=== PATIENT | female | born 1935 | race Caucasian/White ===

== ENCOUNTER 2018-08-07 16:29 | Emergency (ER) | payer MEDICARE, BC ==
--- NOTE | 2018-08-07 17:53 | EDM.PDOC ---
ED HPI GENERAL MEDICAL PROBLEM - General Chief Complaint: Lower Extremity Injury/Pain Stated Complaint: SENT FROM CLINIC [facility] Time Seen by Provider: 08/07/18 16:58 Source of Information: Reports: Patient, Old Records (previous ER records) History Limitations: Reports: No Limitations - History of Present Illness INITIAL COMMENTS - FREE TEXT/NARRATIVE: 83-year-old female sent from the clinic for evaluation and treatment of swelling to the bilateral lower legs. Feels that the left is worse than the right and she is now experiencing weeping from the left leg. She denies any pain to her legs. No chest pain or shortness of breath. Reports that she has gained approximately 20 pounds over the last 2 months. Her primary care providers Dr. Croft. She is currently on Lasix 20 mg twice a day and states she has not had this increasing quite some time. Review the patient's records show she was seen in May 2015 leg edema. Had an ultrasound done which was negative. The swelling to the legs has been going on at least since then. - Related Data Allergies Allergy/AdvReac Type Severity Reaction Status Date / Time Sulfa (Sulfonamide Allergy Hives Verified 08/07/18 16:39 Antibiotics) verapamil HCl [From [facility]] Allergy Cannot Verified 08/07/18 16:39 Remember Home Meds: Home Meds Calcium Carbonate/Vitamin D3 [Calcium 600 + Vit D 200] 200 - 600 mg PO DAILY [History] Cranberry Fruit Extract [Cranberry] 500 mg PO DAILY 06/09/15 [History] Enalapril [Vasotec] 40 mg PO DAILY 06/09/15 [History] Lysine [L-Lysine] 500 mg PO DAILY 06/09/15 [History] Pramipexole Di-HCl [Mirapex] 0.25 mg PO BID 06/09/15 [History] Atenolol 25 mg PO DAILY 08/07/18 [History] Furosemide [Lasix] 20 mg PO BID 08/07/18 [History] Potassium Chloride 20 meq PO DAILY #14 tablet.er 08/07/18 [Rx] Past Medical History Other HEENT History: has bilateral hearing aides, wears eyeglasses. Cardiovascular History: Reports: High Cholesterol, Hypertension Other Cardiovascular History: borderline cholesterol. Respiratory History: Reports: Pneumonia, Recurrent Genitourinary History: Reports: Urinary Incontinence, UTI, Recurrent Other Genitourinary History: stress incontinence. [employer] HYDRAULIC History: Reports: Other Neuro History: arterial venuous fistula--repair, cobalt Tx's. - Infectious Disease History Infectious Disease History: Reports: Chicken Pox, Measles, Mumps, Pertussis ( Whooping Cough) - Past Surgical History Other HEENT Surgeries/Procedures: adenoid surgery. GI Surgical History: Reports: Colonoscopy Female Surgical History: Reports: Hysterectomy Musculoskeletal Surgical History: Reports: Knee Replacement Social & Family History - Tobacco Use Smoking Status *Q: Never Smoker Second Hand Smoke Exposure: No - Caffeine Use Caffeine Use: Reports: Coffee - Recreational Drug Use Recreational Drug Use: No Review of Systems - Review of Systems Review Of Systems: See Below Constitutional: Reports: Other (reports recent weight gain) Respiratory: Denies: Shortness of Breath Cardiovascular: Reports: Edema (bilateral lower legs). Denies: Chest Pain Musculoskeletal: Denies: Leg Pain ED EXAM, GENERAL - Physical Exam Exam: See Below Exam Limited By: No Limitations General Appearance: Alert, WD/WN, No Apparent Distress Respiratory/Chest: No Respiratory Distress, Lungs Clear, Normal Breath Sounds Cardiovascular: Normal Peripheral Pulses, Regular Rate, Rhythm, No Murmur Extremities: Normal Inspection, Other (3+ bilteral pitting edema) Neurological: Alert, Oriented, Normal Cognition Psychiatric: Normal Affect, Normal Mood Skin Exam: Warm, Dry, Normal Color, Other (venous stasis dermatitis to the left medial lower leg) Course - Vital Signs Last Recorded V/S: Last Vital Signs Temp 97.2 F 08/07/18 19:05 Pulse 92 08/07/18 19:05 Resp 18 08/07/18 19:05 BP 196/76 H 08/07/18 19:05 Pulse Ox 99 08/07/18 19:05 - Orders/Labs/Meds Labs: Laboratory Tests 08/07/18 08/07/18 08/07/18 Range/Units 17:15 17:30 17:30 WBC 5.57 (3.98-10.04) K/mm3 RBC 4.48 (3.98-5.22) M/mm3 Hgb 13.8 (11.2-15.7) gm/L Hct 42.2 (34.1-44.9) % MCV 94.2 (79.4-94.8) fl MCH 30.8 (25.6-32.2) pg MCHC 32.7 (32.2-35.5) g/dl RDW Std Deviation 44.4 (36.4-46.3) fL Plt Count 247 (182-369) K/mm3 MPV 11.1 (9.4-12.3) fl Neut % (Auto) 67.9 (34.0-71.1) % Lymph % (Auto) 18.5 L (19.3-51.7) % [place] % (Auto) 11.7 (4.7-12.5) % Eos % (Auto) 1.3 (0.7-5.8) Baso % (Auto) 0.4 (0.1-1.2) % Neut # (Auto) 3.79 (1.56-6.13) K/mm3 Lymph # (Auto) 1.03 L (1.18-3.74) K/mm3 [place] # (Auto) 0.65 H (0.24-0.36) K/mm3 Eos # (Auto) 0.07 (0.04-0.36) K/mm3 Baso # (Auto) 0.02 (0.01-0.08) K/mm3 Sodium 144 (136-145) mEq/L Potassium 3.5 (3.5-5.1) mEq/L Chloride 105 (98-107) mEq/L Carbon Dioxide 29 (21-32) mEq/L Anion Gap 13.5 (5-15) BUN 37 H (7-18) mg/dL Creatinine 1.4 H (0.55-1.02) mg/dL Est Cr Clr Drug Dosing 26.75 mL/min Estimated GFR (MDRD) 36 (>60) mL/min BUN/Creatinine Ratio 26.4 H (14-18) Glucose 116 H (83-115) mg/dL Calcium 9.8 (8.5-10.1) mg/dL Total Bilirubin 0.7 (0.2-1.0) mg/dL AST 20 (15-37) U/L ALT 26 (14-59) U/L Alkaline Phosphatase 76 (46-116) U/L NT-Pro-B Natriuret Pep (0-450) pg/mL Total Protein 8.0 (6.4-8.2) g/dl Albumin 4.0 (3.4-5.0) g/dl Globulin 4.0 gm/dL Albumin/Globulin Ratio 1.0 (1-2) Urine Color Light yellow (Yellow) Urine Appearance Clear (Clear) Urine pH 7.0 (5.0-8.0) Ur Specific [place] 1.015 (1.005-1.030) Urine Protein Negative (Negative) Urine Glucose (UA) Negative (Negative) Urine Ketones Negative (Negative) Urine Occult Blood Negative (Negative) Urine Nitrite Negative (Negative) Urine Bilirubin Negative (Negative) Urine Urobilinogen 0.2 (0.2-1.0) Ur Leukocyte Esterase 1+ H (Negative) Urine RBC 0-5 (0-5) /hpf Urine WBC 5-10 H (0-5) /hpf Ur Epithelial Cells 0-5 (0-5) /hpf Urine Bacteria Few (FEW) /hpf Urine Mucus Not seen (FEW) /hpf 08/07/18 Range/Units 17:30 WBC (3.98-10.04) K/mm3 RBC (3.98-5.22) M/mm3 Hgb (11.2-15.7) gm/L Hct (34.1-44.9) % MCV (79.4-94.8) fl MCH (25.6-32.2) pg MCHC (32.2-35.5) g/dl RDW Std Deviation (36.4-46.3) fL Plt Count (182-369) K/mm3 MPV (9.4-12.3) fl Neut % (Auto) (34.0-71.1) % Lymph % (Auto) (19.3-51.7) % [place] % (Auto) (4.7-12.5) % Eos % (Auto) (0.7-5.8) Baso % (Auto) (0.1-1.2) % Neut # (Auto) (1.56-6.13) K/mm3 Lymph # (Auto) (1.18-3.74) K/mm3 [place] # (Auto) (0.24-0.36) K/mm3 Eos # (Auto) (0.04-0.36) K/mm3 Baso # (Auto) (0.01-0.08) K/mm3 Sodium (136-145) mEq/L Potassium (3.5-5.1) mEq/L Chloride (98-107) mEq/L Carbon Dioxide (21-32) mEq/L Anion Gap (5-15) BUN (7-18) mg/dL Creatinine (0.55-1.02) mg/dL Est Cr Clr Drug Dosing mL/min Estimated GFR (MDRD) (>60) mL/min BUN/Creatinine Ratio (14-18) Glucose (83-115) mg/dL Calcium (8.5-10.1) mg/dL Total Bilirubin (0.2-1.0) mg/dL AST (15-37) U/L ALT (14-59) U/L Alkaline Phosphatase (46-116) U/L NT-Pro-B Natriuret Pep 559 H (0-450) pg/mL Total Protein (6.4-8.2) g/dl Albumin (3.4-5.0) g/dl Globulin gm/dL Albumin/Globulin Ratio (1-2) Urine Color (Yellow) Urine Appearance (Clear) Urine pH (5.0-8.0) Ur Specific [place] (1.005-1.030) Urine Protein (Negative) Urine Glucose (UA) (Negative) Urine Ketones (Negative) Urine Occult Blood (Negative) Urine Nitrite (Negative) Urine Bilirubin (Negative) Urine Urobilinogen (0.2-1.0) Ur Leukocyte Esterase (Negative) Urine RBC (0-5) /hpf Urine WBC (0-5) /hpf Ur Epithelial Cells (0-5) /hpf Urine Bacteria (FEW) /hpf Urine Mucus (FEW) /hpf - Radiology Interpretation Free Text/Narrative:: chest xray shows no congestion, mild cardiomegaly. No acute intrathoracic process. - Re-Assessments/Exams Free Text/Narrative Re-Assessment/Exam: 08/07/18 18:43 I have reviewed the labs and xray with the patient. Will increase lasix and start on potassium. She is hesitant on doubling the lasix but will increase to 40mg am and 20mg PM. Close follow-up with PCP. Discharge instructions as documented. Departure - Departure Time of Disposition: 18:47 Disposition: Home, Self-Care 01 Condition: Good Clinical Impression: Edema - Discharge Information *PRESCRIPTION DRUG MONITORING PROGRAM REVIEWED*: No *COPY OF PRESCRIPTION DRUG MONITORING REPORT IN PATIENT SHAUN: No Prescriptions: Potassium Chloride 20 meq PO DAILY #14 tablet.er Instructions: Edema Referrals: Eliezer Stanley MD [Primary Care Provider] - Forms: ED Department Discharge Additional Instructions: Follow-up with your primary care provider within 2 weeks for recheck of your symptoms. Increase your Lasix to 40 mg in the morning and 20 mg in the afternoon. Low sodium diet. Continue to use your compression stockings. Elevate your legs is much as you are able to tolerate. Please return the ER if your symptoms change or worsen.
[2018-08-07 19:18] VITALS: BP 196/76
--- NOTE | 2018-08-08 06:57 | CR ---
Chest: Two views of the chest were obtained. Comparison: No prior chest x-ray is available. Heart is mildly enlarged with left ventricular configuration. Lungs are clear with no acute parenchymal change. Mild diffuse degenerative change is noted within the spine with kyphosis. Impression: 1. Findings as noted above. Nothing acute is appreciated. Diagnostic code #2
== END 2018-08-07 19:15 | disposition home or self-care (01) ==
LOC: JD.ED 16:29
DX: R22.9 Localized swelling, mass and lump, unspecified (principal); I10 Essential (primary) hypertension; E78.00 Pure hypercholesterolemia, unspecified; Z79.899 Other long term (current) drug therapy; Z87.440 Personal history of urinary (tract) infections; Z90.710 Acquired absence of both cervix and uterus; Z98.890 Other specified postprocedural states; Z88.1 Allergy status to other antibiotic agents; Z88.2 Allergy status to sulfonamides; Z88.8 Allergy status to other drugs, medicaments and biological substances
CPT/HCPCS: 36415; 71046; 71046-26; 80053; 81001; 83880; 85025; 99284

== ENCOUNTER 2020-02-18 18:50 | Emergency (ER) | payer MEDICARE, BC, OTHER ==
--- NOTE | 2020-02-18 19:12 | EDM.PDOC ---
ED HPI GENERAL MEDICAL PROBLEM - General Chief Complaint: General Stated Complaint: [facility] Time Seen by Provider: 02/18/20 18:56 Source of Information: Reports: Patient, EMS History Limitations: Reports: No Limitations - History of Present Illness INITIAL COMMENTS - FREE TEXT/NARRATIVE: 84-year-old female presents to the ED per [facility]. History suggest that she fell in her garage and was lying on the floor when her daughter found her. Patient reports that she was in the garage about 1700 hrs. and her daughter came over shortly after 1730 hrs. She is unsure why she collapsed. She indicates that her legs simply gave out and she fell to the floor. She indicates she fell forward onto her knees and hands and did not hit her head. She denies losing any consciousness. She feels dizzy and lightheaded however. She is off balance even standing at the bedside. On examination she has abrasions to her left upper back that are new as well as some ecchymoses to her elbows and lower right knee. The ecchymosis in the right upper shoulder is at least 2 or 3 days old . She denies any nausea or vomiting. She states she has eaten twice a day. She went for her 6-week post op bladder repair surgery yesterday and all was well. Apparently this was Dr. Lane at [facility] in [place]. She did have a Tong catheter in for a period of time. She reports she believes her urinalysis was checked yesterday. Told that all was well. By the sounds of things she had a rectocele cystocele repair. Onset: Today, Sudden Onset Date: 02/18/20 Onset Time: 17:00 Duration: Hour(s):, Intermittent Location: Reports: Back, Generalized (Generalized weakness) Quality: Reports: Other Severity: Moderate (Neurolysed weakness) Improves with: Reports: None Worsens with: Reports: Other Context: Reports: Trauma (All in the garage at home due to leg weakness and gave out on her.). Denies: Activity, Exercise (Thing in standing as she is off balance and weak in the legs.), Lifting, Sick Contact Associated Symptoms: Reports: Loss of Appetite, Malaise, Weakness (Normalized.). 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.) - Related Data Allergies Allergy/AdvReac Type Severity Reaction Status Date / Time Sulfa (Sulfonamide Allergy Hives Verified 02/18/20 18:55 Antibiotics) verapamil HCl [From [facility]] Allergy Cannot Verified 02/18/20 18:55 Remember Home Meds: Home Meds Enalapril [Vasotec] 40 mg PO DAILY 06/09/15 [History] Lysine [L-Lysine] 500 mg PO DAILY 06/09/15 [History] Pramipexole Di-HCl [Mirapex] 1 mg PO BID 06/09/15 [History] Furosemide [Lasix] 40 mg PO BID 08/07/18 [History] Labetalol [Normodyne] 100 mg PO TID 02/18/20 [History] Loratadine [Allergy] 10 mg PO DAILY 02/18/20 [History] traZODone HCl [Trazodone HCl] 100 mg PO BEDTIME 02/18/20 [History] Past Medical History Other HEENT History: has bilateral hearing aides, wears eyeglasses. Cardiovascular History: Reports: High Cholesterol, Hypertension Other Cardiovascular History: borderline cholesterol. Respiratory History: Reports: Pneumonia, Recurrent Genitourinary History: Reports: Urinary Incontinence, UTI, Recurrent Other Genitourinary History: stress incontinence. 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 Gamma knife treatment at the [facility] about 3 years ago. - Infectious Disease History Infectious Disease History: Reports: Chicken Pox, Measles, Mumps, Pertussis (Whooping Cough) - Past Surgical History Other HEENT Surgeries/Procedures: adenoid surgery. GI Surgical History: Reports: Colonoscopy Female Surgical History: Reports: Hysterectomy Musculoskeletal Surgical History: Reports: Knee Replacement Social & Family History - Caffeine Use Caffeine Use: Reports: Coffee - Living Situation & Occupation Living situation: Reports: Occupation: Retired ED ROS GENERAL - Review of Systems Review Of Systems: See Below Constitutional: Reports: Malaise, Weakness, Fatigue, Decreased Appetite. Denies: Fever, Chills, Weight Loss HEENT: Reports: Hearing Loss (Bilateral hearing aids.) Respiratory: Reports: No Symptoms. Denies: Cough, Sputum, Hemoptysis Cardiovascular: Reports: Dyspnea on Exertion, Edema (Running in both lower extremities. Wears bilateral JORDAN stockings above-knee), Lightheadedness. Denies: Chest Pain, Blood Pressure Problem, Claudication, Orthopnea, Palpit ations Endocrine: Reports: Fatigue GI/Abdominal: Reports: Decreased Appetite. Denies: Diarrhea, Flatus, Hematemesis, Hematochezia, Melena, Nausea, Vomiting, Other : Reports: Frequency, Incontinence (She is better since she had bladder surgery. Better since having bladder repair surgery 6 weeks ago), Other. Denies: Dysuria Musculoskeletal: Reports: Neck Pain (Times.), Shoulder Pain, Back Pain, Joint Pain (Specially left hip due to degenerative degenerative arthritis. She has had previous right total knee replacement. Arthritis both hips both knees.) Skin: Reports: Bruising (Is. Posterior shoulder over the shoulder blade.) Neurological: Reports: Dizziness (He does appear to be off kilter with her balance.), Difficulty Walking, Weakness, Gait Disturbance (Backseat gait.). Denies: Confusion, Headache, Numbness, Syncope, Tingling, Tremors, Trouble Speaking (Due to weakness and being off balance.), Change in Speech Psychiatric: Reports: No Symptoms Hematologic/Lymphatic: Reports: No Symptoms Immunologic: Reports: No Symptoms ED EXAM, GENERAL - Physical Exam Exam: See Below Exam Limited By: No Limitations General Appearance: Alert, WD/WN, Mild Distress, Other (Temperature is 36.8. Heart rate 107 and sinus. Respiratory 16 BP 107/65) Eye Exam: Bilateral Eye: Normal Inspection (Referral pallor or scleral icterus.), PERRL Ears: Hearing Loss (Is hearing aids in both ears.) Throat/Mouth: Normal Lips, Normal Oropharynx, Normal Voice, Other (Tongue is mildly dry and coated.) Head: Atraumatic, Normocephalic, Other (No signs of head or facial trauma.). No: Facial Swelling, Facial Tenderness Neck: Limited Range of Motion (We did), Tender Lateral (Only tender bilateral aspect of the neck. Essentially near full range of motion without pain.). No: Carotid Bruit, Lymphadenopathy (L), Lymphadenopathy (R), Thyromegaly Respiratory/Chest: No Respiratory Distress, Lungs Clear, Normal Breath Sounds, No Accessory Muscle Use, Chest Non-Tender, Other Cardiovascular: Regular Rate, Rhythm, No Gallop, No Murmur, No Rub. No: Normal Peripheral Pulses, No Edema Peripheral Pulses: 1+: Posterior Tibial (L), Posterior Tibial (R), Dorsalis Pedis (L), Dorsalis Pedis (R), 2+: Carotid (L), Carotid (R) GI/Abdominal: Normal Bowel Sounds, Soft, Non-Tender, No Organomegaly, No Abnormal Bruit, No Mass, Pelvis Stable Back Exam: Other (And has ecchymoses almost the size of her right scapula overlying the right scapula nontender. These bruises appear to be 3 or 4 days old. She cannot member how she got them. She has a linear abrasion over the left scapula starting superiorly and traveling vertically down her back again seems to be nontender without hematoma. She has had previous surgery over her lumbar spine she states in July scar is healing well. She is tender in this area but more less around the scar. No tenderness elicited on palpation of her rib cage chest wall or sternum. Pain elicited on compression of the thoracic and lumbar spinous processes.) Extremities: Pedal Edema (Was pitting edema both lower extremities wearing JORDAN stockings up above the knees bilaterally.), Other (Minimal abrasions over the right patella. New bruise probably over the medial right elbow.). No: Joint Swelling Neurological: Alert, Oriented, CN II-XII Intact, Normal Cognition, Abnormal Gait, Other (Patient has an ataxic gait.). No: Normal Gait Psychiatric: Normal Affect, Normal Mood Skin Exam: Warm, Dry, Intact, Pallor (Mildly pallid.) EKG INTERPRETATION EKG Date: 02/18/20 Time: 19:19 Rhythm: Other Rate (Beats/Min): 104 Mcgill: LAD-Left Mcgill Deviation (-56 degrees.) P-Wave: Enlarged (Left atrial hypertrophy) QRS: Other (Left anterior fascicular block.) ST-T: Depressed (T-segment depression appreciated V3 to V6 is also as well as leads II and III cannot rule out anterior inferior ischemia.) QT: Prolonged (Moderately prolonged) EKG Interpretation Comments: Abnormal ECG Course - Vital Signs Last Recorded V/S: Last Vital Signs Temp 36.2 C 02/18/20 21:36 Pulse 92 02/18/20 21:36 Resp 16 02/18/20 21:36 BP 117/66 02/18/20 21:36 Pulse Ox 99 02/18/20 21:36 Orthostatic Blood Pressure [ 100/58 Standing] Orthostatic Blood Pressure [ 101/46 Supine] - Orders/Labs/Meds Orders: Active Orders 24 hr Category Date Time Status EKG Documentation Completion [RC] STAT Care 02/18/20 19:07 Active Orthostatic Vital Signs [RC] ASDIRECTED Care 02/18/20 19:14 Active Oxygen Therapy [RC] ASDIRECTED Care 02/18/20 20:10 Active Chest 1V Frontal [CR] Stat Exams 02/18/20 19:07 Taken CULTURE BLOOD [BC] Stat Lab 02/18/20 19:32 Received CULTURE BLOOD [BC] Stat Lab 02/18/20 19:44 Received CULTURE URINE [RM] Stat Lab 02/18/20 19:05 Received Dextrose 5%-Lactated Ringers 1,000 ml Med 02/18/20 19:15 Active IV ASDIRECTED Blood Culture x2 Reflex Set [OM.PC] Stat Oth 02/18/20 19:08 Ordered Medication Orders Dextrose/Lactated Ringer's (Dextrose 5%-Lactated Ringers) 1,000 mls @ 150 mls/hr IV ASDIRECTED ASA Last Admin: 02/18/20 19:27 Dose: 150 mls/hr Documented by: HETAL Labs: Laboratory Tests 02/18/20 02/18/20 02/18/20 Range/Units 19:05 19:32 19:32 WBC 14.96 H (3.98-10.04) K/mm3 RBC 3.98 (3.98-5.22) M/mm3 Hgb 12.2 D (11.2-15.7) gm/dl Hct 38.2 (34.1-44.9) % MCV 96.0 H (79.4-94.8) fl MCH 30.7 (25.6-32.2) pg MCHC 31.9 L (32.2-35.5) g/dl RDW Std Deviation 46.7 H (36.4-46.3) fL Plt Count 245 (182-369) K/mm3 MPV 11.3 (9.4-12.3) fl Neut % (Auto) 88.5 H (34.0-71.1) % Lymph % (Auto) 3.0 L (19.3-51.7) % [place] % (Auto) 7.9 (4.7-12.5) % Eos % (Auto) 0.3 L (0.7-5.8) Baso % (Auto) 0.1 (0.1-1.2) % Neut # (Auto) 13.23 H (1.56-6.13) K/mm3 Lymph # (Auto) 0.45 L (1.18-3.74) K/mm3 [place] # (Auto) 1.18 H (0.24-0.36) K/mm3 Eos # (Auto) 0.05 (0.04-0.36) K/mm3 Baso # (Auto) 0.02 (0.01-0.08) K/mm3 Manual Slide Review Abnormal smear ESR (0-20) mm/hr PT 10.5 (9.7-12.0) SECONDS INR 0.96 APTT 27 (22-31) SECONDS D-Dimer, Quantitative (0.19-0.50) mg/L Sodium (136-145) mEq/L Potassium (3.5-5.1) mEq/L Chloride (98-107) mEq/L Carbon Dioxide (21-32) mEq/L Anion Gap (5-15) BUN (7-18) mg/dL Creatinine (0.55-1.02) mg/dL Est Cr Clr Drug Dosing mL/min Estimated GFR (MDRD) (>60) mL/min BUN/Creatinine Ratio (14-18) Glucose (83-115) mg/dL Serum Osmolality (280-300) mosm/kg Calcium (8.5-10.1) mg/dL Magnesium (1.8-2.4) mg/dl Total Bilirubin (0.2-1.0) mg/dL AST (15-37) U/L ALT (14-59) U/L Alkaline Phosphatase (46-116) U/L Creatine Kinase (26-192) U/L CK-MB (CK-2) (0-3.6) ng/ml Troponin I (0.00-0.056) ng/mL C-Reactive Protein (<1.0) mg/dL NT-Pro-B Natriuret Pep (0-450) pg/mL Total Protein (6.4-8.2) g/dl Albumin (3.4-5.0) g/dl Globulin gm/dL Albumin/Globulin Ratio (1-2) Urine Color Yellow (Yellow) Urine Appearance Clear (Clear) Urine pH 7.5 (5.0-8.0) Ur Specific [place] 1.020 (1.005-1.030) Urine Protein 1+ H (Negative) Urine Glucose (UA) Negative (Negative) Urine Ketones Negative (Negative) Urine Occult Blood 1+ H (Negative) Urine Nitrite Negative (Negative) Urine Bilirubin Negative (Negative) Urine Urobilinogen 0.2 (0.2-1.0) Ur Leukocyte Esterase 1+ H (Negative) Urine RBC 10-20 H (0-5) /hpf Urine WBC 10-20 H (0-5) /hpf Ur Squamous Epith Cells 0-5 (0-5) /hpf Urine Bacteria Few (FEW) /hpf Urine Mucus Few (FEW) /hpf COVID-19 (SERGEI) (NEGATIVE) 02/18/20 02/18/20 02/18/20 Range/Units 19:32 19:32 19:32 WBC (3.98-10.04) K/mm3 RBC (3.98-5.22) M/mm3 Hgb (11.2-15.7) gm/dl Hct (34.1-44.9) % MCV (79.4-94.8) fl MCH (25.6-32.2) pg MCHC (32.2-35.5) g/dl RDW Std Deviation (36.4-46.3) fL Plt Count (182-369) K/mm3 MPV (9.4-12.3) fl Neut % (Auto) (34.0-71.1) % Lymph % (Auto) (19.3-51.7) % [place] % (Auto) (4.7-12.5) % Eos % (Auto) (0.7-5.8) Baso % (Auto) (0.1-1.2) % Neut # (Auto) (1.56-6.13) K/mm3 Lymph # (Auto) (1.18-3.74) K/mm3 [place] # (Auto) (0.24-0.36) K/mm3 Eos # (Auto) (0.04-0.36) K/mm3 Baso # (Auto) (0.01-0.08) K/mm3 Manual Slide Review ESR 39 H (0-20) mm/hr PT (9.7-12.0) SECONDS INR APTT (22-31) SECONDS D-Dimer, Quantitative (0.19-0.50) mg/L Sodium 137 (136-145) mEq/L Potassium 3.8 (3.5-5.1) mEq/L Chloride 98 (98-107) mEq/L Carbon Dioxide 30 (21-32) mEq/L Anion Gap 12.8 (5-15) BUN 36 H (7-18) mg/dL Creatinine 1.7 H (0.55-1.02) mg/dL Est Cr Clr Drug Dosing 0.94 mL/min Estimated GFR (MDRD) 29 (>60) mL/min BUN/Creatinine Ratio 21.2 H (14-18) Glucose 169 H (83-115) mg/dL Serum Osmolality (280-300) mosm/kg Calcium 9.2 (8.5-10.1) mg/dL Magnesium 2.2 (1.8-2.4) mg/dl Total Bilirubin 0.9 (0.2-1.0) mg/dL AST 26 (15-37) U/L ALT 21 (14-59) U/L Alkaline Phosphatase 80 (46-116) U/L Creatine Kinase (26-192) U/L CK-MB (CK-2) 5.0 H (0-3.6) ng/ml Troponin I 1.579 H* (0.00-0.056) ng/mL C-Reactive Protein 2.8 H* (<1.0) mg/dL NT-Pro-B Natriuret Pep 479 H (0-450) pg/mL Total Protein 7.4 (6.4-8.2) g/dl Albumin 3.5 (3.4-5.0) g/dl Globulin 3.9 gm/dL Albumin/Globulin Ratio 0.9 L (1-2) Urine Color (Yellow) Urine Appearance (Clear) Urine pH (5.0-8.0) Ur Specific [place] (1.005-1.030) Urine Protein (Negative) Urine Glucose (UA) (Negative) Urine Ketones (Negative) Urine Occult Blood (Negative) Urine Nitrite (Negative) Urine Bilirubin (Negative) Urine Urobilinogen (0.2-1.0) Ur Leukocyte Esterase (Negative) Urine RBC (0-5) /hpf Urine WBC (0-5) /hpf Ur Squamous Epith Cells (0-5) /hpf Urine Bacteria (FEW) /hpf Urine Mucus (FEW) /hpf COVID-19 (SERGEI) (NEGATIVE) 02/18/20 02/18/20 02/18/20 Range/Units 19:32 19:32 19:32 WBC (3.98-10.04) K/mm3 RBC (3.98-5.22) M/mm3 Hgb (11.2-15.7) gm/dl Hct (34.1-44.9) % MCV (79.4-94.8) fl MCH (25.6-32.2) pg MCHC (32.2-35.5) g/dl RDW Std Deviation (36.4-46.3) fL Plt Count (182-369) K/mm3 MPV (9.4-12.3) fl Neut % (Auto) (34.0-71.1) % Lymph % (Auto) (19.3-51.7) % [place] % (Auto) (4.7-12.5) % Eos % (Auto) (0.7-5.8) Baso % (Auto) (0.1-1.2) % Neut # (Auto) (1.56-6.13) K/mm3 Lymph # (Auto) (1.18-3.74) K/mm3 [place] # (Auto) (0.24-0.36) K/mm3 Eos # (Auto) (0.04-0.36) K/mm3 Baso # (Auto) (0.01-0.08) K/mm3 Manual Slide Review ESR (0-20) mm/hr PT (9.7-12.0) SECONDS INR APTT (22-31) SECONDS D-Dimer, Quantitative 2.08 H (0.19-0.50) mg/L Sodium (136-145) mEq/L Potassium (3.5-5.1) mEq/L Chloride (98-107) mEq/L Carbon Dioxide (21-32) mEq/L Anion Gap (5-15) BUN (7-18) mg/dL Creatinine (0.55-1.02) mg/dL Est Cr Clr Drug Dosing mL/min Estimated GFR (MDRD) (>60) mL/min BUN/Creatinine Ratio (14-18) Glucose (83-115) mg/dL Serum Osmolality 304 H (280-300) mosm/kg Calcium (8.5-10.1) mg/dL Magnesium (1.8-2.4) mg/dl Total Bilirubin (0.2-1.0) mg/dL AST (15-37) U/L ALT (14-59) U/L Alkaline Phosphatase (46-116) U/L Creatine Kinase 468 H (26-192) U/L CK-MB (CK-2) (0-3.6) ng/ml Troponin I (0.00-0.056) ng/mL C-Reactive Protein (<1.0) mg/dL NT-Pro-B Natriuret Pep (0-450) pg/mL Total Protein (6.4-8.2) g/dl Albumin (3.4-5.0) g/dl Globulin gm/dL Albumin/Globulin Ratio (1-2) Urine Color (Yellow) Urine Appearance (Clear) Urine pH (5.0-8.0) Ur Specific [place] (1.005-1.030) Urine Protein (Negative) Urine Glucose (UA) (Negative) Urine Ketones (Negative) Urine Occult Blood (Negative) Urine Nitrite (Negative) Urine Bilirubin (Negative) Urine Urobilinogen (0.2-1.0) Ur Leukocyte Esterase (Negative) Urine RBC (0-5) /hpf Urine WBC (0-5) /hpf Ur Squamous Epith Cells (0-5) /hpf Urine Bacteria (FEW) /hpf Urine Mucus (FEW) /hpf COVID-19 (SERGEI) (NEGATIVE) 02/18/20 Range/Units 22:10 WBC (3.98-10.04) K/mm3 RBC (3.98-5.22) M/mm3 Hgb (11.2-15.7) gm/dl Hct (34.1-44.9) % MCV (79.4-94.8) fl MCH (25.6-32.2) pg MCHC (32.2-35.5) g/dl RDW Std Deviation (36.4-46.3) fL Plt Count (182-369) K/mm3 MPV (9.4-12.3) fl Neut % (Auto) (34.0-71.1) % Lymph % (Auto) (19.3-51.7) % [place] % (Auto) (4.7-12.5) % Eos % (Auto) (0.7-5.8) Baso % (Auto) (0.1-1.2) % Neut # (Auto) (1.56-6.13) K/mm3 Lymph # (Auto) (1.18-3.74) K/mm3 [place] # (Auto) (0.24-0.36) K/mm3 Eos # (Auto) (0.04-0.36) K/mm3 Baso # (Auto) (0.01-0.08) K/mm3 Manual Slide Review ESR (0-20) mm/hr PT (9.7-12.0) SECONDS INR APTT (22-31) SECONDS D-Dimer, Quantitative (0.19-0.50) mg/L Sodium (136-145) mEq/L Potassium (3.5-5.1) mEq/L Chloride (98-107) mEq/L Carbon Dioxide (21-32) mEq/L Anion Gap (5-15) BUN (7-18) mg/dL Creatinine (0.55-1.02) mg/dL Est Cr Clr Drug Dosing mL/min Estimated GFR (MDRD) (>60) mL/min BUN/Creatinine Ratio (14-18) Glucose (83-115) mg/dL Serum Osmolality (280-300) mosm/kg Calcium (8.5-10.1) mg/dL Magnesium (1.8-2.4) mg/dl Total Bilirubin (0.2-1.0) mg/dL AST (15-37) U/L ALT (14-59) U/L Alkaline Phosphatase (46-116) U/L Creatine Kinase (26-192) U/L CK-MB (CK-2) (0-3.6) ng/ml Troponin I (0.00-0.056) ng/mL C-Reactive Protein (<1.0) mg/dL NT-Pro-B Natriuret Pep (0-450) pg/mL Total Protein (6.4-8.2) g/dl Albumin (3.4-5.0) g/dl Globulin gm/dL Albumin/Globulin Ratio (1-2) Urine Color (Yellow) Urine Appearance (Clear) Urine pH (5.0-8.0) Ur Specific [place] (1.005-1.030) Urine Protein (Negative) Urine Glucose (UA) (Negative) Urine Ketones (Negative) Urine Occult Blood (Negative) Urine Nitrite (Negative) Urine Bilirubin (Negative) Urine Urobilinogen (0.2-1.0) Ur Leukocyte Esterase (Negative) Urine RBC (0-5) /hpf Urine WBC (0-5) /hpf Ur Squamous Epith Cells (0-5) /hpf Urine Bacteria (FEW) /hpf Urine Mucus (FEW) /hpf COVID-19 (SERGEI) Negative (NEGATIVE) Meds: Medications Generic Name Dose Route Start Last Admin Trade Name Freq PRN Reason Stop Dose Admin Dextrose/Lactated Ringer's 1,000 mls @ 150 mls/hr 02/18/20 19:15 02/18/20 19:27 Dextrose 5%-Lactated Ringers IV 150 mls/hr ASDIRECTED ASA Administration Discontinued Medications Generic Name Dose Route Start Last Admin Trade Name Freq PRN Reason Stop Dose Admin Ceftriaxone Sodium 1 gm/ 100 mls @ 200 mls/hr 02/18/20 21:15 02/18/20 21:36 Sodium Chloride IV 02/18/20 21:44 200 mls/hr ONETIME ONE Administration - Radiology Interpretation Free Text/Narrative:: 84-year-old female presents to the ED after a fall in her garage at home presumably around 1700 hrs. is what the patient indicates. She was found by her daughter at 1730 hrs. on the garage floor too weak to get up. The ambulance was therefore summoned. Likely that it was around 1830 when her daughter found her as she presented to the ED shortly before 7 PM tonight. She indicates she had surgery on her bladder about 6 weeks ago lumbar spine surgery in July of this year. Her legs have been weak the last few days and she states they simply gave out on her causing her to fall to her knees in the garage today. She denies hitting her head or losing consciousness. She denies a headache nausea or vomiting. Janata bowel movement shortly after getting to the ED. Noted to be ataxic when we stand her up and lightheaded and grasping for something to hang onto. Examination does not reveal any signs of trauma to the head or neck. Bruising on the right scapula which is 3 to 4 days old. Abrasion linearly on the left upper back over the scapula without signs of fracture. She has a new bruise appearing on her right posterior elbow with olecranon process. Minimal contusion to the right patella. Has terrible arthritis in both hips previous right total knee replacement and left knee arthritis on exam. Chronic dependent edema both lower extremities. Plan : CT head. Chest x-ray 1 view. Routine labs to be performed. IV will be D5 LR at 150 mils per hour. He will be placed on oxygen 2 L/min as initial O2 sats suggest she is only 90% on room air. - Re-Assessments/Exams Free Text/Narrative Re-Assessment/Exam: 02/18/20 20:54 chest x-ray done portably is slightly rotated to the right. She has mildly hyperinflated lungs bilaterally. Mild prominence of the right pulmonary artery. Otherwise the lungs are clear. Mild cardiomegaly appreciated. Unchanged from comparison to previous chest x-ray. The of the brain has been completed. With no contrast. Ventricles along with both basal cisterns and sulci over the convexities are mildly prominent consistent with the patient's age. Diminished density is noted within portions of the periventricular white matter which is most likely due to small vessel ischemic demyelination change. Similar findings appear to be present within the javad. No other abnormal parenchymal densities are seen. Small area of increased density is noted within the left basal ganglia. This finding is suspicious for a small basal ganglia bleed measuring about 7.5 mm. No midline shift or mass- effect is seen. Bone window settings were reviewed. Mild soft tissue density seen within the inferior left mastoid sinus. Right mastoid sinuses are clear. Visualized paranasal sinuses are clear no discrete calvarial abnormality appreciated. 02/18/20 20:58 Hematology is back revealing an elevated white count at 14.96. There is a left shift with 88.5% neutrophils reported on the auto differential. Hemoglobin is 12.2 with hematocrit of 38.2. MCV is slightly elevated 96.0. Platelet count normal at 245,000. The slide reveals normal adequate platelets. Normal RBC morphology morphology. White blood cell count review reveals neutrophilia lymphopenia and no bands cells reported. PT is 10.5 with an INR of 0.96. PTT is 27. D-dimer is elevated at 2.08. Sodium is 137 with a potassium of 3.8. Chloride is 98 with a bicarb of 30. Anion gap is 12.8. BUN is 36 with a creatinine of 1.7 GFR is very low at 29 i.e. stage IV chronic kidney disease. BUN/creatinine ratio mildly elevated 21.2 suggesting mild volume depletion. Glucose elevated 169. Patient is diabetic. Calcium is 9.2 with a magnesium of 2.2. Total bilirubin 0.9. AST is 26 with an ALT of 21. Alk phosphatase is 80. CK-MB fraction is elevated at 5.0 with a troponin I elevated at 1.579 suggesting recent myocardial infarction. C-reactive protein is 2.8 with a BNP of 479. Total protein 7.4 with an albumin fraction of 3.5. Urinalysis shows 1+ proteinuria 1+ occult blood 1+ leukocyte esterase with 10-20 RBCs per per field and 10-20 white blood cells per high-power field. Note elevated troponin correlates with ECG changes which suggest non-STEMI involving the anterior septal and inferior cardona. With questionable hemorrhage into the left basal ganglia anticoagulation with heparin is contraindicated at this time. Therefore the patient will have to sent to [place] for cardiology consultation and treatment and MRI of her brain to rule out hemorrhage in the left basal ganglia before placing on any anticoagulation. 02/18/20 21:14 patient and daughter in the room and I discussed the findings today. Possible low-grade urinary tract infection we will give Rocephin 1 g IV. Elevated cardiac markers and ECG changes compatible with a non-STEMI. Questionable bleed within the left basal ganglia reported by radiology. 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 She has lost her balance since that time she believes that slowly getting worse. She wishes to be transferred to [facility] in [place] for cardiology management and rule out a brain bleed. On permanent questioning she did have some bad heartburn night before last which likely represented acute myocardial infarction. She has no history of HI. These changes seen in the left basal ganglia may well be due to calcification from previous gamma knife treatment of an AV malformation. An MRI of her brain will need to be done to rule out a bleed before she is placed on any anticoagulant. 02/18/20 22:05: Discussed the patient with the on-call nurse at [facility] approximately 2145 hrs. tonight but hospitalist was unavailable to accept my call in the call back around 2205 hrs. Care has been accepted after discussion with Dr. [employer] community relations coordinator and Dr. Dumont hospitalist. Plan will be to admit her to a telemetry bed and monitor her without heparin or anticoagulation. MRI of the brain in the morning to confirm whether or not there is any bleed within the left basal ganglia. 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 Clinically however she has suffered a non- STEMI with elevated cardiac markers and abnormal ECG. Urine has been sent for culture for possible urinary tract infection. Departure - Departure Time of Disposition: 22:50 Disposition: DC/Tfer to Acute Hospital 02 Condition: Fair Clinical Impression: Non-STEMI (non-ST elevated myocardial infarction), Abnormal electrocardiogram [ECG] [EKG], Elevated troponin I measurement, Urinary tract infection, Abnormal brain CT, Chronic renal insufficiency, stage IV (severe), Volume depletion, unspecified - Discharge Information *PRESCRIPTION DRUG MONITORING PROGRAM REVIEWED*: Not Applicable *COPY OF PRESCRIPTION DRUG MONITORING REPORT IN PATIENT SHAUN: Not Applicable Referrals: PCP,Unknown [Ordering Only Provider] - Forms: ED Department Discharge Additional Instructions: Patient will be transferred to [facility] in [place] for cardiology assessment and treatment. She has an abnormal ECG and elevated cardiac markers suggestive of a non-STEMI. She had quite bad heartburn night before last but no pain at present. Fall at home in her garage today with minimal injuries to right knee right elbow and left upper back. 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 Patient has an ataxic gait which she comments is always present worse getting worse however. Patient has a positive urinalysis after cystocele and rectocele repair [address] Balbuena [facility]. Patient has received Rocephin 1 g IV. Urine culture has been ordered. Blood cultures were done as the patient was hypoxic upon arrival. Chest x-ray negative for pneumonia. Covid screen done and was reported as negative. Sepsis Event Note (ED) - Evaluation Sepsis Screening Result: No Definite Risk - Focused Exam Vital Signs: Vital Signs Temp Pulse Resp BP Pulse Ox 02/18/20 21:36 36.2 C 92 16 117/66 99 02/18/20 18:55 36.8 C 107 H 16 107/65 90 L - My Orders Last 24 Hours: My Active Orders 02/18/20 19:05 CULTURE URINE [RM] Stat 02/18/20 19:07 EKG Documentation Completion [RC] STAT Chest 1V Frontal [CR] Stat 02/18/20 19:08 Blood Culture x2 Reflex Set [OM.PC] Stat 02/18/20 19:14 Orthostatic Vital Signs [RC] ASDIRECTED 02/18/20 19:15 Dextrose 5%-Lactated Ringers 1,000 ml IV ASDIRECTED 02/18/20 19:32 CULTURE BLOOD [BC] Stat 02/18/20 19:44 CULTURE BLOOD [BC] Stat 02/18/20 20:10 Oxygen Therapy [RC] ASDIRECTED - Assessment/Plan Last 24 Hours: My Active Orders 02/18/20 19:05 CULTURE URINE [RM] Stat 02/18/20 19:07 EKG Documentation Completion [RC] STAT Chest 1V Frontal [CR] Stat 02/18/20 19:08 Blood Culture x2 Reflex Set [OM.PC] Stat 02/18/20 19:14 Orthostatic Vital Signs [RC] ASDIRECTED 02/18/20 19:15 Dextrose 5%-Lactated Ringers 1,000 ml IV ASDIRECTED 02/18/20 19:32 CULTURE BLOOD [BC] Stat 02/18/20 19:44 CULTURE BLOOD [BC] Stat 02/18/20 20:10 Oxygen Therapy [RC] ASDIRECTED
[2020-02-18] MEDS ORDERED: Dextrose 5%-Lactated Ringers 1,000 ML IV SCH (19:15)
--- NOTE | 2020-02-18 20:25 | CT ---
Head CT Technique: Multiple axial sections through the brain were obtained. Intravenous contrast was not utilized. Comparison: No previous intracranial imaging is available. Findings: Ventricles along with basal cisterns and sulci over the convexities are within normal limits for the patient's age. Diminished density is noted within portions of the periventricular white matter which is most likely due to small vessel ischemic demyelination change. Similar findings appear to be present within the javad. No other abnormal parenchymal densities are seen. Small area of increased density is noted within the left basal ganglia. This finding is suspicious for a small basal ganglia bleed measuring about 7.5 mm. No midline shift or mass-effect is seen. Bone window settings were reviewed. Mild soft tissue density seen within the inferior left mastoid sinus. Right mastoid sinus is clear. Visualized paranasal sinuses are clear. No discrete calvarial abnormality is seen. Impression: 1. Mild senescent change as noted above. 2. Small basal ganglia hemorrhage believed to be present on the left side measuring 7.5 mm. Recommend follow-up study in the a.m to confirm that this remains stable. 3. Slight soft tissue density within the inferior left mastoid sinus which I believe is most likely chronic. Diagnostic code #3 This report was dictated in MDT
[2020-02-18] MEDS ORDERED: cefTRIAXone 1 GM in Sodium Chloride 0.9% 100 ML IV ONE (21:15)
[2020-02-18 21:37] VITALS: BP 117/66; PULSE 92
--- NOTE | 2020-02-19 11:29 | CR ---
Chest: Portable view of the chest was obtained. Comparison: Prior chest x-ray of 08/07/18. Heart size is within normal limits for portable technique. Tortuous thoracic aorta is seen. Lungs are clear with no acute parenchymal change. Bony structures are grossly intact. Impression: 1. Nothing acute is seen on portable chest x-ray. Diagnostic code #1 This report was dictated in MDT
== END 2020-02-18 23:10 ==
LOC: JD.ED 18:50
DX: I21.4 Non-ST elevation (NSTEMI) myocardial infarction (principal); R94.31 Abnormal electrocardiogram [ECG] [EKG]; R79.89 Other specified abnormal findings of blood chemistry; N39.0 Urinary tract infection, site not specified; R93.0 Abnormal findings on diagnostic imaging of skull and head, not elsewhere classified; I12.9 Hypertensive chronic kidney disease with stage 1 through stage 4 chronic kidney disease, or unspecified chronic kidney disease; N18.4 Chronic kidney disease, stage 4 (severe); E86.9 Volume depletion, unspecified; Z88.2 Allergy status to sulfonamides; Z88.8 Allergy status to other drugs, medicaments and biological substances; Z79.899 Other long term (current) drug therapy; Z20.828 Contact with and (suspected) exposure to other viral communicable diseases
CPT/HCPCS: 36415; 70450; 71045; 80053; 81001; 82550; 82553; 83735; 83880; 83930; 84484; 85025; 85379; 85610; 85652; 85730; 86140; 87040; 87086; 87088; 87186; 93005; 96361; 96365; 99285; J0696; J7050; J7121; U0002; 93010

== ENCOUNTER 2020-04-01 06:49 | Emergency (ER) | payer MEDICARE, BC ==
[2020-04-01 07:18] VITALS: BP 151/69; PULSE 77
== END 2020-04-01 07:30 | disposition home or self-care (01) ==
LOC: JD.ED 06:49
DX: Z48.00 Encounter for change or removal of nonsurgical wound dressing (principal)
CPT/HCPCS: 99281

== ENCOUNTER 2020-06-10 13:12 | Emergency (ER) | payer MEDICARE, BC ==
[2020-06-10 13:20] VITALS: BP 131/57; PULSE 81
[2020-06-10] MEDS ORDERED: Sodium Chloride 0.9% 10 ML Syringe FLUSH PRN (13:24)
[2020-06-10] MEDS ORDERED: Sodium Chloride 0.9% 1,000 ML IV SCH (13:30)
--- NOTE | 2020-06-10 14:37 | CT ---
PROCEDURE INFORMATION: Exam: CT Head Without Contrast Exam date and time: 06/10/2020 1:32 PM Age: 85 years old Clinical indication: Other: Fell on blood thinners; Patient HX: Patient fell on Sunday she states TECHNIQUE: Imaging protocol: Computed tomography of the head without contrast. Other technique: COMPARISON: CT Head wo Cont 02/18/2020 7:33 PM FINDINGS: Brain: Moderate global atrophy. No hemorrhage. Confluent white matter hypointensity likely due to chronic microvascular ischemia. No mass effect. Cerebral ventricles: No ventriculomegaly. Bones/joints: Unremarkable. No acute fracture. Paranasal sinuses: Visualized sinuses are unremarkable. No fluid levels. Mastoid air cells: Visualized mastoid air cells are well aerated. Soft tissues: Unremarkable. IMPRESSION: No acute intracranial abnormality. Thank you for allowing us to participate in the care of your patient. Dictated and Authenticated by: Roberto Hilario MD 06/10/2020 3:35 PM Central Time ([place] & [place]) [facility]
--- NOTE | 2020-06-10 14:39 | EDM.PDOC ---
ED HPI GENERAL MEDICAL PROBLEM - General Chief Complaint: General Stated Complaint: [facility] Time Seen by Provider: 06/10/20 13:19 Source of Information: Reports: Patient, EMS, Prison Records History Limitations: Reports: No Limitations - History of Present Illness INITIAL COMMENTS - FREE TEXT/NARRATIVE: The patient presents by [facility] for an unresponsive episode and hypotension. The patient is a resident of [facility]. She took a nap today and staff tried to wake her up but she would not wake up and they had to do a sternal rub to wake her up. Her BP was 60/30. When EMS arrived her BP was in the 110s. When she arrived here her BP was in the 130s. She fell a couple days ago. She has a contusion to her left forehead. She is on both plavix and eliquis. She feels good now. She has no headache or neck pain. She has no fever, chills, cough, congestion, runny nose, chest pain, shortness of breath, abdominal pain, nausea, vomiting or diarrhea. The patient says lately her legs have been weak and she was seeing someone today for that. Her doctor is Dr Croft but she did not think it was him. Onset: Sudden Duration: Minutes: Severity: Mild Improves with: Reports: None Worsens with: Reports: None Associated Symptoms: Reports: No Other Symptoms - Related Data Allergies Allergy/AdvReac Type Severity Reaction Status Date / Time amlodipine Allergy Severe Cannot Verified 06/10/20 13:27 Remember pneumococcal vaccine Allergy Severe Cannot Verified 06/10/20 13:27 Remember Sulfa (Sulfonamide Allergy Severe Hives Verified 06/10/20 13:27 Antibiotics) verapamil HCl [From [place]] Allergy Severe Cannot Verified 06/10/20 13:27 Remember Home Meds: Home Meds Enalapril [Vasotec] 20 mg PO DAILY 06/09/15 [History] Lysine [L-Lysine] 1 tab PO DAILY 06/09/15 [History] Pramipexole Di-HCl [Mirapex] 1 mg PO DAILY 06/09/15 [History] Furosemide [Lasix] 20 mg PO DAILY 08/07/18 [History] Labetalol [Normodyne] 200 mg PO TID 02/18/20 [History] Loratadine [Allergy] 10 mg PO DAILY 02/18/20 [History] traZODone HCl [Trazodone HCl] 100 mg PO BEDTIME PRN 02/18/20 [History] Calcium Carb/Vitamin D3/Vit K1 [Calcium + D Soft Chewable Tab] 1 each PO DAILY 04/01/20 [History] Clopidogrel Bisulfate [Plavix] 75 mg PO DAILY 04/01/20 [History] Cranberry 1,500 mg PO DAILY 04/01/20 [History] L.acidoph,Paracasei, B.lactis [Probiotic] 1 each PO DAILY 04/01/20 [History] Magnesium Oxide [Magnesium] 400 mg PO DAILY 04/01/20 [History] Nitroglycerin 0.4 mg SL ASDIRECTED PRN 04/01/20 [History] Spironolactone [Aldactone] 25 mg PO DAILY 04/01/20 [History] atorvaSTATin [Lipitor] 40 mg PO DAILY 04/01/20 [History] Apixaban [Eliquis] 5 mg PO BID 06/10/20 [History] Folic Acid 1 mg PO DAILY 06/10/20 [History] Gabapentin [Neurontin] 100 mg PO BEDTIME 06/10/20 [History] Triamcinolone Acetonide [Triamcinolone Acetonide 0.1% Crm] 1 applic TOP BID 06/10/20 [History] cephALEXin [Keflex] 500 mg PO BID #10 capsule 06/10/20 [Rx] Past Medical History Other HEENT History: has bilateral hearing aides, wears eyeglasses. Cardiovascular History: Reports: High Cholesterol, Hypertension Other Cardiovascular History: borderline cholesterol. Respiratory History: Reports: Pneumonia, Recurrent Genitourinary History: Reports: Urinary Incontinence, UTI, Recurrent Other Genitourinary History: stress incontinence. [employer] History: Reports: Other Neuro History: arterial venuous fistula--repair, cobalt Tx's. Gamma knife treatment at the [facility] about 3 years ago. Psychiatric History: Reports: None Endocrine/Metabolic History: Reports: Obesity/BMI 30+ Hematologic History: Reports: Anticoagulation Therapy Immunologic History: Reports: None Oncologic (Cancer) History: Reports: None Dermatologic History: Reports: None - Infectious Disease History Infectious Disease History: Reports: None - Past Surgical History Other HEENT Surgeries/Procedures: adenoid surgery. GI Surgical History: Reports: Colonoscopy Female Surgical History: Reports: Hysterectomy, Other (See Below) Other Female Surgeries/Procedures: Bladder Surgery Neurological Surgical History: Reports: Laminectomy Musculoskeletal Surgical History: Reports: Knee Replacement Social & Family History - Tobacco Use Tobacco Use Status *Q: Never Tobacco User - Caffeine Use Caffeine Use: Reports: Coffee - Recreational Drug Use Recreational Drug Use: No - Living Situation & Occupation Living situation: Reports: Occupation: Retired ED ROS GENERAL - Review of Systems Review Of Systems: See Below Constitutional: Reports: No Symptoms HEENT: Reports: No Symptoms Respiratory: Reports: No Symptoms Cardiovascular: Reports: No Symptoms Endocrine: Reports: No Symptoms GI/Abdominal: Reports: No Symptoms : Reports: No Symptoms Musculoskeletal: Reports: No Symptoms Skin: Reports: No Symptoms ED EXAM, GENERAL - Physical Exam Exam: See Below Exam Limited By: No Limitations General Appearance: Alert, No Apparent Distress Ears: Normal External Exam Nose: Normal Inspection Head: Other (Contusion left forehead) Neck: Normal Inspection, Supple, Non-Tender Respiratory/Chest: No Respiratory Distress, Lungs Clear, Normal Breath Sounds Cardiovascular: Regular Rate, Rhythm, No Edema, No Murmur GI/Abdominal: Soft, Non-Tender, No Organomegaly, No Mass Back Exam: Normal Inspection Extremities: Normal Inspection Neurological: Alert, Oriented, No Motor/Sensory Deficits #1 Interpretation EKG Date: 06/10/20 Time: 13:36 Rhythm: NSR Rate (Beats/Min): 75 [place]: Normal P-Wave: Present QRS: Normal ST-T: Normal QT: Prolonged Course - Vital Signs Last Recorded V/S: Last Vital Signs Temp 96.7 F L 06/10/20 13:17 Pulse 81 06/10/20 13:17 Resp 18 06/10/20 13:17 BP 131/57 L 06/10/20 13:17 Pulse Ox 96 06/10/20 13:17 - Orders/Labs/Meds Orders: Active Orders 24 hr Category Date Time Status Cardiac Monitoring [RC] . DIRECTED Care 06/10/20 13:24 Active EKG Documentation Completion [RC] STAT Care 06/10/20 13:25 Active Oxygen Therapy [RC] PRN Care 06/10/20 13:24 Active Peripheral IV Care [RC] . DIRECTED Care 06/10/20 13:25 Active CULTURE URINE [RM] Stat Lab 06/10/20 15:17 Ordered Sodium Chloride 0.9% [Normal Saline] 1,000 ml Med 06/10/20 13:30 Active IV ASDIRECTED Sodium Chloride 0.9% [Saline Flush] Med 06/10/20 13:24 Active 10 ml FLUSH ASDIRECTED PRN Peripheral IV Insertion Adult [OM.PC] Stat Oth 06/10/20 13:24 Ordered Medication Orders Sodium Chloride (Normal Saline) 1,000 mls @ 125 mls/hr IV ASDIRECTED ASA Last Admin: 06/10/20 13:46 Dose: 125 mls/hr Documented by: SHEFALI Sodium Chloride (Saline Flush) 10 ml FLUSH ASDIRECTED PRN PRN Reason: Keep Vein Open Last Admin: 06/10/20 13:46 Dose: 10 ml Documented by: SHEFALI Labs: Laboratory Tests 06/10/20 06/10/20 06/10/20 Range/Units 13:45 13:45 13:45 WBC 5.32 (3.98-10.04) K/mm3 RBC 3.85 L (3.98-5.22) M/mm3 Hgb 11.6 (11.2-15.7) gm/dl Hct 37.2 (34.1-44.9) % MCV 96.6 H (79.4-94.8) fl MCH 30.1 (25.6-32.2) pg MCHC 31.2 L (32.2-35.5) g/dl RDW Std Deviation 49.2 H (36.4-46.3) fL Plt Count 223 (182-369) K/mm3 MPV 10.3 (9.4-12.3) fl Neut % (Auto) 64.5 (34.0-71.1) % Lymph % (Auto) 18.2 L (19.3-51.7) % [place] % (Auto) 15.0 H (4.7-12.5) % Eos % (Auto) 1.9 (0.7-5.8) Baso % (Auto) 0.4 (0.1-1.2) % Neut # (Auto) 3.43 (1.56-6.13) K/mm3 Lymph # (Auto) 0.97 L (1.18-3.74) K/mm3 [place] # (Auto) 0.80 H (0.24-0.36) K/mm3 Eos # (Auto) 0.10 (0.04-0.36) K/mm3 Baso # (Auto) 0.02 (0.01-0.08) K/mm3 PT 11.8 (9.7-12.0) SECONDS INR 1.10 APTT 28.8 (21.7-31.4) SECONDS D-Dimer, Quantitative 0.44 (0.19-0.50) mg/L Sodium 139 (136-145) mEq/L Potassium 4.0 (3.5-5.1) mEq/L Chloride 103 (98-107) mEq/L Carbon Dioxide 29 (21-32) mEq/L Anion Gap 11.0 (5-15) BUN 35 H (7-18) mg/dL Creatinine 2.0 H (0.55-1.02) mg/dL Est Cr Clr Drug Dosing 18.08 mL/min Estimated GFR (MDRD) 24 (>60) mL/min BUN/Creatinine Ratio 17.5 (14-18) Glucose 119 H (83-115) mg/dL Lactic Acid (0.4-2.0) mmol/L Calcium 9.2 (8.5-10.1) mg/dL Magnesium 2.2 (1.8-2.4) mg/dl Total Bilirubin 1.2 H (0.2-1.0) mg/dL AST 26 (15-37) U/L ALT 28 (14-59) U/L Alkaline Phosphatase 67 (46-116) U/L Troponin I < 0.017 (0.00-0.056) ng/mL C-Reactive Protein <0.2 (<1.0) mg/dL Total Protein 6.7 (6.4-8.2) g/dl Albumin 3.6 (3.4-5.0) g/dl Globulin 3.1 gm/dL Albumin/Globulin Ratio 1.2 (1-2) Urine Color (Yellow) Urine Appearance (Clear) Urine pH (5.0-8.0) Ur Specific [place] (1.005-1.030) Urine Protein (Negative) Urine Glucose (UA) (Negative) Urine Ketones (Negative) Urine Occult Blood (Negative) Urine Nitrite (Negative) Urine Bilirubin (Negative) Urine Urobilinogen (0.2-1.0) Ur Leukocyte Esterase (Negative) U Hyaline Cast (Auto) (0-5) /lpf Urine RBC (0-5) /hpf Urine WBC (0-5) /hpf Ur Squamous Epith Cells (0-5) /hpf Urine Bacteria (FEW) /hpf Urine Mucus (FEW) /hpf 06/10/20 06/10/20 Range/Units 13:45 14:35 WBC (3.98-10.04) K/mm3 RBC (3.98-5.22) M/mm3 Hgb (11.2-15.7) gm/dl Hct (34.1-44.9) % MCV (79.4-94.8) fl MCH (25.6-32.2) pg MCHC (32.2-35.5) g/dl RDW Std Deviation (36.4-46.3) fL Plt Count (182-369) K/mm3 MPV (9.4-12.3) fl Neut % (Auto) (34.0-71.1) % Lymph % (Auto) (19.3-51.7) % [place] % (Auto) (4.7-12.5) % Eos % (Auto) (0.7-5.8) Baso % (Auto) (0.1-1.2) % Neut # (Auto) (1.56-6.13) K/mm3 Lymph # (Auto) (1.18-3.74) K/mm3 [place] # (Auto) (0.24-0.36) K/mm3 Eos # (Auto) (0.04-0.36) K/mm3 Baso # (Auto) (0.01-0.08) K/mm3 PT (9.7-12.0) SECONDS INR APTT (21.7-31.4) SECONDS D-Dimer, Quantitative (0.19-0.50) mg/L Sodium (136-145) mEq/L Potassium (3.5-5.1) mEq/L Chloride (98-107) mEq/L Carbon Dioxide (21-32) mEq/L Anion Gap (5-15) BUN (7-18) mg/dL Creatinine (0.55-1.02) mg/dL Est Cr Clr Drug Dosing mL/min Estimated GFR (MDRD) (>60) mL/min BUN/Creatinine Ratio (14-18) Glucose (83-115) mg/dL Lactic Acid 1.4 (0.4-2.0) mmol/L Calcium (8.5-10.1) mg/dL Magnesium (1.8-2.4) mg/dl Total Bilirubin (0.2-1.0) mg/dL AST (15-37) U/L ALT (14-59) U/L Alkaline Phosphatase (46-116) U/L Troponin I (0.00-0.056) ng/mL C-Reactive Protein (<1.0) mg/dL Total Protein (6.4-8.2) g/dl Albumin (3.4-5.0) g/dl Globulin gm/dL Albumin/Globulin Ratio (1-2) Urine Color Light yellow (Yellow) Urine Appearance Clear (Clear) Urine pH 7.0 (5.0-8.0) Ur Specific [place] 1.020 (1.005-1.030) Urine Protein Negative (Negative) Urine Glucose (UA) Negative (Negative) Urine Ketones Negative (Negative) Urine Occult Blood Trace-intact H (Negative) Urine Nitrite Negative (Negative) Urine Bilirubin Negative (Negative) Urine Urobilinogen 0.2 (0.2-1.0) Ur Leukocyte Esterase 1+ H (Negative) U Hyaline Cast (Auto) 0-5 (0-5) /lpf Urine RBC 0-5 (0-5) /hpf Urine WBC 5-10 H (0-5) /hpf Ur Squamous Epith Cells 0-5 (0-5) /hpf Urine Bacteria Rare (FEW) /hpf Urine Mucus Not seen (FEW) /hpf Meds: Medications Generic Name Dose Route Start Last Admin Trade Name Freq PRN Reason Stop Dose Admin Sodium Chloride 1,000 mls @ 125 mls/hr 06/10/20 13:30 06/10/20 13:46 Normal Saline IV 125 mls/hr ASDIRECTED ASA Administration Sodium Chloride 10 ml 06/10/20 13:24 06/10/20 13:46 Saline Flush FLUSH 10 ml ASDIRECTED PRN Administration Keep Vein Open - Re-Assessments/Exams Free Text/Narrative Re-Assessment/Exam: 06/10/20 14:42 I ordered an IV NS at 125mL/hr, labs, CT of her head, EKG and UA. 06/10/20 15:24 Her EKG shows a NSR at a rate of 75 with no acute changes. Her CBC looks good. Her D-dimer is negative. Her creatinine is elevated at 2. Her lactic acid is negative along with her troponin. Her UA shows she has a UTI. I will get her on some keflex. Departure - Departure Time of Disposition: 15:30 Disposition: Home, Self-Care 01 Condition: Good Clinical Impression: Unresponsive episode, Renal insufficiency UTI (urinary tract infection) Qualifiers: Urinary tract infection type: site unspecified Hematuria presence: without hematuria Qualified Code(s): N39.0 - Urinary tract infection, site not specified - Discharge Information *PRESCRIPTION DRUG MONITORING PROGRAM REVIEWED*: Not Applicable *COPY OF PRESCRIPTION DRUG MONITORING REPORT IN PATIENT SHAUN: Not Applicable Prescriptions: cephALEXin [Keflex] 500 mg PO BID #10 capsule Referrals: PCP,None [Ordering Only Provider] - Eliezer Stanley MD [Primary Care Provider] - 1 Week Forms: ED Department Discharge Additional Instructions: Drink more water. Take the keflex 2 times per day for 5 days. Follow up with your doctor within a week. Sepsis Event Note (ED) - Evaluation Sepsis Screening Result: No Definite Risk - Focused Exam Vital Signs: Vital Signs Temp Pulse Resp BP Pulse Ox 06/10/20 13:17 96.7 F L 81 18 131/57 L 96 - My Orders Last 24 Hours: My Active Orders 06/10/20 13:24 Cardiac Monitoring [RC] . DIRECTED Oxygen Therapy [RC] PRN Sodium Chloride 0.9% [Saline Flush] 10 ml FLUSH ASDIRECTED PRN Peripheral IV Insertion Adult [OM.PC] Stat 06/10/20 13:25 EKG Documentation Completion [RC] STAT Peripheral IV Care [RC] . DIRECTED 06/10/20 13:30 Sodium Chloride 0.9% [Normal Saline] 1,000 ml IV ASDIRECTED 06/10/20 15:17 CULTURE URINE [RM] Stat - Assessment/Plan Last 24 Hours: My Active Orders 06/10/20 13:24 Cardiac Monitoring [RC] . DIRECTED Oxygen Therapy [RC] PRN Sodium Chloride 0.9% [Saline Flush] 10 ml FLUSH ASDIRECTED PRN Peripheral IV Insertion Adult [OM.PC] Stat 06/10/20 13:25 EKG Documentation Completion [RC] STAT Peripheral IV Care [RC] . DIRECTED 06/10/20 13:30 Sodium Chloride 0.9% [Normal Saline] 1,000 ml IV ASDIRECTED 06/10/20 15:17 CULTURE URINE [RM] Stat
== END 2020-06-10 16:12 | disposition home or self-care (01) ==
LOC: JD.ED 13:12
DX: R40.1 Stupor (principal); N28.9 Disorder of kidney and ureter, unspecified; N39.0 Urinary tract infection, site not specified; E78.00 Pure hypercholesterolemia, unspecified; I10 Essential (primary) hypertension; E66.9 Obesity, unspecified; Z68.30 Body mass index [BMI] 30.0-30.9, adult; Z88.7 Allergy status to serum and vaccine; Z88.2 Allergy status to sulfonamides; Z88.8 Allergy status to other drugs, medicaments and biological substances; Z79.899 Other long term (current) drug therapy; Z79.02 Long term (current) use of antithrombotics/antiplatelets; Z79.01 Long term (current) use of anticoagulants
CPT/HCPCS: 36415; 70450; 80053; 81001; 83605; 83735; 84484; 85025; 85379; 85610; 85730; 86140; 87086; 93005; 99285; J7030; 93010; 99284

== ENCOUNTER 2020-06-20 13:57 | Emergency (ER) | payer MEDICARE, BC ==
[2020-06-20 14:05] VITALS: PULSE 76
[2020-06-20] MEDS ORDERED: Lidocaine 1% with EPINEPHrine 1:100,000 10 ML MDV INJECT ONE (14:13)
--- NOTE | 2020-06-20 14:57 | EDM.PDOC ---
ED HPI GENERAL MEDICAL PROBLEM - General Chief Complaint: Trauma Stated Complaint: [facility] Time Seen by Provider: 06/20/20 14:03 Source of Information: Reports: Patient, EMS History Limitations: Reports: No Limitations - History of Present Illness INITIAL COMMENTS - FREE TEXT/NARRATIVE: The patient presents by [facility] for a head injury. 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 She had no LOC. She has a cut to her posterior scalp and there is moderate amount of bleeding. She is on eliquis, plavix and aspirin. She has some neck pain. She has no chest pain, shortness of breath, abdominal pain, arm or hip pain. She was here about 10 days ago for an unresponsive episode and she was found to have a UTI and she was treated. Onset: Sudden Duration: Minutes: Location: Reports: Head Quality: Reports: Sharp Severity: Moderate Improves with: Reports: None Worsens with: Reports: None Associated Symptoms: Reports: Headaches. Denies: Chest Pain, Cough, Fever/Chills, Nausea/Vomiting, Shortness of Breath - Related Data Allergies Allergy/AdvReac Type Severity Reaction Status Date / Time amlodipine Allergy Severe Cannot Verified 06/20/20 14:05 Remember pneumococcal vaccine Allergy Severe Cannot Verified 06/20/20 14:05 Remember Sulfa (Sulfonamide Allergy Severe Hives Verified 06/20/20 14:05 Antibiotics) verapamil HCl [From Calan] Allergy Severe Cannot Verified 06/20/20 14:05 Remember Home Meds: Home Meds Labetalol [Normodyne] 200 mg PO TID 02/18/20 [History] Loratadine [Allergy] 10 mg PO DAILY 02/18/20 [History] traZODone HCl [Trazodone HCl] 100 mg PO BEDTIME PRN 02/18/20 [History] Clopidogrel Bisulfate [Plavix] 75 mg PO DAILY 04/01/20 [History] L.acidoph,Paracasei, B.lactis [Probiotic] 1 each PO DAILY 04/01/20 [History] Magnesium Oxide [Magnesium] 400 mg PO DAILY 04/01/20 [History] Nitroglycerin 0.4 mg SL ASDIRECTED PRN 04/01/20 [History] atorvaSTATin [Lipitor] 40 mg PO DAILY 04/01/20 [History] Apixaban [Eliquis] 5 mg PO DAILY 06/10/20 [History] Aspirin 81 mg PO DAILY 06/20/20 [History] Past Medical History Other HEENT History: has bilateral hearing aides, wears eyeglasses. 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 Gamma knife treatment at the [facility] about 3 years ago. Psychiatric History: Reports: None Endocrine/Metabolic History: Reports: Hypothyroidism, Obesity/BMI 30+, Other (See Below) Hematologic History: Reports: Anticoagulation Therapy Immunologic History: Reports: None Oncologic (Cancer) History: Reports: None Dermatologic History: Reports: Other (See Below) Other Dermatologic History: lymphedema - Infectious Disease History Infectious Disease History: Reports: None - Past Surgical History Other HEENT Surgeries/Procedures: adenoid surgery. GI Surgical History: Reports: Colonoscopy Female Surgical History: Reports: Hysterectomy, Other (See Below) Other Female Surgeries/Procedures: Bladder Surgery Neurological Surgical History: Reports: Laminectomy Musculoskeletal Surgical History: Reports: Knee Replacement Social & Family History - Family History Family Medical History: No Pertinent Family History - Tobacco Use Tobacco Use Status *Q: Never Tobacco User Second Hand Smoke Exposure: No - Caffeine Use Caffeine Use: Reports: Coffee - Recreational Drug Use Recreational Drug Use: No - Living Situation & Occupation Living situation: Reports: Occupation: Retired Review of Systems - Review of Systems Review Of Systems: See Below Constitutional: Reports: No Symptoms Eyes: Reports: No Symptoms Ears: Reports: No Symptoms Nose: Reports: No Symptoms Mouth/Throat: Reports: No Symptoms Respiratory: Reports: No Symptoms Cardiovascular: Reports: No Symptoms GI/Abdominal: Reports: No Symptoms Genitourinary: Reports: No Symptoms Neurological: Reports: Headache ED EXAM, GENERAL - Physical Exam Exam: See Below Exam Limited By: No Limitations General Appearance: Alert, No Apparent Distress Ears: Normal External Exam Nose: Normal Inspection Head: Other (2cm laceration to the occipital region with active moderate bleeding) Neck: Normal Inspection, Supple, Non-Tender Respiratory/Chest: No Respiratory Distress, Lungs Clear, Normal Breath Sounds Cardiovascular: Regular Rate, Rhythm, No Edema, No Murmur GI/Abdominal: Soft, Non-Tender, No Organomegaly, No Mass Back Exam: Normal Inspection Extremities: Normal Inspection ED TRAUMA PROCEDURES - Laceration/Wound Repair Head Lac/Wound Length In cm: 2 Appearance: Subcutaneous, Linear Anesthetic Type: Local Local Anesthesia - Lidocaine (Xylocaine): 1% with EPI Skin Prep: Saline Exploration/Debridement/Repair: Wound Explored, In a Bloodless Field, Explored to Base Closed With: [place] # of Sutures: 6 Tetanus Status Addressed: Yes Complications: No Course - Vital Signs Last Recorded V/S: Last Vital Signs Temp 97.1 F 06/20/20 14:02 Pulse 76 06/20/20 14:02 Resp 18 06/20/20 14:02 BP 147/68 H 06/20/20 14:02 Pulse Ox 99 06/20/20 14:02 - Orders/Labs/Meds Orders: Active Orders 24 hr Category Date Time Status Cervical Spine wo Cont [CT] Stat Exams 06/20/20 14:12 Taken Head wo Cont [CT] Stat Exams 06/20/20 14:12 Taken Meds: Medications Discontinued Medications Generic Name Dose Route Start Last Admin Trade Name Rosy PRN Reason Stop Dose Admin Lidocaine/Epinephrine 10 ml 06/20/20 14:13 06/20/20 15:05 Xylocaine 1% With Epinephrine 1:100,000 INJECT 06/20/20 14:14 10 ml ONETIME ONE Administration - Re-Assessments/Exams Free Text/Narrative Re-Assessment/Exam: 06/20/20 14:[address] of her head and cervical spine. The CT of her head shows left posterior parietal soft tissue hematoma. No hemorrhage, mass effect or midline shift. Age-related atrophy and chronic white matter ischemic changes, with no evidence of an acute intracranial abnormality. The CT of her cervical spine shows the cervical spine demonstrates mild degenerative changes at multiple levels. No evidence of acute fracture. 06/20/20 16:04 I was able to find the laceration and I stapled the laceration and bleeding was controlled. Departure - Departure Time of Disposition: 16:10 Disposition: Home, Self-Care 01 Condition: Good Clinical Impression: Fall Qualifiers: Encounter type: initial encounter Qualified Code(s): W19.XXXA - Unspecified fall, initial encounter Scalp laceration Qualifiers: Encounter type: initial encounter Qualified Code(s): S01.01XA - Laceration without foreign body of scalp, initial encounter - Discharge Information *PRESCRIPTION DRUG MONITORING PROGRAM REVIEWED*: Not Applicable *COPY OF PRESCRIPTION DRUG MONITORING REPORT IN PATIENT SHAUN: Not Applicable Referrals: Eliezer Stanley MD [Primary Care Provider] - 1 Week Forms: ED Department Discharge Additional Instructions: Clean the wound with warm soapy water 2 times per day and apply antibiotic ointment after. Have the michael removed within a week. Look for any signs of infection such as redness, swelling, pain or discharge. If you see any of these signs please return or see your doctor. You may need oral antibiotics. Please return if you are worse. Sepsis Event Note (ED) - Evaluation Sepsis Screening Result: No Definite Risk - Focused Exam Vital Signs: Vital Signs Temp Pulse Resp BP Pulse Ox 06/20/20 14:02 97.1 F 76 18 147/68 H 99 - My Orders Last 24 Hours: My Active Orders 06/20/20 14:12 Cervical Spine wo Cont [CT] Stat Head wo Cont [CT] Stat - Assessment/Plan Last 24 Hours: My Active Orders 06/20/20 14:12 Cervical Spine wo Cont [CT] Stat Head wo Cont [CT] Stat
[2020-06-20 16:52] VITALS: BP 136/65
--- NOTE | 2020-06-21 13:17 | CT ---
PROCEDURE INFORMATION: Exam: CT Cervical Spine Without Contrast Exam date and time: 06/20/2020 2:13 PM Age: 85 years old Clinical indication: Injury or trauma; Fall; Blunt trauma TECHNIQUE: Imaging protocol: Computed tomography images of the cervical spine without contrast. Radiation optimization: All CT scans at this facility use at least one of these dose optimization techniques: automated exposure control; mA and/or kV adjustment per patient size (includes targeted exams where dose is matched to clinical indication); or iterative reconstruction. COMPARISON: No relevant prior studies available. FINDINGS: Bones/joints: The facet joints demonstrate mild degenerative hypertrophy and sclerosis. There is no evidence of acute fracture. 3 mm anterolisthesis of C5 on C6. Discs/Spinal canal/Neural foramina: The cervical spine demonstrates mild degenerative changes at multiple levels. Soft tissues: There are no soft tissue masses or fluid collections. Lungs: Lung apices are normal. IMPRESSION: 1. The cervical spine demonstrates mild degenerative changes at multiple levels. 2. No evidence of acute fracture. Thank you for allowing us to participate in the care of your patient. Dictated and Authenticated by: Arturo Garcia DO 06/20/2020 3:43 PM Central Time ([place] & [place]) GISELLE
--- NOTE | 2020-06-21 13:18 | CT ---
PROCEDURE INFORMATION: Exam: CT Head Without Contrast Exam date and time: 06/20/2020 2:13 PM Age: 85 years old Clinical indication: Injury or trauma; Blunt trauma (contusions or hematomas); Patient HX: Fall, hit head, on blood thinners TECHNIQUE: Imaging protocol: Computed tomography of the head without contrast. Radiation optimization: All CT scans at this facility use at least one of these dose optimization techniques: automated exposure control; mA and/or kV adjustment per patient size (includes targeted exams where dose is matched to clinical indication); or iterative reconstruction. COMPARISON: CT Head wo Cont 06/10/2020 1:32 PM FINDINGS: Brain: No hemorrhage, mass effect or midline shift. Age-related atrophy and chronic white matter ischemic changes, with no evidence of an acute intracranial abnormality. Cerebral ventricles: No ventriculomegaly. Bones/joints: No acute fracture. Paranasal sinuses: Visualized sinuses are unremarkable. No fluid levels. Mastoid air cells: Visualized mastoid air cells are well aerated. Soft tissues: Left posterior parietal soft tissue hematoma. IMPRESSION: 1. Left posterior parietal soft tissue hematoma. 2. No hemorrhage, mass effect or midline shift. 3. Age-related atrophy and chronic white matter ischemic changes, with no evidence of an acute intracranial abnormality. Thank you for allowing us to participate in the care of your patient. Dictated and Authenticated by: Arturo Garcia DO 06/20/2020 3:45 PM Central Time ([place] & [place]) [facility]OSPITALJaime
== END 2020-06-20 16:50 | disposition home or self-care (01) ==
LOC: JD.ED 13:57
DX: S01.01XA Laceration without foreign body of scalp, initial encounter (principal); I10 Essential (primary) hypertension; I25.2 Old myocardial infarction; E78.00 Pure hypercholesterolemia, unspecified; E03.9 Hypothyroidism, unspecified; E66.9 Obesity, unspecified; Z88.8 Allergy status to other drugs, medicaments and biological substances; Z88.2 Allergy status to sulfonamides; Z88.7 Allergy status to serum and vaccine; Z79.02 Long term (current) use of antithrombotics/antiplatelets; Z79.82 Long term (current) use of aspirin; Z79.899 Other long term (current) drug therapy; Z68.29 Body mass index [BMI] 29.0-29.9, adult; Z90.710 Acquired absence of both cervix and uterus; W01.10XA Fall on same level from slipping, tripping and stumbling with subsequent striking against unspecified object, initial encounter
CPT/HCPCS: 12001; 70450; 70450-26; 72125; 72125-26; 99283; 99284-25

== ENCOUNTER 2020-09-09 02:12 | Inpatient (IN) | payer MEDICARE, BC ==
[2020-09-09] MEDS ORDERED: Sodium Chloride 0.9% 10 ML Syringe FLUSH PRN (02:21)
[2020-09-09] MEDS ORDERED: HYDROmorphone 0.5 MG/0.5 ML Syringe IVPUSH ONE ×2 (02:22→03:27)
--- NOTE | 2020-09-09 03:29 | EDM.PDOC ---
ED HPI GENERAL MEDICAL PROBLEM - General Chief Complaint: Lower Extremity Injury/Pain Stated Complaint: [facility] Time Seen by Provider: 09/09/20 02:15 Source of Information: Reports: Patient, EMS History Limitations: Reports: No Limitations - History of Present Illness INITIAL COMMENTS - FREE TEXT/NARRATIVE: The patient presents by [facility] for a fall and left hip and groin pain. The patient lives at [employer] and she was moving to a chair and she slipped and landed on her left hip. She was able to get up and walk but she had pain. This happened at 8pm and now she has worse pain. She did not hit her head. She has no neck pain, chest pain, shortness of breath, or abdominal pain. Onset: Sudden Duration: Hour(s): Location: Reports: Lower Extremity, Left (hip and groin) Quality: Reports: Sharp Severity: Severe Improves with: Reports: Immobilization Worsens with: Reports: Movement Context: Reports: Trauma (fell) Associated Symptoms: Reports: No Other Symptoms Left Hip Pain Score (Numeric/FACES): 10 - Related Data Allergies Allergy/AdvReac Type Severity Reaction Status Date / Time amlodipine Allergy Severe Cannot Verified 06/20/20 14:05 Remember pneumococcal vaccine Allergy Severe Cannot Verified 06/20/20 14:05 Remember Sulfa (Sulfonamide Allergy Severe Hives Verified 06/20/20 14:05 Antibiotics) verapamil HCl [From Calan] Allergy Severe Cannot Verified 06/20/20 14:05 Remember Home Meds: Home Meds Labetalol [Normodyne] 200 mg PO TID 02/18/20 [History] Loratadine [Allergy] 10 mg PO DAILY 02/18/20 [History] traZODone HCl [Trazodone HCl] 100 mg PO BEDTIME PRN 02/18/20 [History] Clopidogrel Bisulfate [Plavix] 75 mg PO DAILY 04/01/20 [History] Magnesium Oxide [Magnesium] 400 mg PO DAILY 04/01/20 [History] Nitroglycerin 0.4 mg SL ASDIRECTED PRN 04/01/20 [History] atorvaSTATin [Lipitor] 40 mg PO DAILY 04/01/20 [History] Folic Acid 1 mg PO DAILY 09/09/20 [History] Gabapentin [Neurontin] 100 mg PO BEDTIME 09/09/20 [History] Spironolactone [Aldactone] 25 mg PO DAILY 09/09/20 [History] Past Medical History Other HEENT History: has bilateral hearing aides, wears eyeglasses. 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 Gamma knife treatment at the [facility] about 3 years ago. Psychiatric History: Reports: None Endocrine/Metabolic History: Reports: Hypothyroidism, Obesity/BMI 30+, Other (See Below) Hematologic History: Reports: Anticoagulation Therapy Immunologic History: Reports: None Oncologic (Cancer) History: Reports: None Dermatologic History: Reports: Other (See Below) Other Dermatologic History: lymphedema - Infectious Disease History Infectious Disease History: Reports: None - Past Surgical History Other HEENT Surgeries/Procedures: adenoid surgery. GI Surgical History: Reports: Colonoscopy Female Surgical History: Reports: Hysterectomy, Other (See Below) Other Female Surgeries/Procedures: Bladder Surgery Neurological Surgical History: Reports: Laminectomy Musculoskeletal Surgical History: Reports: Knee Replacement Social & Family History - Family History Family Medical History: No Pertinent Family History - Tobacco Use Tobacco Use Status *Q: Never Tobacco User - Caffeine Use Caffeine Use: Reports: Coffee - Recreational Drug Use Recreational Drug Use: No - Living Situation & Occupation Living situation: Reports: Occupation: Retired Review of Systems - Review of Systems Review Of Systems: See Below Constitutional: Reports: No Symptoms Eyes: Reports: No Symptoms Ears: Reports: No Symptoms Nose: Reports: No Symptoms Mouth/Throat: Reports: No Symptoms Respiratory: Reports: No Symptoms Cardiovascular: Reports: No Symptoms GI/Abdominal: Reports: No Symptoms Genitourinary: Reports: No Symptoms Musculoskeletal: Reports: Other (Left hip and groin pain) ED EXAM, GENERAL - Physical Exam Exam: See Below Exam Limited By: No Limitations General Appearance: Alert, No Apparent Distress Ears: Normal External Exam Nose: Normal Inspection Head: Atraumatic, Normocephalic Neck: Normal Inspection, Supple, Non-Tender Respiratory/Chest: No Respiratory Distress, Lungs Clear, Normal Breath Sounds Cardiovascular: Regular Rate, Rhythm, No Edema, No Murmur GI/Abdominal: Soft, Non-Tender, No Organomegaly, No Mass Back Exam: Normal Inspection Extremities: Other (Pain upon palpation to the left hip. Good sensation and pulses distally.) Neurological: Alert, Oriented, No Motor/Sensory Deficits Course - Vital Signs Last Recorded V/S: Last Vital Signs Temp 97.7 F 09/09/20 02:13 Pulse 89 09/09/20 02:13 Resp 20 09/09/20 02:13 BP 189/113 H 09/09/20 02:13 Pulse Ox 100 09/09/20 02:13 - Orders/Labs/Meds Orders: Active Orders 24 hr Category Date Time Status Cardiac Monitoring [RC] . DIRECTED Care 09/09/20 02:21 Active EKG Documentation Completion [RC] ASDIRECTED Care 09/09/20 03:40 Active Peripheral IV Care [RC] . DIRECTED Care 09/09/20 02:21 Active RT Aerosol Therapy [RC] ASDIRECTED Care 09/09/20 03:41 Active Hip Min 2V or 3V w Pelvis Lt [CR] Stat Exams 09/09/20 02:22 Taken Hip wo Cont Lt [CT] Stat Exams 09/09/20 02:56 Taken Pelvis wo Cont [CT] Stat Exams 09/09/20 02:58 Taken Sodium Chloride 0.9% [Saline Flush] Med 09/09/20 02:21 Active 10 ml FLUSH ASDIRECTED PRN Peripheral IV Insertion Adult [OM.PC] Stat Oth 09/09/20 02:21 Ordered EKG 12 Lead [EK] Stat Ther 09/09/20 03:40 Ordered Medication Orders Sodium Chloride (Saline Flush) 10 ml FLUSH ASDIRECTED PRN PRN Reason: Keep Vein Open Last Admin: 09/09/20 02:42 Dose: 10 ml Documented by: MARK Labs: Laboratory Tests 09/09/20 09/09/20 09/09/20 Range/Units 03:02 03:02 03:47 WBC 10.06 H (3.98-10.04) K/mm3 RBC 3.64 L (3.98-5.22) M/mm3 Hgb 11.3 (11.2-15.7) gm/dl Hct 35.8 (34.1-44.9) % MCV 98.4 H (79.4-94.8) fl MCH 31.0 (25.6-32.2) pg MCHC 31.6 L (32.2-35.5) g/dl RDW Std Deviation 47.2 H (36.4-46.3) fL Plt Count 245 (182-369) K/mm3 MPV 10.6 (9.4-12.3) fl Neut % (Auto) 82.9 H (34.0-71.1) % Lymph % (Auto) 9.2 L (19.3-51.7) % Erie % (Auto) 6.3 (4.7-12.5) % Eos % (Auto) 1.3 (0.7-5.8) Baso % (Auto) 0.2 (0.1-1.2) % Neut # (Auto) 8.34 H (1.56-6.13) K/mm3 Lymph # (Auto) 0.93 L (1.18-3.74) K/mm3 Erie # (Auto) 0.63 H (0.24-0.36) K/mm3 Eos # (Auto) 0.13 (0.04-0.36) K/mm3 Baso # (Auto) 0.02 (0.01-0.08) K/mm3 Manual Slide Review Abnormal smear Sodium 139 (136-145) mEq/L Potassium 6.2 H* D (3.5-5.1) mEq/L Chloride 107 (98-107) mEq/L Carbon Dioxide 24 (21-32) mEq/L Anion Gap 14.2 (5-15) BUN 65 H D (7-18) mg/dL Creatinine 2.1 H (0.55-1.02) mg/dL Est Cr Clr Drug Dosing 18.67 mL/min Estimated GFR (MDRD) 22 (>60) mL/min BUN/Creatinine Ratio 31.0 H (14-18) Glucose 127 H (83-115) mg/dL Calcium 9.4 (8.5-10.1) mg/dL Total Bilirubin 0.7 (0.2-1.0) mg/dL AST 27 (15-37) U/L ALT 42 (14-59) U/L Alkaline Phosphatase 74 (46-116) U/L Total Protein 7.2 (6.4-8.2) g/dl Albumin 3.7 (3.4-5.0) g/dl Globulin 3.5 gm/dL Albumin/Globulin Ratio 1.1 (1-2) SARS-CoV-2 RNA (SERGEI) Negative (NEGATIVE) 09/09/20 Range/Units 05:52 WBC (3.98-10.04) K/mm3 RBC (3.98-5.22) M/mm3 Hgb (11.2-15.7) gm/dl Hct (34.1-44.9) % MCV (79.4-94.8) fl MCH (25.6-32.2) pg MCHC (32.2-35.5) g/dl RDW Std Deviation (36.4-46.3) fL Plt Count (182-369) K/mm3 MPV (9.4-12.3) fl Neut % (Auto) (34.0-71.1) % Lymph % (Auto) (19.3-51.7) % Erie % (Auto) (4.7-12.5) % Eos % (Auto) (0.7-5.8) Baso % (Auto) (0.1-1.2) % Neut # (Auto) (1.56-6.13) K/mm3 Lymph # (Auto) (1.18-3.74) K/mm3 Erie # (Auto) (0.24-0.36) K/mm3 Eos # (Auto) (0.04-0.36) K/mm3 Baso # (Auto) (0.01-0.08) K/mm3 Manual Slide Review Sodium (136-145) mEq/L Potassium 5.8 H (3.5-5.1) mEq/L Chloride (98-107) mEq/L Carbon Dioxide (21-32) mEq/L Anion Gap (5-15) BUN (7-18) mg/dL Creatinine (0.55-1.02) mg/dL Est Cr Clr Drug Dosing mL/min Estimated GFR (MDRD) (>60) mL/min BUN/Creatinine Ratio (14-18) Glucose (83-115) mg/dL Calcium (8.5-10.1) mg/dL Total Bilirubin (0.2-1.0) mg/dL AST (15-37) U/L ALT (14-59) U/L Alkaline Phosphatase (46-116) U/L Total Protein (6.4-8.2) g/dl Albumin (3.4-5.0) g/dl Globulin gm/dL Albumin/Globulin Ratio (1-2) SARS-CoV-2 RNA (SERGEI) (NEGATIVE) Meds: Medications Generic Name Dose Route Start Last Admin Trade Name Freq PRN Reason Stop Dose Admin Sodium Chloride 10 ml 09/09/20 02:21 09/09/20 02:42 Saline Flush FLUSH 10 ml ASDIRECTED PRN Administration Keep Vein Open Discontinued Medications Generic Name Dose Route Start Last Admin Trade Name Freq PRN Reason Stop Dose Admin Albuterol 2.5 mg 09/09/20 03:40 09/09/20 04:04 Proventil Neb Soln NEB 09/09/20 03:41 2.5 mg ONETIME ONE Administration Calcium Gluconate 1 gm 09/09/20 03:42 09/09/20 04:02 Calcium Gluconate IVPUSH 09/09/20 03:43 1 gm ONETIME ONE Administration Cyclobenzaprine HCl 10 mg 09/09/20 04:16 09/09/20 04:31 Flexeril PO 09/09/20 04:17 10 mg ONETIME ONE Administration Dextrose/Water 50 ml 09/09/20 03:41 09/09/20 03:52 Dextrose 50% In Water IVPUSH 09/09/20 03:42 50 ml ONETIME ONE Administration Hydromorphone HCl 0.25 mg 09/09/20 02:22 09/09/20 02:30 Dilaudid IVPUSH 09/09/20 02:23 0.25 mg ONETIME ONE Administration Hydromorphone HCl 0.25 mg 09/09/20 03:27 09/09/20 03:42 Dilaudid IVPUSH 09/09/20 03:28 0.25 mg ONETIME ONE Administration Insulin Human Regular 10 unit 09/09/20 03:41 09/09/20 03:51 Humulin R SUBCUT 09/09/20 03:42 10 unit ONETIME ONE Administration Sodium Polystyrene Sulfonate 45 gm 09/09/20 03:42 09/09/20 03:54 Kayexalate PO 09/09/20 03:43 45 gm NOW ONE Administration - Re-Assessments/Exams Free Text/Narrative Re-Assessment/Exam: 09/09/20 03:26 I ordered an IV saline lock, dilaudid 0.25mg IV, labs and an x-ray of her left hip with pelvis. I do not appreciate any fractures on the x-ray. I have ordered a CT of her pelvis. She still has pain. I have ordered more dilaudid. 09/09/20 05:45 Her WBC was slightly elevated at 10.06. Her K was elevated at 6.2. Her creatinine is elevated at 2.1. Her baseline is 2. Her glucose is 127. Her COVID 19 is negative. For the hyperkalemia I ordered kaexylate 45grams PO, albuterol 2.5mg Neb, D50 with insulin R 10 units, and calcium gluconate. Her EKG shows a NSR with no acute changes. The CT of her pelvis shows no acute fracture or dislocation identified. Findings suggesting hematoma along the iliopsoas with soft tissue edema anterior to it. The CT of her hip shows no acute fracture or dislocation identified. Findings suggesting hematoma along the iliopsoas with soft tissue edema anterior to it. Degenerative changes. Sigmoid colonic diverticulosis without evidence for diverticulitis. I am rechecking the potassium now. 09/09/20 06:38 Her repeat K was better at 5.8. I feels she needs to be admitted. She has trouble with pain and getting around because of the psosis muscle contusion. I called our hospitalist service and they agreed to the admission. Departure - Departure Time of Disposition: 18:40 Disposition: Refer to Observation Condition: Fair Clinical Impression: Hyperkalemia, Renal insufficiency Fall Qualifiers: Encounter type: initial encounter Qualified Code(s): W19.XXXA - Unspecified fall, initial encounter Psoas hematoma, left, secondary to anticoagulant therapy Qualifiers: Encounter type: initial encounter Qualified Code(s): S30.1XXA - Contusion of abdominal wall, initial encounter - Discharge Information Referrals: PCP,None [Primary Care Provider] - Forms: ED Department Discharge Sepsis Event Note (ED) - Evaluation Sepsis Screening Result: No Definite Risk - Focused Exam Vital Signs: Vital Signs Temp Pulse Resp BP Pulse Ox 09/09/20 02:13 97.7 F 89 20 189/113 H 100 - My Orders Last 24 Hours: My Active Orders 09/09/20 02:21 Cardiac Monitoring [RC] . DIRECTED Peripheral IV Care [RC] . DIRECTED Sodium Chloride 0.9% [Saline Flush] 10 ml FLUSH ASDIRECTED PRN Peripheral IV Insertion Adult [OM.PC] Stat 09/09/20 02:22 Hip Min 2V or 3V w Pelvis Lt [CR] Stat 09/09/20 02:56 Hip wo Cont Lt [CT] Stat 09/09/20 02:58 Pelvis wo Cont [CT] Stat 09/09/20 03:40 EKG Documentation Completion [RC] ASDIRECTED EKG 12 Lead [EK] Stat 09/09/20 03:41 RT Aerosol Therapy [RC] ASDIRECTED - Assessment/Plan Last 24 Hours: My Active Orders 09/09/20 02:21 Cardiac Monitoring [RC] . DIRECTED Peripheral IV Care [RC] . DIRECTED Sodium Chloride 0.9% [Saline Flush] 10 ml FLUSH ASDIRECTED PRN Peripheral IV Insertion Adult [OM.PC] Stat 09/09/20 02:22 Hip Min 2V or 3V w Pelvis Lt [CR] Stat 09/09/20 02:56 Hip wo Cont Lt [CT] Stat 09/09/20 02:58 Pelvis wo Cont [CT] Stat 09/09/20 03:40 EKG Documentation Completion [RC] ASDIRECTED EKG 12 Lead [EK] Stat 09/09/20 03:41 RT Aerosol Therapy [RC] ASDIRECTED
[2020-09-09] MEDS ORDERED: Albuterol 0.083% 2.5 MG/3 ML Neb Soln NEB ONE (03:40)
[2020-09-09] MEDS ORDERED: Insulin Regular, Human 100 Units/ML 3 ML Vial SUBCUT ONE (03:41)
[2020-09-09] MEDS ORDERED: 50% Dextrose in Water 50 ML Syringe IVPUSH ONE (03:41)
[2020-09-09] MEDS ORDERED: Sodium Polystyrene Sulfonate 15 GM/60 ML Susp 60 ML Bot PO ONE (03:42)
[2020-09-09] MEDS ORDERED: Calcium Gluconate 10% 1 GM/10 ML SDV IVPUSH ONE (03:42)
[2020-09-09] MEDS ORDERED: Cyclobenzaprine 10 MG Tab PO ONE (04:16)
--- NOTE | 2020-09-09 07:12 | PCM.HP.2 ---
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 She resides at [facility] and was reportedly moving a chair where she slipped and fell landing on her left hip. She was able to get up and walk but she has been having pain since then. Original injury occurred at 8 PM the night prior she reports she is having worsening pain now. Denies hitting her head. Denies any neck, back, chest, or abdominal pain. Denies any shortness of breath. In the ED temp was 97.7. Pulse 89. Respirations 20. Blood pressure elevated at 189/113. Pulse ox 100% on room air. Labs are obtained with a very mild leukocytosis at 10.07. Hemoglobin 11.3. Platelets 245. Neutrophils are elevated at 8.34. Sodium 139. Potassium very high at 6.2. Chloride 107. Carbon oxide 24. Anion gap 14.2. BUN is 65. Creatinine 2.1. GFR is 22. Gl ucose is 127. Bilirubin 0.7. AST 27, ALT 42, alkaline phosphatase 74. Protein 7.2. Albumin 3.7. She is given Dilaudid 0.25 mg x 2 for pain. Hip x-rays obtained showing degenerative change within both hips, worse on the left side. There are chronic findings but nothing acute. CT of the pelvis is obtained showing an abnormal psoas muscle compatible with previous injury. Other findings as noted above. No acute osseous findings appreciated. She is given Kayexalate 45 g p.o. and 2.5 mg albuterol nebulizer. She is given D50 with insulin 10 units and calcium gluconate. EKG is obtained showing a sinus rhythm with no acute changes. Recheck of her potassium shows improvement at 5.8. She is noted to have difficulty moving around and it is felt she needs to be admitted. She carries a history of HLD, hypertension, ME, venous insufficiency, recurrent pneumonia, sleep apnea, pulmonary nodules, hemorrhoids, hydronephrosis, recurrent UTI, urinary incontinence, arteriovenous fistula repair, hypothyroidism, obesity, chronic anticoagulation, lymphedema. She never been a smoker. She subsequently admitted to the medical floor observation status for management of her hyperkalemia and pain control status post fall. She is a DNR/DNI. Primary care provider is Dr. Croft. Left Hip Pain Score (Numeric/FACES): 10 - Related Data Allergies/Adverse Reactions: Allergies Allergy/AdvReac Type Severity Reaction Status Date / Time amlodipine Allergy Severe Cannot Verified 09/09/20 08:30 Remember pneumococcal vaccine Allergy Severe Cannot Verified 09/09/20 08:30 Remember Sulfa (Sulfonamide Allergy Severe Hives Verified 09/09/20 08:30 Antibiotics) verapamil HCl [From [facility]] Allergy Severe Cannot Verified 09/09/20 08:30 Remember Home Medications: Home Meds Labetalol [Normodyne] 200 mg PO TID 02/18/20 [History] Loratadine [Allergy] 10 mg PO DAILY PRN 02/18/20 [History] traZODone HCl [Trazodone HCl] 50 mg PO BEDTIME PRN 02/18/20 [History] Clopidogrel Bisulfate [Plavix] 75 mg PO DAILY 04/01/20 [History] Magnesium Oxide [Magnesium] 400 mg PO DAILY 04/01/20 [History] Nitroglycerin 0.4 mg SL ASDIRECTED PRN 04/01/20 [History] atorvaSTATin [Lipitor] 40 mg PO DAILY 04/01/20 [History] Enalapril Maleate 40 mg PO DAILY 09/09/20 [History] Folic Acid 1 mg PO DAILY 09/09/20 [History] Furosemide 20 mg PO DAILY 09/09/20 [History] Gabapentin [Neurontin] 100 mg PO BEDTIME 09/09/20 [History] Pramipexole [Mirapex] 0.5 mg PO DAILY 09/09/20 [History] Spironolactone [Aldactone] 25 mg PO DAILY 09/09/20 [History] traMADol [Ultram] 50 mg PO TID PRN 09/09/20 [History] Past Medical History Other HEENT History: has bilateral hearing aides, wears eyeglasses. Cardiovascular History: Reports: High Cholesterol, Hypertension, ME, Other (See Below) Other Cardiovascular History: vensous insufficency Respiratory History: Reports: Pneumonia, Recurrent, Sleep Apnea, Other (See Below) Other Respiratory History: pulmonary nodule Gastrointestinal History: Reports: Hemorrhoids Genitourinary History: Reports: Hydronephrosis, Urinary Incontinence, UTI, Recurrent Other Genitourinary History: stress incontinence [employer]ESSOR [employer] FAMILY [employer]ICINE History: Reports: Other Neuro History: arterial venuous fistula--repair, cobalt Tx's. Gamma knife treatment at the [facility] about 3 years ago. Psychiatric History: Reports: None Endocrine/Metabolic History: Reports: Hypothyroidism, Obesity/BMI 30+, Other (See Below) Hematologic History: Reports: Anticoagulation Therapy Immunologic History: Reports: None Oncologic (Cancer) History: Reports: None Dermatologic History: Reports: Other (See Below) Other Dermatologic History: lymphedema - Infectious Disease History Infectious Disease History: Reports: None - Past Surgical History Other HEENT Surgeries/Procedures: adenoid surgery. GI Surgical History: Reports: Colonoscopy Female Surgical History: Reports: Hysterectomy, Other (See Below) Other Female Surgeries/Procedures: Bladder Surgery Neurological Surgical History: Reports: Laminectomy Musculoskeletal Surgical History: Reports: Knee Replacement Social & Family History - Family History Family Medical History: No Pertinent Family History - Tobacco Use Tobacco Use Status *Q: Never Tobacco User - Caffeine Use Caffeine Use: Reports: Coffee - Recreational Drug Use Recreational Drug Use: No - Living Situation & Occupation Living situation: Reports: Occupation: Retired H&P Review of Systems - Review of Systems: Review Of Systems: See Below General: Reports: No Symptoms. Denies: Fever, Chills, Malaise, Weakness HEENT: Reports: No Symptoms. Denies: Headaches, Sore Throat Pulmonary: Reports: No Symptoms. Denies: Shortness of Breath, Wheezing, Pleuritic Chest Pain, Cough, Sputum Cardiovascular: Reports: Edema. Denies: Chest Pain, Palpitations, Dyspnea on Exertion Gastrointestinal: Reports: No Symptoms. Denies: Abdominal Pain, Constipation, Diarrhea, Nausea, Vomiting Genitourinary: Reports: Incontinence (chroinc ). Denies: Pain Musculoskeletal: Reports: Joint Pain (left hip) Skin: Reports: No Symptoms. Denies: Cyanosis Psychiatric: Reports: No Symptoms. Denies: Confusion Neurological: Reports: Difficulty Walking, Gait Disturbance Hematologic/Lymphatic: Reports: No Symptoms Immunologic: Reports: No Symptoms Exam - Exam Exam: See Below - Vital Signs Vital Signs: Last Vital Signs Temp 97.7 F 09/09/20 02:13 Pulse 89 09/09/20 02:13 Resp 20 09/09/20 02:13 BP 189/113 H 09/09/20 02:13 Pulse Ox 100 09/09/20 02:13 Weight: 171 lb - Exam Quality Assessment: DVT Prophylaxis. No: Supplemental Oxygen, Urinary Catheter General: Alert, Oriented, Cooperative. No: Mild Distress HEENT: Conjunctiva Clear, EACs Clear, Mucosa Moist & [place], Posterior Pharynx Clear Neck: Supple, Trachea Midline Lungs: Clear to Auscultation, Normal Respiratory Effort Cardiovascular: Regular Rate, Regular Rhythm GI/Abdominal Exam: Normal Bowel Sounds, Soft, Non-Tender, No Distention (Female) Exam: Deferred Rectal (Female) Exam: Deferred Back Exam: Normal Inspection, Decreased Range of Motion Extremities: Normal Inspection, Normal Range of Motion, Normal Capillary Refill, Pedal Edema, Leg Pain (left hip ) Peripheral Pulses: 2+: Radial (L), Radial (R), Dorsalis Pedis (L), Dorsalis Pedis (R) Skin: Warm, Dry, Intact Neurological: Cranial Nerves Intact (Grossly ) Neuro Extensive - Mental Status: Alert, Oriented x3, Normal Mood/Affect - Patient Data Lab Results Last 24 hrs: Laboratory Results - last 24 hr 09/09/20 09/09/20 09/09/20 Range/Units 03:02 03:02 03:47 WBC 10.06 H (3.98-10.04) K/mm3 RBC 3.64 L (3.98-5.22) M/mm3 Hgb 11.3 (11.2-15.7) gm/dl Hct 35.8 (34.1-44.9) % MCV 98.4 H (79.4-94.8) fl MCH 31.0 (25.6-32.2) pg MCHC 31.6 L (32.2-35.5) g/dl RDW Std Deviation 47.2 H (36.4-46.3) fL Plt Count 245 (182-369) K/mm3 MPV 10.6 (9.4-12.3) fl Neut % (Auto) 82.9 H (34.0-71.1) % Lymph % (Auto) 9.2 L (19.3-51.7) % Luce % (Auto) 6.3 (4.7-12.5) % Eos % (Auto) 1.3 (0.7-5.8) Baso % (Auto) 0.2 (0.1-1.2) % Neut # (Auto) 8.34 H (1.56-6.13) K/mm3 Lymph # (Auto) 0.93 L (1.18-3.74) K/mm3 Luce # (Auto) 0.63 H (0.24-0.36) K/mm3 Eos # (Auto) 0.13 (0.04-0.36) K/mm3 Baso # (Auto) 0.02 (0.01-0.08) K/mm3 Manual Slide Review Abnormal smear Sodium 139 (136-145) mEq/L Potassium 6.2 H* D (3.5-5.1) mEq/L Chloride 107 (98-107) mEq/L Carbon Dioxide 24 (21-32) mEq/L Anion Gap 14.2 (5-15) BUN 65 H D (7-18) mg/dL Creatinine 2.1 H (0.55-1.02) mg/dL Est Cr Clr Drug Dosing 18.67 mL/min Estimated GFR (MDRD) 22 (>60) mL/min BUN/Creatinine Ratio 31.0 H (14-18) Glucose 127 H (83-115) mg/dL Calcium 9.4 (8.5-10.1) mg/dL Total Bilirubin 0.7 (0.2-1.0) mg/dL AST 27 (15-37) U/L ALT 42 (14-59) U/L Alkaline Phosphatase 74 (46-116) U/L Total Protein 7.2 (6.4-8.2) g/dl Albumin 3.7 (3.4-5.0) g/dl Globulin 3.5 gm/dL Albumin/Globulin Ratio 1.1 (1-2) SARS-CoV-2 RNA (SERGEI) Negative (NEGATIVE) 09/09/20 Range/Units 05:52 WBC (3.98-10.04) K/mm3 RBC (3.98-5.22) M/mm3 Hgb (11.2-15.7) gm/dl Hct (34.1-44.9) % MCV (79.4-94.8) fl MCH (25.6-32.2) pg MCHC (32.2-35.5) g/dl RDW Std Deviation (36.4-46.3) fL Plt Count (182-369) K/mm3 MPV (9.4-12.3) fl Neut % (Auto) (34.0-71.1) % Lymph % (Auto) (19.3-51.7) % Luce % (Auto) (4.7-12.5) % Eos % (Auto) (0.7-5.8) Baso % (Auto) (0.1-1.2) % Neut # (Auto) (1.56-6.13) K/mm3 Lymph # (Auto) (1.18-3.74) K/mm3 Luce # (Auto) (0.24-0.36) K/mm3 Eos # (Auto) (0.04-0.36) K/mm3 Baso # (Auto) (0.01-0.08) K/mm3 Manual Slide Review Sodium (136-145) mEq/L Potassium 5.8 H (3.5-5.1) mEq/L Chloride (98-107) mEq/L Carbon Dioxide (21-32) mEq/L Anion Gap (5-15) BUN (7-18) mg/dL Creatinine (0.55-1.02) mg/dL Est Cr Clr Drug Dosing mL/min Estimated GFR (MDRD) (>60) mL/min BUN/Creatinine Ratio (14-18) Glucose (83-115) mg/dL Calcium (8.5-10.1) mg/dL Total Bilirubin (0.2-1.0) mg/dL AST (15-37) U/L ALT (14-59) U/L Alkaline Phosphatase (46-116) U/L Total Protein (6.4-8.2) g/dl Albumin (3.4-5.0) g/dl Globulin gm/dL Albumin/Globulin Ratio (1-2) SARS-CoV-2 RNA (SERGEI) (NEGATIVE) Result Diagrams: 09/09/20 03:02 09/09/20 05:52 Sepsis Event Note - Evaluation Sepsis Screening Result: No Definite Risk - Focused Exam Vital Signs: Vital Signs Temp Pulse Resp BP Pulse Ox 09/09/20 02:13 97.7 F 89 20 189/113 H 100 - Problem List (1) History of ME (myocardial infarction) SNOMED Code(s): 913999812 ICD Code: I25.2 - OLD MYOCARDIAL INFARCTION Status: Chronic Priority: Low Current Visit: No (2) Sleep apnea SNOMED Code(s): 27914402 ICD Code: G47.30 - SLEEP APNEA, UNSPECIFIED Status: Chronic Priority: Low Current Visit: No Qualifiers: Sleep apnea type: unspecified type Qualified Code(s): G47.30 - Sleep apnea, unspecified (3) Pulmonary nodule SNOMED Code(s): 792393785 ICD Code: R91.1 - SOLITARY PULMONARY NODULE Status: Chronic Priority: Low Current Visit: No (4) Urinary incontinence SNOMED Code(s): 586629188 ICD Code: R32 - UNSPECIFIED URINARY INCONTINENCE Status: Chronic Priority: Low Current Visit: No Qualifiers: Urinary Incontinence type: unspecified incontinence Qualified Code(s): R32 - Unspecified urinary incontinence (5) Hypothyroidism SNOMED Code(s): 07177616 ICD Code: E03.9 - HYPOTHYROIDISM, UNSPECIFIED Status: Chronic Priority: Medium Current Visit: No Qualifiers: Hypothyroidism type: unspecified Qualified Code(s): E03.9 - Hypothyroidism, unspecified (6) Chronic anticoagulation SNOMED Code(s): 034417059 ICD Code: Z79.01 - SNF (CURRENT) USE OF ANTICOAGULANTS Status: Chronic Priority: Medium Current Visit: No (7) Lymphedema SNOMED Code(s): 424333642 ICD Code: I89.0 - LYMPHEDEMA, NOT ELSEWHERE CLASSIFIED Status: Chronic Priority: Medium Current Visit: No (8) Fall SNOMED Code(s): 8470521, 365746878 ICD Code: W19.XXXA - UNSPECIFIED FALL, INITIAL ENCOUNTER Status: Acute Priority: High Current Visit: Yes Qualifiers: Encounter type: initial encounter Qualified Code(s): W19.XXXA - Unspecified fall, initial encounter (9) Hyperkalemia SNOMED Code(s): 34416192 ICD Code: E87.5 - HYPERKALEMIA Status: Acute Priority: High Current Visit: Yes (10) Psoas hematoma, left, secondary to anticoagulant therapy SNOMED Code(s): 853137587, 750882929 ICD Code: S30.1XXA - CONTUSION OF ABDOMINAL WALL, INITIAL ENCOUNTER Status: Acute Priority: High Current Visit: Yes Qualifiers: Encounter type: initial encounter Qualified Code(s): S30.1XXA - Contusion of abdominal wall, initial encounter (11) Chronic renal insufficiency, stage IV (severe) SNOMED Code(s): 873210253 ICD Code: N18.4 - CHRONIC KIDNEY DISEASE, STAGE 4 (SEVERE) Status: Chronic Priority: High Current Visit: Yes (12) Hypertension SNOMED Code(s): 71746983 ICD Code: I10 - ESSENTIAL (PRIMARY) HYPERTENSION Status: Chronic Priority: Medium Current Visit: No Qualifiers: Hypertension type: essential hypertension Qualified Code(s): I10 - Essential (primary) hypertension (13) Hypermagnesemia SNOMED Code(s): 40406111 ICD Code: E83.41 - HYPERMAGNESEMIA Status: Acute Priority: High Current Visit: Yes Problem List Initiated/Reviewed/Updated: Yes Orders Last 24hrs: Active Orders 24 hr Category Date Time Status Patient Status [ADT] Routine ADT 09/09/20 07:03 Active Cardiac Monitoring [RC] . DIRECTED Care 09/09/20 02:21 Active EKG Documentation Completion [RC] ASDIRECTED Care 09/09/20 03:40 Active Peripheral IV Care [RC] . DIRECTED Care 09/09/20 02:21 Active RT Aerosol Therapy [RC] ASDIRECTED Care 09/09/20 03:41 Active Hip Min 2V or 3V w Pelvis Lt [CR] Stat Exams 09/09/20 02:22 Taken Hip wo Cont Lt [CT] Stat Exams 09/09/20 02:56 Taken Pelvis wo Cont [CT] Stat Exams 09/09/20 02:58 Taken Sodium Chloride 0.9% [Saline Flush] Med 09/09/20 02:21 Active 10 ml FLUSH ASDIRECTED PRN Peripheral IV Insertion Adult [OM.PC] Stat Oth 09/09/20 02:21 Ordered EKG 12 Lead [EK] Stat Ther 09/09/20 03:40 Ordered Medication Orders Sodium Chloride (Saline Flush) 10 ml FLUSH ASDIRECTED PRN PRN Reason: Keep Vein Open Last Admin: 09/09/20 02:42 Dose: 10 ml Documented by: BADIMAR Assessment/Plan Comment:: Assessment - day of admission - 09/09/20 * 85 yo female presents via Ambulance after fall at [facility] resulting in left hip and groin pain * Fell while getting into chair. * Denies hitting head or LOC * Occurred at 1999 on 09/08/20 and pain is getting worse * Hip x-ray shows bilateral degenerative change, worse on left side and nothing acute * Pelvis CT shows abnormal psoas muscle compatible with previous injury, chronic findings, nothing acute * Hypertensive in ED with BP of 189/113 * Labs in ED: * WBC 10.06 * Hemoglobin 11.3 * Platelet 245 * Neutrophils 8.34 * Sodium 139 * Potassium 6.2-->5.8 * BUN 65, creatinine 2.1, GFR 22 * Glucose 127 * Bilirubin 0.7 * AST 27, ALT 42, alkaline phosphatase 74 * Albumin 3.7 * SARS-CoV-2 RNA negative * Twelve-lead EKG shows sinus rhythm with no acute changes * Given 45 g Kayexalate p.o., 2.5 mg albuterol nebulizer, D50 with insulin R 10 units, and calcium gluconate in ED. * History of HLD, HTN, ME, venous insufficiency, recurrent pneumonia, sleep apnea, pulmonary nodule, hemorrhoids, hydronephrosis, urinary incontinence, recurrent UTI, stress incontinence, venous fistula repair, hypothyroidism, anticoagulation therapy, lymphedema. * Per family patient has had 4 falls in the past 4 months * Admitted observation status to medical floor for management of hyperkalemia and pain secondary to fall. PLAN Fall Psoas hematoma, left, secondary to anticoagulant therapy Chronic anticoagulation * Pain medications as ordered * PRN Flexeril for spasms * PT/OT * CM/SW consultation * Continue home plavix Hyperkalemia Hypermagnesemia Chronic renal insufficiency, stage IV (severe) * Telemetry * IV fluids as ordered * Hold spironolactone * Re-check potassium at 1300 * Given Kayexalate, albuterol neb, D50 with insulin, and calcium gluconate in ED * Urine potassium, sodium, and creatinine * Avoid nephrotoxic meds if able * Monitor labs Sleep apnea * Home CPAP History of ME (myocardial infarction) Pulmonary nodule Urinary incontinence Hypothyroidism Lymphedema Hypertension * Review/reconcile home meds * Monitor vital signs Code status: DNR/DNI PCP: Dr. Stanley DVT prophylaxis: Social: Patient resides at [facility] Disposition: Admit to [facility] observation status with telemetry for management of hyperkalemia and pain 2/2 fall. - Mortality Measure Prognosis:: Good
--- NOTE | 2020-09-09 07:21 | CR ---
Pelvis and left hip: AP view of the pelvis was obtained as well as AP and frog-leg lateral views of the left hip. There is moderate narrowing seen within the medial and superior right hip joint. Severe joint space narrowing is noted within the left hip in the medial and upper joint. Osteopenia is noted. Mild disc space narrowing is seen within the lower lumbar spine. No acute fracture or dislocation is seen. Impression: 1. Degenerative change within both hips, worse on the left side. 2. Other findings as noted above. Nothing acute is seen. Diagnostic code #2
--- NOTE | 2020-09-09 07:28 | CT ---
CT pelvis Technique: Multiple axial sections through the pelvis were obtained from above the iliac crest inferiorly through the pubic symphysis. Intravenous contrast was not utilized. Study was performed as a bone algorithm. Reconstructed coronal and sagittal images were also obtained. Findings: Left psoas muscle is increased in size with surrounding density compatible with probable psoas injury. Slight density is noted along the medial side of the psoas within the pelvis. Degenerative change is seen within the lower lumbar spine. Degenerative change is noted within both hips, worse on the left side. Bony structures are osteopenic. No acute fracture or dislocation is seen. Atherosclerotic change is noted within the aortoiliac vessels. Diverticuli are seen throughout the sigmoid colon with no inflammatory change of diverticulitis. Impression: 1. Abnormal psoas muscle compatible with previous injury. 2. Other findings as noted above. No acute osseous finding is appreciated. Diagnostic code #3 I agree with preliminary report from [facility], finalized on 09/09/20, 6:20 AM BACK ROLLER
[2020-09-09] MEDS ORDERED: Ondansetron 4 MG/2 ML SDV IV PRN (08:19)
[2020-09-09] MEDS ORDERED: Sodium Chloride 0.9% 1,000 ML IV SCH (08:30)
[2020-09-09] MEDS ORDERED: Folic Acid 1 MG Tab PO SCH (09:00)
[2020-09-09] MEDS ORDERED: Loratadine 10 MG Tab PO PRN (09:00)
[2020-09-09] MEDS ORDERED: Spironolactone 25 MG Tab PO SCH (09:00)
[2020-09-09] MEDS ORDERED: Clopidogrel 75 MG Tab PO SCH (09:00)
--- NOTE | 2020-09-09 09:32 | CT ---
CT pelvis Technique: Multiple axial sections through the pelvis were obtained as well as reconstructed coronal and sagittal images. Findings: There is severe narrowing seen within the medial and upper left hip. Degenerative cysts are noted within the superior acetabulum. Minimal osteophytes off the femoral head are noted. Slight vacuum phenomenon is noted within the sacroiliac joint. No acute fracture or dislocation is appreciated. Diverticuli are seen within the sigmoid colon without evidence of diverticulitis. Very minimal density is seen peripheral to the left psoas muscle. Impression: 1. Degenerative change within the left hip with mild degenerative change within the left sacroiliac joint. 2. Probable injury within the left psoas muscle. 3. No acute fracture or dislocation is seen. Diagnostic code #3 I agree with preliminary report from [facility], finalized on 09/09/20, 6:16 AM CHARIS DESAI
[2020-09-09] MEDS: Acetaminophen 325 MG Tab PO PRN (10:38)
[2020-09-09] MEDS: Acetaminophen/HYDROcodone 325-5 MG Tab PO PRN ×3 (11:22→20:11)
[2020-09-09] MEDS: Labetalol 100 MG Tab PO SCH ×4 (12:09→20:11)
[2020-09-09] MEDS: HYDROmorphone 0.5 MG/0.5 ML Syringe IVPUSH PRN ×2 (12:10→18:17)
[2020-09-09] MEDS: Furosemide 20 MG Tab PO SCH (13:34)
[2020-09-09] MEDS: Cyclobenzaprine 10 MG Tab PO PRN (15:17)
[2020-09-09] MEDS: Gabapentin 100 MG Cap PO SCH (20:07)
[2020-09-09] MEDS ORDERED: Gabapentin 100 MG Cap PO SCH (21:00)
[2020-09-10] MEDS: Acetaminophen/HYDROcodone 325-5 MG Tab PO PRN ×4 (01:09→21:26)
[2020-09-10] MEDS: HYDROmorphone 0.5 MG/0.5 ML Syringe IVPUSH PRN ×3 (01:49→22:21)
[2020-09-10] MEDS: Pramipexole 0.5 MG Tab PO SCH (08:58)
[2020-09-10] MEDS: Labetalol 100 MG Tab PO SCH ×3 (08:59→21:25)
[2020-09-10] MEDS: Furosemide 20 MG Tab PO SCH (08:59)
[2020-09-10] MEDS: Folic Acid 1 MG Tab PO SCH (08:59)
[2020-09-10] MEDS: Cyclobenzaprine 10 MG Tab PO PRN ×3 (08:59→22:20)
[2020-09-10] MEDS: Clopidogrel 75 MG Tab PO SCH (09:02)
--- NOTE | 2020-09-10 11:11 | PCM.PN ---
- General Info Date of Service: 09/10/20 Admission Dx/Problem (Free Text): Admission Diagnosis/Problem Admission Diagnosis/Problem Fall Subjective Update: In to see "Roscoe". She reports she is feeling much better today but continues to have left-sided hip pain. She does have an ice pack applied to the left hip and has been receiving pain meds. She is in agreement to SNF placement for a rehab stay and it is felt that this would likely benefit her. Labs today have remained stable and her potassium remains in normal range. We will resume home enalapril as her blood pressure has been a smidge high. This is likely secondary to pain as well. Son is in room and is working on SNF placement application. Likely discharge on 09/13/2020 pending SNF placement. Functional Status: Reports: Pain Controlled, Tolerating Diet, Ambulating, Urinating. Denies: New Symptoms - Review of Systems General: Reports: No Symptoms, Weakness, Fatigue, Malaise, Chills. Denies: Fever HEENT: Reports: No Symptoms. Denies: Headaches, Sore Throat Pulmonary: Reports: No Symptoms. Denies: Shortness of Breath, Cough, Sputum, Wheezing Cardiovascular: Reports: Edema (Chronic L>R). Denies: Chest Pain, Palpitations, Lightheadedness Gastrointestinal: Reports: No Symptoms. Denies: Abdominal Pain, Constipation, Diarrhea, Nausea, Vomiting Genitourinary: Reports: No Symptoms. Denies: Pain Musculoskeletal: Reports: Leg Pain (left ), Joint Pain (Left hip) Skin: Reports: No Symptoms Neurological: Reports: Pre-Existing Deficit, Difficulty Walking, Weakness, Gait Disturbance. Denies: Confusion Psychiatric: Reports: No Symptoms - Patient Data Vitals - Most Recent: Last Vital Signs Temp 97.2 F 09/10/20 07:37 Pulse 86 09/10/20 08:59 Resp 16 09/10/20 07:37 BP 146/91 H 09/10/20 08:59 Pulse Ox 95 09/10/20 08:19 Weight - Most Recent: 166 lb 3.2 oz I&O - Last 24 Hours: Intake & Output 09/09/20 09/10/20 09/10/20 22:59 06:59 14:59 Intake Total 580 1700 Output Total 325 1400 Balance 255 300 Lab Results Last 24 Hours: Laboratory Results - last 24 hr 09/09/20 09/09/20 09/10/20 Range/Units 12:24 20:38 06:16 WBC (3.98-10.04) K/mm3 RBC (3.98-5.22) M/mm3 Hgb (11.2-15.7) gm/dl Hct (34.1-44.9) % MCV (79.4-94.8) fl MCH (25.6-32.2) pg MCHC (32.2-35.5) g/dl RDW Std Deviation (36.4-46.3) fL Plt Count (182-369) K/mm3 MPV (9.4-12.3) fl Neut % (Auto) (34.0-71.1) % Lymph % (Auto) (19.3-51.7) % [place] % (Auto) (4.7-12.5) % Eos % (Auto) (0.7-5.8) Baso % (Auto) (0.1-1.2) % Neut # (Auto) (1.56-6.13) K/mm3 Lymph # (Auto) (1.18-3.74) K/mm3 [place] # (Auto) (0.24-0.36) K/mm3 Eos # (Auto) (0.04-0.36) K/mm3 Baso # (Auto) (0.01-0.08) K/mm3 Sodium 146 H (136-145) mEq/L Potassium 4.6 4.5 (3.5-5.1) mEq/L Chloride 107 (98-107) mEq/L Carbon Dioxide 28 (21-32) mEq/L Anion Gap 15.5 H (5-15) BUN 43 H (7-18) mg/dL Creatinine 1.8 H (0.55-1.02) mg/dL Est Cr Clr Drug Dosing 20.09 mL/min Estimated GFR (MDRD) 27 (>60) mL/min BUN/Creatinine Ratio 23.9 H (14-18) Glucose 105 (83-115) mg/dL Calcium 9.0 (8.5-10.1) mg/dL Magnesium 2.2 (1.8-2.4) mg/dl Total Bilirubin 1.1 H (0.2-1.0) mg/dL AST 41 H (15-37) U/L ALT 38 (14-59) U/L Alkaline Phosphatase 67 (46-116) U/L Total Protein 6.8 (6.4-8.2) g/dl Albumin 3.3 L (3.4-5.0) g/dl Globulin 3.5 gm/dL Albumin/Globulin Ratio 0.9 L (1-2) Ur Random Creatinine 16.5 L (30.0-125.0) mg/dL Ur Random Sodium 105 (40-220) mEq/L 09/10/20 Range/Units 06:16 WBC 8.65 (3.98-10.04) K/mm3 RBC 3.52 L (3.98-5.22) M/mm3 Hgb 10.9 L (11.2-15.7) gm/dl Hct 34.9 (34.1-44.9) % MCV 99.1 H (79.4-94.8) fl MCH 31.0 (25.6-32.2) pg MCHC 31.2 L (32.2-35.5) g/dl RDW Std Deviation 47.1 H (36.4-46.3) fL Plt Count 247 (182-369) K/mm3 MPV 10.4 (9.4-12.3) fl Neut % (Auto) 74.2 H (34.0-71.1) % Lymph % (Auto) 14.6 L (19.3-51.7) % [place] % (Auto) 9.5 (4.7-12.5) % Eos % (Auto) 1.5 (0.7-5.8) Baso % (Auto) 0.1 (0.1-1.2) % Neut # (Auto) 6.42 H (1.56-6.13) K/mm3 Lymph # (Auto) 1.26 (1.18-3.74) K/mm3 [place] # (Auto) 0.82 H (0.24-0.36) K/mm3 Eos # (Auto) 0.13 (0.04-0.36) K/mm3 Baso # (Auto) 0.01 (0.01-0.08) K/mm3 Sodium (136-145) mEq/L Potassium (3.5-5.1) mEq/L Chloride (98-107) mEq/L Carbon Dioxide (21-32) mEq/L Anion Gap (5-15) BUN (7-18) mg/dL Creatinine (0.55-1.02) mg/dL Est Cr Clr Drug Dosing mL/min Estimated GFR (MDRD) (>60) mL/min BUN/Creatinine Ratio (14-18) Glucose (83-115) mg/dL Calcium (8.5-10.1) mg/dL Magnesium (1.8-2.4) mg/dl Total Bilirubin (0.2-1.0) mg/dL AST (15-37) U/L ALT (14-59) U/L Alkaline Phosphatase (46-116) U/L Total Protein (6.4-8.2) g/dl Albumin (3.4-5.0) g/dl Globulin gm/dL Albumin/Globulin Ratio (1-2) Ur Random Creatinine (30.0-125.0) mg/dL Ur Random Sodium (40-220) mEq/L Med Orders - Current: Current Medications Acetaminophen (Tylenol) 650 mg PO Q4H PRN PRN Reason: Pain (Mild 1-3)/fever Last Admin: 09/09/20 10:38 Dose: 650 mg Documented by: Hydrocodone Bitart/Acetaminophen ([place] 325-5 Mg) 1 tab PO Q4H PRN PRN Reason: Pain (moderate 4-6) Last Admin: 09/10/20 07:15 Dose: 1 tab Documented by: Clopidogrel Bisulfate (Plavix) 75 mg PO DAILY [facility] Last Admin: 09/10/20 09:02 Dose: 75 mg Documented by: Cyclobenzaprine HCl (Flexeril) 10 mg PO TID PRN PRN Reason: Spasms Last Admin: 09/10/20 08:59 Dose: 10 mg Documented by: Docusate Sodium (Colace) 100 mg PO BID PRN PRN Reason: Constipation Folic Acid (Folic Acid) 1 mg PO DAILY [facility] Last Admin: 09/10/20 08:59 Dose: 1 mg Documented by: Furosemide (Lasix) 20 mg PO DAILY [facility] Last Admin: 09/10/20 08:59 Dose: 20 mg Documented by: Gabapentin (Neurontin) 100 mg PO BEDTIME [facility] Last Admin: 09/09/20 20:07 Dose: 100 mg Documented by: Hydromorphone HCl (Dilaudid) 0.25 mg IVPUSH Q2H PRN PRN Reason: Pain (severe 7-10) Last Admin: 09/10/20 01:49 Dose: 0.25 mg Documented by: Labetalol HCl (Normodyne) 200 mg PO TID [facility] Last Admin: 09/10/20 08:59 Dose: 200 mg Documented by: Ondansetron HCl (Zofran) 4 mg IV Q6H PRN PRN Reason: Nausea/Vomiting Pramipexole Dihydrochloride (Mirapex) 0.5 mg PO DAILY [facility] Last Admin: 09/10/20 08:58 Dose: 0.5 mg Documented by: Sodium Chloride (Saline Flush) 10 ml FLUSH ASDIRECTED PRN PRN Reason: Keep Vein Open Last Admin: 09/09/20 02:42 Dose: 10 ml Documented by: Discontinued Medications Albuterol (Proventil Neb Soln) 2.5 mg NEB ONETIME ONE Stop: 09/09/20 03:41 Last Admin: 09/09/20 04:04 Dose: 2.5 mg Documented by: Calcium Gluconate (Calcium Gluconate) 1 gm IVPUSH ONETIME ONE Stop: 09/09/20 03:43 Last Admin: 09/09/20 04:02 Dose: 1 gm Documented by: Clopidogrel Bisulfate (Plavix) 75 mg PO DAILY [facility] Last Admin: 09/09/20 12:07 Dose: 75 mg Documented by: Cyclobenzaprine HCl (Flexeril) 10 mg PO ONETIME ONE Stop: 09/09/20 04:17 Last Admin: 09/09/20 04:31 Dose: 10 mg Documented by: Dextrose/Water (Dextrose 50% In Water) 50 ml IVPUSH ONETIME ONE Stop: 09/09/20 03:42 Last Admin: 09/09/20 03:52 Dose: 50 ml Documented by: Folic Acid (Folic Acid) 1 mg PO DAILY [facility] Last Admin: 09/09/20 12:07 Dose: 1 mg Documented by: Gabapentin (Neurontin) 100 mg PO BEDTIME [facility] Hydromorphone HCl (Dilaudid) 0.25 mg IVPUSH ONETIME ONE Stop: 09/09/20 02:23 Last Admin: 09/09/20 02:30 Dose: 0.25 mg Documented by: Hydromorphone HCl (Dilaudid) 0.25 mg IVPUSH ONETIME ONE Stop: 09/09/20 03:28 Last Admin: 09/09/20 03:42 Dose: 0.25 mg Documented by: Sodium Chloride (Normal Saline) 1,000 mls @ 75 mls/hr IV ASDIRECTED [facility] Stop: 09/09/20 21:49 Last Admin: 09/09/20 10:46 Dose: 75 mls/hr Documented by: Insulin Human Regular (Humulin R) 10 unit SUBCUT ONETIME ONE Stop: 09/09/20 03:42 Last Admin: 09/09/20 03:51 Dose: 10 unit Documented by: Labetalol HCl (Normodyne) 200 mg PO TID [facility] Last Admin: 09/09/20 15:07 Dose: Not Given Documented by: Loratadine (Claritin) 10 mg PO DAILY PRN PRN Reason: ALLERGIES Sodium Polystyrene Sulfonate (Kayexalate) 45 gm PO NOW ONE Stop: 09/09/20 03:43 Last Admin: 09/09/20 03:54 Dose: 45 gm Documented by: Spironolactone (Aldactone) 25 mg PO DAILY ASA - Exam Quality Assessment: DVT Prophylaxis. No: Supplemental Oxygen, Urine Catheter General: Alert, Oriented, Cooperative, No Acute Distress HEENT: Pupils Equal, Pupils Reactive, Mucous Membr. Moist/[place] Neck: Supple, Trachea Midline Lungs: Clear to Auscultation, Normal Respiratory Effort Cardiovascular: Regular Rate, Regular Rhythm GI/Abdominal Exam: Normal Bowel Sounds, Soft, Non-Tender, No Distention (Female) Exam: Deferred Back Exam: Normal Inspection, Decreased Range of Motion Extremities: Normal Range of Motion, Non-Tender, Normal Capillary Refill, Pedal Edema (L>R ), Limited Range of Motion (2/2 pain), Other (Left lower extremity discoloration consistent with peripheral vascular disease.) Skin: Warm, Dry, Intact Neurological: No New Focal Deficit Psy/Mental Status: Alert, Normal Affect, Normal Mood - Patient Data Lab Results Last 24 hrs: Laboratory Results - last 24 hr 09/09/20 09/09/20 09/10/20 Range/Units 12:24 20:38 06:16 WBC (3.98-10.04) K/mm3 RBC (3.98-5.22) M/mm3 Hgb (11.2-15.7) gm/dl Hct (34.1-44.9) % MCV (79.4-94.8) fl MCH (25.6-32.2) pg MCHC (32.2-35.5) g/dl RDW Std Deviation (36.4-46.3) fL Plt Count (182-369) K/mm3 MPV (9.4-12.3) fl Neut % (Auto) (34.0-71.1) % Lymph % (Auto) (19.3-51.7) % [place] % (Auto) (4.7-12.5) % Eos % (Auto) (0.7-5.8) Baso % (Auto) (0.1-1.2) % Neut # (Auto) (1.56-6.13) K/mm3 Lymph # (Auto) (1.18-3.74) K/mm3 [place] # (Auto) (0.24-0.36) K/mm3 Eos # (Auto) (0.04-0.36) K/mm3 Baso # (Auto) (0.01-0.08) K/mm3 Sodium 146 H (136-145) mEq/L Potassium 4.6 4.5 (3.5-5.1) mEq/L Chloride 107 (98-107) mEq/L Carbon Dioxide 28 (21-32) mEq/L Anion Gap 15.5 H (5-15) BUN 43 H (7-18) mg/dL Creatinine 1.8 H (0.55-1.02) mg/dL Est Cr Clr Drug Dosing 20.09 mL/min Estimated GFR (MDRD) 27 (>60) mL/min BUN/Creatinine Ratio 23.9 H (14-18) Glucose 105 (83-115) mg/dL Calcium 9.0 (8.5-10.1) mg/dL Magnesium 2.2 (1.8-2.4) mg/dl Total Bilirubin 1.1 H (0.2-1.0) mg/dL AST 41 H (15-37) U/L ALT 38 (14-59) U/L Alkaline Phosphatase 67 (46-116) U/L Total Protein 6.8 (6.4-8.2) g/dl Albumin 3.3 L (3.4-5.0) g/dl Globulin 3.5 gm/dL Albumin/Globulin Ratio 0.9 L (1-2) Ur Random Creatinine 16.5 L (30.0-125.0) mg/dL Ur Random Sodium 105 (40-220) mEq/L 09/10/20 Range/Units 06:16 WBC 8.65 (3.98-10.04) K/mm3 RBC 3.52 L (3.98-5.22) M/mm3 Hgb 10.9 L (11.2-15.7) gm/dl Hct 34.9 (34.1-44.9) % MCV 99.1 H (79.4-94.8) fl MCH 31.0 (25.6-32.2) pg MCHC 31.2 L (32.2-35.5) g/dl RDW Std Deviation 47.1 H (36.4-46.3) fL Plt Count 247 (182-369) K/mm3 MPV 10.4 (9.4-12.3) fl Neut % (Auto) 74.2 H (34.0-71.1) % Lymph % (Auto) 14.6 L (19.3-51.7) % [place] % (Auto) 9.5 (4.7-12.5) % Eos % (Auto) 1.5 (0.7-5.8) Baso % (Auto) 0.1 (0.1-1.2) % Neut # (Auto) 6.42 H (1.56-6.13) K/mm3 Lymph # (Auto) 1.26 (1.18-3.74) K/mm3 [place] # (Auto) 0.82 H (0.24-0.36) K/mm3 Eos # (Auto) 0.13 (0.04-0.36) K/mm3 Baso # (Auto) 0.01 (0.01-0.08) K/mm3 Sodium (136-145) mEq/L Potassium (3.5-5.1) mEq/L Chloride (98-107) mEq/L Carbon Dioxide (21-32) mEq/L Anion Gap (5-15) BUN (7-18) mg/dL Creatinine (0.55-1.02) mg/dL Est Cr Clr Drug Dosing mL/min Estimated GFR (MDRD) (>60) mL/min BUN/Creatinine Ratio (14-18) Glucose (83-115) mg/dL Calcium (8.5-10.1) mg/dL Magnesium (1.8-2.4) mg/dl Total Bilirubin (0.2-1.0) mg/dL AST (15-37) U/L ALT (14-59) U/L Alkaline Phosphatase (46-116) U/L Total Protein (6.4-8.2) g/dl Albumin (3.4-5.0) g/dl Globulin gm/dL Albumin/Globulin Ratio (1-2) Ur Random Creatinine (30.0-125.0) mg/dL Ur Random Sodium (40-220) mEq/L Result Diagrams: 09/10/20 06:16 09/10/20 06:16 Sepsis Event Note - Evaluation Sepsis Screening Result: No Definite Risk - Focused Exam Vital Signs: Vital Signs Temp Pulse Resp BP Pulse Ox 09/10/20 08:59 86 146/91 H 09/10/20 08:19 95 09/10/20 07:37 97.2 F 86 16 146/91 H 98 09/10/20 00:47 75 115/44 L 98 09/10/20 00:46 97.9 F 72 16 96/40 L 98 - Problem List & Annotations (1) History of IA (myocardial infarction) SNOMED Code(s): 565084378 Code(s): I25.2 - OLD MYOCARDIAL INFARCTION Status: Chronic Priority: Low Current Visit: No (2) Sleep apnea SNOMED Code(s): 01901851 Code(s): G47.30 - SLEEP APNEA, UNSPECIFIED Status: Chronic Priority: Low Current Visit: No Qualifiers: Sleep apnea type: unspecified type Qualified Code(s): G47.30 - Sleep apnea, unspecified (3) Pulmonary nodule SNOMED Code(s): 884958624 Code(s): R91.1 - SOLITARY PULMONARY NODULE Status: Chronic Priority: Low Current Visit: No (4) Urinary incontinence SNOMED Code(s): 522393636 Code(s): R32 - UNSPECIFIED URINARY INCONTINENCE Status: Chronic Priority: Low Current Visit: No Qualifiers: Urinary Incontinence type: unspecified incontinence Qualified Code(s): R32 - Unspecified urinary incontinence (5) Hypothyroidism SNOMED Code(s): 37787738 Code(s): E03.9 - HYPOTHYROIDISM, UNSPECIFIED Status: Chronic Priority: Medium Current Visit: No Qualifiers: Hypothyroidism type: unspecified Qualified Code(s): E03.9 - Hypothyroidism, unspecified (6) Chronic anticoagulation SNOMED Code(s): 124122594 Code(s): Z79.01 - [facility] (CURRENT) USE OF ANTICOAGULANTS Status: Chronic Priority: Medium Current Visit: No (7) Lymphedema SNOMED Code(s): 680296945 Code(s): I89.0 - LYMPHEDEMA, NOT ELSEWHERE CLASSIFIED Status: Chronic Priority: Medium Current Visit: No (8) Fall SNOMED Code(s): 2510552, 269187823 Code(s): W19.XXXA - UNSPECIFIED FALL, INITIAL ENCOUNTER Status: Acute Priority: High Current Visit: Yes Qualifiers: Encounter type: initial encounter Qualified Code(s): W19.XXXA - Unspecified fall, initial encounter (9) Hyperkalemia SNOMED Code(s): 37369655 Code(s): E87.5 - HYPERKALEMIA Status: Acute Priority: High Current Visit: Yes (10) Psoas hematoma, left, secondary to anticoagulant therapy SNOMED Code(s): 664441234, 846098303 Code(s): S30.1XXA - CONTUSION OF ABDOMINAL WALL, INITIAL ENCOUNTER Status: Acute Priority: High Current Visit: Yes Qualifiers: Encounter type: initial encounter Qualified Code(s): S30.1XXA - Contusion of abdominal wall, initial encounter (11) Chronic renal insufficiency, stage IV (severe) SNOMED Code(s): 605071069 Code(s): N18.4 - CHRONIC KIDNEY DISEASE, STAGE 4 (SEVERE) Status: Chronic Priority: High Current Visit: Yes (12) Hypertension SNOMED Code(s): 11256976 Code(s): I10 - ESSENTIAL (PRIMARY) HYPERTENSION Status: Chronic Priority: Medium Current Visit: No Qualifiers: Hypertension type: essential hypertension Qualified Code(s): I10 - Essential (primary) hypertension (13) Hypermagnesemia SNOMED Code(s): 71052133 Code(s): E83.41 - HYPERMAGNESEMIA Status: Acute Priority: High Current Visit: Yes - Problem List Review Problem List Initiated/Reviewed/Updated: Yes - My Orders Last 24 Hours: My Active Orders 09/09/20 12:11 Cyclobenzaprine [Flexeril] 10 mg PO TID PRN 09/09/20 12:15 Furosemide [Lasix] 20 mg PO DAILY 09/09/20 13:24 Patient Status [ADT] Routine 09/09/20 15:00 Labetalol [Normodyne] 200 mg PO TID 09/09/20 15:01 Cooling Warming Measures [RC] BID Ice Pack [Ice Therapy] [OM.PC] Routine 09/09/20 21:00 Gabapentin [Neurontin] 100 mg PO BEDTIME 09/10/20 09:00 Clopidogrel [Plavix] 75 mg PO DAILY Folic Acid 1 mg PO DAILY Pramipexole [Mirapex] 0.5 mg PO DAILY 09/11/20 05:11 CBC WITH AUTO DIFF [HEME] AM CMP [COMPREHENSIVE METABOLIC PN,CMP] [CHEM] AM MAGNESIUM [CHEM] AM 09/12/20 05:11 CBC WITH AUTO DIFF [HEME] AM CMP [COMPREHENSIVE METABOLIC PN,CMP] [CHEM] AM MAGNESIUM [CHEM] AM 09/13/20 05:11 CBC WITH AUTO DIFF [HEME] AM CMP [COMPREHENSIVE METABOLIC PN,CMP] [CHEM] AM MAGNESIUM [CHEM] AM - Assessment Assessment:: Assessment - day of admission - 09/09/20 * 85 yo female presents via Ambulance after fall at [facility] resulting in left hip and groin pain * Fell while getting into chair. * Denies hitting head or LOC * Occurred at 1999 on 09/08/20 and pain is getting worse * Hip x-ray shows bilateral degenerative change, worse on left side and nothing acute * Pelvis CT shows abnormal psoas muscle compatible with previous injury, chronic findings, nothing acute * Hypertensive in ED with BP of 189/113 * Labs in ED: * WBC 10.06 * Hemoglobin 11.3 * Platelet 245 * Neutrophils 8.34 * Sodium 139 * Potassium 6.2-->5.8 * BUN 65, creatinine 2.1, GFR 22 * Glucose 127 * Bilirubin 0.7 * AST 27, ALT 42, alkaline phosphatase 74 * Albumin 3.7 * SARS-CoV-2 RNA negative * Twelve-lead EKG shows sinus rhythm with no acute changes * Given 45 g Kayexalate p.o., 2.5 mg albuterol nebulizer, D50 with insulin R 10 units, and calcium gluconate in ED. * History of HLD, HTN, IA, venous insufficiency, recurrent pneumonia, sleep apnea, pulmonary nodule, hemorrhoids, hydronephrosis, urinary incontinence, recurrent UTI, stress incontinence, venous fistula repair, hypothyroidism, anticoagulation therapy, lymphedema. * Per family patient has had 4 falls in the past 4 months * Admitted observation status to medical floor for management of hyperkalemia and pain secondary to fall. 09/09/20 * Reports pain has improved -deceiving pain medications and ice pack on hip * Has been up working with PT and OTcontinue to recommend SNF placement. * Patient is in agreement for SNF placement for rehab stay. * Somewhat hypertensive today. Will resume home enalapril. Likely skewed by pa in. * Labs today: * WBC 8.65 * Hemoglobin 10.9 * platelet 247,000 * sodium 146 * potassium 4.5 * anion gap 15.5 * BUN 43, creatinine 1.8, GFR 27 * magnesium 2.2 * bilirubin 1.1 * AST 41, ALT 38, alkaline phosphatase 67 * albumin 3.3 * urine random creatinine 16.5 (obtained yesterday) * urine random sodium 105 (obtained yesterday) * Continue current treatment plan * Probable discharge on 09/13/20 pending SNF placement - Plan Plan:: Fall Psoas hematoma, left, secondary to anticoagulant therapy Chronic anticoagulation * Pain medications as ordered * PRN Flexeril for spasms * PT/OT * CM/SW consultation * Continue home plavix Hyperkalemia, resolved Hypermagnesemia, resolved Chronic renal insufficiency, stage IV (severe), improved * Telemetry * IV fluids as ordered * Hold spironolactone * Re-check potassium at 1300 * Given Kayexalate, albuterol neb, D50 with insulin, and calcium gluconate in ED * Avoid nephrotoxic meds if able * Monitor labs Sleep apnea * Home CPAP History of IA (myocardial infarction) Pulmonary nodule Urinary incontinence Hypothyroidism Lymphedema Hypertension * Review/reconcile home meds * Monitor vital signs Code status: DNR/DNI PCP: Dr. Stanley DVT prophylaxis: Social: Patient resides at [facility] Disposition: Admit to [facility] observation status with telemetry for management of hyperkalemia and pain 2 fall.
[2020-09-10] MEDS: Gabapentin 100 MG Cap PO SCH (21:25)
[2020-09-10] MEDS: Docusate Sodium 100 MG Cap PO PRN (21:26)
[2020-09-11] MEDS: Acetaminophen/HYDROcodone 325-5 MG Tab PO PRN ×3 (05:08→20:32)
[2020-09-11] MEDS: HYDROmorphone 0.5 MG/0.5 ML Syringe IVPUSH PRN (05:31)
[2020-09-11] MEDS: Cyclobenzaprine 10 MG Tab PO PRN ×2 (08:26→16:30)
[2020-09-11] MEDS: Enalapril 5 MG Tab PO SCH (08:29)
[2020-09-11] MEDS: Labetalol 100 MG Tab PO SCH ×3 (08:31→20:30)
[2020-09-11] MEDS: Clopidogrel 75 MG Tab PO SCH (08:32)
[2020-09-11] MEDS: Furosemide 20 MG Tab PO SCH (08:32)
[2020-09-11] MEDS: Folic Acid 1 MG Tab PO SCH (08:32)
[2020-09-11] MEDS: Pramipexole 0.5 MG Tab PO SCH (08:32)
--- NOTE | 2020-09-11 09:30 | PCM.PN ---
- General Info Date of Service: 09/11/20 Subjective Update: Patient states that she has felt dizzy this morning after Labetalol, the dose will be decreased and reassessed at [place]. Functional Status: Reports: Tolerating Diet, Urinating - Review of Systems General: Reports: No Symptoms HEENT: Reports: No Symptoms Pulmonary: Reports: No Symptoms Cardiovascular: Reports: No Symptoms Gastrointestinal: Reports: No Symptoms Genitourinary: Reports: No Symptoms Musculoskeletal: Reports: No Symptoms Skin: Reports: No Symptoms Neurological: Reports: No Symptoms Psychiatric: Reports: No Symptoms - Patient Data Vitals - Most Recent: Last Vital Signs Temp 36.5 C 09/11/20 08:28 Pulse 79 09/11/20 08:31 Resp 18 09/11/20 08:28 BP 151/71 H 09/11/20 08:31 Pulse Ox 100 09/11/20 08:28 Weight - Most Recent: 75.795 kg I&O - Last 24 Hours: Intake & Output 09/10/20 09/11/20 09/11/20 22:59 06:59 14:59 Intake Total 1120 700 Output Total 500 Balance 1120 200 Lab Results Last 24 Hours: Laboratory Results - last 24 hr 09/11/20 09/11/20 Range/Units 05:40 05:50 WBC 6.15 (3.98-10.04) K/mm3 RBC 3.23 L (3.98-5.22) M/mm3 Hgb 10.0 L (11.2-15.7) gm/dl Hct 31.6 L (34.1-44.9) % MCV 97.8 H (79.4-94.8) fl MCH 31.0 (25.6-32.2) pg MCHC 31.6 L (32.2-35.5) g/dl RDW Std Deviation 45.7 (36.4-46.3) fL Plt Count 228 (182-369) K/mm3 MPV 10.5 (9.4-12.3) fl Neut % (Auto) 71.9 H (34.0-71.1) % Lymph % (Auto) 17.1 L (19.3-51.7) % [place] % (Auto) 8.8 (4.7-12.5) % Eos % (Auto) 1.8 (0.7-5.8) Baso % (Auto) 0.2 (0.1-1.2) % Neut # (Auto) 4.43 (1.56-6.13) K/mm3 Lymph # (Auto) 1.05 L (1.18-3.74) K/mm3 [place] # (Auto) 0.54 H (0.24-0.36) K/mm3 Eos # (Auto) 0.11 (0.04-0.36) K/mm3 Baso # (Auto) 0.01 (0.01-0.08) K/mm3 Sodium 143 (136-145) mEq/L Potassium 4.4 (3.5-5.1) mEq/L Chloride 106 (98-107) mEq/L Carbon Dioxide 26 (21-32) mEq/L Anion Gap 15.4 H (5-15) BUN 43 H (7-18) mg/dL Creatinine 1.6 H (0.55-1.02) mg/dL Est Cr Clr Drug Dosing 22.60 mL/min Estimated GFR (MDRD) 31 (>60) mL/min BUN/Creatinine Ratio 26.9 H (14-18) Glucose 97 (83-115) mg/dL Calcium 8.8 (8.5-10.1) mg/dL Magnesium 2.0 (1.8-2.4) mg/dl Total Bilirubin 1.0 (0.2-1.0) mg/dL AST 46 H (15-37) U/L ALT 34 (14-59) U/L Alkaline Phosphatase 63 (46-116) U/L Total Protein 6.6 (6.4-8.2) g/dl Albumin 3.1 L (3.4-5.0) g/dl Globulin 3.5 gm/dL Albumin/Globulin Ratio 0.9 L (1-2) Med Orders - Current: Current Medications Acetaminophen (Tylenol) 650 mg PO Q4H PRN PRN Reason: Pain (Mild 1-3)/fever Last Admin: 09/09/20 10:38 Dose: 650 mg Documented by: Hydrocodone Bitart/Acetaminophen ([place] 325-5 Mg) 1 tab PO Q4H PRN PRN Reason: Pain (moderate 4-6) Last Admin: 09/11/20 05:08 Dose: 1 tab Documented by: Clopidogrel Bisulfate (Plavix) 75 mg PO DAILY [facility] Last Admin: 09/11/20 08:32 Dose: 75 mg Documented by: Cyclobenzaprine HCl (Flexeril) 10 mg PO TID PRN PRN Reason: Spasms Last Admin: 09/11/20 08:26 Dose: 10 mg Documented by: Docusate Sodium (Colace) 100 mg PO BID PRN PRN Reason: Constipation Last Admin: 09/10/20 21:26 Dose: 100 mg Documented by: Enalapril Maleate (Vasotec) 40 mg PO DAILY [facility] Last Admin: 09/11/20 08:29 Dose: 40 mg Documented by: Folic Acid (Folic Acid) 1 mg PO DAILY [facility] Last Admin: 09/11/20 08:32 Dose: 1 mg Documented by: Furosemide (Lasix) 20 mg PO DAILY [facility] Last Admin: 09/11/20 08:32 Dose: 20 mg Documented by: Gabapentin (Neurontin) 100 mg PO BEDTIME [facility] Last Admin: 09/10/20 21:25 Dose: 100 mg Documented by: Hydromorphone HCl (Dilaudid) 0.25 mg IVPUSH Q2H PRN PRN Reason: Pain (severe 7-10) Last Admin: 09/11/20 05:31 Dose: 0.25 mg Documented by: Labetalol HCl (Normodyne) 200 mg PO TID [facility] Last Admin: 09/11/20 08:31 Dose: 200 mg Documented by: Ondansetron HCl (Zofran) 4 mg IV Q6H PRN PRN Reason: Nausea/Vomiting Pramipexole Dihydrochloride (Mirapex) 0.5 mg PO DAILY [facility] Last Admin: 09/11/20 08:32 Dose: 0.5 mg Documented by: Sodium Chloride (Saline Flush) 10 ml FLUSH ASDIRECTED PRN PRN Reason: Keep Vein Open Last Admin: 09/09/20 02:42 Dose: 10 ml Documented by: Discontinued Medications Albuterol (Proventil Neb Soln) 2.5 mg NEB ONETIME ONE Stop: 09/09/20 03:41 Last Admin: 09/09/20 04:04 Dose: 2.5 mg Documented by: Calcium Gluconate (Calcium Gluconate) 1 gm IVPUSH ONETIME ONE Stop: 09/09/20 03:43 Last Admin: 09/09/20 04:02 Dose: 1 gm Documented by: Clopidogrel Bisulfate (Plavix) 75 mg PO DAILY [facility] Last Admin: 09/09/20 12:07 Dose: 75 mg Documented by: Cyclobenzaprine HCl (Flexeril) 10 mg PO ONETIME ONE Stop: 09/09/20 04:17 Last Admin: 09/09/20 04:31 Dose: 10 mg Documented by: Dextrose/Water (Dextrose 50% In Water) 50 ml IVPUSH ONETIME ONE Stop: 09/09/20 03:42 Last Admin: 09/09/20 03:52 Dose: 50 ml Documented by: Folic Acid (Folic Acid) 1 mg PO DAILY [facility] Last Admin: 09/09/20 12:07 Dose: 1 mg Documented by: Gabapentin (Neurontin) 100 mg PO BEDTIME [facility] Hydromorphone HCl (Dilaudid) 0.25 mg IVPUSH ONETIME ONE Stop: 09/09/20 02:23 Last Admin: 09/09/20 02:30 Dose: 0.25 mg Documented by: Hydromorphone HCl (Dilaudid) 0.25 mg IVPUSH ONETIME ONE Stop: 09/09/20 03:28 Last Admin: 09/09/20 03:42 Dose: 0.25 mg Documented by: Sodium Chloride (Normal Saline) 1,000 mls @ 75 mls/hr IV ASDIRECTED [facility] Stop: 09/09/20 21:49 Last Admin: 09/09/20 10:46 Dose: 75 mls/hr Documented by: Insulin Human Regular (Humulin R) 10 unit SUBCUT ONETIME ONE Stop: 09/09/20 03:42 Last Admin: 09/09/20 03:51 Dose: 10 unit Documented by: Labetalol HCl (Normodyne) 200 mg PO TID [facility] Last Admin: 09/09/20 15:07 Dose: Not Given Documented by: Loratadine (Claritin) 10 mg PO DAILY PRN PRN Reason: ALLERGIES Sodium Polystyrene Sulfonate (Kayexalate) 45 gm PO NOW ONE Stop: 09/09/20 03:43 Last Admin: 09/09/20 03:54 Dose: 45 gm Documented by: Spironolactone (Aldactone) 25 mg PO DAILY [facility] - Exam Quality Assessment: DVT Prophylaxis General: Alert, Oriented, Cooperative, No Acute Distress HEENT: Pupils Equal, Pupils Reactive, EOMI Neck: Trachea Midline, No JVD Lungs: Normal Respiratory Effort Cardiovascular: Regular Rate, Regular Rhythm GI/Abdominal Exam: Normal Bowel Sounds, Soft, Non-Tender, No Distention (Female) Exam: Deferred Back Exam: Normal Inspection Extremities: Normal Inspection, Non-Tender, Normal Capillary Refill Skin: Warm Neurological: No New Focal Deficit Psy/Mental Status: Alert - Patient Data Lab Results Last 24 hrs: Laboratory Results - last 24 hr 09/11/20 09/11/20 Range/Units 05:40 05:50 WBC 6.15 (3.98-10.04) K/mm3 RBC 3.23 L (3.98-5.22) M/mm3 Hgb 10.0 L (11.2-15.7) gm/dl Hct 31.6 L (34.1-44.9) % MCV 97.8 H (79.4-94.8) fl MCH 31.0 (25.6-32.2) pg MCHC 31.6 L (32.2-35.5) g/dl RDW Std Deviation 45.7 (36.4-46.3) fL Plt Count 228 (182-369) K/mm3 MPV 10.5 (9.4-12.3) fl Neut % (Auto) 71.9 H (34.0-71.1) % Lymph % (Auto) 17.1 L (19.3-51.7) % [place] % (Auto) 8.8 (4.7-12.5) % Eos % (Auto) 1.8 (0.7-5.8) Baso % (Auto) 0.2 (0.1-1.2) % Neut # (Auto) 4.43 (1.56-6.13) K/mm3 Lymph # (Auto) 1.05 L (1.18-3.74) K/mm3 [place] # (Auto) 0.54 H (0.24-0.36) K/mm3 Eos # (Auto) 0.11 (0.04-0.36) K/mm3 Baso # (Auto) 0.01 (0.01-0.08) K/mm3 Sodium 143 (136-145) mEq/L Potassium 4.4 (3.5-5.1) mEq/L Chloride 106 (98-107) mEq/L Carbon Dioxide 26 (21-32) mEq/L Anion Gap 15.4 H (5-15) BUN 43 H (7-18) mg/dL Creatinine 1.6 H (0.55-1.02) mg/dL Est Cr Clr Drug Dosing 22.60 mL/min Estimated GFR (MDRD) 31 (>60) mL/min BUN/Creatinine Ratio 26.9 H (14-18) Glucose 97 (83-115) mg/dL Calcium 8.8 (8.5-10.1) mg/dL Magnesium 2.0 (1.8-2.4) mg/dl Total Bilirubin 1.0 (0.2-1.0) mg/dL AST 46 H (15-37) U/L ALT 34 (14-59) U/L Alkaline Phosphatase 63 (46-116) U/L Total Protein 6.6 (6.4-8.2) g/dl Albumin 3.1 L (3.4-5.0) g/dl Globulin 3.5 gm/dL Albumin/Globulin Ratio 0.9 L (1-2) Result Diagrams: 09/11/20 05:40 09/11/20 05:50 Sepsis Event Note - Evaluation Sepsis Screening Result: No Definite Risk - Focused Exam Vital Signs: Vital Signs Temp Pulse Resp BP Pulse Ox 09/11/20 08:31 79 151/71 H 09/11/20 08:29 151/71 H 09/11/20 08:28 36.5 C 79 18 151/71 H 100 09/11/20 05:09 36.8 C 83 18 131/91 H 98 - Problem List Review Problem List Initiated/Reviewed/Updated: Yes - Assessment Assessment:: Assessment - day of admission - 09/09/20 * 85 yo female presents via Ambulance after fall at [facility] resulting in left hip and groin pain * Fell while getting into chair. * Denies hitting head or LOC * Occurred at 1999 on 09/08/20 and pain is getting worse * Hip x-ray shows bilateral degenerative change, worse on left side and nothing acute * Pelvis CT shows abnormal psoas muscle compatible with previous injury, chronic findings, nothing acute * Hypertensive in ED with BP of 189/113 * Labs in ED: * WBC 10.06 * Hemoglobin 11.3 * Platelet 245 * Neutrophils 8.34 * Sodium 139 * Potassium 6.2-->5.8 * BUN 65, creatinine 2.1, GFR 22 * Glucose 127 * Bilirubin 0.7 * AST 27, ALT 42, alkaline phosphatase 74 * Albumin 3.7 * SARS-CoV-2 RNA negative * Twelve-lead EKG shows sinus rhythm with no acute changes * Given 45 g Kayexalate p.o., 2.5 mg albuterol nebulizer, D50 with insulin R 10 units, and calcium gluconate in ED. * History of HLD, HTN, [place], venous insufficiency, recurrent pneumonia, sleep apnea, pulmonary nodule, hemorrhoids, hydronephrosis, urinary incontinence, recurrent UTI, stress incontinence, venous fistula repair, hypothyroidism, anticoagulation therapy, lymphedema. * Per family patient has had 4 falls in the past 4 months * Admitted observation status to medical floor for management of hyperkalemia and pain secondary to fall. 09/10/20 * Reports pain has improved -deceiving pain medications and ice pack on hip * Has been up working with PT and OTcontinue to recommend SNF placement. * Patient is in agreement for SNF placement for rehab stay. * Somewhat hypertensive today. Will resume home enalapril. Likely skewed by pain. * Labs today: * WBC 8.65 * Hemoglobin 10.9 * platelet 247,000 * sodium 146 * potassium 4.5 * anion gap 15.5 * BUN 43, creatinine 1.8, GFR 27 * magnesium 2.2 * bilirubin 1.1 * AST 41, ALT 38, alkaline phosphatase 67 * albumin 3.3 * urine random creatinine 16.5 (obtained yesterday) * urine random sodium 105 (obtained yesterday) 09/11/20 * Continue current treatment plan * Probable discharge on 09/13/20 pending SNF placement * Reports pain has improved -deceiving pain medications and ice pack on hip * Has been up working with PT and OTcontinue to recommend SNF placement. * Patient is in agreement for SNF placement for rehab stay. * Hypotensive, Labetaolol decreased, mid dose was held. * Continue current treatment plan * Probable discharge on 09/13/20 pending SNF placement - Plan Plan:: Fall Psoas hematoma, left, secondary to anticoagulant therapy Chronic anticoagulation * Pain medications as ordered * PRN Flexeril for spasms * PT/OT * CM/SW consultation * Continue home plavix Hyperkalemia, resolved Hypermagnesemia, resolved Chronic renal insufficiency, stage IV (severe), improved * Telemetry * IV fluids as ordered * Hold spironolactone * Re-check potassium at 1300 * Given Kayexalate, albuterol neb, D50 with insulin, and calcium gluconate in ED * Avoid nephrotoxic meds if able * Monitor labs Sleep apnea * Home CPAP History of AL (myocardial infarction) Pulmonary nodule Urinary incontinence Hypothyroidism Lymphedema Hypertension * Review/reconcile home meds * Monitor vital signs Code status: DNR/DNI PCP: Dr. Stanley DVT prophylaxis: Social: Patient resides at [facility] Disposition: Admit to [facility] observation status with telemetry for management of hyperkalemia and pain 2/2 fall.
[2020-09-11] MEDS: Gabapentin 100 MG Cap PO SCH (20:30)
[2020-09-12] MEDS: Acetaminophen/HYDROcodone 325-5 MG Tab PO PRN ×4 (02:42→21:17)
[2020-09-12] MEDS: Cyclobenzaprine 10 MG Tab PO PRN ×3 (03:50→20:27)
[2020-09-12] MEDS: HYDROmorphone 0.5 MG/0.5 ML Syringe IVPUSH PRN (05:46)
[2020-09-12] MEDS: Furosemide 20 MG Tab PO SCH (08:09)
[2020-09-12] MEDS: Pramipexole 0.5 MG Tab PO SCH (08:09)
[2020-09-12] MEDS: Folic Acid 1 MG Tab PO SCH (08:09)
[2020-09-12] MEDS: Clopidogrel 75 MG Tab PO SCH (08:09)
[2020-09-12] MEDS: Labetalol 100 MG Tab PO SCH ×2 (08:10→20:26)
[2020-09-12] MEDS: Enalapril 5 MG Tab PO SCH (08:10)
[2020-09-12] MEDS: Docusate Sodium 100 MG Cap PO PRN (12:28)
[2020-09-12] MEDS: Acetaminophen 325 MG Tab PO PRN ×2 (13:32→20:27)
--- NOTE | 2020-09-12 16:04 | PCM.PN ---
- General Info Date of Service: 09/12/20 Functional Status: Reports: Pain Controlled, Tolerating Diet - Review of Systems General: Reports: Weakness HEENT: Reports: No Symptoms Pulmonary: Reports: No Symptoms Cardiovascular: Reports: No Symptoms Gastrointestinal: Reports: No Symptoms Genitourinary: Reports: No Symptoms Musculoskeletal: Reports: No Symptoms Skin: Reports: No Symptoms Neurological: Reports: No Symptoms Psychiatric: Reports: No Symptoms - Patient Data Vitals - Most Recent: Last Vital Signs Temp 36.6 C 09/12/20 15:22 Pulse 84 09/12/20 15:22 Resp 18 09/12/20 15:22 BP 110/60 09/12/20 15:27 Pulse Ox 99 09/12/20 15:22 Weight - Most Recent: 76.793 kg I&O - Last 24 Hours: Intake & Output 09/12/20 09/12/20 09/12/20 06:59 14:59 22:59 Intake Total 900 480 Output Total 950 Balance -50 480 Lab Results Last 24 Hours: Laboratory Results - last 24 hr 09/12/20 09/12/20 Range/Units 06:25 06:25 WBC 9.51 (3.98-10.04) K/mm3 RBC 3.17 L (3.98-5.22) M/mm3 Hgb 9.8 L (11.2-15.7) gm/dl Hct 31.0 L (34.1-44.9) % MCV 97.8 H (79.4-94.8) fl MCH 30.9 (25.6-32.2) pg MCHC 31.6 L (32.2-35.5) g/dl RDW Std Deviation 46.0 (36.4-46.3) fL Plt Count 217 (182-369) K/mm3 MPV 10.4 (9.4-12.3) fl Neut % (Auto) 78.0 H (34.0-71.1) % Lymph % (Auto) 11.7 L (19.3-51.7) % [place] % (Auto) 8.2 (4.7-12.5) % Eos % (Auto) 1.8 (0.7-5.8) Baso % (Auto) 0.2 (0.1-1.2) % Neut # (Auto) 7.42 H (1.56-6.13) K/mm3 Lymph # (Auto) 1.11 L (1.18-3.74) K/mm3 [place] # (Auto) 0.78 H (0.24-0.36) K/mm3 Eos # (Auto) 0.17 (0.04-0.36) K/mm3 Baso # (Auto) 0.02 (0.01-0.08) K/mm3 Sodium 141 (136-145) mEq/L Potassium 4.4 (3.5-5.1) mEq/L Chloride 106 (98-107) mEq/L Carbon Dioxide 25 (21-32) mEq/L Anion Gap 14.4 (5-15) BUN 50 H (7-18) mg/dL Creatinine 1.7 H (0.55-1.02) mg/dL Est Cr Clr Drug Dosing 21.27 mL/min Estimated GFR (MDRD) 29 (>60) mL/min BUN/Creatinine Ratio 29.4 H (14-18) Glucose 115 (83-115) mg/dL Calcium 8.7 (8.5-10.1) mg/dL Magnesium 2.2 (1.8-2.4) mg/dl Total Bilirubin 0.9 (0.2-1.0) mg/dL AST 43 H (15-37) U/L ALT 32 (14-59) U/L Alkaline Phosphatase 60 (46-116) U/L Total Protein 6.6 (6.4-8.2) g/dl Albumin 3.1 L (3.4-5.0) g/dl Globulin 3.5 gm/dL Albumin/Globulin Ratio 0.9 L (1-2) Med Orders - Current: Current Medications Acetaminophen (Tylenol) 650 mg PO Q4H PRN PRN Reason: Pain (Mild 1-3)/fever Last Admin: 09/12/20 13:32 Dose: 650 mg Documented by: Hydrocodone Bitart/Acetaminophen ([place] 325-5 Mg) 1 tab PO Q4H PRN PRN Reason: Pain (moderate 4-6) Last Admin: 09/12/20 08:08 Dose: 1 tab Documented by: Clopidogrel Bisulfate (Plavix) 75 mg PO DAILY [facility] Last Admin: 09/12/20 08:09 Dose: 75 mg Documented by: Cyclobenzaprine HCl (Flexeril) 10 mg PO TID PRN PRN Reason: Spasms Last Admin: 09/12/20 12:28 Dose: 10 mg Documented by: Docusate Sodium (Colace) 100 mg PO BID PRN PRN Reason: Constipation Last Admin: 09/12/20 12:28 Dose: 100 mg Documented by: Enalapril Maleate (Vasotec) 40 mg PO DAILY [facility] Last Admin: 09/12/20 08:10 Dose: 40 mg Documented by: Folic Acid (Folic Acid) 1 mg PO DAILY [facility] Last Admin: 09/12/20 08:09 Dose: 1 mg Documented by: Furosemide (Lasix) 20 mg PO DAILY [facility] Last Admin: 09/12/20 08:09 Dose: 20 mg Documented by: Gabapentin (Neurontin) 100 mg PO BEDTIME [facility] Last Admin: 09/11/20 20:30 Dose: 100 mg Documented by: Hydromorphone HCl (Dilaudid) 0.25 mg IVPUSH Q2H PRN PRN Reason: Pain (severe 7-10) Last Admin: 09/12/20 05:46 Dose: 0.25 mg Documented by: Labetalol HCl (Normodyne) 100 mg PO BID [facility] Last Admin: 09/12/20 08:10 Dose: 100 mg Documented by: Ondansetron HCl (Zofran) 4 mg IV Q6H PRN PRN Reason: Nausea/Vomiting Pramipexole Dihydrochloride (Mirapex) 0.5 mg PO DAILY [facility] Last Admin: 09/12/20 08:09 Dose: 0.5 mg Documented by: Sodium Chloride (Saline Flush) 10 ml FLUSH ASDIRECTED PRN PRN Reason: Keep Vein Open Last Admin: 09/09/20 02:42 Dose: 10 ml Documented by: Discontinued Medications Albuterol (Proventil Neb Soln) 2.5 mg NEB ONETIME ONE Stop: 09/09/20 03:41 Last Admin: 09/09/20 04:04 Dose: 2.5 mg Documented by: Calcium Gluconate (Calcium Gluconate) 1 gm IVPUSH ONETIME ONE Stop: 09/09/20 03:43 Last Admin: 09/09/20 04:02 Dose: 1 gm Documented by: Clopidogrel Bisulfate (Plavix) 75 mg PO DAILY [facility] Last Admin: 09/09/20 12:07 Dose: 75 mg Documented by: Cyclobenzaprine HCl (Flexeril) 10 mg PO ONETIME ONE Stop: 09/09/20 04:17 Last Admin: 09/09/20 04:31 Dose: 10 mg Documented by: Dextrose/Water (Dextrose 50% In Water) 50 ml IVPUSH ONETIME ONE Stop: 09/09/20 03:42 Last Admin: 09/09/20 03:52 Dose: 50 ml Documented by: Folic Acid (Folic Acid) 1 mg PO DAILY [facility] Last Admin: 09/09/20 12:07 Dose: 1 mg Documented by: Gabapentin (Neurontin) 100 mg PO BEDTIME [facility] Hydromorphone HCl (Dilaudid) 0.25 mg IVPUSH ONETIME ONE Stop: 09/09/20 02:23 Last Admin: 09/09/20 02:30 Dose: 0.25 mg Documented by: Hydromorphone HCl (Dilaudid) 0.25 mg IVPUSH ONETIME ONE Stop: 09/09/20 03:28 Last Admin: 09/09/20 03:42 Dose: 0.25 mg Documented by: Sodium Chloride (Normal Saline) 1,000 mls @ 75 mls/hr IV ASDIRECTED [facility] Stop: 09/09/20 21:49 Last Admin: 09/09/20 10:46 Dose: 75 mls/hr Documented by: Insulin Human Regular (Humulin R) 10 unit SUBCUT ONETIME ONE Stop: 09/09/20 03:42 Last Admin: 09/09/20 03:51 Dose: 10 unit Documented by: Labetalol HCl (Normodyne) 200 mg PO TID [facility] Last Admin: 09/09/20 15:07 Dose: Not Given Documented by: Labetalol HCl (Normodyne) 200 mg PO TID [facility] Last Admin: 09/11/20 15:59 Dose: Not Given Documented by: Loratadine (Claritin) 10 mg PO DAILY PRN PRN Reason: ALLERGIES Sodium Polystyrene Sulfonate (Kayexalate) 45 gm PO NOW ONE Stop: 09/09/20 03:43 Last Admin: 09/09/20 03:54 Dose: 45 gm Documented by: Spironolactone (Aldactone) 25 mg PO DAILY [facility] - Exam Quality Assessment: DVT Prophylaxis General: Alert, Oriented, Cooperative, No Acute Distress HEENT: Pupils Equal, Pupils Reactive, EOMI Neck: Trachea Midline, No JVD Lungs: Normal Respiratory Effort Cardiovascular: Regular Rate, Regular Rhythm, Murmurs GI/Abdominal Exam: Normal Bowel Sounds, Soft, No Distention (Female) Exam: Deferred Back Exam: Normal Inspection Extremities: Normal Inspection, Normal Capillary Refill Skin: Warm Neurological: No New Focal Deficit Psy/Mental Status: Alert - Patient Data Lab Results Last 24 hrs: Laboratory Results - last 24 hr 09/12/20 09/12/20 Range/Units 06:25 06:25 WBC 9.51 (3.98-10.04) K/mm3 RBC 3.17 L (3.98-5.22) M/mm3 Hgb 9.8 L (11.2-15.7) gm/dl Hct 31.0 L (34.1-44.9) % MCV 97.8 H (79.4-94.8) fl MCH 30.9 (25.6-32.2) pg MCHC 31.6 L (32.2-35.5) g/dl RDW Std Deviation 46.0 (36.4-46.3) fL Plt Count 217 (182-369) K/mm3 MPV 10.4 (9.4-12.3) fl Neut % (Auto) 78.0 H (34.0-71.1) % Lymph % (Auto) 11.7 L (19.3-51.7) % Gray % (Auto) 8.2 (4.7-12.5) % Eos % (Auto) 1.8 (0.7-5.8) Baso % (Auto) 0.2 (0.1-1.2) % Neut # (Auto) 7.42 H (1.56-6.13) K/mm3 Lymph # (Auto) 1.11 L (1.18-3.74) K/mm3 Gray # (Auto) 0.78 H (0.24-0.36) K/mm3 Eos # (Auto) 0.17 (0.04-0.36) K/mm3 Baso # (Auto) 0.02 (0.01-0.08) K/mm3 Sodium 141 (136-145) mEq/L Potassium 4.4 (3.5-5.1) mEq/L Chloride 106 (98-107) mEq/L Carbon Dioxide 25 (21-32) mEq/L Anion Gap 14.4 (5-15) BUN 50 H (7-18) mg/dL Creatinine 1.7 H (0.55-1.02) mg/dL Est Cr Clr Drug Dosing 21.27 mL/min Estimated GFR (MDRD) 29 (>60) mL/min BUN/Creatinine Ratio 29.4 H (14-18) Glucose 115 (83-115) mg/dL Calcium 8.7 (8.5-10.1) mg/dL Magnesium 2.2 (1.8-2.4) mg/dl Total Bilirubin 0.9 (0.2-1.0) mg/dL AST 43 H (15-37) U/L ALT 32 (14-59) U/L Alkaline Phosphatase 60 (46-116) U/L Total Protein 6.6 (6.4-8.2) g/dl Albumin 3.1 L (3.4-5.0) g/dl Globulin 3.5 gm/dL Albumin/Globulin Ratio 0.9 L (1-2) Result Diagrams: 09/12/20 06:25 09/12/20 06:25 Sepsis Event Note - Evaluation Sepsis Screening Result: No Definite Risk - Focused Exam Vital Signs: Vital Signs Temp Pulse Resp BP BP Pulse Ox 09/12/20 15:27 110/60 09/12/20 15:22 36.6 C 84 18 99 09/12/20 11:45 36.7 C 88 16 131/58 L 100 09/12/20 08:10 90 147/80 H 09/12/20 08:00 96 09/12/20 07:19 36.7 C 90 18 147/80 H 100 - Problem List Review Problem List Initiated/Reviewed/Updated: Yes - My Orders Last 24 Hours: My Active Orders 09/11/20 21:00 Labetalol [Normodyne] 100 mg PO BID - Assessment Assessment:: Assessment - day of admission - 09/09/20 * 85 [facility] and groin pain * Fell while getting into chair. * Denies hitting head or LOC * Occurred at 1999 on 09/08/20 and pain is getting worse * Hip x-ray shows bilateral degenerative change, worse on left side and nothing acute * Pelvis CT shows abnormal psoas muscle compatible with previous injury, chronic findings, nothing acute * Hypertensive in ED with BP of 189/113 * Labs in ED: * WBC 10.06 * Hemoglobin 11.3 * Platelet 245 * Neutrophils 8.34 * Sodium 139 * Potassium 6.2-->5.8 * BUN 65, creatinine 2.1, GFR 22 * Glucose 127 * Bilirubin 0.7 * AST 27, ALT 42, alkaline phosphatase 74 * Albumin 3.7 * SARS-CoV-2 RNA negative * Twelve-lead EKG shows sinus rhythm with no acute changes * Given 45 g Kayexalate p.o., 2.5 mg albuterol nebulizer, D50 with insulin R 10 units, and calcium gluconate in ED. * History of HLD, HTN, [place], venous insufficiency, recurrent pneumonia, sleep apnea, pulmonary nodule, hemorrhoids, hydronephrosis, urinary incontinence, r ecurrent UTI, stress incontinence, venous fistula repair, hypothyroidism, anticoagulation therapy, lymphedema. * Per family patient has had 4 falls in the past 4 months * Admitted observation status to medical floor for management of hyperkalemia and pain secondary to fall. 09/10/20 * Reports pain has improved -deceiving pain medications and ice pack on hip * Has been up working with PT and OTcontinue to recommend SNF placement. * Patient is in agreement for SNF placement for rehab stay. * Somewhat hypertensive today. Will resume home enalapril. Likely skewed by pain. * Labs today: * WBC 8.65 * Hemoglobin 10.9 * platelet 247,000 * sodium 146 * potassium 4.5 * anion gap 15.5 * BUN 43, creatinine 1.8, GFR 27 * magnesium 2.2 * bilirubin 1.1 * AST 41, ALT 38, alkaline phosphatase 67 * albumin 3.3 * urine random creatinine 16.5 (obtained yesterday) * urine random sodium 105 (obtained yesterday) 09/11/20 * Continue current treatment plan * Probable discharge on 09/13/20 pending SNF placement * Reports pain has improved -deceiving pain medications and ice pack on hip * Has been up working with PT and OTcontinue to recommend SNF placement. * Patient is in agreement for SNF placement for rehab stay. * Hypotensive, Labetaolol decreased, mid dose was held. * Continue current treatment plan * Probable discharge on 09/13/20 pending SNF placement - Plan Plan:: Fall Psoas hematoma, left, secondary to anticoagulant therapy Chronic anticoagulation * Pain medications as ordered * PRN Flexeril for spasms * PT/OT * CM/SW consultation * Continue home plavix Hyperkalemia, resolved Hypermagnesemia, resolved Chronic renal insufficiency, stage IV (severe), improved * Telemetry * IV fluids as ordered * Hold spironolactone * Re-check potassium at 1300 * Given Kayexalate, albuterol neb, D50 with insulin, and calcium gluconate in ED * Avoid nephrotoxic meds if able * Monitor labs Sleep apnea * Home CPAP History of [place] (myocardial infarction) Pulmonary nodule Urinary incontinence Hypothyroidism Lymphedema Hypertension * Review/reconcile home meds * Monitor vital signs Code status: DNR/DNI PCP: Dr. Stanley DVT prophylaxis: Social: Patient resides at [facility] Disposition: Admit to [facility] observation status with telemetry for management of hyperkalemia and pain 08/24 fall. ####LOS>96 hours pending placement, PT assessment and pain management
[2020-09-12] MEDS: Gabapentin 100 MG Cap PO SCH (20:26)
[2020-09-13] MEDS: Acetaminophen 325 MG Tab PO PRN (01:22)
[2020-09-13] MEDS: Cyclobenzaprine 10 MG Tab PO PRN (04:59)
[2020-09-13] MEDS: Acetaminophen/HYDROcodone 325-5 MG Tab PO PRN (04:59)
[2020-09-13] MEDS: Pramipexole 0.5 MG Tab PO SCH (08:00)
[2020-09-13] MEDS: Enalapril 5 MG Tab PO SCH (08:04)
[2020-09-13] MEDS: Clopidogrel 75 MG Tab PO SCH (08:05)
[2020-09-13] MEDS: Furosemide 20 MG Tab PO SCH (08:05)
[2020-09-13] MEDS: Folic Acid 1 MG Tab PO SCH (08:05)
[2020-09-13] MEDS: Labetalol 100 MG Tab PO SCH (08:08)
--- NOTE | 2020-09-13 08:42 | PCM.DCSUM1 ---
Discharge Summary - Hospital Course HPI Initial Comments: This is an 85-year-old female who presents to ED via [facility] in the physician chief of pathology hours of 09/09/2020 after a fall resulting in left hip and groin pain. She resides at [facility] and was reportedly moving a chair where she slipped and fell landing on her left hip. She was able to get up and walk but she has been having pain since then. Original injury occurred at 8 PM the night prior she reports she is having worsening pain now. Denies hitting her head. Denies any neck, back, chest, or abdominal pain. Denies any shortness of breath. In the ED temp was 97.7. Pulse 89. Respirations 20. Blood pressure elevated at 189/113. Pulse ox 100% on room air. Labs are obtained with a very mild leukocytosis at 10.07. Hemoglobin 11.3. Platelets 245. Neutrophils are elevated at 8.34. Sodium 139. Potassium very high at 6.2. Chloride 107. Carbon oxide 24. Anion gap 14.2. BUN is 65. Creatinine 2.1. GFR is 22. Glucose is 127. Bilirubin 0.7. AST 27, ALT 42, alkaline phosphatase 74. Protein 7.2. Albumin 3.7. She is given Dilaudid 0.25 mg x 2 for pain. Hip x- rays obtained showing degenerative change within both hips, worse on the left side. There are chronic findings but nothing acute. CT of the pelvis is obtained showing an abnormal psoas muscle compatible with previous injury. Other findings as noted above. No acute osseous findings appreciated. She is given Kayexalate 45 g p.o. and 2.5 mg albuterol nebulizer. She is given D50 with insulin 10 units and calcium gluconate. EKG is obtained showing a sinus rhythm with no acute changes. Recheck of her potassium shows improvement at 5.8. She is noted to have difficulty moving around and it is felt she needs to be admitted. She carries a history of HLD, hypertension, FL, venous insufficiency, recurrent pneumonia, sleep apnea, pulmonary nodules, hemorrhoids, hydronephrosis, recurrent UTI, urinary incontinence, arteriovenous fistula repair, hypothyroidism, obesity, chronic anticoagulation, lymphedema. She never been a smoker. She subsequently admitted to the medical floor observation status for management of her hyperkalemia and pain control status post fall. She is a DNR/DNI. Primary care provider is Dr. Croft. Diagnosis: Stroke: No - Discharge Data Discharge Date: 09/13/20 (Admit date: 09/09/20) Discharge Disposition: DC/Tfer to SNF 03 Condition: Good - Referral to Home Health Primary Care Physician: Eliezer Stanley MD - Discharge Diagnosis/Problem(s) (1) History of FL (myocardial infarction) SNOMED Code(s): 088954165 ICD Code: I25.2 - OLD MYOCARDIAL INFARCTION Status: Chronic Priority: Low (2) Sleep apnea SNOMED Code(s): 82013505 ICD Code: G47.30 - SLEEP APNEA, UNSPECIFIED Status: Chronic Priority: Low Qualifiers: Sleep apnea type: unspecified type Qualified Code(s): G47.30 - Sleep apnea, unspecified (3) Pulmonary nodule SNOMED Code(s): 452843862 ICD Code: R91.1 - SOLITARY PULMONARY NODULE Status: Chronic Priority: Low (4) Urinary incontinence SNOMED Code(s): 387770859 ICD Code: R32 - UNSPECIFIED URINARY INCONTINENCE Status: Chronic Priority: Low Qualifiers: Urinary Incontinence type: unspecified incontinence Qualified Code(s): R32 - Unspecified urinary incontinence (5) Hypothyroidism SNOMED Code(s): 10189108 ICD Code: E03.9 - HYPOTHYROIDISM, UNSPECIFIED Status: Chronic Priority: Medium Qualifiers: Hypothyroidism type: unspecified Qualified Code(s): E03.9 - Hypothyroidism, unspecified (6) Chronic anticoagulation SNOMED Code(s): 474174853 ICD Code: Z79.01 - PROJECT ENGINEER CHEMICALS (CURRENT) USE OF ANTICOAGULANTS Status: Chronic Priority: Medium (7) Lymphedema SNOMED Code(s): 476751441 ICD Code: I89.0 - LYMPHEDEMA, NOT ELSEWHERE CLASSIFIED Status: Chronic Priority: Medium (8) Fall SNOMED Code(s): 4391391, 654747709 ICD Code: W19.XXXA - UNSPECIFIED FALL, INITIAL ENCOUNTER Status: Acute Priority: High Qualifiers: Encounter type: initial encounter Qualified Code(s): W19.XXXA - Unspecified fall, initial encounter (9) Hyperkalemia SNOMED Code(s): 04605026 ICD Code: E87.5 - HYPERKALEMIA Status: Acute Priority: High (10) Psoas hematoma, left, secondary to anticoagulant therapy SNOMED Code(s): 284232124, 378207076 ICD Code: S30.1XXA - CONTUSION OF ABDOMINAL WALL, INITIAL ENCOUNTER Status: Acute Priority: High Qualifiers: Encounter type: initial encounter Qualified Code(s): S30.1XXA - Contusion of abdominal wall, initial encounter (11) Chronic renal insufficiency, stage IV (severe) SNOMED Code(s): 443481963 ICD Code: N18.4 - CHRONIC KIDNEY DISEASE, STAGE 4 (SEVERE) Status: Chronic Priority: High (12) Hypertension SNOMED Code(s): 01955691 ICD Code: I10 - ESSENTIAL (PRIMARY) HYPERTENSION Status: Chronic Priority: Medium Qualifiers: Hypertension type: essential hypertension Qualified Code(s): I10 - Essential (primary) hypertension (13) Hypermagnesemia SNOMED Code(s): 48496544 ICD Code: E83.41 - HYPERMAGNESEMIA Status: Acute Priority: High - Patient Summary/Data Consults: Consultations 09/09/20 08:19 Consult to Case Management/Kitchen Cleaner [CONS] Routine Consult to Spiritual Care [CONS] Routine OT Evaluation and Treatment [CONS] Routine PT Evaluation and Treatment [CONS] Routine Labs Pending at D/C: None Recommended Follow-up Testing/Procedures: Follow-up with primary care provider within 7-10 days of discharge. -Recommend repeat CBC, CMP, Magnesium at that visit -Pay special attention to patients magnesium and potassium as she was high here -Patient instructed to take BP BID and record in a journal. BP meds were adjusted while here. Hospital Course: This is a 85-year-old female who presents to ED on 09/09/2020 after a fall [place] resulting in left hip and groin pain. She reports she fell getting into the chair but did not hit her head or lose consciousness. The fall had occurred the day prior and she reported have been getting worse. She is on Plavix therapy daily. Hip x-ray was obtained and showed degenerative change but nothing acute. Pelvic CT showed a normal psoas muscle compatible with previous injury and other chronic findings but nothing acute. She is noted to be somewhat hypertensive in the ED with a blood pressure of 189/113. Potassium was quite high at 6.2 and GFR was low at 22. Twelve-lead EKG was obtained showing no changes she was given 45 g of Kayexalate p.o. a 2.5 mg albuterol nebulizer, D50 with insulin R 10 units, and calcium gluconate. Once on the floor family admits that the patient has been falling quite frequently with 4 falls in the past 4 months. Repeat potassium showed improvement at 5.8. She was initially admitted observation status however given the frequent falls and patient reported that she has not been doing very well at [facility] it was suspected the patient would need SNF placement and would need to stay over the weekend. She was therefore made inpatient status. She was started on Flexeril 3 times daily as needed, Tylenol, and as needed Billings with good improvement. She was working with PT and OT who continue to recommend SNF placement. Urine random creatinine was obtained was 16.5. Urine random sodium was 105. Ice pack was applied to hip with improvement to pain. Son was at bedside and did report that the patient has been complaining of left hip pain for quite some time and talking about getting a possible knee replacement with Dr. Silva, orthopedic surgeon. Over her stay she was noted to be hypotensive and her labetalol was decreased from 200 mg 3 times daily to 100 mg twice daily. She had been on spironolactone prior to admission and given her hyperkalemia this was discontinued as well. Otherwise home medications were continued. Recommend patient blood pressure be checked twice daily at SNF with results recorded. This BP journal should accompany patient to all medical appointments, as she may need an increase in her blood pressure meds in the future. After initial treatment in the ED potassium did remain within normal limits. Magnesium was found to be high at that time as well and this did return to normal limits also. She will be discharged today to [facility] with Colace 100 mg p.o. daily, Flexeril 100 mg p.o. 3 times daily as needed for spasms, Billings 3255 1 tablet p.o. every 6 hours as needed, labetalol 100 mg p.o. twice daily as mentioned prior, and Tylenol 650 mg p.o. every 4 hours as needed for mild pain and fever. Recommend follow-up with primary care provider within 7 to 10 days of discharge, sooner if needed. Recommend repeat CBC, CMP, and magnesium at that visit. Also recommend checking patient's blood pressure journal as she may require an increase in blood pressure medications. She was instructed to contact her primary care provider or return the emergency room should symptoms return or worsen. Discharged today to [facility]. accepting care. - Patient Instructions Diet: Usual Diet as Tolerated Activity: As Tolerated Driving: Do Not Drive Notify Provider of: Fever, Increased Pain, Nausea and/or Vomiting Other/Special Instructions: Follow-up with primary care provider within 7-10 days of discharge, sooner if needed. Resume home medicaions as directed. Some of these medications were adjusted so pay attention to the new dosing. Continue PT/OT at SNF. Take blood pressure twice daily and record it in a journal. Br ing this journal with to all medical appointments. Should symtpoms return or worsen contact primary care provider or return to the Emergency Department. - Discharge Plan *PRESCRIPTION DRUG MONITORING PROGRAM REVIEWED*: No *COPY OF PRESCRIPTION DRUG MONITORING REPORT IN PATIENT SHAUN: No Prescriptions/Med Rec: Docusate Sodium [Colace] 100 mg PO DAILY #20 cap Cyclobenzaprine [Flexeril] 10 mg PO TID PRN #15 tablet PRN Reason: Spasms Acetaminophen/HYDROcodone [Billings 325-5 MG] 1 tab PO Q6H PRN #20 tablet PRN Reason: Pain (Moderate 4-6) Labetalol [Normodyne] 100 mg PO BID #20 tablet Acetaminophen [Tylenol] 650 mg PO Q4H PRN #20 tablet PRN Reason: Pain (Mild 1-3)/fever Home Medications: Home Meds Loratadine [Allergy] 10 mg PO DAILY PRN 02/18/20 [History] traZODone HCl [Trazodone HCl] 50 mg PO BEDTIME PRN 02/18/20 [History] Clopidogrel Bisulfate [Plavix] 75 mg PO DAILY 04/01/20 [History] Nitroglycerin 0.4 mg SL ASDIRECTED PRN 04/01/20 [History] atorvaSTATin [Lipitor] 40 mg PO DAILY 04/01/20 [History] Enalapril Maleate 40 mg PO DAILY 09/09/20 [History] Folic Acid 1 mg PO DAILY 09/09/20 [History] Furosemide 20 mg PO DAILY 09/09/20 [History] Gabapentin [Neurontin] 100 mg PO BEDTIME 09/09/20 [History] Pramipexole [Mirapex] 0.5 mg PO DAILY 09/09/20 [History] Acetaminophen [Tylenol] 650 mg PO Q4H PRN #20 tablet 09/13/20 [Rx] Acetaminophen/HYDROcodone [Billings 325-5 MG] 1 tab PO Q6H PRN #20 tablet 09/13/20 [Rx] Cholecalciferol (Vitamin D3) [Vitamin D] 5,000 unit PO 09/13/20 [History] Cranberry Conc/Ascorbic Acid [Cranberry Concentrate Softgel] 1 each PO 09/13/20 [History] Cyclobenzaprine [Flexeril] 10 mg PO TID PRN #15 tablet 09/13/20 [Rx] Docusate Sodium [Colace] 100 mg PO DAILY #20 cap 09/13/20 [Rx] Labetalol [Normodyne] 100 mg PO BID #20 tablet 09/13/20 [Rx] Lysine 1,000 mg PO 09/13/20 [History] Oxygen Therapy Mode: Room Air Referrals: Emigdio Segal MD [Physician] - 09/22/20 2:30 pm - Discharge Summary/Plan Comment DC Time >30 min.: Yes (45 mins ) - General Info Date of Service: 09/13/20 Admission Dx/Problem (Free Text: Admission Diagnosis/Problem Admission Diagnosis/Problem Fall Functional Status: Reports: Pain Controlled, Tolerating Diet, Ambulating, Urinating. Denies: New Symptoms - Review of Systems General: Reports: No Symptoms, Weakness. Denies: Fever, Fatigue, Malaise, Chills HEENT: Reports: No Symptoms. Denies: Headaches, Sore Throat Pulmonary: Reports: No Symptoms. Denies: Shortness of Breath, Cough, Sputum, Wheezing Cardiovascular: Reports: No Symptoms. Denies: Chest Pain, Palpitations, Dyspnea on Exertion Gastrointestinal: Reports: No Symptoms. Denies: Abdominal Pain, Constipation, Diarrhea, Nausea, Vomiting Genitourinary: Reports: No Symptoms. Denies: Pain Musculoskeletal: Reports: Back Pain, Leg Pain (left leg ), Joint Pain (left hip ) Skin: Reports: No Symptoms. Denies: Cyanosis Neurological: Reports: Difficulty Walking, Weakness, Gait Disturbance. Denies: Confusion Psychiatric: Reports: No Symptoms - Patient Data Vitals - Most Recent: Last Vital Signs Temp 98.2 F 09/13/20 08:07 Pulse 104 H 02/22/21 08:10 Resp 18 09/13/20 08:07 BP 157/75 H 09/13/20 08:08 Pulse Ox 91 L 09/13/20 08:10 Weight - Most Recent: 169 lb 11.2 oz I&O - Last 24 hours: Intake & Output 09/12/20 09/13/20 09/13/20 22:59 06:59 14:59 Intake Total 1220 1375 Balance 1220 1375 Lab Results - Last 24 hrs: Laboratory Results - last 24 hr 09/13/20 09/13/20 Range/Units 06:09 06:09 WBC 5.89 (3.98-10.04) K/mm3 RBC 3.08 L (3.98-5.22) M/mm3 Hgb 9.4 L (11.2-15.7) gm/dl Hct 30.4 L (34.1-44.9) % MCV 98.7 H (79.4-94.8) fl MCH 30.5 (25.6-32.2) pg MCHC 30.9 L (32.2-35.5) g/dl RDW Std Deviation 46.4 H (36.4-46.3) fL Plt Count 234 (182-369) K/mm3 MPV 10.1 (9.4-12.3) fl Neut % (Auto) 69.9 (34.0-71.1) % Lymph % (Auto) 17.3 L (19.3-51.7) % Russell % (Auto) 9.7 (4.7-12.5) % Eos % (Auto) 2.7 (0.7-5.8) Baso % (Auto) 0.2 (0.1-1.2) % Neut # (Auto) 4.12 (1.56-6.13) K/mm3 Lymph # (Auto) 1.02 L (1.18-3.74) K/mm3 Russell # (Auto) 0.57 H (0.24-0.36) K/mm3 Eos # (Auto) 0.16 (0.04-0.36) K/mm3 Baso # (Auto) 0.01 (0.01-0.08) K/mm3 Sodium 142 (136-145) mEq/L Potassium 4.7 (3.5-5.1) mEq/L Chloride 107 (98-107) mEq/L Carbon Dioxide 26 (21-32) mEq/L Anion Gap 13.7 (5-15) BUN 51 H (7-18) mg/dL Creatinine 1.7 H (0.55-1.02) mg/dL Est Cr Clr Drug Dosing 21.27 mL/min Estimated GFR (MDRD) 29 (>60) mL/min BUN/Creatinine Ratio 30.0 H (14-18) Glucose 104 (83-115) mg/dL Calcium 8.6 (8.5-10.1) mg/dL Magnesium 2.3 (1.8-2.4) mg/dl Total Bilirubin 0.9 (0.2-1.0) mg/dL AST 37 (15-37) U/L ALT 32 (14-59) U/L Alkaline Phosphatase 58 (46-116) U/L Total Protein 6.3 L (6.4-8.2) g/dl Albumin 2.9 L (3.4-5.0) g/dl Globulin 3.4 gm/dL Albumin/Globulin Ratio 0.9 L (1-2) Med Orders - Current: Current Medications Acetaminophen (Tylenol) 650 mg PO Q4H PRN PRN Reason: Pain (Mild 1-3)/fever Last Admin: 09/13/20 01:22 Dose: 650 mg Documented by: Hydrocodone Bitart/Acetaminophen (Billings 325-5 Mg) 1 tab PO Q4H PRN PRN Reason: Pain (moderate 4-6) Last Admin: 09/13/20 04:59 Dose: 1 tab Documented by: Clopidogrel Bisulfate (Plavix) 75 mg PO DAILY [facility] Last Admin: 09/13/20 08:05 Dose: 75 mg Documented by: Cyclobenzaprine HCl (Flexeril) 10 mg PO TID PRN PRN Reason: Spasms Last Admin: 09/13/20 04:59 Dose: 10 mg Documented by: Docusate Sodium (Colace) 100 mg PO BID PRN PRN Reason: Constipation Last Admin: 09/12/20 12:28 Dose: 100 mg Documented by: Enalapril Maleate (Vasotec) 40 mg PO DAILY [facility] Last Admin: 09/13/20 08:04 Dose: 40 mg Documented by: Folic Acid (Folic Acid) 1 mg PO DAILY [facility] Last Admin: 09/13/20 08:05 Dose: 1 mg Documented by: Furosemide (Lasix) 20 mg PO DAILY [facility] Last Admin: 09/13/20 08:05 Dose: 20 mg Documented by: Gabapentin (Neurontin) 100 mg PO BEDTIME [facility] Last Admin: 09/12/20 20:26 Dose: 100 mg Documented by: Hydromorphone HCl (Dilaudid) 0.25 mg IVPUSH Q2H PRN PRN Reason: Pain (severe 7-10) Last Admin: 09/12/20 05:46 Dose: 0.25 mg Documented by: Labetalol HCl (Normodyne) 100 mg PO BID [facility] Last Admin: 09/13/20 08:08 Dose: 100 mg Documented by: Ondansetron HCl (Zofran) 4 mg IV Q6H PRN PRN Reason: Nausea/Vomiting Pramipexole Dihydrochloride (Mirapex) 0.5 mg PO DAILY [facility] Last Admin: 09/13/20 08:00 Dose: 0.5 mg Documented by: Sodium Chloride (Saline Flush) 10 ml FLUSH ASDIRECTED PRN PRN Reason: Keep Vein Open Last Admin: 09/09/20 02:42 Dose: 10 ml Documented by: Discontinued Medications Albuterol (Proventil Neb Soln) 2.5 mg NEB ONETIME ONE Stop: 09/09/20 03:41 Last Admin: 09/09/20 04:04 Dose: 2.5 mg Documented by: Calcium Gluconate (Calcium Gluconate) 1 gm IVPUSH ONETIME ONE Stop: 09/09/20 03:43 Last Admin: 09/09/20 04:02 Dose: 1 gm Documented by: Clopidogrel Bisulfate (Plavix) 75 mg PO DAILY [facility] Last Admin: 09/09/20 12:07 Dose: 75 mg Documented by: Cyclobenzaprine HCl (Flexeril) 10 mg PO ONETIME ONE Stop: 09/09/20 04:17 Last Admin: 09/09/20 04:31 Dose: 10 mg Documented by: Dextrose/Water (Dextrose 50% In Water) 50 ml IVPUSH ONETIME ONE Stop: 09/09/20 03:42 Last Admin: 09/09/20 03:52 Dose: 50 ml Documented by: Folic Acid (Folic Acid) 1 mg PO DAILY [facility] Last Admin: 09/09/20 12:07 Dose: 1 mg Documented by: Gabapentin (Neurontin) 100 mg PO BEDTIME [facility] Hydromorphone HCl (Dilaudid) 0.25 mg IVPUSH ONETIME ONE Stop: 09/09/20 02:23 Last Admin: 09/09/20 02:30 Dose: 0.25 mg Documented by: Hydromorphone HCl (Dilaudid) 0.25 mg IVPUSH ONETIME ONE Stop: 09/09/20 03:28 Last Admin: 09/09/20 03:42 Dose: 0.25 mg Documented by: Sodium Chloride (Normal Saline) 1,000 mls @ 75 mls/hr IV ASDIRECTED [facility] Stop: 09/09/20 21:49 Last Admin: 09/09/20 10:46 Dose: 75 mls/hr Documented by: Insulin Human Regular (Humulin R) 10 unit SUBCUT ONETIME ONE Stop: 09/09/20 03:42 Last Admin: 09/09/20 03:51 Dose: 10 unit Documented by: Labetalol HCl (Normodyne) 200 mg PO TID [facility] Last Admin: 09/09/20 15:07 Dose: Not Given Documented by: Labetalol HCl (Normodyne) 200 mg PO TID [facility] Last Admin: 09/11/20 15:59 Dose: Not Given Documented by: Loratadine (Claritin) 10 mg PO DAILY PRN PRN Reason: ALLERGIES Sodium Polystyrene Sulfonate (Kayexalate) 45 gm PO NOW ONE Stop: 09/09/20 03:43 Last Admin: 09/09/20 03:54 Dose: 45 gm Documented by: Spironolactone (Aldactone) 25 mg PO DAILY [facility] - Exam Quality Assessment: Reports: DVT Prophylaxis. Denies: Supplemental Oxygen, Urine Catheter General: Reports: Alert, Oriented, Cooperative, No Acute Distress HEENT: Reports: Pupils Equal, Pupils Reactive, Mucous Membr. Moist/Evans Neck: Reports: Supple, Trachea Midline Lungs: Reports: Clear to Auscultation, Normal Respiratory Effort Cardiovascular: Reports: Regular Rate, Regular Rhythm GI/Abdominal Exam: Normal Bowel Sounds, Soft, Non-Tender, No Distention (Female) Exam: Deferred Rectal (Female) Exam: Deferred Back Exam: Reports: Normal Inspection, Decreased Range of Motion Extremities: Normal Inspection, Normal Range of Motion, Normal Capillary Refill, Leg Pain (left hip) Skin: Reports: Warm, Dry, Intact Neurological: Reports: No New Focal Deficit Psy/Mental Status: Reports: Alert, Normal Affect, Normal Mood
[2020-09-13 09:00] VITALS: BP 137/62; PULSE 111
== END 2020-09-13 10:30 | DRG 605 ==
LOC: JD.ED 02:12 → JD.MS 07:03 → OBSVTOIN 13:24
PROVIDERS: ADMIT Internal Medicine Cardiovascular Disease; ATTEND Internal Medicine Cardiovascular Disease
DX: S30.1XXA Contusion of abdominal wall, initial encounter (principal); W19.XXXA Unspecified fall, initial encounter; N18.4 Chronic kidney disease, stage 4 (severe); N28.9 Disorder of kidney and ureter, unspecified; R29.6 Repeated falls; Z88.2 Allergy status to sulfonamides; Z88.7 Allergy status to serum and vaccine; Z88.8 Allergy status to other drugs, medicaments and biological substances; Z79.02 Long term (current) use of antithrombotics/antiplatelets; Z79.899 Other long term (current) drug therapy; H91.93 Unspecified hearing loss, bilateral; H54.7 Unspecified visual loss; G47.30 Sleep apnea, unspecified; E78.00 Pure hypercholesterolemia, unspecified; E87.5 Hyperkalemia; N39.3 Stress incontinence (female) (male); E78.5 Hyperlipidemia, unspecified; I25.2 Old myocardial infarction; Z87.01 Personal history of pneumonia (recurrent); G47.33 Obstructive sleep apnea (adult) (pediatric); R32 Unspecified urinary incontinence; Z87.440 Personal history of urinary (tract) infections; E03.9 Hypothyroidism, unspecified; Z79.1 Long term (current) use of non-steroidal anti-inflammatories (NSAID); Z66 Do not resuscitate; I89.0 Lymphedema, not elsewhere classified; W01.0XXA Fall on same level from slipping, tripping and stumbling without subsequent striking against object, initial encounter; Y92.89 Other specified places as the place of occurrence of the external cause; I12.9 Hypertensive chronic kidney disease with stage 1 through stage 4 chronic kidney disease, or unspecified chronic kidney disease; E83.41 Hypermagnesemia; Z90.710 Acquired absence of both cervix and uterus; Z98.890 Other specified postprocedural states; Z20.822 Contact with and (suspected) exposure to COVID-19
CPT/HCPCS: 36415; 72192; 73502; 73700; 80053; 83735; 84132 ×2; 85025; 87641; 93005; 94640; 96374; 96375; 96376; 97162; 99285; A9270 ×7; J0610; J1170 ×3; J1815; J7030; U0002; 82570; 84300; 97110-GP; 97165-GO; 97530-GO; 97535-GO; 99222; 99231; 99232; 99239; 99284

== ENCOUNTER 2021-01-19 12:34 | Emergency (ER) | payer MEDICARE, BC ==
[2021-01-19 12:51] VITALS: BP 205/95; PULSE 73
[2021-01-19] MEDS ORDERED: Sodium Chloride 0.9% 10 ML Syringe FLUSH PRN (13:41)
[2021-01-19] MEDS ORDERED: Morphine 4 MG/ML Syringe IVPUSH PRN (13:43)
--- NOTE | 2021-01-19 13:44 | EDM.PDOC ---
ED HPI GENERAL MEDICAL PROBLEM - General Chief Complaint: Upper Extremity Injury/Pain Stated Complaint: FALL Time Seen by Provider: 01/19/21 13:17 Source of Information: Reports: Patient History Limitations: Reports: No Limitations - History of Present Illness INITIAL COMMENTS - FREE TEXT/NARRATIVE: 85 yo F with who takes plavix (no additional blood thinners) s/p tripped and la nded on L side of her body. She was able to get up. Ambulates with a walker, she was using the walker. Has extensive bruising throughout her L arm and has pain from the shoulder through the hand, worse with arm movements. She is concerned about significant swelling above and below her elbow. She also has pain in her L hip and L knee. No additional pain. Denies head injury/LOC, no neck pain, no power k pain, no chest pain or abdominal pain. No additional complaint. Denies fever/recent illness. 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) Left Arm Pain Score (Numeric/FACES): 10 - Related Data Allergies Allergy/AdvReac Type Severity Reaction Status Date / Time Sulfa (Sulfonamide Allergy Intermediate Hives Verified 01/19/21 12:41 Antibiotics) amlodipine Allergy Unknown Cannot Verified 01/19/21 12:41 Remember pneumococcal vaccine Allergy Unknown Cannot Verified 01/19/21 12:41 Remember verapamil HCl [From [facility]] Allergy Unknown Cannot Verified 01/19/21 12:41 Remember Home Meds: Home Meds Loratadine [Allergy] 10 mg PO DAILY PRN 02/18/20 [History] Clopidogrel Bisulfate [Plavix] 75 mg PO DAILY 04/01/20 [History] Nitroglycerin 0.4 mg SL ASDIRECTED PRN 04/01/20 [History] atorvaSTATin [Lipitor] 40 mg PO DAILY 04/01/20 [History] Enalapril Maleate 40 mg PO DAILY 09/09/20 [History] Folic Acid 1 mg PO DAILY 09/09/20 [History] Furosemide 20 mg PO DAILY 09/09/20 [History] Gabapentin [Neurontin] 100 mg PO BEDTIME 09/09/20 [History] Pramipexole [Mirapex] 0.5 mg PO DAILY 09/09/20 [History] Acetaminophen/HYDROcodone [Watson 325-5 MG] 1 tab PO Q6H PRN #20 tablet 09/13/20 [Rx] Cholecalciferol (Vitamin D3) [Vitamin D] 5,000 unit PO 09/13/20 [History] Cranberry Conc/Ascorbic Acid [Cranberry Concentrate Softgel] 1 each PO ASDIRECTED 09/13/20 [History] Docusate Sodium [Colace] 100 mg PO DAILY #20 cap 09/13/20 [Rx] Labetalol [Normodyne] 100 mg PO BID #20 tablet 09/13/20 [Rx] Lysine 1,000 mg PO 09/13/20 [History] Hydrocodone/Acetaminophen [Hydrocodone-Acetamin 5-325 mg] 1 tab PO ASDIRECTED PRN 01/19/21 [History] ondansetron HCL [Zofran] 4 mg PO ASDIRECTED PRN 01/19/21 [History] traMADol [Ultram] 50 mg PO Q6H PRN 01/19/21 [History] Past Medical History HEENT History: Reports: Other (See Below) Other HEENT History: has bilateral hearing aides, wears eyeglasses. 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 Gamma knife treatment at the [facility]. restless leg syndrome Psychiatric History: Reports: None Endocrine/Metabolic History: Reports: None Hematologic History: Reports: Anticoagulation Therapy Immunologic History: Reports: None Oncologic (Cancer) History: Reports: None Dermatologic History: Reports: Other (See Below) Other Dermatologic History: lymphedema - Infectious Disease History Infectious Disease History: Reports: Chicken Pox, Influenza, Measles - Past Surgical History HEENT Surgical History: Reports: Other (See Below) Other HEENT Surgeries/Procedures: adenoid surgery. Cardiovascular Surgical History: Reports: None GI Surgical History: Reports: Colonoscopy Female Surgical History: Reports: Hysterectomy, Other (See Below) Other Female Surgeries/Procedures: Bladder Surgery Endocrine Surgical History: Reports: None Neurological Surgical History: Reports: Laminectomy Musculoskeletal Surgical History: Reports: Knee Replacement, Other (See Below) Other Musculoskeletal Surgeries/Procedures:: right knee replacement Social & Family History - Family History Family Medical History: No Pertinent Family History - Tobacco Use Tobacco Use Status *Q: Never Tobacco User - Caffeine Use Caffeine Use: Reports: Coffee, Tea - Recreational Drug Use Recreational Drug Use: No - Living Situation & Occupation Living situation: Reports: Occupation: Retired Review of Systems - Review of Systems Review Of Systems: See Below Constitutional: Denies: Fever Eyes: Reports: No Symptoms Ears: Reports: No Symptoms Nose: Reports: No Symptoms Mouth/Throat: Reports: No Symptoms Respiratory: Reports: No Symptoms Cardiovascular: Denies: Chest Pain GI/Abdominal: Denies: Abdominal Pain Genitourinary: Reports: No Symptoms Musculoskeletal: Reports: Arm Pain, Leg Pain. Denies: Neck Pain Skin: Reports: Bruising Neurological: Reports: No Symptoms Psychiatric: Reports: No Symptoms ED EXAM, GENERAL - Physical Exam Exam: See Below Exam Limited By: No Limitations General Appearance: Alert, WD/WN, No Apparent Distress Eye Exam: Bilateral Eye: Normal Inspection, PERRL Ears: Normal External Exam Nose: Normal Inspection, Normal Mucosa, No Blood Throat/Mouth: Normal Inspection, Normal Voice, No Airway Compromise Head: Atraumatic, Normocephalic Neck: Normal Inspection, Supple, Non-Tender, Full Range of Motion Respiratory/Chest: No Respiratory Distress, Lungs Clear, Normal Breath Sounds, No Accessory Muscle Use, Chest Non-Tender Cardiovascular: Normal Peripheral Pulses GI/Abdominal: Soft, Non-Tender, No Distention Back Exam: Normal Inspection. No: Vertebral Tenderness Extremities: Other (LUE with extensive hematoma in distal biceps area and also proximal forearm, also has bruising/swelling at the base of her thumb. Diffuse tenderness in these areas, no bony deformity. Skin intact. Distal m/s/p intact. No shoulder TTP. LLE: mild TTP of L hip no deformity, +medial knee TTP, no deformi) Neurological: Alert, Oriented, Normal Cognition Psychiatric: Normal Affect, Normal Mood Skin Exam: Warm, Dry, Intact Course - Vital Signs Last Recorded V/S: Last Vital Signs Temp 36.3 C 01/19/21 12:50 Pulse 73 01/19/21 12:50 Resp 16 01/19/21 12:50 BP 205/95 H 01/19/21 12:50 Pulse Ox 100 01/19/21 12:50 - Orders/Labs/Meds Orders: Active Orders 24 hr Category Date Time Status Peripheral IV Insertion Adult [OM.PC] Routine Oth 01/19/21 13:41 Ordered Labs: Laboratory Tests 01/19/21 01/19/21 01/19/21 Range/Units 14:25 14:25 14:25 WBC 11.78 H (3.98-10.04) K/mm3 RBC 3.62 L (3.98-5.22) M/mm3 Hgb 11.3 D (11.2-15.7) gm/dl Hct 35.4 (34.1-44.9) % MCV 97.8 H (79.4-94.8) fl MCH 31.2 (25.6-32.2) pg MCHC 31.9 L (32.2-35.5) g/dl RDW Std Deviation 50.2 H (36.4-46.3) fL Plt Count 311 D (182-369) K/mm3 MPV 10.6 (9.4-12.3) fl Neut % (Auto) 77.8 H (34.0-71.1) % Lymph % (Auto) 11.7 L (19.3-51.7) % Wheeler % (Auto) 9.5 (4.7-12.5) % Eos % (Auto) 0.8 (0.7-5.8) Baso % (Auto) 0.2 (0.1-1.2) % Neut # (Auto) 9.16 H (1.56-6.13) K/mm3 Lymph # (Auto) 1.38 (1.18-3.74) K/mm3 Wheeler # (Auto) 1.12 H (0.24-0.36) K/mm3 Eos # (Auto) 0.10 (0.04-0.36) K/mm3 Baso # (Auto) 0.02 (0.01-0.08) K/mm3 Manual Slide Review Abnormal smear PT 11.4 (9.7-12.0) SECONDS INR 1.07 Sodium 143 (136-145) mEq/L Potassium 3.8 (3.5-5.1) mEq/L Chloride 104 (98-107) mEq/L Carbon Dioxide 29 (21-32) mEq/L Anion Gap 13.8 (5-15) BUN 30 H (7-18) mg/dL Creatinine 1.3 H (0.55-1.02) mg/dL Est Cr Clr Drug Dosing 30.16 mL/min Estimated GFR (MDRD) 39 (>60) mL/min BUN/Creatinine Ratio 23.1 H (14-18) Glucose 126 H (70-99) mg/dL Calcium 9.1 (8.5-10.1) mg/dL Magnesium 2.2 (1.8-2.4) mg/dL Total Bilirubin 1.2 H (0.2-1.0) mg/dL AST 29 (15-37) U/L ALT 33 (14-59) U/L Alkaline Phosphatase 91 (46-116) U/L Troponin I < 0.017 (0.00-0.056) ng/mL Total Protein 7.0 (6.4-8.2) g/dl Albumin 3.9 (3.4-5.0) g/dl Globulin 3.1 gm/dL Albumin/Globulin Ratio 1.3 (1-2) Urine Color (Yellow) Urine Appearance (Clear) Urine pH (5.0-8.0) Ur Specific [place] (1.005-1.030) Urine Protein (Negative) Urine Glucose (UA) (Negative) Urine Ketones (Negative) Urine Occult Blood (Negative) Urine Nitrite (Negative) Urine Bilirubin (Negative) Urine Urobilinogen (0.2-1.0) Ur Leukocyte Esterase (Negative) Urine RBC (0-5) /hpf Urine WBC (0-5) /hpf Ur Squamous Epith Cells (0-5) /hpf Urine Bacteria (FEW) /hpf Urine Mucus (FEW) /hpf 01/19/ Range/Units 14:50 WBC (3.98-10.04) K/mm3 RBC (3.98-5.22) M/mm3 Hgb (11.2-15.7) gm/dl Hct (34.1-44.9) % MCV (79.4-94.8) fl MCH (25.6-32.2) pg MCHC (32.2-35.5) g/dl RDW Std Deviation (36.4-46.3) fL Plt Count (182-369) K/mm3 MPV (9.4-12.3) fl Neut % (Auto) (34.0-71.1) % Lymph % (Auto) (19.3-51.7) % Wheeler % (Auto) (4.7-12.5) % Eos % (Auto) (0.7-5.8) Baso % (Auto) (0.1-1.2) % Neut # (Auto) (1.56-6.13) K/mm3 Lymph # (Auto) (1.18-3.74) K/mm3 Wheeler # (Auto) (0.24-0.36) K/mm3 Eos # (Auto) (0.04-0.36) K/mm3 Baso # (Auto) (0.01-0.08) K/mm3 Manual Slide Review PT (9.7-12.0) SECONDS INR Sodium (136-145) mEq/L Potassium (3.5-5.1) mEq/L Chloride (98-107) mEq/L Carbon Dioxide (21-32) mEq/L Anion Gap (5-15) BUN (7-18) mg/dL Creatinine (0.55-1.02) mg/dL Est Cr Clr Drug Dosing mL/min Estimated GFR (MDRD) (>60) mL/min BUN/Creatinine Ratio (14-18) Glucose (70-99) mg/dL Calcium (8.5-10.1) mg/dL Magnesium (1.8-2.4) mg/dL Total Bilirubin (0.2-1.0) mg/dL AST (15-37) U/L ALT (14-59) U/L Alkaline Phosphatase (46-116) U/L Troponin I (0.00-0.056) ng/mL Total Protein (6.4-8.2) g/dl Albumin (3.4-5.0) g/dl Globulin gm/dL Albumin/Globulin Ratio (1-2) Urine Color Light yellow (Yellow) Urine Appearance Clear (Clear) Urine pH 7.5 (5.0-8.0) Ur Specific [place] 1.015 (1.005-1.030) Urine Protein Negative (Negative) Urine Glucose (UA) Negative (Negative) Urine Ketones Negative (Negative) Urine Occult Blood Negative (Negative) Urine Nitrite Negative (Negative) Urine Bilirubin Negative (Negative) Urine Urobilinogen 0.2 (0.2-1.0) Ur Leukocyte Esterase Trace H (Negative) Urine RBC Not seen (0-5) /hpf Urine WBC 0-5 (0-5) /hpf Ur Squamous Epith Cells 0-5 (0-5) /hpf Urine Bacteria Few (FEW) /hpf Urine Mucus Not seen (FEW) /hpf Meds: Medications Discontinued Medications Generic Name Dose Route Start Last Admin Trade Name Freq PRN Reason Stop Dose Admin Morphine Sulfate 2 mg 01/19/21 13:43 01/19/21 14:30 Morphine 4 Mg/Ml Syringe IVPUSH 2 mg Q2H PRN Administration Pain Sodium Chloride 10 ml 01/19/21 13:41 01/19/21 14:31 Sodium Chloride 0.9% 10 Ml Syringe FLUSH 10 ml ASDIRECTED PRN Administration Keep Vein Open - Re-Assessments/Exams Free Text/Narrative Re-Assessment/Exam: 01/19/21 17:46 CBC, chem, UA unremarkable. EKG shows NSR, prlonged QTC interval, minimal inferior ST depressions. Patient did not have any complaint of chest pain/SOB, only musculoskeletal complaints. Troponin negative. XR's of LUE humerus/elbow/ forearm/hand were neg for fracture. XR L hip/knee show no fracture. Patient was able to ambulate well with a walker. She will be discharged home, encouraged close f/u with her PCP. Discussed ED return precautions. 01/19/21 17:49 01/19/21 17:50 Departure - Departure Time of Disposition: 16:29 Disposition: Home, Self-Care 01 Clinical Impression: Traumatic hematoma of left upper arm Qualifiers: Encounter type: initial encounter Qualified Code(s): S40.022A - Contusion of left upper arm, initial encounter Left knee pain Qualifiers: Chronicity: acute Qualified Code(s): M25.562 - Pain in left knee - Discharge Information Instructions: Contusion Referrals: Shorty Soto MD [Primary Care Provider] - Forms: ED Department Discharge Additional Instructions: 1. Ice areas of pain on and off today and tomorrow. Keep arm and L knee elevated when possible. 2. Take acetaminophen (tylenol) as needed for pain according to bottle directions 3. Follow up with Dr. Schwab as soon as possible. 4. Return to the ED as needed for any worsening pain or new concerning symptoms Sepsis Event Note (ED) - Evaluation Sepsis Screening Result: No Definite Risk - Focused Exam Vital Signs: Vital Signs Temp Pulse Resp BP Pulse Ox 01/19/21 12:50 36.3 C 73 16 205/95 H 100 - My Orders Last 24 Hours: My Active Orders 01/19/21 13:41 Peripheral IV Insertion Adult [OM.PC] Routine - Assessment/Plan Last 24 Hours: My Active Orders 01/19/21 13:41 Peripheral IV Insertion Adult [OM.PC] Routine
--- NOTE | 2021-01-19 14:36 | CR ---
Left hand: 3 views of the left hand were obtained. COmparison: No previous hand study is available. Severe degenerative change is noted within the CMC joint of the thumb. Degenerative change is also scattered within the MCP, DIP and PIP joints of the left hand. Bony structures are osteopenic. No acute fracture, dislocation or other bony abnormality is appreciated. Impression: 1. Diffuse degenerative change as noted above. 2. No acute abnormality is appreciated on left hand exam. Diagnostic code #2
--- NOTE | 2021-01-19 14:53 | CR ---
Left humerus: 2 views of the left humerus were obtained. Comparison: No prior humerus study. Small calcification is noted off the lateral humeral head which is dystrophic. No acute fracture or other bony abnormality is seen. Impression: 1. Small soft tissue calcification as noted above. 2. Nothing acute is seen on 2 view left humerus study. Diagnostic code #2
--- NOTE | 2021-01-19 14:53 | CR ---
Left forearm: 2 views of the left forearm were obtained. Comparison: No prior forearm study is available. Lateral view of the elbow appears within normal limits. No acute fracture or other bony abnormality is appreciated. Degenerative change is partially seen within the hand. Impression: 1. Nothing acute is seen on 2 view left forearm study. 2. Scattered degenerative change is partially seen within the hand. Diagnostic code #2
--- NOTE | 2021-01-19 14:54 | CR ---
Left elbow: 2 views left elbow were obtained. No lateral view was obtained. Comparison: No prior elbow study is available. This study shows no discrete fracture or other bony abnormality. Impression: 1. No definite bony abnormality is noted on limited 2 view left elbow study. Diagnostic code #1
--- NOTE | 2021-01-19 14:55 | CR ---
Left knee: AP, lateral and sunrise patellar views of the left knee were obtained. Comparison: No prior left knee exam is available. Moderate medial joint space narrowing is seen. Lateral joint space is preserved. Joint space narrowing is also noted within the patellofemoral joint. Osteopenia is seen. No acute fracture or other abnormality is appreciated. Impression: 1. Degenerative change as noted above. Osteopenia. 2. No acute abnormality is appreciated. Diagnostic code #2
--- NOTE | 2021-01-19 15:11 | CR ---
Pelvis and left hip: AP view of the pelvis was obtained as well as AP and frog-leg lateral view of the left hip. Comparison: Prior pelvis and left hip study of 09/09/20. Severe medial joint space narrowing is seen within the left hip. Moderate medial joint space narrowing is seen within the right hip. Sacroiliac joints are unremarkable. Mild degenerative change is seen within the lower lumbar spine. Osteopenia is noted. No acute fracture or other abnormality is appreciated. Impression: 1. Degenerative change as noted above. 2. Osteopenia. 3. No significant change is seen from previous exam. Diagnostic code #2
--- NOTE | 2021-01-19 15:13 | CR ---
Chest: AP view of the chest was obtained. Comparison: Prior chest x-ray of 02/18/20. Heart is mildly enlarged. Upper mediastinum is normal. Lungs are clear with no acute parenchymal change. Scattered degenerative change is seen within the spine. Impression: 1. Findings as noted above. 2. Nothing acute is seen on AP chest x-ray. Diagnostic code #2
== END 2021-01-19 16:45 | disposition home or self-care (01) ==
LOC: JD.ED 12:34
DX: S40.022A Contusion of left upper arm, initial encounter (principal); S50.12XA Contusion of left forearm, initial encounter; S60.012A Contusion of left thumb without damage to nail, initial encounter; M25.562 Pain in left knee; I48.91 Unspecified atrial fibrillation; E78.00 Pure hypercholesterolemia, unspecified; I10 Essential (primary) hypertension; I25.2 Old myocardial infarction; I12.9 Hypertensive chronic kidney disease with stage 1 through stage 4 chronic kidney disease, or unspecified chronic kidney disease; N18.9 Chronic kidney disease, unspecified; Z79.02 Long term (current) use of antithrombotics/antiplatelets; Z79.899 Other long term (current) drug therapy; Z88.2 Allergy status to sulfonamides; Z88.8 Allergy status to other drugs, medicaments and biological substances; Z88.7 Allergy status to serum and vaccine; W01.0XXA Fall on same level from slipping, tripping and stumbling without subsequent striking against object, initial encounter
CPT/HCPCS: 36415; 71045; 73060; 73080; 73090; 73130; 73502; 73562; 80053; 81001; 83735; 84484; 85025; 85610; 93005; 96374; 99284; J2270

== ENCOUNTER 2021-03-06 18:03 | Inpatient (IN) | payer MEDICARE, BC ==
[2021-03-06] MEDS ORDERED: Sodium Chloride 0.9% 10 ML Syringe FLUSH PRN (18:25)
[2021-03-06] MEDS ORDERED: HYDROmorphone 0.5 MG/0.5 ML Syringe IVPUSH ONE ×2 (18:28→19:52)
--- NOTE | 2021-03-06 18:47 | EDM.PDOC ---
ED HPI GENERAL MEDICAL PROBLEM - General Source of Information: Reports: Patient, Family, Senior Care Records History Limitations: Reports: No Limitations - History of Present Illness Onset: Sudden Duration: Minutes: Location: Reports: Head, Abdomen, Back, Pelvis Quality: Reports: Sharp Severity: Severe Improves with: Reports: Immobilization Worsens with: Reports: Movement Context: Reports: Trauma (fall) Associated Symptoms: Reports: Headaches. Denies: Chest Pain, Cough, Fever/Chills, Nausea/Vomiting, Shortness of Breath <Kenny Norris - Last Filed: 03/06/21 18:41> <Ney Ortiz - Last Filed: 03/06/21 21:47> - General Chief Complaint: Trauma Stated Complaint: FALL Time Seen by Provider: 03/06/21 18:06 - History of Present Illness INITIAL COMMENTS - FREE TEXT/NARRATIVE: The patient presents from [place] with her son for a fall. She was in the line for dinner tonight and she fell. She hit her head and she has a laceration to the left side of her head. She is on plavix. She does not think she was knocked out. She has a slight headache. She has been falling a lot lately. She fell last night. She did walk back to the room with dome difficulty. She does have ecchymosis to her back in multiple places and she has a large hematoma to the left buttock. She is in lots of pain there. She has no chest pain or shortness of breath. She has no fever, chills or cough. (Kenny Norris) - Related Data Allergies Allergy/AdvReac Type Severity Reaction Status Date / Time Sulfa (Sulfonamide Allergy Intermediate Hives Verified 03/06/21 18:18 Antibiotics) amlodipine Allergy Unknown Cannot Verified 03/06/21 18:18 Remember pneumococcal vaccine Allergy Unknown Cannot Verified 03/06/21 18:18 Remember verapamil HCl [From [facility]] Allergy Unknown Cannot Verified 03/06/21 18:18 Remember Home Meds: Home Meds Loratadine [Allergy] 10 mg PO DAILY PRN 02/18/20 [History] Clopidogrel Bisulfate [Plavix] 75 mg PO DAILY 04/01/20 [History] Nitroglycerin 0.4 mg SL ASDIRECTED PRN 04/01/20 [History] atorvaSTATin [Lipitor] 40 mg PO DAILY 04/01/20 [History] Enalapril Maleate 40 mg PO DAILY 09/09/20 [History] Folic Acid 1 mg PO DAILY 09/09/20 [History] Furosemide 20 mg PO DAILY 09/09/20 [History] Pramipexole [Mirapex] 0.5 mg PO DAILY 09/09/20 [History] Cranberry Conc/Ascorbic Acid [Cranberry Concentrate Softgel] 1 each PO ASDIRECTED 09/13/20 [History] Docusate Sodium [Colace] 100 mg PO DAILY #20 cap 09/13/20 [Rx] Labetalol [Normodyne] 100 mg PO BID #20 tablet 09/13/20 [Rx] Hydrocodone/Acetaminophen [Hydrocodone-Acetamin 5-325 mg] 1 tab PO ASDIRECTED PRN 01/19/21 [History] ondansetron HCL [Zofran] 4 mg PO ASDIRECTED PRN 01/19/21 [History] Past Medical History HEENT History: Reports: Other (See Below) Other HEENT History: has bilateral hearing aides, wears eyeglasses. 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 Gamma knife treatment at the [facility]. restless leg syndrome Psychiatric History: Reports: None Endocrine/Metabolic History: Reports: None Hematologic History: Reports: Anticoagulation Therapy Immunologic History: Reports: None Oncologic (Cancer) History: Reports: None Dermatologic History: Reports: Other (See Below) Other Dermatologic History: lymphedema - Infectious Disease History Infectious Disease History: Reports: Chicken Pox, Influenza, Measles - Past Surgical History HEENT Surgical History: Reports: Other (See Below) Other HEENT Surgeries/Procedures: adenoid surgery. GI Surgical History: Reports: Colonoscopy Female Surgical History: Reports: Hysterectomy, Other (See Below) Other Female Surgeries/Procedures: Bladder Surgery Neurological Surgical History: Reports: Laminectomy Musculoskeletal Surgical History: Reports: Knee Replacement, Other (See Below) Other Musculoskeletal Surgeries/Procedures:: right knee replacement <Kenny Norris A Filed: 03/06/21 18:41> Social & Family History - Family History Family Medical History: No Pertinent Family History - Tobacco Use Tobacco Use Status *Q: Never Tobacco User Second Hand Smoke Exposure: No - Caffeine Use Caffeine Use: Reports: Coffee, Soda - Recreational Drug Use Recreational Drug Use: No - Living Situation & Occupation Living situation: Reports: Occupation: Retired <Kenny Norris A Filed: 03/06/21 18:41> Review of Systems - Review of Systems Review Of Systems: See Below Constitutional: Reports: No Symptoms Eyes: Reports: No Symptoms Ears: Reports: No Symptoms Nose: Reports: No Symptoms Mouth/Throat: Reports: No Symptoms Respiratory: Reports: No Symptoms Cardiovascular: Reports: No Symptoms GI/Abdominal: Reports: Abdominal Pain Genitourinary: Reports: No Symptoms <Kenny Norris A Filed: 03/06/21 18:41> ED EXAM, GENERAL - Physical Exam Exam: See Below Exam Limited By: No Limitations General Appearance: Alert, No Apparent Distress Ears: Normal External Exam Nose: Normal Inspection Head: Other (Superficial laceration to the left occipital region) Neck: Tender Midline Respiratory/Chest: No Respiratory Distress, Lungs Clear, Normal Breath Sounds Cardiovascular: Regular Rate, Rhythm, No Edema, No Murmur GI/Abdominal: Soft, No Organomegaly, No Mass, Tender (Mild generalized pain) Back Exam: Other (Ecchymosis and edema to multiple areas on her back more on her left. There is bruises in different stages of bruising) Extremities: Other (Large hematoma to the left buttock area) Neurological: Alert, Oriented <Kenny Norris Filed: 03/06/21 18:41> ED TRAUMA PROCEDURES - Laceration/Wound Repair Left Head Lac/Wound Length In cm: 2.0 (Linear to 6.0 cm laceration left occipital scalp) Appearance: Subcutaneous, Clean Distal NVT: Neuro & Vascular Intact Anesthetic Type: Local Local Anesthesia - Lidocaine (Xylocaine): 1% Plain Local Anesthetic Volume: 2cc Skin Prep: Saline Closed With: Sutures Suture Size: 4-0 # of Sutures: 4 Suture Type: Prolene, Nylon, Interrupted, Simple <Ney Ortiz - Last Filed: 03/06/21 21:47> #1 Interpretation EKG Date: 03/06/21 Time: 19:29 Rhythm: Other (Sinus tachycardia) Rate (Beats/Min): 101 [place]: LAD-Left [place] Deviation (Mild left axis deviation of -14 degrees) P-Wave: Enlarged (Left atrial hypertrophy) QRS: Other (Q waves appreciated in leads III and aVF compared with old inferior wall myocardial infarction.) ST-T: Other (Repolarization abnormality involving leads I and aVL ST segment depression V3 to V5 and lead to consider ischemia) QT: Prolonged (Moderately prolonged) <Ney Ortiz - Last Filed: 03/06/21 21:47> #1 Interpretation EKG Interpretation Comments: Abnormal ECG (Ney Ortiz) Course <Kenny Norris - Last Filed: 03/06/21 18:41> <Ney Ortiz - Last Filed: 03/06/21 21:47> - Vital Signs Last Recorded V/S: Last Vital Signs Temp 36.7 C 03/06/21 20:28 Pulse 106 H 03/06/21 20:28 Resp 18 03/06/21 20:28 BP 126/80 03/06/21 20:28 Pulse Ox 94 L 03/06/21 20:28 - Orders/Labs/Meds Orders: Active Orders 24 hr Category Date Time Status Cardiac Monitoring [RC] . DIRECTED Care 03/06/21 18:25 Active EKG Documentation Completion [RC] ASDIRECTED Care 03/06/21 18:46 Active Peripheral IV Care [RC] . DIRECTED Care 03/06/21 18:27 Active Sodium Chloride 0.9% [Saline Flush] Med 03/06/21 18:25 Active 10 ml FLUSH ASDIRECTED PRN Peripheral IV Insertion Adult [OM.PC] Stat Oth 03/06/21 18:25 Ordered EKG 12 Lead [EK] Stat Ther 03/06/21 18:45 Ordered Medication Orders Sodium Chloride (Sodium Chloride 0.9% 10 Ml Syringe) 10 ml FLUSH ASDIRECTED PRN PRN Reason: Keep Vein Open Last Admin: 03/06/21 18:39 Dose: 10 ml Documented by: ALEJANDRO Labs: Laboratory Tests 03/06/21 03/06/21 03/06/21 Range/Units 18:35 18:35 18:35 WBC 9.01 (3.98-10.04) K/mm3 RBC 2.61 L (3.98-5.22) M/mm3 Hgb 8.1 L D (11.2-15.7) gm/dl Hct 26.5 L (34.1-44.9) % MCV 101.5 H D (79.4-94.8) fl MCH 31.0 (25.6-32.2) pg MCHC 30.6 L (32.2-35.5) g/dl RDW Std Deviation 55.2 H (36.4-46.3) fL Plt Count 283 (182-369) K/mm3 MPV 9.8 (9.4-12.3) fl Neut % (Auto) 75.3 H (34.0-71.1) % Lymph % (Auto) 9.8 L (19.3-51.7) % [place] % (Auto) 12.9 H (4.7-12.5) % Eos % (Auto) 1.7 (0.7-5.8) Baso % (Auto) 0.1 (0.1-1.2) % Neut # (Auto) 6.79 H (1.56-6.13) K/mm3 Lymph # (Auto) 0.88 L (1.18-3.74) K/mm3 [place] # (Auto) 1.16 H (0.24-0.36) K/mm3 Eos # (Auto) 0.15 (0.04-0.36) K/mm3 Baso # (Auto) 0.01 (0.01-0.08) K/mm3 Manual Slide Review Abnormal smear PT 11.5 (9.7-12.0) SECONDS INR 1.08 APTT 25.4 (21.7-31.4) SECONDS Sodium 145 (136-145) mEq/L Potassium 3.9 (3.5-5.1) mEq/L Chloride 109 H (98-107) mEq/L Carbon Dioxide 26 (21-32) mEq/L Anion Gap 13.9 (5-15) BUN 35 H (7-18) mg/dL Creatinine 1.6 H (0.55-1.02) mg/dL Est Cr Clr Drug Dosing 22.60 mL/min Estimated GFR (MDRD) 31 (>60) mL/min BUN/Creatinine Ratio 21.9 H (14-18) Glucose 113 H (70-99) mg/dL Calcium 8.1 L (8.5-10.1) mg/dL Total Bilirubin 1.6 H (0.2-1.0) mg/dL AST 28 (15-37) U/L ALT 26 (14-59) U/L Alkaline Phosphatase 81 (46-116) U/L Creatine Kinase 208 H (26-192) U/L Troponin I < 0.017 (0.00-0.056) ng/mL Total Protein 6.2 L (6.4-8.2) g/dl Albumin 3.3 L (3.4-5.0) g/dl Globulin 2.9 gm/dL Albumin/Globulin Ratio 1.1 (1-2) Urine Color (Yellow) Urine Appearance (Clear) Urine pH (5.0-8.0) Ur Specific [place] (1.005-1.030) Urine Protein (Negative) Urine Glucose (UA) (Negative) Urine Ketones (Negative) Urine Occult Blood (Negative) Urine Nitrite (Negative) Urine Bilirubin (Negative) Urine Urobilinogen (0.2-1.0) Ur Leukocyte Esterase (Negative) Urine RBC (0-5) /hpf Urine WBC (0-5) /hpf Ur Squamous Epith Cells (0-5) /hpf Urine Bacteria (FEW) /hpf Urine Mucus (FEW) /hpf SARS-CoV-2 RNA (SERGEI) (NEGATIVE) 03/06/21 03/06/21 Range/Units 19:25 20:23 WBC (3.98-10.04) K/mm3 RBC (3.98-5.22) M/mm3 Hgb (11.2-15.7) gm/dl Hct (34.1-44.9) % MCV (79.4-94.8) fl MCH (25.6-32.2) pg MCHC (32.2-35.5) g/dl RDW Std Deviation (36.4-46.3) fL Plt Count (182-369) K/mm3 MPV (9.4-12.3) fl Neut % (Auto) (34.0-71.1) % Lymph % (Auto) (19.3-51.7) % [place] % (Auto) (4.7-12.5) % Eos % (Auto) (0.7-5.8) Baso % (Auto) (0.1-1.2) % Neut # (Auto) (1.56-6.13) K/mm3 Lymph # (Auto) (1.18-3.74) K/mm3 [place] # (Auto) (0.24-0.36) K/mm3 Eos # (Auto) (0.04-0.36) K/mm3 Baso # (Auto) (0.01-0.08) K/mm3 Manual Slide Review PT (9.7-12.0) SECONDS INR APTT (21.7-31.4) SECONDS Sodium (136-145) mEq/L Potassium (3.5-5.1) mEq/L Chloride (98-107) mEq/L Carbon Dioxide (21-32) mEq/L Anion Gap (5-15) BUN (7-18) mg/dL Creatinine (0.55-1.02) mg/dL Est Cr Clr Drug Dosing mL/min Estimated GFR (MDRD) (>60) mL/min BUN/Creatinine Ratio (14-18) Glucose (70-99) mg/dL Calcium (8.5-10.1) mg/dL Total Bilirubin (0.2-1.0) mg/dL AST (15-37) U/L ALT (14-59) U/L Alkaline Phosphatase (46-116) U/L Creatine Kinase (26-192) U/L Troponin I (0.00-0.056) ng/mL Total Protein (6.4-8.2) g/dl Albumin (3.4-5.0) g/dl Globulin gm/dL Albumin/Globulin Ratio (1-2) Urine Color Yellow (Yellow) Urine Appearance Clear (Clear) Urine pH 6.0 (5.0-8.0) Ur Specific [place] 1.020 (1.005-1.030) Urine Protein Negative (Negative) Urine Glucose (UA) Negative (Negative) Urine Ketones Negative (Negative) Urine Occult Blood Negative (Negative) Urine Nitrite Negative (Negative) Urine Bilirubin Negative (Negative) Urine Urobilinogen 0.2 (0.2-1.0) Ur Leukocyte Esterase Negative (Negative) Urine RBC 0-5 (0-5) /hpf Urine WBC 0-5 (0-5) /hpf Ur Squamous Epith Cells 0-5 (0-5) /hpf Urine Bacteria Few (FEW) /hpf Urine Mucus Few (FEW) /hpf SARS-CoV-2 RNA (SERGEI) Negative (NEGATIVE) Meds: Medications Generic Name Dose Route Start Last Admin Trade Name Freantoinette PRN Reason Stop Dose Admin Sodium Chloride 10 ml 03/06/21 18:25 03/06/21 18:39 Sodium Chloride 0.9% 10 Ml Syringe FLUSH 10 ml ASDIRECTED PRN Administration Keep Vein Open Discontinued Medications Generic Name Dose Route Start Last Admin Trade Name Rosy PRN Reason Stop Dose Admin Hydromorphone HCl 0.25 mg 03/06/21 18:28 03/06/21 18:38 Hydromorphone 0.5 Mg/0.5 Ml Syringe IVPUSH 03/06/21 18:29 0.25 mg ONETIME ONE Administration Hydromorphone HCl 0.5 mg 03/06/21 19:52 03/06/21 19:58 Hydromorphone 0.5 Mg/0.5 Ml Syringe IVPUSH 03/06/21 19:53 0.5 mg ONETIME ONE Administration Lidocaine HCl 10 ml 03/06/21 19:39 03/06/21 19:59 Lidocaine 1% 10 Ml Mdv INJECT 03/06/21 19:40 10 ml ONETIME ONE Administration Lidocaine/Tetracaine 1 ml 03/06/21 18:48 03/06/21 19:34 Lidocaine/Epinephrine/Tetracaine Soln 1 Ml TOP 03/06/21 18:49 1 ml ONETIME ONE Administration Lorazepam 0.5 mg 03/06/21 20:53 Lorazepam 2 Mg/Ml Sdv IV 03/06/21 20:54 ONETIME ONE Ondansetron HCl 4 mg 03/06/21 19:52 03/06/21 19:57 Ondansetron 4 Mg/2 Ml Sdv IVPUSH 03/06/21 19:53 4 mg ONETIME ONE Administration - Re-Assessments/Exams Free Text/Narrative Re-Assessment/Exam: 03/06/21 18:50 A trauma alert was called. The patient went to the CT scanner right away. She is on plavix. When I examined her she has lots of bruising to her back and a large hematoma to the left buttock area. She is very uncomfortable laying down. I have ordered more CTs of her chest, abdomen, and pelvis. I will also give her some dilaudid 0.25mg IV. I will also get an EKG and some labs and a urine. It is change of shift. Dr Ortiz to take over. (Kenny Norris) 03/06/21 19:41 Care has been assumed from Dr Norris as it is change of shift. ECG ordered by him and interpreted by me. CT head without contrast completed. There is a fracture of the tip of the dens compatible with a type I fracture. Fracture margins are sclerotic suggesting that this likely represents a chronic finding. This does appear to be stable when compared with the CT scan of the brain performed on June 202019. No acute fractures are identified. Facet joints remain in anatomic alignment with moderate grade degenerative changes. There is fusion across the facet joints at the C2-C3 level on the left side. Soft tissues appear unremarkable. Lung apices are normal. CT of the brain reveals a mild amount of decreased attenuation within the periventricular white matter. Finding is nonspecific but most often is seen in chronic small vessel ischemic change. No acute hemorrhage or infarct is identified. There is no intracranial mass, mass-effect, midline shift or edema. There are no abnormal extra-axial fluid collections. The ventricles and sulci are mildly prominent consistent with global volume loss/atrophy. Visualized sinuses are clear. No fluid levels. Mastoid air cells revealed them to be well aerated. Bones and joints are unremarkable with no acute fractures. She does have a laceration to the occipital scalp. Let has been applied. I will order light lidocaine as well to allow us to suture this area. 03/06/21 19:54 CT of the chest reveals chronic changes within the lung parenchyma. These are nonspecific. Linear markings in the left lower lobe compatible with atelectasis and/or scarring. No pulmonary contusion. No bronchiectasis or pulmonary fibrosis. Pleural spaces are unremarkable with no pneumothorax and no pleural effusion. Heart size is mildly enlarged with mild coronary artery atherosclerosis appreciated. There is no pericardial effusion. Aorta is unremarkable with no aneurysm. Lymph nodes unremarkable. Moderate grade degenerative changes are present within the thoracic spine. No fractures are identified within the thoracic spine or ribs. Soft tissues appear unremarkable. CT of the abdomen reveals the liver to be normal with no masses. No intraductal dilatation. Gallbladder and bile ducts show no calcified stones and no ductal dilatation. Pancreas has a normal appearance. Spleen is normal. Adrenal glands appear normal. Kidneys and ureters are normal with no hydronephrosis. The stomach and small bowel are decompressed. No bowel obstruction is identified. Scattered colonic diverticula are present without evidence of active diverticulitis. No evidence of appendicitis. Intraperitoneal space appears unremarkable. No free air no significant fluid collections. Vasculature appears unremarkable with no abdominal aortic aneurysm. Lymph nodes no enlarged lymph nodes appreciated. Urinary bladder appears unremarkable. Reproductive organs appear unremarkable. Bone and joints revealed moderate grade degenerative changes are noted within the lumbar spine. No focal compression fracture or lesion is identified. Soft tissue hematoma is present within the right posterior paraspinous region at the L5-S1 level. This measures approximately 8.8 x 4.0 cm in size. There is also enlargement of the left gluteal muscle compared with an intramuscular hematoma. This is somewhat difficult to measure due to its infiltrative nature within the muscle fibers but is on the order of 13.4 x 8.9 cm in size. Patient is still quite antsy and not able to hold still. Will give her Dilaudid 0.5 mg IV with some Zofran 4 mg IV. 03/06/21 20:14 2.0 cm laceration left occipital scalp sutured under local anesthetic using 4-0 Prolene. 4 sutures were used in total. Patient continues to be in significant discomfort and no position is comfortable. She seems to be worse at present lying on her right hip and low back which did contain hematoma. Most of the pain however that she describes is in her left buttock. Her son states that she was better while sitting up in a chair. Once the nurses get a urinalysis to rule out a reason for her to be falling and weak. We will get her up sitting in the chair to see if this is more comfortable. 03/06/21 20:17Hematology reveals a white count of 9.01. The differential shows 75.3% neutrophils. Hemoglobin is low at 8.1 with hematocrit of 26.5. MCV is 101.5. Platelet count 283,000. The smear reveals 1+ anisocytosis and 1+ hypochromasia. PT is 11.5 with an INR of 1.08 and PTT of 25.4. Sodium 145 with a potassium of 3.9. Chloride 109 with a bicarb of 26. Anion gap is 13.9. BUN is 35 with a creatinine elevated at 1.6. GFR is 31 i.e. stage IIIb renal insufficiency. BUN/creatinine ratio is mildly elevated at 21.9. Glucose is 1 13. Calcium 8.1 with a bilirubin of 1.6. Liver function is otherwise normal. Creatinine kinase is 208. Troponin I is less than 0.017. Total protein is 6.2 with an albumin fraction of 3.3. 03/06/21 20:[address] Koenig`s reading of CT of the abdomen comments that there is a soft tissue abnormality within the posterior right paraspinal fat. This abnormality measures approximately 11.0 cm x 3.8 cm x 13.4 cm and felt but with prominent subcutaneous hematoma 03/06/21 20:53 Patient remains restless and agitated. I am going to try a small dose of Ativan 0.5 mg IV. She is unable to sit at all due to pain in the buttock. She will therefore require admission to the hospital since she is receiving minimal assisted living over at [facility] where she resides. I will discuss the case with on-call hospitalist Dr. Lopez. 03/06/21 21:34 patient has been finally able to his fall asleep after Ativan 0.5 mg IV. Your urinalysis came back normal. Her COVID-19 screen did come back negative at this time. I therefore did discuss the case with Dr Lpoez and I will write bridge orders for her admission. He will see her in this morning. (Ney Ortiz) Departure <Kenny Norris - Last Filed: 03/06/21 18:41> - Departure Time of Disposition: 21:47 Condition: Fair <Ney Ortiz - Last Filed: 03/06/21 21:47> - Departure Disposition: Admitted As Inpatient 67 Clinical Impression: Recurrent falls, Contusion of left back wall of thorax, initial encounter, Contusion of lower back and pelvis, initial encounter, Anemia Laceration of scalp without complication Qualifiers: Encounter type: initial encounter Qualified Code(s): S01.01XA - Laceration without foreign body of scalp, initial encounter Traumatic hematoma of buttock Qualifiers: Encounter type: initial encounter Qualified Code(s): S30.0XXA - Contusion of lower back and pelvis, initial encounter Contusion of buttock Qualifiers: Encounter type: initial encounter Qualified Code(s): S30.0XXA - Contusion of lower back and pelvis, initial encounter Chronic renal insufficiency, stage III (moderate) Qualifiers: Chronic kidney disease stage 3 subtype: stage 3b (GFR 30-44) Qualified Code(s): N18.32 - Chronic kidney disease, stage 3b - Discharge Information Referrals: Shorty Soto MD [Primary Care Provider] - Forms: ED Department Discharge Sepsis Event Note (ED) - Evaluation Sepsis Screening Result: No Definite Risk <Kenny Norris - Last Filed: 03/06/21 18:41> - Focused Exam Vital Signs: Vital Signs Temp Pulse Resp BP Pulse Ox 03/06/21 20:28 36.7 C 106 H 18 126/80 94 L 03/06/21 18:14 36.8 C 86 16 145/60 H 96
[2021-03-06] MEDS ORDERED: Lidocaine/EPINEPHrine/Tetracaine Soln 1 ML TOP ONE (18:48)
[2021-03-06] MEDS ORDERED: Lidocaine 1% 10 ML MDV INJECT ONE (19:39)
--- NOTE | 2021-03-06 19:41 | CT ---
Head CT Technique: Multiple axial sections through the brain were obtained. Intravenous contrast was not utilized. Reconstructed coronal and sagittal images were obtained. Comparison: Prior head CT study of 02/18/20 is available. Findings: Ventricles along with basal cisterns and sulci over the convexities are within normal limits for the patient's age. Mild diminished density is noted within the periventricular white matter which is compatible with small vessel ischemic demyelination change. No other abnormal parenchymal densities are seen. No evidence of intracranial hemorrhage is seen. No midline shift or mass-effect is seen. Atherosclerotic calcification is seen within the carotid siphon. Bone window settings were reviewed. Minimal mucosal thickening is seen within the inferior right mastoid sinus. Mild mucosal thickening is seen within the left mastoid sinus. Visualized paranasal sinuses show nothing acute. No acute calvarial abnormality is appreciated. Impression: 1. Mucosal thickening within both mastoid sinuses. Findings are fairly stable from prior CT exam and are likely incidental. 2. Senescent change as noted above. 3. Nothing acute is appreciated on noncontrast head CT study. Diagnostic code #2 I minimally disagree with preliminary report from [facility], finalized on 03/06/21, 7:31 PM CDT, code 2
[2021-03-06] MEDS ORDERED: Ondansetron 4 MG/2 ML SDV IVPUSH ONE (19:52)
--- NOTE | 2021-03-06 20:17 | CT ---
CT cervical spine Technique: Multiple axial sections were obtained through the cervical spine. Reconstructed coronal and sagittal images were obtained. Comparison: Prior CT cervical spine study of 06/20/20. Findings: Bony density is noted off the superior C2 process which appears stable, this is either due to a normal developmental anomaly or an old fracture. Degenerative change is noted between the dens and anterior arch of C1-2. There is diffuse motion artifact causing diffuse blurring of the osseous structures. Diffuse degenerative change is noted throughout the apophyseal joints. No gross fracture or subluxation is definitely appreciated. Impression: 1. Diffuse motion artifact which significantly limits the study. 2. No definite acute abnormality is grossly appreciated. Diagnostic code #2 I agree with preliminary report from [facility], finalized on 03/06/21, 8:30 PM CDT, code 1
--- NOTE | 2021-03-06 20:23 | CT ---
CT chest Technique: Multiple axial sections were obtained from above the lung apices inferiorly through the lung bases. Intravenous contrast was not utilized. Reconstructed coronal and sagittal images were obtained. Comparison: No prior chest CT study is available, prior chest x-ray of 01/19/21 is available. Findings: Thoracic aorta shows diffuse atherosclerotic change. Ascending aorta is slightly ectatic with AP dimension of 3.5 cm. Minimal coronary artery calcification is seen. Mediastinum shows no adenopathy. No axillary adenopathy is seen. No pericardial thickening is seen. Slight linear density is noted within the left lung base most likely due to scarring. Lungs show no definite acute parenchymal change. No pleural effusions or pneumothorax are seen. Bone window settings were reviewed which show scattered osseous abnormalities. Impression: 1. Findings believed to be incidental as noted above. 2. Nothing acute is appreciated on noncontrast CT study of the chest. Diagnostic code #2 I agree with preliminary report from [facility], finalized on 03/06/21, 8:42 PM CDT, code 1 CT abdomen and pelvis Technique: Multiple axial sections were obtained from above the dome of the diaphragm inferiorly through the pubic symphysis. Intravenous and oral contrast were not utilized. Reconstructed coronal and sagittal images were obtained. Limitations: Significant motion artifact is present. Comparison: Previous CT pelvis study of 09/09/20, no prior CT abdomen study is available. Findings: Large soft tissue abnormality is seen within the posterior right paraspinal fat. This abnormality measures approximately 11.0 cm x 3.8 cm x 13.4 cm and is felt compatible with prominent subcutaneous hematoma. Inferior scans show enlargement of the left gluteal muscle compatible with intramuscular hematoma which is not completely included on the study. Liver shows no gross abnormality. Spleen size is normal. Adrenal glands show no discrete abnormality. Pancreas shows no discrete abnormality. Kidneys show no abnormal calcifications. Abdominal aorta shows atherosclerotic change which continues into the iliac vessels without aneurysm. No retroperitoneal adenopathy or discrete mesenteric abnormalities are seen. No pelvic mass or adenopathy is seen. No free fluid is seen. Diverticuli are seen within the sigmoid colon. Appendix is not definitely visualized with certainty. Bone window settings were reviewed which show mild degenerative change within the lumbar spine most prominent at L4-5. No definite acute osseous abnormality is appreciated. Impression: 1. Soft tissue hematoma within the subcutaneous fat within the posterior right abdomen with measurements as noted above. 2. Poorly seen inferior left gluteal hematoma which is not completely included on this exam. 3. No definite acute gross abnormality seen within the intra-abdomen or intrapelvic regions. Diagnostic code #3 I agree with preliminary report from [facility], finalized on 03/06/21, 8:42 PM, CDT, code 1
[2021-03-06] MEDS ORDERED: LORazepam 2 MG/ML SDV IV ONE (20:53)
[2021-03-06] MEDS ORDERED: Ondansetron 4 MG/2 ML SDV IVPUSH PRN (23:51)
[2021-03-07] MEDS: HYDROmorphone 0.5 MG/0.5 ML Syringe IVPUSH PRN ×5 (02:29→21:08)
--- NOTE | 2021-03-07 07:38 | PCM.HP.2 ---
<Wilder Beard - Last Filed: 03/07/21 12:02> H&P History of Present Illness - General Date of Service: 03/07/21 Admit Problem/Dx: Admission Diagnosis/Problem Admission Diagnosis/Problem Recurrent falls Source of Information: Patient, Family, Old Records, Provider, RN, RN Notes Reviewed History Limitations: Reports: No Limitations - History of Present Illness Initial Comments - Free Text/Narative: This is an 85-year-old female who presented to ED on the evening of 03/06/2021 after a fall. Patient resides at [facility] and while she was in line for dinner she reportedly fell, hitting her head. She is noted to have a laceration to the left side of her head but does not think she was knocked out. She reports a headache. She is on Plavix. She has been having several falls as of late. She is noted to have a significant ecchymosis on her back and left buttocks. She reports pain there but denies any chest pain or s hortness of breath. Denies any infectious symptoms like fever, chills, or cough. In the ED twelve-lead EKG is obtained showing a sinus tachycardia 101 bpm with left axis deviation and large P waves suggestive of left atrial hypertrophy. Q waves are noted in leads III and aVF. There is a repolarization abnormality in lead I and aVL with ST segment depression in V3 to V5. QT is moderately prolo nged. Four 4-0 sutures are placed on a 6 cm laceration of her left occipital scalp. Temp is 36.7 C. Pulse 106. Respirations 18. Blood pressure 126/80. Pulse ox 94%. Labs were obtained with a WBC of 9.01. Hemoglobin 8.1. Hematocrit 26.5. She is macrocytic. Platelet are 283,000. Neutrophils are elevated 75.3%. INR is 1.08. aPTT is 25.4. Sodium 145. Potassium 3.9. Chloride 109. Carbon dioxide 26. Anion gap 13.9. BUN 35. Creatinine 1.6. GFR 31. Glucose 113. Calcium 8.1. Total bilirubin 1.6. AST is 28, ALT 26, alkaline phosphatase 81. CK is 208. Troponin less than 0.017. Protein 6.2. Albumin 3.3. UA is grossly negative. SARS-CoV-[address] RNA is negative[address] Head CT is obtained showing "1. Mucosal thickening within both mastoid sinuses. Findings are fairly stable from prior CT exam and are likely incidental. 2. Senescent changes noted above. 3. Nothing acute is appreciated noncontrast head CT study." CT of the chest is obtained showing incidental findings and nothing acute. CT of the cervical spine is obtained showing diffuse motion artifact which limits his study but no acute abnormality appreciated. CT of the abdomen is obtained showing a soft tissue abnormality within the posterior right paraspinal fat which measures approximate 11.0 cm x 3.1 cm x 13.4 cm consistent with prominent subcutaneous hematoma. She is given Dilaudid for pain and 0.5 mg Ativan for restlessness. She is unable to sit due to pain she subsequent admitted to the medical floor for management of her multiple hematomas, pain, and likely need for placement. She carries a history of A. fib, HLD, hypertension, prior CA, chronic venous insufficiency, recurrent pneumonia, pulmonary nodule, pulmonary hypertension, chronic renal insufficiency, recurrent UTI, urinary incontinence, arthritis, RLS, history of AV fistula with repair, chronic anticoagulation, lymphedema. She is a DNR/DNI. Her primary care provider is Dr. Soto. - Related Data Allergies/Adverse Reactions: Allergies Allergy/AdvReac Type Severity Reaction Status Date / Time Sulfa (Sulfonamide Allergy Intermediate Hives Verified 03/06/21 18:18 Antibiotics) amlodipine Allergy Unknown Cannot Verified 03/06/21 18:18 Remember pneumococcal vaccine Allergy Unknown Cannot Verified 03/06/21 18:18 Remember verapamil HCl [From [facility]] Allergy Unknown Cannot Verified 03/06/21 18:18 Remember Home Medications: Home Meds Loratadine [Allergy] 10 mg PO DAILY PRN 02/18/20 [History] Clopidogrel Bisulfate [Plavix] 75 mg PO DAILY 04/01/20 [History] Nitroglycerin 0.4 mg SL ASDIRECTED PRN 04/01/20 [History] atorvaSTATin [Lipitor] 40 mg PO DAILY 04/01/20 [History] Enalapril Maleate 40 mg PO DAILY 09/09/20 [History] Folic Acid 1 mg PO DAILY 09/09/20 [History] Furosemide 20 mg PO Q48H 09/09/20 [History] Pramipexole [Mirapex] 0.5 mg PO BID 09/09/20 [History] Cranberry Conc/Ascorbic Acid [Cranberry Concentrate Softgel] 1 tab PO DAILY 09/13/20 [History] Hydrocodone/Acetaminophen [Hydrocodone-Acetamin 5-325 mg] 1 tab PO Q6H PRN 01/19/21 [History] ondansetron HCL [Zofran] 4 mg PO QID PRN 01/19/21 [History] Acetaminophen 325 mg PO Q6H PRN 03/07/21 [History] Acetaminophen [Tylenol Arthritis] 1,000 mg PO BID 03/07/21 [History] Cholecalciferol (Vitamin D3) [Vitamin D3] 125 mcg PO DAILY 03/07/21 [History] Furosemide 20 mg PO 12 03/07/21 [History] Furosemide 40 mg PO Q48H 03/07/21 [History] Labetalol [Normodyne] 200 mg PO BID 03/07/21 [History] Lysine HCl [l-Lysine] 1 cap PO DAILY 03/07/21 [History] Sertraline [Zoloft] 50 mg PO BEDTIME 03/07/21 [History] allopurinoL [Zyloprim] 50 mg PO DAILY 03/07/21 [History] Past Medical History HEENT History: Reports: Other (See Below) Other HEENT History: has bilateral hearing aides, wears eyeglasses. 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 Gamma knife treatment at the [facility]. restless leg syndrome Psychiatric History: Reports: None Endocrine/Metabolic History: Reports: None Hematologic History: Reports: Anticoagulation Therapy Immunologic History: Reports: None Oncologic (Cancer) History: Reports: None Dermatologic History: Reports: Other (See Below) Other Dermatologic History: lymphedema - Infectious Disease History Infectious Disease History: Reports: Chicken Pox, Influenza, Measles - Past Surgical History HEENT Surgical History: Reports: Other (See Below) Other HEENT Surgeries/Procedures: adenoid surgery. Cardiovascular Surgical History: Reports: None Respiratory Surgical History: Reports: None GI Surgical History: Reports: Colonoscopy Female Surgical History: Reports: Hysterectomy, Other (See Below) Other Female Surgeries/Procedures: Bladder Surgery Endocrine Surgical History: Reports: None Neurological Surgical History: Reports: Laminectomy Musculoskeletal Surgical History: Reports: Knee Replacement, Other (See Below) Other Musculoskeletal Surgeries/Procedures:: right knee replacement Dermatological Surgical History: Reports: None Social & Family History - Family History Family Medical History: Unobtainable - Tobacco Use Tobacco Use Status *Q: Unknown Ever Used Tobacco Second Hand Smoke Exposure: No - Caffeine Use Caffeine Use: Reports: Coffee - Recreational Drug Use Recreational Drug Use: No - Living Situation & Occupation Living situation: Reports: Occupation: Retired H&P Review of Systems - Review of Systems: Review Of Systems: See Below General: Reports: No Symptoms, Malaise, Weakness, Fatigue. Denies: Fever, Chil ls HEENT: Reports: No Symptoms. Denies: Headaches, Sore Throat Pulmonary: Reports: No Symptoms. Denies: Shortness of Breath, Wheezing, Pleuritic Chest Pain, Cough, Sputum Cardiovascular: Reports: Edema (chronic lymphedema ). Denies: Chest Pain, Palpitations, Dyspnea on Exertion Gastrointestinal: Reports: No Symptoms. Denies: Abdominal Pain, Constipation, Diarrhea, Nausea, Vomiting Genitourinary: Reports: No Symptoms. Denies: Pain Musculoskeletal: Reports: Neck Pain, Back Pain, Leg Pain, Other (Buttocks pain ) Skin: Reports: No Symptoms. Denies: Cyanosis Psychiatric: Reports: No Symptoms. Denies: Confusion Neurological: Reports: Difficulty Walking, Weakness, Gait Disturbance. Denies: Confusion, Dizziness, Numbness, Syncope, Tingling Hematologic/Lymphatic: Reports: Easy Bleeding (On Plavix), Easy Bruising (Plavix) Immunologic: Reports: No Symptoms Exam - Exam Exam: See Below - Vital Signs Vital Signs: Last Vital Signs Temp 98.1 F 03/07/21 04:49 Pulse 98 03/07/21 04:49 Resp 18 03/07/21 04:49 BP 114/54 L 03/07/21 04:49 Pulse Ox 93 L 03/07/21 05:39 Weight: 172 lb 1.6 oz - Exam Quality Assessment: Supplemental Oxygen, DVT Prophylaxis. No: Urinary Catheter General: Alert, Oriented, Cooperative, Sedated (mildly). No: Mild Distress HEENT: Conjunctiva Clear, EACs Clear, Mucosa Moist & [place], Posterior Pharynx Clear, PERRLA (left occipital scalp laceration with [address] ) Neck: Supple, Trachea Midline Lungs: Clear to Auscultation, Normal Respiratory Effort Cardiovascular: Regular Rate, Regular Rhythm GI/Abdominal Exam: Normal Bowel Sounds, Soft, Non-Tender, No Distention (Female) Exam: Deferred Rectal (Female) Exam: Deferred Back Exam: Decreased Range of Motion, Other (Significant bruising throughout back most prominent on left upper and lower back. Tenderness noted over bruising. Large left buttocks hematoma.) Extremities: Normal Inspection, Non-Tender, Pedal Edema, Limited Range of Motion, Other (Bandage in place on left lower extremity due to chronic lymphedema.) Skin: Warm, Dry, Intact, Ecchymosis (Significant scattered throughout body ) Neurological: Cranial Nerves Intact (Grossly ) Neuro Extensive - Mental Status: Alert, Oriented x3, Normal Mood/Affect - Patient Data Lab Results Last 24 hrs: Laboratory Results - last 24 hr 03/06/21 03/06/21 03/06/21 Range/Units 18:35 18:35 18:35 WBC 9.01 (3.98-10.04) K/mm3 RBC 2.61 L (3.98-5.22) M/mm3 Hgb 8.1 L D (11.2-15.7) gm/dl Hct 26.5 L (34.1-44.9) % MCV 101.5 H D (79.4-94.8) fl MCH 31.0 (25.6-32.2) pg MCHC 30.6 L (32.2-35.5) g/dl RDW Std Deviation 55.2 H (36.4-46.3) fL Plt Count 283 (182-369) K/mm3 MPV 9.8 (9.4-12.3) fl Neut % (Auto) 75.3 H (34.0-71.1) % Lymph % (Auto) 9.8 L (19.3-51.7) % [place] % (Auto) 12.9 H (4.7-12.5) % Eos % (Auto) 1.7 (0.7-5.8) Baso % (Auto) 0.1 (0.1-1.2) % Neut # (Auto) 6.79 H (1.56-6.13) K/mm3 Lymph # (Auto) 0.88 L (1.18-3.74) K/mm3 [place] # (Auto) 1.16 H (0.24-0.36) K/mm3 Eos # (Auto) 0.15 (0.04-0.36) K/mm3 Baso # (Auto) 0.01 (0.01-0.08) K/mm3 Manual Slide Review Abnormal smear PT 11.5 (9.7-12.0) SECONDS INR 1.08 APTT 25.4 (21.7-31.4) SECONDS Sodium 145 (136-145) mEq/L Potassium 3.9 (3.5-5.1) mEq/L Chloride 109 H (98-107) mEq/L Carbon Dioxide 26 (21-32) mEq/L Anion Gap 13.9 (5-15) BUN 35 H (7-18) mg/dL Creatinine 1.6 H (0.55-1.02) mg/dL Est Cr Clr Drug Dosing 22.60 mL/min Estimated GFR (MDRD) 31 (>60) mL/min BUN/Creatinine Ratio 21.9 H (14-18) Glucose 113 H (70-99) mg/dL Calcium 8.1 L (8.5-10.1) mg/dL Total Bilirubin 1.6 H (0.2-1.0) mg/dL AST 28 (15-37) U/L ALT 26 (14-59) U/L Alkaline Phosphatase 81 (46-116) U/L Creatine Kinase 208 H (26-192) U/L Troponin I < 0.017 (0.00-0.056) ng/mL NT-Pro-B Natriuret Pep (0-450) pg/mL Total Protein 6.2 L (6.4-8.2) g/dl Albumin 3.3 L (3.4-5.0) g/dl Globulin 2.9 gm/dL Albumin/Globulin Ratio 1.1 (1-2) Urine Color (Yellow) Urine Appearance (Clear) Urine pH (5.0-8.0) Ur Specific Gary (1.005-1.030) Urine Protein (Negative) Urine Glucose (UA) (Negative) Urine Ketones (Negative) Urine Occult Blood (Negative) Urine Nitrite (Negative) Urine Bilirubin (Negative) Urine Urobilinogen (0.2-1.0) Ur Leukocyte Esterase (Negative) Urine RBC (0-5) /hpf Urine WBC (0-5) /hpf Ur Squamous Epith Cells (0-5) /hpf Urine Bacteria (FEW) /hpf Urine Mucus (FEW) /hpf SARS-CoV-2 RNA (SERGEI) (NEGATIVE) MRSA (PCR) 03/06/21 03/06/21 03/06/21 Range/Units 19:25 20:23 22:00 WBC (3.98-10.04) K/mm3 RBC (3.98-5.22) M/mm3 Hgb (11.2-15.7) gm/dl Hct (34.1-44.9) % MCV (79.4-94.8) fl MCH (25.6-32.2) pg MCHC (32.2-35.5) g/dl RDW Std Deviation (36.4-46.3) fL Plt Count (182-369) K/mm3 MPV (9.4-12.3) fl Neut % (Auto) (34.0-71.1) % Lymph % (Auto) (19.3-51.7) % [place] % (Auto) (4.7-12.5) % Eos % (Auto) (0.7-5.8) Baso % (Auto) (0.1-1.2) % Neut # (Auto) (1.56-6.13) K/mm3 Lymph # (Auto) (1.18-3.74) K/mm3 [place] # (Auto) (0.24-0.36) K/mm3 Eos # (Auto) (0.04-0.36) K/mm3 Baso # (Auto) (0.01-0.08) K/mm3 Manual Slide Review PT (9.7-12.0) SECONDS INR APTT (21.7-31.4) SECONDS Sodium (136-145) mEq/L Potassium (3.5-5.1) mEq/L Chloride (98-107) mEq/L Carbon Dioxide (21-32) mEq/L Anion Gap (5-15) BUN (7-18) mg/dL Creatinine (0.55-1.02) mg/dL Est Cr Clr Drug Dosing mL/min Estimated GFR (MDRD) (>60) mL/min BUN/Creatinine Ratio (14-18) Glucose (70-99) mg/dL Calcium (8.5-10.1) mg/dL Total Bilirubin (0.2-1.0) mg/dL AST (15-37) U/L ALT (14-59) U/L Alkaline Phosphatase (46-116) U/L Creatine Kinase (26-192) U/L Troponin I (0.00-0.056) ng/mL NT-Pro-B Natriuret Pep 1374 H (0-450) pg/mL Total Protein (6.4-8.2) g/dl Albumin (3.4-5.0) g/dl Globulin gm/dL Albumin/Globulin Ratio (1-2) Urine Color Yellow (Yellow) Urine Appearance Clear (Clear) Urine pH 6.0 (5.0-8.0) Ur Specific Gary 1.020 (1.005-1.030) Urine Protein Negative (Negative) Urine Glucose (UA) Negative (Negative) Urine Ketones Negative (Negative) Urine Occult Blood Negative (Negative) Urine Nitrite Negative (Negative) Urine Bilirubin Negative (Negative) Urine Urobilinogen 0.2 (0.2-1.0) Ur Leukocyte Esterase Negative (Negative) Urine RBC 0-5 (0-5) /hpf Urine WBC 0-5 (0-5) /hpf Ur Squamous Epith Cells 0-5 (0-5) /hpf Urine Bacteria Few (FEW) /hpf Urine Mucus Few (FEW) /hpf SARS-CoV-2 RNA (SERGEI) Negative (NEGATIVE) MRSA (PCR) 03/06/21 Range/Units 23:20 WBC (3.98-10.04) K/mm3 RBC (3.98-5.22) M/mm3 Hgb (11.2-15.7) gm/dl Hct (34.1-44.9) % MCV (79.4-94.8) fl MCH (25.6-32.2) pg MCHC (32.2-35.5) g/dl RDW Std Deviation (36.4-46.3) fL Plt Count (182-369) K/mm3 MPV (9.4-12.3) fl Neut % (Auto) (34.0-71.1) % Lymph % (Auto) (19.3-51.7) % [place] % (Auto) (4.7-12.5) % Eos % (Auto) (0.7-5.8) Baso % (Auto) (0.1-1.2) % Neut # (Auto) (1.56-6.13) K/mm3 Lymph # (Auto) (1.18-3.74) K/mm3 [place] # (Auto) (0.24-0.36) K/mm3 Eos # (Auto) (0.04-0.36) K/mm3 Baso # (Auto) (0.01-0.08) K/mm3 Manual Slide Review PT (9.7-12.0) SECONDS INR APTT (21.7-31.4) SECONDS Sodium (136-145) mEq/L Potassium (3.5-5.1) mEq/L Chloride (98-107) mEq/L Carbon Dioxide (21-32) mEq/L Anion Gap (5-15) BUN (7-18) mg/dL Creatinine (0.55-1.02) mg/dL Est Cr Clr Drug Dosing mL/min Estimated GFR (MDRD) (>60) mL/min BUN/Creatinine Ratio (14-18) Glucose (70-99) mg/dL Calcium (8.5-10.1) mg/dL Total Bilirubin (0.2-1.0) mg/dL AST (15-37) U/L ALT (14-59) U/L Alkaline Phosphatase (46-116) U/L Creatine Kinase (26-192) U/L Troponin I (0.00-0.056) ng/mL NT-Pro-B Natriuret Pep (0-450) pg/mL Total Protein (6.4-8.2) g/dl Albumin (3.4-5.0) g/dl Globulin gm/dL Albumin/Globulin Ratio (1-2) Urine Color (Yellow) Urine Appearance (Clear) Urine pH (5.0-8.0) Ur Specific Gary (1.005-1.030) Urine Protein (Negative) Urine Glucose (UA) (Negative) Urine Ketones (Negative) Urine Occult Blood (Negative) Urine Nitrite (Negative) Urine Bilirubin (Negative) Urine Urobilinogen (0.2-1.0) Ur Leukocyte Esterase (Negative) Urine RBC (0-5) /hpf Urine WBC (0-5) /hpf Ur Squamous Epith Cells (0-5) /hpf Urine Bacteria (FEW) /hpf Urine Mucus (FEW) /hpf SARS-CoV-2 RNA (SERGEI) (NEGATIVE) MRSA (PCR) Negative Result Diagrams: 03/07/21 08:25 03/07/21 08:25 Sepsis Event Note - Evaluation Sepsis Screening Result: No Definite Risk - Focused Exam Vital Signs: Vital Signs Temp Temp Pulse Pulse Resp BP BP 03/07/21 05:39 03/07/21 04:49 98.1 F 98 18 114/54 L 03/07/21 04:44 03/07/21 04:20 03/06/21 23:18 99.0 F 96 16 111/36 L 03/06/21 20:28 98.1 F 106 H 18 126/80 Pulse Ox Pulse Ox 03/07/21 05:39 93 L 03/07/21 04:49 93 L 03/07/21 04:44 72 L 03/07/21 04:20 72 L 03/06/21 23:18 92 L 03/06/21 20:28 94 L - Problem List (1) Living in assisted living SNOMED Code(s): 24887478386291302, 04931808257718359 ICD Code: Z59.3 - PROBLEMS RELATED TO LIVING IN RESIDENTIAL INSTITUTION Status: Chronic Priority: Low Current Visit: Yes (2) Chronic venous insufficiency SNOMED Code(s): 87223049, 77154718 ICD Code: I87.2 - VENOUS INSUFFICIENCY (CHRONIC) (PERIPHERAL) Status: Chronic Priority: Low Current Visit: No (3) Afib SNOMED Code(s): 33183478 ICD Code: I48.91 - UNSPECIFIED ATRIAL FIBRILLATION Status: Chronic Priority: Low Current Visit: No Qualifiers: Atrial fibrillation type: paroxysmal Qualified Code(s): I48.0 - Paroxysmal atrial fibrillation (4) HLD (hyperlipidemia) SNOMED Code(s): 98344517 ICD Code: E78.5 - HYPERLIPIDEMIA, UNSPECIFIED Status: Chronic Priority: Low Current Visit: No Qualifiers: Hyperlipidemia type: unspecified Qualified Code(s): E78.5 - Hyperlipidemia, unspecified (5) History of recurrent pneumonia SNOMED Code(s): 455302775 ICD Code: Z87.01 - PERSONAL HISTORY OF PNEUMONIA (RECURRENT) Status: Chronic Priority: Low Current Visit: No (6) History of recurrent UTI (urinary tract infection) SNOMED Code(s): 505389995 ICD Code: Z87.440 - PERSONAL HISTORY OF URINARY (TRACT) INFECTIONS Status: Chronic Priority: Low Current Visit: No (7) Pulmonary hypertension SNOMED Code(s): 06680520 ICD Code: I27.20 - PULMONARY HYPERTENSION, UNSPECIFIED Status: Chronic Priority: Medium Current Visit: No (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) SNOMED Code(s): 194097531 ICD Code: Z87.74 - PERSONAL HISTORY OF CONGENITAL MALFORM OF HEART AND CIRC SYS Status: Chronic Priority: Low Current Visit: No (9) Restless leg syndrome SNOMED Code(s): 07876973 ICD Code: G25.81 - RESTLESS LEGS SYNDROME Status: Chronic Priority: Medium Current Visit: Yes (10) Anemia SNOMED Code(s): 754002152 ICD Code: D64.9 - ANEMIA, UNSPECIFIED Status: Acute Priority: High Current Visit: Yes Qualifiers: Anemia type: unspecified type Qualified Code(s): D64.9 - Anemia, unspecified (11) Chronic renal insufficiency, stage III (moderate) SNOMED Code(s): 996651928 ICD Code: N18.30 - CHRONIC KIDNEY DISEASE, STAGE 3 UNSPECIFIED Status: Chronic Priority: Medium Current Visit: Yes Qualifiers: Chronic kidney disease stage 3 subtype: stage 3b (GFR 30-44) Qualified Code(s): N18.32 - Chronic kidney disease, stage 3b (12) Contusion of buttock SNOMED Code(s): 94221515 ICD Code: S30.0XXA - CONTUSION OF LOWER BACK AND PELVIS, INITIAL ENCOUNTER Status: Acute Priority: High Current Visit: Yes Qualifiers: Encounter type: initial encounter Qualified Code(s): S30.0XXA - Contusion of lower back and pelvis, initial encounter (13) Contusion of left back wall of thorax, initial encounter SNOMED Code(s): 81728830518401747, 45289587720545852 ICD Code: S20.222A - CONTUSION OF LEFT BACK WALL OF THORAX, INITIAL ENCOUNTER Status: Acute Priority: High Current Visit: Yes (14) Contusion of lower back and pelvis, initial encounter SNOMED Code(s): 86941253 ICD Code: S30.0XXA - CONTUSION OF LOWER BACK AND PELVIS, INITIAL ENCOUNTER Status: Acute Priority: High Current Visit: Yes (15) Laceration of scalp without complication SNOMED Code(s): 702970426 ICD Code: S01.01XA - LACERATION WITHOUT FOREIGN BODY OF SCALP, INITIAL ENCOUNTER Status: Acute Priority: High Current Visit: Yes Qualifiers: Encounter type: initial encounter Qualified Code(s): S01.01XA - Laceration without foreign body of scalp, initial encounter (16) Recurrent falls SNOMED Code(s): 355096214 ICD Code: R29.6 - REPEATED FALLS Status: Acute Priority: High Current Visit: Yes (17) Traumatic hematoma of buttock SNOMED Code(s): 30007417, 747539627 ICD Code: S30.0XXA - CONTUSION OF LOWER BACK AND PELVIS, INITIAL ENCOUNTER Status: Acute Priority: High Current Visit: Yes Qualifiers: Encounter type: initial encounter Qualified Code(s): S30.0XXA - Contusion of lower back and pelvis, initial encounter (18) Chronic anticoagulation SNOMED Code(s): 104664080 ICD Code: Z79.01 - INTERMEDIATE (CURRENT) USE OF ANTICOAGULANTS Status: Chronic Priority: High Current Visit: Yes (19) History of CA (myocardial infarction) SNOMED Code(s): 255395486 ICD Code: I25.2 - OLD MYOCARDIAL INFARCTION Status: Chronic Priority: Low Current Visit: No (20) Hypertension SNOMED Code(s): 97431241 ICD Code: I10 - ESSENTIAL (PRIMARY) HYPERTENSION Status: Chronic Priority: Medium Current Visit: No Qualifiers: Hypertension type: unspecified Qualified Code(s): I10 - Essential (primary) hypertension (21) Lymphedema SNOMED Code(s): 072763623 ICD Code: I89.0 - LYMPHEDEMA, NOT ELSEWHERE CLASSIFIED Status: Chronic Priority: Medium Current Visit: Yes (22) Pulmonary nodule SNOMED Code(s): 826818999 ICD Code: R91.1 - SOLITARY PULMONARY NODULE Status: Chronic Priority: Low Current Visit: No (23) Urinary incontinence SNOMED Code(s): 984929712 ICD Code: R32 - UNSPECIFIED URINARY INCONTINENCE Status: Chronic Priority: Low Current Visit: No Qualifiers: Urinary Incontinence type: unspecified incontinence Qualified Code(s): R32 - Unspecified urinary incontinence Problem List Initiated/Reviewed/Updated: Yes Orders Last 24hrs: Active Orders 24 hr Category Date Time Status Admission Diagnosis [ADT] Stat ADT 03/06/21 21:39 Ordered Admission Status [Patient Status] [ADT] Routine ADT 03/06/21 21:43 Active Oxygen Therapy Adult [Oxygen Therapy] [RC] ASDIRECTED Care 03/07/21 04:44 Active Up With Assistance [RC] BID Care 03/06/21 23:48 Active Up to Chair [RC] BID Care 03/06/21 23:48 Active Heart Healthy Diet [DIET] Diet 03/07/21 Breakfast Active HYDROmorphone [Dilaudid] Med 03/06/21 23:49 Active 0.5 mg IVPUSH Q2H PRN Ondansetron [Zofran] Med 03/06/21 23:51 Active 4 mg IVPUSH Q6H PRN Sodium Chloride 0.9% [Saline Flush] Med 03/06/21 18:25 Active 10 ml FLUSH ASDIRECTED PRN Peripheral IV Insertion Adult [OM.PC] Stat Oth 03/06/21 18:25 Ordered Code Status [Resuscitation Status] Routine Resus Stat 03/06/21 23:47 Ordered EKG 12 Lead [EK] Stat Ther 03/06/21 18:45 Ordered Medication Orders Hydromorphone HCl (Hydromorphone 0.5 Mg/0.5 Ml Syringe) 0.5 mg IVPUSH Q2H PRN PRN Reason: Pain Last Admin: 03/07/21 04:40 Dose: 0.5 mg Documented by: Admin: 03/07/21 02:29 Dose: 0.5 mg Documented by: ARIEL Ondansetron HCl (Ondansetron 4 Mg/2 Ml Sdv) 4 mg IVPUSH Q6H PRN PRN Reason: Nausea Sodium Chloride (Sodium Chloride 0.9% 10 Ml Syringe) 10 ml FLUSH ASDIRECTED PRN PRN Reason: Keep Vein Open Last Admin: 03/06/21 18:39 Dose: 10 ml Documented by: ALEJANDRO Assessment/Plan Comment:: Assessment - 03/07/2021 (admitted late 03/06/2021) * 85-year-old female who presented to ED after a fall * History of A. fib, HLD, hypertension, prior CA, chronic venous insufficiency, recurrent pneumonia, pulmonary nodule, pulmonary hypertension, chronic renal insufficiency, recurrent UTI, urinary incontinence, arthritis, RLS, history of AV fistula with repair, chronic anticoagulation, lymphedema * Patient resides at [facility] * While she was in line for dinner she reportedly fell, hitting her head * Noted to have a laceration to the left side of her head but does not think she was knocked out -Reports a headache * She is on Plavix. * She has been having several falls as of late. * She is noted to have a significant ecchymosis on her back and left buttocks. * She reports pain there but denies any chest pain or shortness of breath. * Denies any infectious symptoms like fever, chills, or cough. * twelve-lead EKG is obtained showing a sinus tachycardia 101 bpm with left axis deviation and large P waves suggestive of left atrial hypertrophy. Q waves are noted in leads III and aVF. There is a repolarization abnormality in lead I and aVL with ST segment depression in V3 to V5. QT is moderately prolonged. * Four 4-0 sutures are placed on a 6 cm laceration of her left occipital scalp. * Labs were obtained in ED and on floor: * WBC of 9.01-->6.56 * Hemoglobin 8.1-->6.8 * Hematocrit 26.5-->22.7 * She is macrocytic. * Platelet are 283,000-->250,000 * Neutrophils are elevated 75.3%-->69.3% * INR 1.08 * aPTT 25.4 * Sodium 145-->145 * Potassium 3.9-->3.9 * Chloride 109-->110 * Carbon dioxide 26-->28 * Anion gap 13.9-->10.9 * BUN 35-->30 * Creatinine 1.6-->1.3 * GFR 31-->39 * Glucose 113-->101 * Calcium 8.1-->7.7 * Total bilirubin 1.6-->1.3 * AST is 28-->27, ALT 26-->21, alkaline phosphatase 81-->66. * CK is 208 * Troponin less than 0.017 * Protein 6.2-->5.3 * Albumin 3.3-->2.7 * proBNP [id number] * UA is grossly negative * SARS-CoV-2 RNA is negative * MRSA screen negative * Head CT is obtained showing: * 1. Mucosal thickening within both mastoid sinuses. Findings are fairly stable from prior CT exam and are likely incidental. * 2. Senescent changes noted above. * 3. Nothing acute is appreciated noncontrast head CT study * CT of the chest is obtained showing incidental findings and nothing acute. * CT of the cervical spine is obtained showing diffuse motion artifact which limits his study but no acute abnormality appreciated. * CT of the abdomen is obtained showing a soft tissue abnormality within the posterior right paraspinal fat which measures approximate 11.0 cm x 3.1 cm x 13.4 cm consistent with prominent subcutaneous hematoma. * Given Dilaudid for pain and 0.5 mg Ativan for restlessness. * She is unable to sit due to pain she subsequent admitted to the medical floor for management of her multiple hematomas, pain, and likely need for placement. PLAN: Contusion of buttock Contusion of left back wall of thorax, initial encounter Contusion of lower back and pelvis, initial encounter Laceration of scalp without complication Recurrent falls Traumatic hematoma of buttock Chronic anticoagulation Anemia Living in assisted living * Pain medications as ordered * PT/OT * Hold Plavix for now * CM/SW for discharge planning * Brain MRI to rule out posterior circulation stroke * Carotid ultrasound * CT chest abdomen pelvis now due to worsening anemia * Transfused 2 units PRBCs * Type and screen * 20 mg Lasix between units * Daily labs * Will likely need placement * O2 as needed to keep saturations >90% * Check occult stool * Re-check H/H at 1800 tonight Chronic venous insufficiency Lymphedema * Elevated extremities BID * Bilateral compression dressings/JORDAN hose Pulmonary nodule * No acute concerns Afib History of CA (myocardial infarction) Hypertension * Telemetry * No acute concerns * Home medications as ordered * Monitor vital signs HLD (hyperlipidemia) * Hold home statin for now * No acute concerns History of recurrent pneumonia History of recurrent UTI (urinary tract infection) Urinary incontinence * No acute concerns Pulmonary hypertension * No acute concerns * Home medications as ordered Personal history of arterial venous malformation (AVM) * No acute concerns Restless leg syndrome * Home medications as ordered * No acute concerns Chronic renal insufficiency, stage III (moderate) * Monitor labs * Stable thus far * Avoid nephrotoxic meds if able Code status: DNR/DNI PCP: Dr. Soto DVT prophylaxis: JORDAN gautam for now. Pharmacological prophylaxis contraindicated due to worsening anemia. Social: Patient resides at [facility]. Will likely require SNF placement. Disposition: Patient mated to the medical floor for management and further work- up of her anemia, multiple falls, significant hematomas, weakness, and likely need for placement. Anticipated length of stay 3 to 4 days. - Mortality Measure Prognosis:: Poor (Overall poor prognosis given limited mobility and multiple comorbid conditions.) <Harjinder Renteria Jr - Last Filed: 03/07/21 16:51> H&P History of Present Illness - General Admit Problem/Dx: Admission Diagnosis/Problem Admission Diagnosis/Problem Recurrent falls Exam - Vital Signs Vital Signs: Last Vital Signs Temp 98.2 F 03/07/21 16:17 Pulse 78 03/07/21 16:17 Resp 14 03/07/21 16:17 BP 137/45 L 03/07/21 16:17 Pulse Ox 93 L 03/07/21 16:17 - Patient Data Lab Results Last 24 hrs: Laboratory Results - last 24 hr 03/06/21 03/06/21 03/06/21 Range/Units 18:35 18:35 18:35 WBC 9.01 (3.98-10.04) K/mm3 RBC 2.61 L (3.98-5.22) M/mm3 Hgb 8.1 L D (11.2-15.7) gm/dl Hct 26.5 L (34.1-44.9) % MCV 101.5 H D (79.4-94.8) fl MCH 31.0 (25.6-32.2) pg MCHC 30.6 L (32.2-35.5) g/dl RDW Std Deviation 55.2 H (36.4-46.3) fL Plt Count 283 (182-369) K/mm3 MPV 9.8 (9.4-12.3) fl Neut % (Auto) 75.3 H (34.0-71.1) % Lymph % (Auto) 9.8 L (19.3-51.7) % [place] % (Auto) 12.9 H (4.7-12.5) % Eos % (Auto) 1.7 (0.7-5.8) Baso % (Auto) 0.1 (0.1-1.2) % Neut # (Auto) 6.79 H (1.56-6.13) K/mm3 Lymph # (Auto) 0.88 L (1.18-3.74) K/mm3 [place] # (Auto) 1.16 H (0.24-0.36) K/mm3 Eos # (Auto) 0.15 (0.04-0.36) K/mm3 Baso # (Auto) 0.01 (0.01-0.08) K/mm3 Manual Slide Review Abnormal smear PT 11.5 (9.7-12.0) SECONDS INR 1.08 APTT 25.4 (21.7-31.4) SECONDS Sodium 145 (136-145) mEq/L Potassium 3.9 (3.5-5.1) mEq/L Chloride 109 H (98-107) mEq/L Carbon Dioxide 26 (21-32) mEq/L Anion Gap 13.9 (5-15) BUN 35 H (7-18) mg/dL Creatinine 1.6 H (0.55-1.02) mg/dL Est Cr Clr Drug Dosing 22.60 mL/min Estimated GFR (MDRD) 31 (>60) mL/min BUN/Creatinine Ratio 21.9 H (14-18) Glucose 113 H (70-99) mg/dL Calcium 8.1 L (8.5-10.1) mg/dL Magnesium (1.8-2.4) mg/dL Total Bilirubin 1.6 H (0.2-1.0) mg/dL AST 28 (15-37) U/L ALT 26 (14-59) U/L Alkaline Phosphatase 81 (46-116) U/L Creatine Kinase 208 H (26-192) U/L Troponin I < 0.017 (0.00-0.056) ng/mL NT-Pro-B Natriuret Pep (0-450) pg/mL Total Protein 6.2 L (6.4-8.2) g/dl Albumin 3.3 L (3.4-5.0) g/dl Globulin 2.9 gm/dL Albumin/Globulin Ratio 1.1 (1-2) Urine Color (Yellow) Urine Appearance (Clear) Urine pH (5.0-8.0) Ur Specific Gary (1.005-1.030) Urine Protein (Negative) Urine Glucose (UA) (Negative) Urine Ketones (Negative) Urine Occult Blood (Negative) Urine Nitrite (Negative) Urine Bilirubin (Negative) Urine Urobilinogen (0.2-1.0) Ur Leukocyte Esterase (Negative) Urine RBC (0-5) /hpf Urine WBC (0-5) /hpf Ur Squamous Epith Cells (0-5) /hpf Urine Bacteria (FEW) /hpf Urine Mucus (FEW) /hpf SARS-CoV-2 RNA (SERGEI) (NEGATIVE) MRSA (PCR) Blood Type Gel Antibody Screen Crossmatch 03/06/21 03/06/21 03/06/21 Range/Units 19:25 20:23 22:00 WBC (3.98-10.04) K/mm3 RBC (3.98-5.22) M/mm3 Hgb (11.2-15.7) gm/dl Hct (34.1-44.9) % MCV (79.4-94.8) fl MCH (25.6-32.2) pg MCHC (32.2-35.5) g/dl RDW Std Deviation (36.4-46.3) fL Plt Count (182-369) K/mm3 MPV (9.4-12.3) fl Neut % (Auto) (34.0-71.1) % Lymph % (Auto) (19.3-51.7) % [place] % (Auto) (4.7-12.5) % Eos % (Auto) (0.7-5.8) Baso % (Auto) (0.1-1.2) % Neut # (Auto) (1.56-6.13) K/mm3 Lymph # (Auto) (1.18-3.74) K/mm3 [place] # (Auto) (0.24-0.36) K/mm3 Eos # (Auto) (0.04-0.36) K/mm3 Baso # (Auto) (0.01-0.08) K/mm3 Manual Slide Review PT (9.7-12.0) SECONDS INR APTT (21.7-31.4) SECONDS Sodium (136-145) mEq/L Potassium (3.5-5.1) mEq/L Chloride (98-107) mEq/L Carbon Dioxide (21-32) mEq/L Anion Gap (5-15) BUN (7-18) mg/dL Creatinine (0.55-1.02) mg/dL Est Cr Clr Drug Dosing mL/min Estimated GFR (MDRD) (>60) mL/min BUN/Creatinine Ratio (14-18) Glucose (70-99) mg/dL Calcium (8.5-10.1) mg/dL Magnesium (1.8-2.4) mg/dL Total Bilirubin (0.2-1.0) mg/dL AST (15-37) U/L ALT (14-59) U/L Alkaline Phosphatase (46-116) U/L Creatine Kinase (26-192) U/L Troponin I (0.00-0.056) ng/mL NT-Pro-B Natriuret Pep 1374 H (0-450) pg/mL Total Protein (6.4-8.2) g/dl Albumin (3.4-5.0) g/dl Globulin gm/dL Albumin/Globulin Ratio (1-2) Urine Color Yellow (Yellow) Urine Appearance Clear (Clear) Urine pH 6.0 (5.0-8.0) Ur Specific Gary 1.020 (1.005-1.030) Urine Protein Negative (Negative) Urine Glucose (UA) Negative (Negative) Urine Ketones Negative (Negative) Urine Occult Blood Negative (Negative) Urine Nitrite Negative (Negative) Urine Bilirubin Negative (Negative) Urine Urobilinogen 0.2 (0.2-1.0) Ur Leukocyte Esterase Negative (Negative) Urine RBC 0-5 (0-5) /hpf Urine WBC 0-5 (0-5) /hpf Ur Squamous Epith Cells 0-5 (0-5) /hpf Urine Bacteria Few (FEW) /hpf Urine Mucus Few (FEW) /hpf SARS-CoV-2 RNA (SERGEI) Negative (NEGATIVE) MRSA (PCR) Blood Type Gel Antibody Screen Crossmatch 03/06/21 03/07/21 03/07/21 Range/Units 23:20 08:25 08:25 WBC 6.56 (3.98-10.04) K/mm3 RBC 2.20 L (3.98-5.22) M/mm3 Hgb 6.8 L* (11.2-15.7) gm/dl Hct 22.7 L (34.1-44.9) % MCV 103.2 H (79.4-94.8) fl MCH 30.9 (25.6-32.2) pg MCHC 30.0 L (32.2-35.5) g/dl RDW Std Deviation 55.4 H (36.4-46.3) fL Plt Count 250 (182-369) K/mm3 MPV 10.1 (9.4-12.3) fl Neut % (Auto) 69.3 (34.0-71.1) % Lymph % (Auto) 15.9 L (19.3-51.7) % [place] % (Auto) 13.0 H (4.7-12.5) % Eos % (Auto) 1.4 (0.7-5.8) Baso % (Auto) 0.2 (0.1-1.2) % Neut # (Auto) 4.56 (1.56-6.13) K/mm3 Lymph # (Auto) 1.04 L (1.18-3.74) K/mm3 [place] # (Auto) 0.85 H (0.24-0.36) K/mm3 Eos # (Auto) 0.09 (0.04-0.36) K/mm3 Baso # (Auto) 0.01 (0.01-0.08) K/mm3 Manual Slide Review Abnormal smear PT (9.7-12.0) SECONDS INR APTT (21.7-31.4) SECONDS Sodium 145 (136-145) mEq/L Potassium 3.9 (3.5-5.1) mEq/L Chloride 110 H (98-107) mEq/L Carbon Dioxide 28 (21-32) mEq/L Anion Gap 10.9 (5-15) BUN 30 H (7-18) mg/dL Creatinine 1.3 H (0.55-1.02) mg/dL Est Cr Clr Drug Dosing 27.82 mL/min Estimated GFR (MDRD) 39 (>60) mL/min BUN/Creatinine Ratio 23.1 H (14-18) Glucose 101 H (70-99) mg/dL Calcium 7.7 L (8.5-10.1) mg/dL Magnesium 2.2 (1.8-2.4) mg/dL Total Bilirubin 1.3 H (0.2-1.0) mg/dL AST 27 (15-37) U/L ALT 21 (14-59) U/L Alkaline Phosphatase 66 (46-116) U/L Creatine Kinase (26-192) U/L Troponin I (0.00-0.056) ng/mL NT-Pro-B Natriuret Pep (0-450) pg/mL Total Protein 5.3 L (6.4-8.2) g/dl Albumin 2.7 L (3.4-5.0) g/dl Globulin 2.6 gm/dL Albumin/Globulin Ratio 1.0 (1-2) Urine Color (Yellow) Urine Appearance (Clear) Urine pH (5.0-8.0) Ur Specific Gary (1.005-1.030) Urine Protein (Negative) Urine Glucose (UA) (Negative) Urine Ketones (Negative) Urine Occult Blood (Negative) Urine Nitrite (Negative) Urine Bilirubin (Negative) Urine Urobilinogen (0.2-1.0) Ur Leukocyte Esterase (Negative) Urine RBC (0-5) /hpf Urine WBC (0-5) /hpf Ur Squamous Epith Cells (0-5) /hpf Urine Bacteria (FEW) /hpf Urine Mucus (FEW) /hpf SARS-CoV-2 RNA (SERGEI) (NEGATIVE) MRSA (PCR) Negative Blood Type Gel Antibody Screen Crossmatch 03/07/21 Range/Units 08:25 WBC (3.98-10.04) K/mm3 RBC (3.98-5.22) M/mm3 Hgb (11.2-15.7) gm/dl Hct (34.1-44.9) % MCV (79.4-94.8) fl MCH (25.6-32.2) pg MCHC (32.2-35.5) g/dl RDW Std Deviation (36.4-46.3) fL Plt Count (182-369) K/mm3 MPV (9.4-12.3) fl Neut % (Auto) (34.0-71.1) % Lymph % (Auto) (19.3-51.7) % [place] % (Auto) (4.7-12.5) % Eos % (Auto) (0.7-5.8) Baso % (Auto) (0.1-1.2) % Neut # (Auto) (1.56-6.13) K/mm3 Lymph # (Auto) (1.18-3.74) K/mm3 [place] # (Auto) (0.24-0.36) K/mm3 Eos # (Auto) (0.04-0.36) K/mm3 Baso # (Auto) (0.01-0.08) K/mm3 Manual Slide Review PT (9.7-12.0) SECONDS INR APTT (21.7-31.4) SECONDS Sodium (136-145) mEq/L Potassium (3.5-5.1) mEq/L Chloride (98-107) mEq/L Carbon Dioxide (21-32) mEq/L Anion Gap (5-15) BUN (7-18) mg/dL Creatinine (0.55-1.02) mg/dL Est Cr Clr Drug Dosing mL/min Estimated GFR (MDRD) (>60) mL/min BUN/Creatinine Ratio (14-18) Glucose (70-99) mg/dL Calcium (8.5-10.1) mg/dL Magnesium (1.8-2.4) mg/dL Total Bilirubin (0.2-1.0) mg/dL AST (15-37) U/L ALT (14-59) U/L Alkaline Phosphatase (46-116) U/L Creatine Kinase (26-192) U/L Troponin I (0.00-0.056) ng/mL NT-Pro-B Natriuret Pep (0-450) pg/mL Total Protein (6.4-8.2) g/dl Albumin (3.4-5.0) g/dl Globulin gm/dL Albumin/Globulin Ratio (1-2) Urine Color (Yellow) Urine Appearance (Clear) Urine pH (5.0-8.0) Ur Specific Gary (1.005-1.030) Urine Protein (Negative) Urine Glucose (UA) (Negative) Urine Ketones (Negative) Urine Occult Blood (Negative) Urine Nitrite (Negative) Urine Bilirubin (Negative) Urine Urobilinogen (0.2-1.0) Ur Leukocyte Esterase (Negative) Urine RBC (0-5) /hpf Urine WBC (0-5) /hpf Ur Squamous Epith Cells (0-5) /hpf Urine Bacteria (FEW) /hpf Urine Mucus (FEW) /hpf SARS-CoV-2 RNA (SERGEI) (NEGATIVE) MRSA (PCR) Blood Type A NEGATIVE Gel Antibody Screen Negative Crossmatch See Detail Result Diagrams: 03/07/21 08:25 03/07/21 08:25 Sepsis Event Note - Focused Exam Vital Signs: Vital Signs Temp Pulse Pulse Resp BP BP Pulse Ox 03/07/21 16:17 98.2 F 78 14 137/45 L 93 L 03/07/21 16:09 98.2 F 78 14 137/45 L 94 L 03/07/21 15:55 98.6 F 78 14 118/51 L 93 L 03/07/21 15:54 98.6 F 78 14 118/51 L 93 L 03/07/21 15:28 98.1 F 73 14 99/51 L 96 03/07/21 15:19 98.1 F 73 14 99/51 L 96 03/07/21 13:07 98.2 F 68 68 16 107/80 107/80 96 03/07/21 12:52 97.9 F 66 14 99/58 L 100 03/07/21 12:49 97.9 F 66 14 99/58 L 100 03/07/21 09:20 97.9 F 92 20 141/58 H 100 03/07/21 09:16 141/58 H 03/07/21 05:39 Pulse Ox 03/07/21 16:17 03/07/21 16:09 03/07/21 15:55 03/07/21 15:54 03/07/21 15:28 03/07/21 15:19 03/07/21 13:07 03/07/21 12:52 03/07/21 12:49 03/07/21 09:20 03/07/21 09:16 03/07/21 05:39 93 L Orders Last 24hrs: Active Orders 24 hr Category Date Time Status Admission Diagnosis [ADT] Stat ADT 03/06/21 21:39 Ordered Patient Status [ADT] Routine ADT 03/07/21 11:34 Active Antiembolic Devices [RC] PER UNIT ROUTINE Care 03/07/21 10:45 Active Cardiac Monitoring [RC] . DIRECTED Care 03/07/21 11:35 Active Elevate Extremity [RC] BID Care 03/07/21 11:55 Active Height and Weight [RC] 06 Care 03/07/21 07:49 Active Intake and Output [RC] 04,16 Care 03/07/21 07:49 Active Oxygen Therapy Adult [Oxygen Therapy] [RC] ASDIRECTED Care 03/07/21 04:44 Active Pulse Oximetry [RC] PRN Care 03/07/21 07:49 Active Up With Assistance [RC] BID Care 03/06/21 23:48 Active Up to Chair [RC] BID Care 03/06/21 23:48 Active Vital Signs [RC] 03,,, Care 03/07/21 07:49 Active Consult to Case Management/Medical Writer [CONS] Cons 03/07/21 07:49 Active Routine Consult to Spiritual Care [CONS] Routine Cons 03/07/21 07:49 Active OT Evaluation and Treatment [CONS] Routine Cons 03/07/21 07:50 Active PT Evaluation and Treatment [CONS] Routine Cons 03/07/21 07:50 Active Heart Healthy Diet [DIET] Diet 03/07/21 Breakfast Active Brain wo Cont [MR] Routine Exams 03/07/21 08:28 Taken Carotid Comp [US] Routine Exams 03/07/21 08:29 Taken Chest Abdomen Pelvis w Cont [CT] Routine Exams 03/07/21 09:09 Taken CBC WITH AUTO DIFF [HEME] AM Lab 03/08/21 05:11 Ordered CBC WITH AUTO DIFF [HEME] AM Lab 03/09/21 05:11 Ordered CBC WITH AUTO DIFF [HEME] AM Lab 03/10/21 05:11 Ordered CBC WITH AUTO DIFF [HEME] AM Lab 03/11/21 05:11 Ordered COMPREHENSIVE METABOLIC PN,CMP [CHEM] AM Lab 03/08/21 05:11 Ordered COMPREHENSIVE METABOLIC PN,CMP [CHEM] AM Lab 03/09/21 05:11 Ordered COMPREHENSIVE METABOLIC PN,CMP [CHEM] AM Lab 03/10/21 05:11 Ordered COMPREHENSIVE METABOLIC PN,CMP [CHEM] AM Lab 03/11/21 05:11 Ordered CREATINE KINASE,CK [CHEM] AM Lab 03/08/21 05:11 Ordered HEMOGLOBIN/HEMATOCRIT,HH [HEME] Routine Lab 03/07/21 18:00 Ordered MAGNESIUM [CHEM] AM Lab 03/08/21 05:11 Ordered MAGNESIUM [CHEM] AM Lab 03/09/21 05:11 Ordered MAGNESIUM [CHEM] AM Lab 03/10/21 05:11 Ordered MAGNESIUM [CHEM] AM Lab 03/11/21 05:11 Ordered OCCULT BLOOD DIAGNOSTIC [OP] Routine Lab 03/07/21 10:44 Ordered Acetaminophen [TylenoL] Med 03/07/21 07:49 Active 650 mg PO Q4H PRN Acetaminophen [TylenoL] Med 03/07/21 21:00 Active 975 mg PO BID Acetaminophen/HYDROcodone [[place] 325-5 MG] Med 03/07/21 07:49 Active 1 tab PO Q4H PRN Docusate Sodium [Colace] Med 03/07/21 09:00 Active 100 mg PO BID Enalapril [Vasotec] Med 03/07/21 09:00 Active 40 mg PO DAILY Folic Acid Med 03/07/21 09:00 Active 1 mg PO DAILY Furosemide [Lasix] Med 03/08/21 12:00 Active 20 mg PO DAILY@1200 Furosemide [Lasix] Med 03/09/21 06:00 Active 20 mg PO Q48H Furosemide [Lasix] Med 03/08/21 06:00 Active 40 mg PO Q48H HYDROmorphone [Dilaudid] Med 03/06/21 23:49 Active 0.5 mg IVPUSH Q2H PRN Labetalol [Normodyne] Med 03/07/21 21:00 Active 200 mg PO BID Ondansetron [Zofran] Med 03/06/21 23:51 Active 4 mg IVPUSH Q6H PRN Pramipexole [Mirapex] Med 03/07/21 09:00 Active 0.5 mg PO DAILY Sertraline [Zoloft] Med 03/07/21 21:00 Active 50 mg PO BEDTIME Sodium Chloride 0.9% [Saline Flush] Med 03/06/21 18:25 Active 10 ml FLUSH ASDIRECTED PRN allopurinoL [Zyloprim] Med 03/08/21 09:00 Active 50 mg PO DAILY Peripheral IV Insertion Adult [OM.PC] Stat Oth 03/06/21 18:25 Ordered Precautions [COMM] Routine Oth 03/07/21 07:51 Ordered JORDAN Hose [Antiembolic Hose] [OM.PC] Routine Oth 03/07/21 10:44 Ordered Transfuse Red Blood Cells [COMM] Routine Oth 03/07/21 09:06 Ordered Code Status [Resuscitation Status] Routine Resus Stat 03/06/21 23:47 Ordered EKG 12 Lead [EK] Stat Ther 03/06/21 18:45 Ordered Medication Orders Acetaminophen (Acetaminophen 325 Mg Tab) 650 mg PO Q4H PRN PRN Reason: Pain (Mild 1-3)/fever Acetaminophen (Acetaminophen 325 Mg Tab) 975 mg PO BID [facility] Hydrocodone Bitart/Acetaminophen (Acetaminophen/Hydrocodone 325-5 Mg Tab) 1 tab PO Q4H PRN PRN Reason: Pain (moderate 4-6) Last Admin: 03/07/21 14:31 Dose: 1 tab Documented by: OCTAVIO Allopurinol (Allopurinol 100 Mg Tab) 50 mg PO DAILY [facility] Docusate Sodium (Docusate Sodium 100 Mg Cap) 100 mg PO BID [facility] Last Admin: 03/07/21 09:21 Dose: 100 mg Documented by: KEESHA Enalapril Maleate (Enalapril 5 Mg Tab) 40 mg PO DAILY [facility] Last Admin: 03/07/21 09:16 Dose: 40 mg Documented by: KEESHA Folic Acid (Folic Acid 1 Mg Tab) 1 mg PO DAILY [facility] Last Admin: 03/07/21 09:21 Dose: 1 mg Documented by: KEESHA Furosemide (Furosemide 20 Mg Tab) 20 mg PO DAILY@1200 [facility] Furosemide (Furosemide 40 Mg Tab) 40 mg PO Q48H [facility] Furosemide (Furosemide 20 Mg Tab) 20 mg PO Q48H [facility] Hydromorphone HCl (Hydromorphone 0.5 Mg/0.5 Ml Syringe) 0.5 mg IVPUSH Q2H PRN PRN Reason: Pain Last Admin: 03/07/21 14:42 Dose: 0.5 mg Documented by: Admin: 03/07/21 09:21 Dose: 0.5 mg Documented by: [email or web address] Admin: 03/07/21 04:40 Dose: 0.5 mg Documented by: Admin: 03/07/21 02:29 Dose: 0.5 mg Documented by: BRADJUL Labetalol HCl (Labetalol 100 Mg Tab) 200 mg PO BID [facility] Ondansetron HCl (Ondansetron 4 Mg/2 Ml Sdv) 4 mg IVPUSH Q6H PRN PRN Reason: Nausea Pramipexole Dihydrochloride (Pramipexole 0.5 Mg Tab) 0.5 mg PO DAILY [facility] Last Admin: 03/07/21 09:20 Dose: 0.5 mg Documented by: KEESHA Sertraline HCl (Sertraline 50 Mg Tab) 50 mg PO BEDTIME [facility] Sodium Chloride (Sodium Chloride 0.9% 10 Ml Syringe) 10 ml FLUSH ASDIRECTED PRN PRN Reason: Keep Vein Open Last Admin: 03/06/21 18:39 Dose: 10 ml Documented by: ALEJANDRO Assessment/Plan Comment:: Case reviewed and discussed in full. Agree with evaluation, assessment and plan.
[2021-03-07] MEDS ORDERED: Acetaminophen 325 MG Tab PO PRN (07:49)
[2021-03-07] MEDS ORDERED: Labetalol 100 MG Tab PO SCH (09:00)
[2021-03-07] MEDS ORDERED: Furosemide 20 MG Tab PO SCH (09:00)
[2021-03-07] MEDS ORDERED: Iopamidol 612 MG/ML 100 ML Bottle IVPUSH ONE (09:11)
[2021-03-07] MEDS ORDERED: Sodium Chloride 0.9% 10 ML Syringe FLUSH PRN (09:11)
[2021-03-07] MEDS ORDERED: Sodium Chloride 0.9% 100 ML IV SCH (09:15)
[2021-03-07] MEDS: Enalapril 5 MG Tab PO SCH (09:16)
[2021-03-07] MEDS: Pramipexole 0.5 MG Tab PO SCH (09:20)
[2021-03-07] MEDS: Folic Acid 1 MG Tab PO SCH (09:21)
[2021-03-07] MEDS: Docusate Sodium 100 MG Cap PO SCH ×2 (09:21→21:04)
[2021-03-07] MEDS ORDERED: Furosemide 20 MG/2 ML VIAL IVPUSH ONE (10:00)
[2021-03-07] MEDS: Sodium Chloride 0.9% 250 ML IV SCH ×2 (12:30→16:19)
[2021-03-07] MEDS: Acetaminophen/HYDROcodone 325-5 MG Tab PO PRN (14:31)
--- NOTE | 2021-03-07 16:34 | US ---
Bilateral lower extremity deep venous ultrasound: Duplex and color Doppler evaluation was obtained on the right and left common femoral, proximal greater saphenous, superficial femoral, popliteal, posterior tibial and peroneal veins. Comparison: Previous bilateral lower extremity ultrasound of 03/31/20. Findings: Posterior tibial and peroneal veins are not well seen on either side. Other veins show normal phasic flow, augmentation and compression. Impression: 1. Posterior tibial and peroneal veins not optimally seen on either side. 2. No findings of deep venous thrombosis is otherwise seen within the right or left lower extremities. Diagnostic code #2
[2021-03-07] MEDS: Acetaminophen 325 MG Tab PO SCH (21:04)
[2021-03-07] MEDS: Sertraline 50 MG Tab PO SCH (21:04)
[2021-03-07] MEDS: Labetalol 100 MG Tab PO SCH (22:22)
[2021-03-08] MEDS: HYDROmorphone 0.5 MG/0.5 ML Syringe IVPUSH PRN ×6 (00:20→20:07)
[2021-03-08] MEDS: Acetaminophen/HYDROcodone 325-5 MG Tab PO PRN (02:50)
[2021-03-08] MEDS: Furosemide 40 MG Tab PO SCH (06:53)
--- NOTE | 2021-03-08 07:43 | PCM.PN ---
<Wilder Beard - Last Filed: 03/08/21 11:15> - General Info Date of Service: 03/08/21 Admission Dx/Problem (Free Text): Admission Diagnosis/Problem Admission Diagnosis/Problem Recurrent falls Functional Status: Reports: Pain Controlled, Tolerating Diet, Ambulating, Urinating, Incentive Spirometry. Denies: New Symptoms - Review of Systems General: Reports: No Symptoms, Weakness, Fatigue, Malaise. Denies: Fever, Chills HEENT: Reports: No Symptoms. Denies: Headaches, Sore Throat Pulmonary: Reports: No Symptoms. Denies: Shortness of Breath, Cough, Sputum, Wheezing Cardiovascular: Reports: No Symptoms. Denies: Chest Pain, Palpitations, Dyspnea on Exertion, Edema Gastrointestinal: Reports: No Symptoms. Denies: Abdominal Pain, Constipation, Diarrhea, Nausea, Vomiting Genitourinary: Reports: No Symptoms. Denies: Pain Musculoskeletal: Reports: Neck Pain, Shoulder Pain, Back Pain, Leg Pain, Joint Pain Skin: Reports: No Symptoms Neurological: Reports: No Symptoms, Difficulty Walking, Weakness, Gait Disturbance. Denies: Confusion, Headache, Numbness, Pre-Existing Deficit, Syncope, Tingling Psychiatric: Reports: No Symptoms - Patient Data Vitals - Most Recent: Last Vital Signs Temp 98.1 F 03/08/21 03:00 Pulse 86 03/08/21 03:00 Resp 20 03/08/21 03:00 BP 105/82 03/08/21 03:00 Pulse Ox 97 03/08/21 03:00 Weight - Most Recent: 174 lb 9.6 oz I&O - Last 24 Hours: Intake & Output 03/07/21 03/08/21 03/08/21 22:59 06:59 14:59 Intake Total 1420 600 Output Total 500 2000 Balance 920 -1400 Lab Results Last 24 Hours: Laboratory Results - last 24 hr 03/07/21 03/07/21 03/07/21 Range/Units 08:25 08:25 08:25 WBC 6.56 (3.98-10.04) K/mm3 RBC 2.20 L (3.98-5.22) M/mm3 Hgb 6.8 L* (11.2-15.7) gm/dl Hct 22.7 L (34.1-44.9) % MCV 103.2 H (79.4-94.8) fl MCH 30.9 (25.6-32.2) pg MCHC 30.0 L (32.2-35.5) g/dl RDW Std Deviation 55.4 H (36.4-46.3) fL Plt Count 250 (182-369) K/mm3 MPV 10.1 (9.4-12.3) fl Neut % (Auto) 69.3 (34.0-71.1) % Lymph % (Auto) 15.9 L (19.3-51.7) % [place] % (Auto) 13.0 H (4.7-12.5) % Eos % (Auto) 1.4 (0.7-5.8) Baso % (Auto) 0.2 (0.1-1.2) % Neut # (Auto) 4.56 (1.56-6.13) K/mm3 Lymph # (Auto) 1.04 L (1.18-3.74) K/mm3 [place] # (Auto) 0.85 H (0.24-0.36) K/mm3 Eos # (Auto) 0.09 (0.04-0.36) K/mm3 Baso # (Auto) 0.01 (0.01-0.08) K/mm3 Manual Slide Review Abnormal smear Sodium 145 (136-145) mEq/L Potassium 3.9 (3.5-5.1) mEq/L Chloride 110 H (98-107) mEq/L Carbon Dioxide 28 (21-32) mEq/L Anion Gap 10.9 (5-15) BUN 30 H (7-18) mg/dL Creatinine 1.3 H (0.55-1.02) mg/dL Est Cr Clr Drug Dosing 27.82 mL/min Estimated GFR (MDRD) 39 (>60) mL/min BUN/Creatinine Ratio 23.1 H (14-18) Glucose 101 H (70-99) mg/dL Calcium 7.7 L (8.5-10.1) mg/dL Magnesium 2.2 (1.8-2.4) mg/dL Total Bilirubin 1.3 H (0.2-1.0) mg/dL AST 27 (15-37) U/L ALT 21 (14-59) U/L Alkaline Phosphatase 66 (46-116) U/L Creatine Kinase (26-192) U/L Total Protein 5.3 L (6.4-8.2) g/dl Albumin 2.7 L (3.4-5.0) g/dl Globulin 2.6 gm/dL Albumin/Globulin Ratio 1.0 (1-2) Blood Type A NEGATIVE Gel Antibody Screen Negative Crossmatch See Detail 03/07/21 03/08/21 03/08/21 Range/Units 19:58 05:38 05:38 WBC 6.54 (3.98-10.04) K/mm3 RBC 2.79 L (3.98-5.22) M/mm3 Hgb 9.2 L D 8.4 L (11.2-15.7) gm/dl Hct 29.6 L 27.6 L (34.1-44.9) % MCV 98.9 H D (79.4-94.8) fl MCH 30.1 (25.6-32.2) pg MCHC 30.4 L (32.2-35.5) g/dl RDW Std Deviation 58.2 H (36.4-46.3) fL Plt Count 240 (182-369) K/mm3 MPV 10.3 (9.4-12.3) fl Neut % (Auto) 63.5 (34.0-71.1) % Lymph % (Auto) 16.8 L (19.3-51.7) % [place] % (Auto) 15.0 H (4.7-12.5) % Eos % (Auto) 4.3 (0.7-5.8) Baso % (Auto) 0.2 (0.1-1.2) % Neut # (Auto) 4.16 (1.56-6.13) K/mm3 Lymph # (Auto) 1.10 L (1.18-3.74) K/mm3 [place] # (Auto) 0.98 H (0.24-0.36) K/mm3 Eos # (Auto) 0.28 (0.04-0.36) K/mm3 Baso # (Auto) 0.01 (0.01-0.08) K/mm3 Manual Slide Review Sodium 142 (136-145) mEq/L Potassium 3.6 (3.5-5.1) mEq/L Chloride 106 (98-107) mEq/L Carbon Dioxide 25 (21-32) mEq/L Anion Gap 14.6 (5-15) BUN 39 H (7-18) mg/dL Creatinine 1.4 H (0.55-1.02) mg/dL Est Cr Clr Drug Dosing 25.83 mL/min Estimated GFR (MDRD) 36 (>60) mL/min BUN/Creatinine Ratio 27.9 H (14-18) Glucose 113 H (70-99) mg/dL Calcium 7.3 L (8.5-10.1) mg/dL Magnesium 2.2 (1.8-2.4) mg/dL Total Bilirubin 1.4 H (0.2-1.0) mg/dL AST 31 (15-37) U/L ALT 23 (14-59) U/L Alkaline Phosphatase 61 (46-116) U/L Creatine Kinase 395 H (26-192) U/L Total Protein 5.2 L (6.4-8.2) g/dl Albumin 2.5 L (3.4-5.0) g/dl Globulin 2.7 gm/dL Albumin/Globulin Ratio 0.9 L (1-2) Blood Type Gel Antibody Screen Crossmatch Med Orders - Current: Current Medications Acetaminophen (Acetaminophen 325 Mg Tab) 650 mg PO Q4H PRN PRN Reason: Pain (Mild 1-3)/fever Acetaminophen (Acetaminophen 325 Mg Tab) 975 mg PO BID [facility] Last Admin: 03/07/21 21:04 Dose: 975 mg Documented by: Hydrocodone Bitart/Acetaminophen (Acetaminophen/Hydrocodone 325-5 Mg Tab) 1 tab PO Q4H PRN PRN Reason: Pain (moderate 4-6) Last Admin: 03/08/21 02:50 Dose: 1 tab Documented by: Allopurinol (Allopurinol 100 Mg Tab) 50 mg PO DAILY [facility] Docusate Sodium (Docusate Sodium 100 Mg Cap) 100 mg PO BID [facility] Last Admin: 03/07/21 21:04 Dose: 100 mg Documented by: Enalapril Maleate (Enalapril 5 Mg Tab) 40 mg PO DAILY [facility] Last Admin: 03/07/21 09:16 Dose: 40 mg Documented by: Folic Acid (Folic Acid 1 Mg Tab) 1 mg PO DAILY [facility] Last Admin: 03/07/21 09:21 Dose: 1 mg Documented by: Furosemide (Furosemide 20 Mg Tab) 20 mg PO DAILY@1200 ASA Furosemide (Furosemide 40 Mg Tab) 40 mg PO Q48H [facility] Last Admin: 03/08/21 06:53 Dose: 40 mg Documented by: Furosemide (Furosemide 20 Mg Tab) 20 mg PO Q48H [facility] Hydromorphone HCl (Hydromorphone 0.5 Mg/0.5 Ml Syringe) 0.5 mg IVPUSH Q2H PRN PRN Reason: Pain Last Admin: 03/08/21 06:53 Dose: 0.5 mg Documented by: Labetalol HCl (Labetalol 100 Mg Tab) 200 mg PO BID [facility] Last Admin: 03/07/21 22:22 Dose: Not Given Documented by: Ondansetron HCl (Ondansetron 4 Mg/2 Ml Sdv) 4 mg IVPUSH Q6H PRN PRN Reason: Nausea Pramipexole Dihydrochloride (Pramipexole 0.5 Mg Tab) 0.5 mg PO DAILY [facility] Last Admin: 03/07/21 09:20 Dose: 0.5 mg Documented by: Sertraline HCl (Sertraline 50 Mg Tab) 50 mg PO BEDTIME [facility] Last Admin: 03/07/21 21:04 Dose: 50 mg Documented by: Sodium Chloride (Sodium Chloride 0.9% 10 Ml Syringe) 10 ml FLUSH ASDIRECTED PRN PRN Reason: Keep Vein Open Last Admin: 03/06/21 18:39 Dose: 10 ml Documented by: Discontinued Medications Furosemide (Furosemide 20 Mg Tab) 20 mg PO DAILY [facility] Last Admin: 03/07/21 09:20 Dose: 20 mg Documented by: Furosemide (Furosemide 20 Mg/2 Ml Vial) 20 mg IVPUSH ONETIME ONE Stop: 03/07/21 10:01 Last Admin: 03/07/21 15:20 Dose: 20 mg Documented by: Hydromorphone HCl (Hydromorphone 0.5 Mg/0.5 Ml Syringe) 0.25 mg IVPUSH ONETIME ONE Stop: 03/06/21 18:29 Last Admin: 03/06/21 18:38 Dose: 0.25 mg Documented by: Hydromorphone HCl (Hydromorphone 0.5 Mg/0.5 Ml Syringe) 0.5 mg IVPUSH ONETIME ONE Stop: 03/06/21 19:53 Last Admin: 03/06/21 19:58 Dose: 0.5 mg Documented by: Sodium Chloride (Normal Saline) 100 mls @ 75 mls/hr IV ASDIRECTED ASA Stop: 03/07/21 13:00 Last Admin: 03/07/21 09:51 Dose: 75 mls/hr Documented by: Sodium Chloride (Normal Saline) 250 mls @ 100 mls/hr IV ASDIRECTED ASA Stop: 03/07/21 15:00 Last Admin: 03/07/21 16:19 Dose: 100 mls/hr Documented by: Iopamidol (Iopamidol 612 Mg/Ml 100 Ml Bottle) 100 ml IVPUSH ONETIME ONE Stop: 03/07/21 09:12 Last Admin: 03/07/21 09:51 Dose: 100 ml Documented by: Labetalol HCl (Labetalol 100 Mg Tab) 100 mg PO BID [facility] Last Admin: 03/07/21 09:20 Dose: 100 mg Documented by: Lidocaine HCl (Lidocaine 1% 10 Ml Mdv) 10 ml INJECT ONETIME ONE Stop: 03/06/21 19:40 Last Admin: 03/06/21 19:59 Dose: 10 ml Documented by: Lidocaine/Tetracaine (Lidocaine/Epinephrine/Tetracaine Soln 1 Ml) 1 ml TOP ONETIME ONE Stop: 03/06/21 18:49 Last Admin: 03/06/21 19:34 Dose: 1 ml Documented by: Lorazepam (Lorazepam 2 Mg/Ml Sdv) 0.5 mg IV ONETIME ONE Stop: 03/06/21 20:54 Last Admin: 03/06/21 23:04 Dose: 0.5 mg Documented by: Ondansetron HCl (Ondansetron 4 Mg/2 Ml Sdv) 4 mg IVPUSH ONETIME ONE Stop: 03/06/21 19:53 Last Admin: 03/06/21 19:57 Dose: 4 mg Documented by: Sodium Chloride (Sodium Chloride 0.9% 10 Ml Syringe) 10 ml FLUSH ONETIME PRN PRN Reason: IV FLUSH Last Admin: 03/07/21 09:51 Dose: 10 ml Documented by: - Exam Quality Assessment: Supplemental Oxygen (1L), DVT Prophylaxis. No: Urine Catheter Urinary Catheter Total Time: 0Days 0Hours General: Alert, Oriented, Cooperative, No Acute Distress HEENT: Pupils Equal, Pupils Reactive, Mucous Membr. Moist/[place] Neck: Supple, Trachea Midline Lungs: Clear to Auscultation, Normal Respiratory Effort, Decreased Breath Sounds Cardiovascular: Regular Rate, Regular Rhythm GI/Abdominal Exam: Normal Bowel Sounds, Soft, Non-Tender, No Distention (Female) Exam: Deferred Back Exam: Normal Inspection, Decreased Range of Motion, Other (Significant scattered bruising. Large hematoma on buttocks.) Extremities: Pedal Edema (Baseline lymphedema, worse on left side), Leg Pain, Limited Range of Motion (Secondary to pain) Skin: Warm, Dry, Intact Wound/Incisions: Healing Well, No Drainage Neurological: No New Focal Deficit Psy/Mental Status: Alert, Normal Affect, Normal Mood - Patient Data Lab Results Last 24 hrs: Laboratory Results - last 24 hr 03/07/21 03/07/21 03/07/21 Range/Units 08:25 08:25 08:25 WBC 6.56 (3.98-10.04) K/mm3 RBC 2.20 L (3.98-5.22) M/mm3 Hgb 6.8 L* (11.2-15.7) gm/dl Hct 22.7 L (34.1-44.9) % MCV 103.2 H (79.4-94.8) fl MCH 30.9 (25.6-32.2) pg MCHC 30.0 L (32.2-35.5) g/dl RDW Std Deviation 55.4 H (36.4-46.3) fL Plt Count 250 (182-369) K/mm3 MPV 10.1 (9.4-12.3) fl Neut % (Auto) 69.3 (34.0-71.1) % Lymph % (Auto) 15.9 L (19.3-51.7) % [place] % (Auto) 13.0 H (4.7-12.5) % Eos % (Auto) 1.4 (0.7-5.8) Baso % (Auto) 0.2 (0.1-1.2) % Neut # (Auto) 4.56 (1.56-6.13) K/mm3 Lymph # (Auto) 1.04 L (1.18-3.74) K/mm3 [place] # (Auto) 0.85 H (0.24-0.36) K/mm3 Eos # (Auto) 0.09 (0.04-0.36) K/mm3 Baso # (Auto) 0.01 (0.01-0.08) K/mm3 Manual Slide Review Abnormal smear Sodium 145 (136-145) mEq/L Potassium 3.9 (3.5-5.1) mEq/L Chloride 110 H (98-107) mEq/L Carbon Dioxide 28 (21-32) mEq/L Anion Gap 10.9 (5-15) BUN 30 H (7-18) mg/dL Creatinine 1.3 H (0.55-1.02) mg/dL Est Cr Clr Drug Dosing 27.82 mL/min Estimated GFR (MDRD) 39 (>60) mL/min BUN/Creatinine Ratio 23.1 H (14-18) Glucose 101 H (70-99) mg/dL Calcium 7.7 L (8.5-10.1) mg/dL Magnesium 2.2 (1.8-2.4) mg/dL Total Bilirubin 1.3 H (0.2-1.0) mg/dL AST 27 (15-37) U/L ALT 21 (14-59) U/L Alkaline Phosphatase 66 (46-116) U/L Creatine Kinase (26-192) U/L Total Protein 5.3 L (6.4-8.2) g/dl Albumin 2.7 L (3.4-5.0) g/dl Globulin 2.6 gm/dL Albumin/Globulin Ratio 1.0 (1-2) Blood Type A NEGATIVE Gel Antibody Screen Negative Crossmatch See Detail 03/07/21 03/08/21 03/08/21 Range/Units 19:58 05:38 05:38 WBC 6.54 (3.98-10.04) K/mm3 RBC 2.79 L (3.98-5.22) M/mm3 Hgb 9.2 L D 8.4 L (11.2-15.7) gm/dl Hct 29.6 L 27.6 L (34.1-44.9) % MCV 98.9 H D (79.4-94.8) fl MCH 30.1 (25.6-32.2) pg MCHC 30.4 L (32.2-35.5) g/dl RDW Std Deviation 58.2 H (36.4-46.3) fL Plt Count 240 (182-369) K/mm3 MPV 10.3 (9.4-12.3) fl Neut % (Auto) 63.5 (34.0-71.1) % Lymph % (Auto) 16.8 L (19.3-51.7) % [place] % (Auto) 15.0 H (4.7-12.5) % Eos % (Auto) 4.3 (0.7-5.8) Baso % (Auto) 0.2 (0.1-1.2) % Neut # (Auto) 4.16 (1.56-6.13) K/mm3 Lymph # (Auto) 1.10 L (1.18-3.74) K/mm3 [place] # (Auto) 0.98 H (0.24-0.36) K/mm3 Eos # (Auto) 0.28 (0.04-0.36) K/mm3 Baso # (Auto) 0.01 (0.01-0.08) K/mm3 Manual Slide Review Sodium 142 (136-145) mEq/L Potassium 3.6 (3.5-5.1) mEq/L Chloride 106 (98-107) mEq/L Carbon Dioxide 25 (21-32) mEq/L Anion Gap 14.6 (5-15) BUN 39 H (7-18) mg/dL Creatinine 1.4 H (0.55-1.02) mg/dL Est Cr Clr Drug Dosing 25.83 mL/min Estimated GFR (MDRD) 36 (>60) mL/min BUN/Creatinine Ratio 27.9 H (14-18) Glucose 113 H (70-99) mg/dL Calcium 7.3 L (8.5-10.1) mg/dL Magnesium 2.2 (1.8-2.4) mg/dL Total Bilirubin 1.4 H (0.2-1.0) mg/dL AST 31 (15-37) U/L ALT 23 (14-59) U/L Alkaline Phosphatase 61 (46-116) U/L Creatine Kinase 395 H (26-192) U/L Total Protein 5.2 L (6.4-8.2) g/dl Albumin 2.5 L (3.4-5.0) g/dl Globulin 2.7 gm/dL Albumin/Globulin Ratio 0.9 L (1-2) Blood Type Gel Antibody Screen Crossmatch Result Diagrams: 03/08/21 05:38 03/08/21 05:38 Sepsis Event Note - Evaluation Sepsis Screening Result: No Definite Risk - Focused Exam Vital Signs: Vital Signs Temp Temp Pulse Resp BP Pulse Ox 03/08/21 03:00 98.1 F 86 20 105/82 97 03/07/21 23:36 98.1 F 91 16 127/45 L 100 03/07/21 21:11 81 111/44 L 94 L - Problem List & Annotations (1) Living in assisted living SNOMED Code(s): 09089637192803726, 56029972914214173 Code(s): Z59.3 - PROBLEMS RELATED TO LIVING IN RESIDENTIAL INSTITUTION Status: Chronic Priority: Low Current Visit: Yes (2) Chronic venous insufficiency SNOMED Code(s): 17273359, 88761604 Code(s): I87.2 - VENOUS INSUFFICIENCY (CHRONIC) (PERIPHERAL) 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: 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 Priority: Low Current Visit: No (3) Afib SNOMED Code(s): 61249854 Code(s): I48.91 - UNSPECIFIED ATRIAL FIBRILLATION Status: Chronic Priority: Low Current Visit: No Qualifiers: Atrial fibrillation type: paroxysmal Qualified Code(s): I48.0 - Paroxysmal atrial fibrillation (4) HLD (hyperlipidemia) SNOMED Code(s): 69657584 Code(s): E78.5 - HYPERLIPIDEMIA, UNSPECIFIED Status: Chronic Priority: Low Current Visit: No Qualifiers: Hyperlipidemia type: unspecified Qualified Code(s): E78.5 - Hyperlipidemia, unspecified (5) History of recurrent pneumonia SNOMED Code(s): 794670692 Code(s): Z87.01 - PERSONAL HISTORY OF PNEUMONIA (RECURRENT) Status: Chronic Priority: Low Current Visit: No (6) History of recurrent UTI (urinary tract infection) SNOMED Code(s): 771591298 Code(s): Z87.440 - PERSONAL HISTORY OF URINARY (TRACT) INFECTIONS Status: Chronic Priority: Low Current Visit: No (7) Pulmonary hypertension SNOMED Code(s): 71695967 Code(s): I27.20 - PULMONARY HYPERTENSION, UNSPECIFIED Status: Chronic Priority: Medium Current Visit: No (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) SNOMED Code(s): 484617609 Code(s): Z87.74 - PERSONAL HISTORY OF CONGENITAL MALFORM OF HEART AND CIRC SYS Status: Chronic Priority: Low Current Visit: No (9) Restless leg syndrome SNOMED Code(s): 13654686 Code(s): G25.81 - RESTLESS LEGS SYNDROME Status: Chronic Priority: Medium Current Visit: Yes (10) Anemia SNOMED Code(s): 391162860 Code(s): D64.9 - ANEMIA, UNSPECIFIED Status: Acute Priority: High Current Visit: Yes Qualifiers: Anemia type: unspecified type Qualified Code(s): D64.9 - Anemia, unspecified (11) Chronic renal insufficiency, stage III (moderate) SNOMED Code(s): 009280672 Code(s): N18.30 - CHRONIC KIDNEY DISEASE, STAGE 3 UNSPECIFIED Status: Chronic Priority: Medium Current Visit: Yes Qualifiers: Chronic kidney disease stage 3 subtype: stage 3b (GFR 30-44) Qualified Code(s): N18.32 - Chronic kidney disease, stage 3b (12) Contusion of buttock SNOMED Code(s): 58885831 Code(s): S30.0XXA - CONTUSION OF LOWER BACK AND PELVIS, INITIAL ENCOUNTER Status: Acute Priority: High Current Visit: Yes Qualifiers: Encounter type: initial encounter Qualified Code(s): S30.0XXA - Contusion of lower back and pelvis, initial encounter (13) Contusion of left back wall of thorax, initial encounter SNOMED Code(s): 72522994672326015, 12056907113042839 Code(s): S20.222A - CONTUSION OF LEFT BACK WALL OF THORAX, INITIAL ENCOUNTER Status: Acute Priority: High Current Visit: Yes (14) Contusion of lower back and pelvis, initial encounter SNOMED Code(s): 13159310 Code(s): S30.0XXA - CONTUSION OF LOWER BACK AND PELVIS, INITIAL ENCOUNTER Status: Acute Priority: High Current Visit: Yes (15) Laceration of scalp without complication SNOMED Code(s): 078220227 Code(s): S01.01XA - LACERATION WITHOUT FOREIGN BODY OF SCALP, INITIAL ENCOUNTER Status: Acute Priority: High Current Visit: Yes Qualifiers: Encounter type: initial encounter Qualified Code(s): S01.01XA - Laceration without foreign body of scalp, initial encounter (16) Recurrent falls SNOMED Code(s): 253642311 Code(s): R29.6 - REPEATED FALLS Status: Acute Priority: High Current Visit: Yes (17) Traumatic hematoma of buttock SNOMED Code(s): 23798118, 568789504 Code(s): S30.0XXA - CONTUSION OF LOWER BACK AND PELVIS, INITIAL ENCOUNTER Status: Acute Priority: High Current Visit: Yes Qualifiers: Encounter type: initial encounter Qualified Code(s): S30.0XXA - Contusion of lower back and pelvis, initial encounter (18) Chronic anticoagulation SNOMED Code(s): 709579396 Code(s): Z79.01 - CUSTODIAL (CURRENT) USE OF ANTICOAGULANTS Status: Chronic Priority: High Current Visit: Yes (19) History of DE (myocardial infarction) SNOMED Code(s): 216397782 Code(s): I25.2 - OLD MYOCARDIAL INFARCTION Status: Chronic Priority: Low Current Visit: No (20) Hypertension SNOMED Code(s): 33521411 Code(s): I10 - ESSENTIAL (PRIMARY) HYPERTENSION Status: Chronic Priority: Medium Current Visit: No Qualifiers: Hypertension type: unspecified Qualified Code(s): I10 - Essential (primary) hypertension (21) Lymphedema SNOMED Code(s): 220070978 Code(s): I89.0 - LYMPHEDEMA, NOT ELSEWHERE CLASSIFIED Status: Chronic Priority: Medium Current Visit: Yes (22) Pulmonary nodule SNOMED Code(s): 787969253 Code(s): R91.1 - SOLITARY PULMONARY NODULE Status: Chronic Priority: Low Current Visit: No (23) Urinary incontinence SNOMED Code(s): 519181907 Code(s): R32 - UNSPECIFIED URINARY INCONTINENCE Status: Chronic Priority: Low Current Visit: No Qualifiers: Urinary Incontinence type: unspecified incontinence Qualified Code(s): R32 - Unspecified urinary incontinence (24) Elevated CK SNOMED Code(s): 826912225 Code(s): R74.8 - ABNORMAL LEVELS OF OTHER SERUM ENZYMES Status: Acute Priority: High Current Visit: Yes (25) Atelectasis SNOMED Code(s): 63578377 Code(s): J98.11 - ATELECTASIS Status: Acute Priority: Medium Current Visit: Yes - Problem List Review Problem List Initiated/Reviewed/Updated: Yes - My Orders Last 24 Hours: My Active Orders 03/07/21 07:49 Height and Weight [RC] 06 Intake and Output [RC] 04,16 Pulse Oximetry [RC] PRN Vital Signs [RC] 03,09,,21 Consult to Case Management/Gas Booster Engineer [CONS] Routine Consult to Spiritual Care [CONS] Routine Acetaminophen [TylenoL] 650 mg PO Q4H PRN Acetaminophen/HYDROcodone [[place] 325-5 MG] 1 tab PO Q4H PRN 03/07/21 07:50 OT Evaluation and Treatment [CONS] Routine PT Evaluation and Treatment [CONS] Routine 03/07/21 07:51 Precautions [COMM] Routine 03/07/21 08:28 Brain wo Cont [MR] Routine 03/07/21 08:29 Carotid Comp [US] Routine 03/07/21 09:00 Docusate Sodium [Colace] 100 mg PO BID Enalapril [Vasotec] 40 mg PO DAILY Folic Acid 1 mg PO DAILY Pramipexole [Mirapex] 0.5 mg PO DAILY 03/07/21 09:06 Transfuse Red Blood Cells [COMM] Routine 03/07/21 09:09 Chest Abdomen Pelvis w Cont [CT] Routine 03/07/21 10:44 OCCULT BLOOD DIAGNOSTIC [OP] Routine JORDAN Hose [Antiembolic Hose] [OM.PC] Routine 03/07/21 10:45 Antiembolic Devices [RC] BID 03/07/21 11:34 Patient Status [ADT] Routine 03/07/21 11:35 Cardiac Monitoring [RC] . DIRECTED 03/07/21 11:55 Elevate Extremity [RC] BID 03/07/21 21:00 Acetaminophen [TylenoL] 975 mg PO BID Labetalol [Normodyne] 200 mg PO BID Sertraline [Zoloft] 50 mg PO BEDTIME 03/08/21 06:00 Furosemide [Lasix] 40 mg PO Q48H 03/08/21 09:00 allopurinoL [Zyloprim] 50 mg PO DAILY 03/08/21 12:00 Furosemide [Lasix] 20 mg PO DAILY@1200 03/09/21 05:11 CBC WITH AUTO DIFF [HEME] AM COMPREHENSIVE METABOLIC PN,CMP [CHEM] AM MAGNESIUM [CHEM] AM 03/09/21 06:00 Furosemide [Lasix] 20 mg PO Q48H 03/10/21 05:11 CBC WITH AUTO DIFF [HEME] AM COMPREHENSIVE METABOLIC PN,CMP [CHEM] AM MAGNESIUM [CHEM] AM 03/11/21 05:11 CBC WITH AUTO DIFF [HEME] AM COMPREHENSIVE METABOLIC PN,CMP [CHEM] AM MAGNESIUM [CHEM] AM - Assessment Assessment:: Assessment/Plan Comment:: Assessment - 03/07/2021 (admitted late 03/06/2021) * 85-year-old female who presented to ED after a fall * History of A. fib, HLD, hypertension, prior DE, chronic venous insufficiency, recurrent pneumonia, pulmonary nodule, pulmonary hypertension, chronic renal insufficiency, recurrent UTI, urinary incontinence, arthritis, RLS, history of AV fistula with repair, chronic anticoagulation, lymphedema * Patient resides at [facility] * While she was in line for dinner she reportedly fell, hitting her head * Noted to have a laceration to the left side of her head but does not think she was knocked out -Reports a headache * She is on Plavix. * She has been having several falls as of late. * She is noted to have a significant ecchymosis on her back and left buttocks. * She reports pain there but denies any chest pain or shortness of breath. * Denies any infectious symptoms like fever, chills, or cough. * twelve-lead EKG is obtained showing a sinus tachycardia 101 bpm with left axis deviation and large P waves suggestive of left atrial hypertrophy. Q waves are noted in leads III and aVF. There is a repolarization abnormality in lead I and aVL with ST segment depression in V3 to V5. QT is moderately prolonged. * Four 4-0 sutures are placed on a 6 cm laceration of her left occipital scalp. * Labs were obtained in ED and on floor: * WBC of 9.01-->6.56 * Hemoglobin 8.1-->6.8 * Hematocrit 26.5-->22.7 * She is macrocytic. * Platelet are 283,000-->250,000 * Neutrophils are elevated 75.3%-->69.3% * INR 1.08 * aPTT 25.4 * Sodium 145-->145 * Potassium 3.9-->3.9 * Chloride 109-->110 * Carbon dioxide 26-->28 * Anion gap 13.9-->10.9 * BUN 35-->30 * Creatinine 1.6-->1.3 * GFR 31-->39 * Glucose 113-->101 * Calcium 8.1-->7.7 * Total bilirubin 1.6-->1.3 * AST is 28-->27, ALT 26-->21, alkaline phosphatase 81-->66. * CK is 208 * Troponin less than 0.017 * Protein 6.2-->5.3 * Albumin 3.3-->2.7 * proBNP 7374 * UA is grossly negative * SARS-CoV-2 RNA is negative * MRSA screen negative * Head CT is obtained showing: * 1. Mucosal thickening within both mastoid sinuses. Findings are fairly stable from prior CT exam and are likely incidental. * 2. Senescent changes noted above. * 3. Nothing acute is appreciated noncontrast head CT study * CT of the chest is obtained showing incidental findings and nothing acute. * CT of the cervical spine is obtained showing diffuse motion artifact which limits his study but no acute abnormality appreciated. * CT of the abdomen is obtained showing a soft tissue abnormality within the posterior right paraspinal fat which measures approximate 11.0 cm x 3.1 cm x 13.4 cm consistent with prominent subcutaneous hematoma. * Given Dilaudid for pain and 0.5 mg Ativan for restlessness. * She is unable to sit due to pain she subsequent admitted to the medical floor for management of her multiple hematomas, pain, and likely need for placement. 03/08/2021 85-year-old female admitted to the floor after a fall at her assisted living facility resulting in multiple large hematomas. Yesterday hemoglobin was noted to be 6.8. On recheck after 2 units it was 9.2 and today is 8.4. Hematocrit 27.6. She is macrocytic. Sodium 142. Potassium 3.6. Chloride 106. Carbon dioxide 25. Anion gap 14.6. BUN is 39. Creatinine 1.4. GFR 36. Glucose is 113. Calcium 7.3. Magnesium 2.2. Bilirubin 1.4. AST is 31, ALT 23, alkaline phosphatase 61. CK is 395. Protein is 5.2. Albumin 2.5. MRI of the brain obtained yesterday showed senescent change but no findings concerning for CVA. Chest abdomen pelvis CT scan was obtained with contrast due to rapidly decreasing hemoglobin and showed multiple stable and worsening hematomas but no acute intrathoracic or intra-abdominal concerns. There was mild atelectasis noted bilaterally and we will order incentive spirometry for this. She has been working with PT and OT. Pain has been controlled for the most part. Given her increased frequent falls MRI was obtained as noted and carotid ultrasound was obtained showing mild plaque with velocity measurements and within normal limits. There is antegrade flow within both vertebral arteries noted. Patient did have eluded boot in place on the left leg due to a prior wound which was being managed by Dr. Neal, general surgeon. Patient was reporting significant pain and this was removed. Lower extremity bilateral Doppler ultrasound was ob tained to rule out DVT. Posterior tibial and peroneal veins were not optimally seen but there were no findings of DVT. Today we will recheck a hemoglobin this afternoon. Given her elevated CK we will slowly infuse some IV fluids. She remains on 1 L of oxygen which is likely secondary to narcotic use. She will continue working with PT and OT. She would likely need placement at discharge and social work has been working on this. Length of stay likely 1-2 more days pending continued stability of hemoglobin. - Plan Plan:: Contusion of buttock Contusion of left back wall of thorax, initial encounter Contusion of lower back and pelvis, initial encounter Laceration of scalp without complication Recurrent falls Traumatic hematoma of buttock Chronic anticoagulation Anemia Elevated CK Living in assisted living Atelectasis * Pain medications as ordered * PT/OT * Hold Plavix for now * CM/SW for discharge planning * Brain MRI and carotid US obtained * Transfused 2 units PRBCs on 03/07/2021 * Daily labs * Will likely need placement * O2 as needed to keep saturations >90% * Check occult stool * Re-check H/H at 1330 today * Daily CK * Rosa Maria IV hydration * IS Chronic venous insufficiency Lymphedema * Elevated extremities BID * Bilateral compression dressings/JORDAN hose Pulmonary nodule * No acute concerns Afib History of DE (myocardial infarction) Hypertension * Telemetry * No acute concerns * Home medications as ordered * Monitor vital signs HLD (hyperlipidemia) * Hold home statin for now * No acute concerns History of recurrent pneumonia History of recurrent UTI (urinary tract infection) Urinary incontinence * No acute concerns Pulmonary hypertension * No acute concerns * Home medications as ordered Personal history of arterial venous malformation (AVM) * No acute concerns Restless leg syndrome * Home medications as ordered * No acute concerns Chronic renal insufficiency, stage III (moderate) * Monitor labs * Stable thus far * Avoid nephrotoxic meds if able * Rosa Maria IV hydration Code status: DNR/DNI PCP: Dr. Soto DVT prophylaxis: JORDAN gautam for now. Pharmacological prophylaxis contraindicated due to worsening anemia. Social: Patient resides at [facility]. Will likely require SNF placement. Disposition: Patient mated to the medical floor for management and further work- up of her anemia, multiple falls, significant hematomas, weakness, and likely need for placement. Anticipated length of stay 3 to 4 days. <Harjinder Renteria Jr - Last Filed: 03/08/21 16:46> - Patient Data Vitals - Most Recent: Last Vital Signs Temp 98.1 F 03/08/21 08:53 Pulse 69 03/08/21 09:09 Resp 20 03/08/21 08:53 BP 118/65 03/08/21 09:09 Pulse Ox 94 L 03/08/21 08:53 I&O - Last 24 Hours: Intake & Output 03/08/21 03/08/21 03/08/21 06:59 14:59 22:59 Intake Total 600 360 240 Output Total 2000 Balance -1400 360 240 Lab Results Last 24 Hours: Laboratory Results - last 24 hr 03/07/21 03/07/21 03/08/21 Range/Units 08:25 19:58 05:38 WBC 6.54 (3.98-10.04) K/mm3 RBC 2.79 L (3.98-5.22) M/mm3 Hgb 9.2 L D 8.4 L (11.2-15.7) gm/dl Hct 29.6 L 27.6 L (34.1-44.9) % MCV 98.9 H D (79.4-94.8) fl MCH 30.1 (25.6-32.2) pg MCHC 30.4 L (32.2-35.5) g/dl RDW Std Deviation 58.2 H (36.4-46.3) fL Plt Count 240 (182-369) K/mm3 MPV 10.3 (9.4-12.3) fl Neut % (Auto) 63.5 (34.0-71.1) % Lymph % (Auto) 16.8 L (19.3-51.7) % [place] % (Auto) 15.0 H (4.7-12.5) % Eos % (Auto) 4.3 (0.7-5.8) Baso % (Auto) 0.2 (0.1-1.2) % Neut # (Auto) 4.16 (1.56-6.13) K/mm3 Lymph # (Auto) 1.10 L (1.18-3.74) K/mm3 [place] # (Auto) 0.98 H (0.24-0.36) K/mm3 Eos # (Auto) 0.28 (0.04-0.36) K/mm3 Baso # (Auto) 0.01 (0.01-0.08) K/mm3 Sodium (136-145) mEq/L Potassium (3.5-5.1) mEq/L Chloride (98-107) mEq/L Carbon Dioxide (21-32) mEq/L Anion Gap (5-15) BUN (7-18) mg/dL Creatinine (0.55-1.02) mg/dL Est Cr Clr Drug Dosing mL/min Estimated GFR (MDRD) (>60) mL/min BUN/Creatinine Ratio (14-18) Glucose (70-99) mg/dL Calcium (8.5-10.1) mg/dL Magnesium (1.8-2.4) mg/dL Total Bilirubin (0.2-1.0) mg/dL AST (15-37) U/L ALT (14-59) U/L Alkaline Phosphatase (46-116) U/L Creatine Kinase (26-192) U/L Total Protein (6.4-8.2) g/dl Albumin (3.4-5.0) g/dl Globulin gm/dL Albumin/Globulin Ratio (1-2) Crossmatch See Detail 03/08/21 03/08/21 Range/Units 05:38 13:36 WBC (3.98-10.04) K/mm3 RBC (3.98-5.22) M/mm3 Hgb 9.4 L (11.2-15.7) gm/dl Hct 30.3 L (34.1-44.9) % MCV (79.4-94.8) fl MCH (25.6-32.2) pg MCHC (32.2-35.5) g/dl RDW Std Deviation (36.4-46.3) fL Plt Count (182-369) K/mm3 MPV (9.4-12.3) fl Neut % (Auto) (34.0-71.1) % Lymph % (Auto) (19.3-51.7) % [place] % (Auto) (4.7-12.5) % Eos % (Auto) (0.7-5.8) Baso % (Auto) (0.1-1.2) % Neut # (Auto) (1.56-6.13) K/mm3 Lymph # (Auto) (1.18-3.74) K/mm3 [place] # (Auto) (0.24-0.36) K/mm3 Eos # (Auto) (0.04-0.36) K/mm3 Baso # (Auto) (0.01-0.08) K/mm3 Sodium 142 (136-145) mEq/L Potassium 3.6 (3.5-5.1) mEq/L Chloride 106 (98-107) mEq/L Carbon Dioxide 25 (21-32) mEq/L Anion Gap 14.6 (5-15) BUN 39 H (7-18) mg/dL Creatinine 1.4 H (0.55-1.02) mg/dL Est Cr Clr Drug Dosing 25.83 mL/min Estimated GFR (MDRD) 36 (>60) mL/min BUN/Creatinine Ratio 27.9 H (14-18) Glucose 113 H (70-99) mg/dL Calcium 7.3 L (8.5-10.1) mg/dL Magnesium 2.2 (1.8-2.4) mg/dL Total Bilirubin 1.4 H (0.2-1.0) mg/dL AST 31 (15-37) U/L ALT 23 (14-59) U/L Alkaline Phosphatase 61 (46-116) U/L Creatine Kinase 395 H (26-192) U/L Total Protein 5.2 L (6.4-8.2) g/dl Albumin 2.5 L (3.4-5.0) g/dl Globulin 2.7 gm/dL Albumin/Globulin Ratio 0.9 L (1-2) Crossmatch Med Orders - Current: Current Medications Acetaminophen (Acetaminophen 325 Mg Tab) 650 mg PO Q4H PRN PRN Reason: Pain (Mild 1-3)/fever Acetaminophen (Acetaminophen 325 Mg Tab) 975 mg PO BID [facility] Last Admin: 03/08/21 09:08 Dose: 975 mg Documented by: Hydrocodone Bitart/Acetaminophen (Acetaminophen/Hydrocodone 325-5 Mg Tab) 1 tab PO Q4H PRN PRN Reason: Pain (moderate 4-6) Last Admin: 03/08/21 02:50 Dose: 1 tab Documented by: Allopurinol (Allopurinol 100 Mg Tab) 50 mg PO DAILY [facility] Last Admin: 03/08/21 09:08 Dose: 50 mg Documented by: Docusate Sodium (Docusate Sodium 100 Mg Cap) 100 mg PO BID [facility] Last Admin: 03/08/21 09:08 Dose: 100 mg Documented by: Enalapril Maleate (Enalapril 5 Mg Tab) 40 mg PO DAILY [facility] Last Admin: 03/08/21 09:09 Dose: 40 mg Documented by: Folic Acid (Folic Acid 1 Mg Tab) 1 mg PO DAILY [facility] Last Admin: 03/08/21 09:08 Dose: 1 mg Documented by: Furosemide (Furosemide 20 Mg Tab) 20 mg PO DAILY@1200 [facility] Last Admin: 03/08/21 12:11 Dose: 20 mg Documented by: Furosemide (Furosemide 40 Mg Tab) 40 mg PO Q48H [facility] Last Admin: 03/08/21 06:53 Dose: 40 mg Documented by: Furosemide (Furosemide 20 Mg Tab) 20 mg PO Q48H [facility] Hydromorphone HCl (Hydromorphone 0.5 Mg/0.5 Ml Syringe) 0.5 mg IVPUSH Q2H PRN PRN Reason: Pain Last Admin: 03/08/21 14:32 Dose: 0.5 mg Documented by: Lactated Ringer's (Ringers, Lactated) 1,000 mls @ 60 mls/hr IV ASDIRECTED [facility] Stop: 03/10/21 00:39 Last Admin: 03/08/21 09:11 Dose: 60 mls/hr Documented by: Labetalol HCl (Labetalol 100 Mg Tab) 200 mg PO BID [facility] Last Admin: 03/08/21 09:09 Dose: 200 mg Documented by: Ondansetron HCl (Ondansetron 4 Mg/2 Ml Sdv) 4 mg IVPUSH Q6H PRN PRN Reason: Nausea Pramipexole Dihydrochloride (Pramipexole 0.5 Mg Tab) 0.5 mg PO DAILY [facility] Last Admin: 03/08/21 09:07 Dose: 0.5 mg Documented by: Sertraline HCl (Sertraline 50 Mg Tab) 50 mg PO BEDTIME [facility] Last Admin: 03/07/21 21:04 Dose: 50 mg Documented by: Sodium Chloride (Sodium Chloride 0.9% 10 Ml Syringe) 10 ml FLUSH ASDIRECTED PRN PRN Reason: Keep Vein Open Last Admin: 03/06/21 18:39 Dose: 10 ml Documented by: Discontinued Medications Furosemide (Furosemide 20 Mg Tab) 20 mg PO DAILY [facility] Last Admin: 03/07/21 09:20 Dose: 20 mg Documented by: Furosemide (Furosemide 20 Mg/2 Ml Vial) 20 mg IVPUSH ONETIME ONE Stop: 03/07/21 10:01 Last Admin: 03/07/21 15:20 Dose: 20 mg Documented by: Hydromorphone HCl (Hydromorphone 0.5 Mg/0.5 Ml Syringe) 0.25 mg IVPUSH ONETIME ONE Stop: 03/06/21 18:29 Last Admin: 03/06/21 18:38 Dose: 0.25 mg Documented by: Hydromorphone HCl (Hydromorphone 0.5 Mg/0.5 Ml Syringe) 0.5 mg IVPUSH ONETIME ONE Stop: 03/06/21 19:53 Last Admin: 03/06/21 19:58 Dose: 0.5 mg Documented by: Sodium Chloride (Normal Saline) 100 mls @ 75 mls/hr IV ASDIRECTED [facility] Stop: 03/07/21 13:00 Last Admin: 03/07/21 09:51 Dose: 75 mls/hr Documented by: Sodium Chloride (Normal Saline) 250 mls @ 100 mls/hr IV ASDIRECTED [facility] Stop: 03/07/21 15:00 Last Admin: 03/07/21 16:19 Dose: 100 mls/hr Documented by: Sodium Chloride (Normal Saline) 1,000 mls @ 75 mls/hr IV ASDIRECTED [facility] Stop: 03/09/21 21:19 Iopamidol (Iopamidol 612 Mg/Ml 100 Ml Bottle) 100 ml IVPUSH ONETIME ONE Stop: 03/07/21 09:12 Last Admin: 03/07/21 09:51 Dose: 100 ml Documented by: Labetalol HCl (Labetalol 100 Mg Tab) 100 mg PO BID [facility] Last Admin: 03/07/21 09:20 Dose: 100 mg Documented by: Lidocaine HCl (Lidocaine 1% 10 Ml Mdv) 10 ml INJECT ONETIME ONE Stop: 03/06/21 19:40 Last Admin: 03/06/21 19:59 Dose: 10 ml Documented by: Lidocaine/Tetracaine (Lidocaine/Epinephrine/Tetracaine Soln 1 Ml) 1 ml TOP ONETIME ONE Stop: 03/06/21 18:49 Last Admin: 03/06/21 19:34 Dose: 1 ml Documented by: Lorazepam (Lorazepam 2 Mg/Ml Sdv) 0.5 mg IV ONETIME ONE Stop: 03/06/21 20:54 Last Admin: 03/06/21 23:04 Dose: 0.5 mg Documented by: Ondansetron HCl (Ondansetron 4 Mg/2 Ml Sdv) 4 mg IVPUSH ONETIME ONE Stop: 03/06/21 19:53 Last Admin: 03/06/21 19:57 Dose: 4 mg Documented by: Sodium Chloride (Sodium Chloride 0.9% 10 Ml Syringe) 10 ml FLUSH ONETIME PRN PRN Reason: IV FLUSH Last Admin: 03/07/21 09:51 Dose: 10 ml Documented by: - Patient Data Lab Results Last 24 hrs: Laboratory Results - last 24 hr 03/07/21 03/07/21 03/08/21 Range/Units 08:25 19:58 05:38 WBC 6.54 (3.98-10.04) K/mm3 RBC 2.79 L (3.98-5.22) M/mm3 Hgb 9.2 L D 8.4 L (11.2-15.7) gm/dl Hct 29.6 L 27.6 L (34.1-44.9) % MCV 98.9 H D (79.4-94.8) fl MCH 30.1 (25.6-32.2) pg MCHC 30.4 L (32.2-35.5) g/dl RDW Std Deviation 58.2 H (36.4-46.3) fL Plt Count 240 (182-369) K/mm3 MPV 10.3 (9.4-12.3) fl Neut % (Auto) 63.5 (34.0-71.1) % Lymph % (Auto) 16.8 L (19.3-51.7) % [place] % (Auto) 15.0 H (4.7-12.5) % Eos % (Auto) 4.3 (0.7-5.8) Baso % (Auto) 0.2 (0.1-1.2) % Neut # (Auto) 4.16 (1.56-6.13) K/mm3 Lymph # (Auto) 1.10 L (1.18-3.74) K/mm3 [place] # (Auto) 0.98 H (0.24-0.36) K/mm3 Eos # (Auto) 0.28 (0.04-0.36) K/mm3 Baso # (Auto) 0.01 (0.01-0.08) K/mm3 Sodium (136-145) mEq/L Potassium (3.5-5.1) mEq/L Chloride (98-107) mEq/L Carbon Dioxide (21-32) mEq/L Anion Gap (5-15) BUN (7-18) mg/dL Creatinine (0.55-1.02) mg/dL Est Cr Clr Drug Dosing mL/min Estimated GFR (MDRD) (>60) mL/min BUN/Creatinine Ratio (14-18) Glucose (70-99) mg/dL Calcium (8.5-10.1) mg/dL Magnesium (1.8-2.4) mg/dL Total Bilirubin (0.2-1.0) mg/dL AST (15-37) U/L ALT (14-59) U/L Alkaline Phosphatase (46-116) U/L Creatine Kinase (26-192) U/L Total Protein (6.4-8.2) g/dl Albumin (3.4-5.0) g/dl Globulin gm/dL Albumin/Globulin Ratio (1-2) Crossmatch See Detail 03/08/21 03/08/21 Range/Units 05:38 13:36 WBC (3.98-10.04) K/mm3 RBC (3.98-5.22) M/mm3 Hgb 9.4 L (11.2-15.7) gm/dl Hct 30.3 L (34.1-44.9) % MCV (79.4-94.8) fl MCH (25.6-32.2) pg MCHC (32.2-35.5) g/dl RDW Std Deviation (36.4-46.3) fL Plt Count (182-369) K/mm3 MPV (9.4-12.3) fl Neut % (Auto) (34.0-71.1) % Lymph % (Auto) (19.3-51.7) % [place] % (Auto) (4.7-12.5) % Eos % (Auto) (0.7-5.8) Baso % (Auto) (0.1-1.2) % Neut # (Auto) (1.56-6.13) K/mm3 Lymph # (Auto) (1.18-3.74) K/mm3 [place] # (Auto) (0.24-0.36) K/mm3 Eos # (Auto) (0.04-0.36) K/mm3 Baso # (Auto) (0.01-0.08) K/mm3 Sodium 142 (136-145) mEq/L Potassium 3.6 (3.5-5.1) mEq/L Chloride 106 (98-107) mEq/L Carbon Dioxide 25 (21-32) mEq/L Anion Gap 14.6 (5-15) BUN 39 H (7-18) mg/dL Creatinine 1.4 H (0.55-1.02) mg/dL Est Cr Clr Drug Dosing 25.83 mL/min Estimated GFR (MDRD) 36 (>60) mL/min BUN/Creatinine Ratio 27.9 H (14-18) Glucose 113 H (70-99) mg/dL Calcium 7.3 L (8.5-10.1) mg/dL Magnesium 2.2 (1.8-2.4) mg/dL Total Bilirubin 1.4 H (0.2-1.0) mg/dL AST 31 (15-37) U/L ALT 23 (14-59) U/L Alkaline Phosphatase 61 (46-116) U/L Creatine Kinase 395 H (26-192) U/L Total Protein 5.2 L (6.4-8.2) g/dl Albumin 2.5 L (3.4-5.0) g/dl Globulin 2.7 gm/dL Albumin/Globulin Ratio 0.9 L (1-2) Crossmatch Result Diagrams: 03/08/21 13:36 03/08/21 05:38 Sepsis Event Note - Focused Exam Vital Signs: Vital Signs Temp Pulse Resp BP Pulse Ox 03/08/21 09:09 69 118/65 03/08/21 08:53 98.1 F 69 20 118/65 94 L 03/08/21 07:49 94 L - My Orders Last 24 Hours: My Active Orders 03/07/21 17:16 Consult to Physical Therapy [PT Evaluation and Treatment] [CONS] Routine Consult to Speech Language Pathology [MACHINE TRIMMER Evaluation and Treatment] [CONS] Routine 03/08/21 00:14 Insert Urinary Catheter [OM.PC] Stat 03/08/21 00:16 Urinary Catheter Assessment [RC] ASDIRECTED - Plan Plan:: Case discussed in full. Agree with evaluation, assessment and plan.
[2021-03-08] MEDS ORDERED: Sodium Chloride 0.9% 1,000 ML IV SCH (08:00)
[2021-03-08] MEDS: Pramipexole 0.5 MG Tab PO SCH (09:07)
[2021-03-08] MEDS: Allopurinol 100 MG Tab PO SCH (09:08)
[2021-03-08] MEDS: Folic Acid 1 MG Tab PO SCH (09:08)
[2021-03-08] MEDS: Docusate Sodium 100 MG Cap PO SCH ×2 (09:08→20:09)
[2021-03-08] MEDS: Acetaminophen 325 MG Tab PO SCH ×2 (09:08→20:08)
[2021-03-08] MEDS: Labetalol 100 MG Tab PO SCH ×2 (09:09→20:09)
[2021-03-08] MEDS: Enalapril 5 MG Tab PO SCH (09:09)
[2021-03-08] MEDS: Lactated Ringers 1,000 ML IV SCH (09:11)
--- NOTE | 2021-03-08 09:33 | US ---
Carotid ultrasound: Technique: Duplex and color doppler evaluation was performed of the carotid and vertebral arteries. Comparison: No prior carotid imaging is available. Findings: Plaque: Mild plaque is noted within both carotid bulbs extending into the internal carotid arteries. Plaque is homogeneous and calcific with smooth surface margins. Velocity measurements: Right side: CCA has a peak systolic velocity of 0.73 m/s. ICA has a peak systolic velocity of 0.77 m/s and peak end-diastolic velocity of 0.13 m/s. ECA has a peak systolic velocity of 0.82 m/s. Vertebral artery has a peak systolic velocity of 0.50 m/s. ICA/CCA ratio is 1.1. Left side: CCA has a peak systolic velocity of 0.70 m/s. ICA has a peak systolic velocity of 0.77 m/s and peak end-diastolic velocity of 0.19 m/s. ECA has a peak systolic velocity of 1.06 m/s. Vertebral artery has a peak systolic velocity of 0.58 m/s. ICA/CCA ratio is 1.1. Impression: 1. Mild amount of plaque. 2. Velocity measurements are within normal limits compatible with stenosis within the 1-49 percent range. 3. Antegrade flow within both vertebral arteries. Diagnostic code #2
--- NOTE | 2021-03-08 10:13 | MR ---
MRI brain Technique: T1 sagittal; T2, T2 FLAIR, T1 and diffusion axial; T1 and T2 gradient echo's coronal images were obtained. Comparison: Prior head CT study of 03/06/21. Findings: Ventricles along the basal cisterns and sulci over the convexities appear within normal limits for the patient's age. Mild increased signal is seen within the periventricular and subcortical white matter which is most likely due to small vessel ischemic demyelination change. No other abnormal signal is seen within the brain parenchyma. There are no areas of abnormal diffusion being seen. Increased signal is seen within portions of the inferior right mastoid sinus and throughout a large portion of the left mastoid sinus. Visualized paranasal sinuses are clear. Gradient ECHO coronal images show no abnormal signal. Impression: 1. Mild senescent change as noted above. No acute diffusion abnormalities are seen. 2. Findings within both mastoid sinuses, worse on the left side. These are stable from prior CT exam. 3. Nothing acute is appreciated. Diagnostic code #2 I agree with preliminary report from [facility], finalized on 03/07/21, 11:39 AM CDT, code 1
--- NOTE | 2021-03-08 10:22 | CT ---
CT chest Technique: Multiple axial sections were obtained from above the lung apices inferiorly through the lung bases. Intravenous contrast was utilized. Reconstructed coronal and sagittal images were obtained. Comparison: Prior CT chest study of 03/06/21. Findings: Atherosclerotic calcification is seen within the thoracic aorta. Ascending aorta is slightly ectatic with AP dimension of 3.5 cm. Mediastinum and hilar regions show no adenopathy. Coronary artery calcification is noted. Heart is slightly enlarged. No pericardial effusion is seen. Slight parenchymal density is noted within the lung base on the left side as well as minimal density within the lung base on the right side. These chest findings have increased in prominence from prior exam possibly due to increased atelectasis if patient has no infectious symptoms. Mild kyphosis is noted on the bone window settings within the spine. Mild degenerative change within the thoracic spine is seen. No definite acute abnormality is appreciated. Impression: 1. Increasing parenchymal density within both lung bases as an interval change from previous study. This most likely represents areas of increased atelectasis. 2. Other stable findings as noted above. Nothing acute is otherwise seen. Diagnostic code #2 CT abdomen and pelvis Technique: Multiple axial sections were obtained from above the dome of the diaphragm inferiorly through the pubic symphysis. Intravenous contrast was utilized. No oral contrast has been given. Reconstructed coronal and sagittal images were obtained. Comparison: Prior CT abdomen and pelvis study of 03/06/21. Findings: Hematoma is seen within the posterior soft tissues within the right paraspinal region. This hematoma has somewhat increased in AP and transverse dimension from prior exam. Current measurements are approximately 11.8 cm in transverse dimension, 4.6 cm in AP dimension and 11.6 cm in craniocaudal dimension. Hematoma is also noted within the left gluteal muscle which is ill-defined and not completely included. This appears to be fairly stable from prior exam. Liver shows no focal abnormality. Spleen size is normal. Kidneys show symmetric contrast enhancement. No adrenal nodule is seen. Pancreas shows no discrete abnormality. Gallbladder contains no calcified gallstones. Abdominal aorta shows atherosclerotic change which continues into the iliac vessels with no aneurysm. No retroperitoneal adenopathy or mesenteric abnormalities are seen. No pelvic mass or adenopathy is seen. Scattered sigmoid diverticuli are seen. Bone window settings were reviewed which show scattered degenerative change within the spine. No acute osseous abnormality is appreciated. Impression: 1. Subcutaneous hematoma posteriorly within the right paraspinal region. This has slightly increased in transverse and AP dimension from prior exam. 2. Left gluteal muscle hematoma which is not completely included on the study and shows no definite change. 3. No other acute abnormality is appreciated on CT study of the abdomen and pelvis. Diagnostic code #3
[2021-03-08] MEDS: Furosemide 20 MG Tab PO SCH (12:11)
[2021-03-08] MEDS: Sertraline 50 MG Tab PO SCH (20:09)
[2021-03-08] MEDS: HYDROmorphone 1 MG/ML Syringe IVPUSH PRN (22:27)
[2021-03-09] MEDS: Acetaminophen/HYDROcodone 325-5 MG Tab PO PRN ×2 (00:04→06:40)
[2021-03-09] MEDS: Lactated Ringers 1,000 ML IV SCH (01:42)
[2021-03-09] MEDS ORDERED: Furosemide 20 MG Tab PO SCH (06:00)
--- NOTE | 2021-03-09 07:21 | PCM.PN ---
<Wilder Beard - Last Filed: 03/09/21 09:41> - General Info Date of Service: 03/09/21 Admission Dx/Problem (Free Text): Admission Diagnosis/Problem Admission Diagnosis/Problem Recurrent falls Functional Status: Reports: Pain Controlled (at times - working on swictch to PO meds ), Tolerating Diet, Ambulating (took a few steps with pt today ), Urinating, Incentive Spirometry. Denies: New Symptoms - Review of Systems General: Reports: No Symptoms, Weakness, Fatigue, Malaise. Denies: Fever, Chills HEENT: Reports: No Symptoms. Denies: Headaches, Sore Throat Pulmonary: Reports: No Symptoms. Denies: Shortness of Breath, Cough, Sputum, Wheezing Cardiovascular: Reports: Edema (chronic ). Denies: Chest Pain, Palpitations, Dyspnea on Exertion Gastrointestinal: Reports: No Symptoms. Denies: Abdominal Pain, Constipation, Diarrhea, Nausea, Vomiting Genitourinary: Reports: No Symptoms. Denies: Pain Musculoskeletal: Reports: Back Pain, Leg Pain, Joint Pain (Hips, knees ) Skin: Reports: No Symptoms. Denies: Cyanosis Neurological: Reports: Difficulty Walking, Weakness, Gait Disturbance. Denies: Confusion, Dizziness, Headache, Numbness, Seizure, Syncope, Tingling Psychiatric: Reports: No Symptoms - Patient Data Vitals - Most Recent: Last Vital Signs Temp 97.5 F 03/09/21 04:37 Pulse 84 03/09/21 04:37 Resp 18 03/09/21 04:37 BP 146/54 H 03/09/21 04:37 Pulse Ox 93 L 03/09/21 06:28 Weight - Most Recent: 180 lb 1.6 oz I&O - Last 24 Hours: Intake & Output 03/08/21 03/09/21 03/09/21 22:59 06:59 14:59 Intake Total 1020 450 Output Total 500 2450 Balance 520 -2000 Lab Results Last 24 Hours: Laboratory Results - last 24 hr 03/08/21 03/09/21 03/09/21 Range/Units 13:36 04:42 04:42 WBC 6.96 (3.98-10.04) K/mm3 RBC 2.97 L (3.98-5.22) M/mm3 Hgb 9.4 L 9.2 L (11.2-15.7) gm/dl Hct 30.3 L 29.5 L (34.1-44.9) % MCV 99.3 H (79.4-94.8) fl MCH 31.0 (25.6-32.2) pg MCHC 31.2 L (32.2-35.5) g/dl RDW Std Deviation 58.3 H (36.4-46.3) fL Plt Count 283 (182-369) K/mm3 MPV 10.3 (9.4-12.3) fl Neut % (Auto) 70.1 (34.0-71.1) % Lymph % (Auto) 14.8 L (19.3-51.7) % [place] % (Auto) 10.2 (4.7-12.5) % Eos % (Auto) 4.7 (0.7-5.8) Baso % (Auto) 0.1 (0.1-1.2) % Neut # (Auto) 4.87 (1.56-6.13) K/mm3 Lymph # (Auto) 1.03 L (1.18-3.74) K/mm3 [place] # (Auto) 0.71 H (0.24-0.36) K/mm3 Eos # (Auto) 0.33 (0.04-0.36) K/mm3 Baso # (Auto) 0.01 (0.01-0.08) K/mm3 Sodium 143 (136-145) mEq/L Potassium 3.8 (3.5-5.1) mEq/L Chloride 109 H (98-107) mEq/L Carbon Dioxide 27 (21-32) mEq/L Anion Gap 10.8 (5-15) BUN 38 H (7-18) mg/dL Creatinine 1.3 H (0.55-1.02) mg/dL Est Cr Clr Drug Dosing 27.82 mL/min Estimated GFR (MDRD) 39 (>60) mL/min BUN/Creatinine Ratio 29.2 H (14-18) Glucose 108 H (70-99) mg/dL Calcium 7.7 L (8.5-10.1) mg/dL Magnesium 2.3 (1.8-2.4) mg/dL Total Bilirubin 1.4 H (0.2-1.0) mg/dL AST 30 (15-37) U/L ALT 23 (14-59) U/L Alkaline Phosphatase 74 (46-116) U/L Creatine Kinase 314 H (26-192) U/L Total Protein 6.0 L (6.4-8.2) g/dl Albumin 2.9 L (3.4-5.0) g/dl Globulin 3.1 gm/dL Albumin/Globulin Ratio 0.9 L (1-2) Med Orders - Current: Current Medications Acetaminophen (Acetaminophen 325 Mg Tab) 650 mg PO Q4H PRN PRN Reason: Pain (Mild 1-3)/fever Acetaminophen (Acetaminophen 325 Mg Tab) 975 mg PO BID [facility] Last Admin: 03/08/21 20:08 Dose: 975 mg Documented by: Hydrocodone Bitart/Acetaminophen (Acetaminophen/Hydrocodone 325-5 Mg Tab) 1 tab PO Q4H PRN PRN Reason: Pain (moderate 4-6) Last Admin: 03/09/21 06:40 Dose: 1 tab Documented by: Allopurinol (Allopurinol 100 Mg Tab) 50 mg PO DAILY [facility] Last Admin: 03/08/21 09:08 Dose: 50 mg Documented by: Docusate Sodium (Docusate Sodium 100 Mg Cap) 100 mg PO BID [facility] Last Admin: 03/08/21 20:09 Dose: 100 mg Documented by: Enalapril Maleate (Enalapril 5 Mg Tab) 40 mg PO DAILY [facility] Last Admin: 03/08/21 09:09 Dose: 40 mg Documented by: Folic Acid (Folic Acid 1 Mg Tab) 1 mg PO DAILY [facility] Last Admin: 03/08/21 09:08 Dose: 1 mg Documented by: Furosemide (Furosemide 20 Mg Tab) 20 mg PO DAILY@1200 [facility] Last Admin: 03/08/21 12:11 Dose: 20 mg Documented by: Furosemide (Furosemide 40 Mg Tab) 40 mg PO Q48H [facility] Last Admin: 03/08/21 06:53 Dose: 40 mg Documented by: Furosemide (Furosemide 20 Mg Tab) 20 mg PO Q48H [facility] Last Admin: 03/09/21 06:40 Dose: 20 mg Documented by: Hydromorphone HCl (Hydromorphone 1 Mg/Ml Syringe) 2 mg IVPUSH Q2H PRN PRN Reason: Pain Last Admin: 03/08/21 22:27 Dose: 2 mg Documented by: Lactated Ringer's (Ringers, Lactated) 1,000 mls @ 60 mls/hr IV ASDIRECTED [facility] Stop: 03/10/21 00:39 Last Admin: 03/09/21 01:42 Dose: 60 mls/hr Documented by: Labetalol HCl (Labetalol 100 Mg Tab) 200 mg PO BID [facility] Last Admin: 03/08/21 20:09 Dose: 200 mg Documented by: Ondansetron HCl (Ondansetron 4 Mg/2 Ml Sdv) 4 mg IVPUSH Q6H PRN PRN Reason: Nausea Pramipexole Dihydrochloride (Pramipexole 0.5 Mg Tab) 0.5 mg PO DAILY [facility] Last Admin: 03/08/21 09:07 Dose: 0.5 mg Documented by: Sertraline HCl (Sertraline 50 Mg Tab) 50 mg PO BEDTIME [facility] Last Admin: 03/08/21 20:09 Dose: 50 mg Documented by: Sodium Chloride (Sodium Chloride 0.9% 10 Ml Syringe) 10 ml FLUSH ASDIRECTED PRN PRN Reason: Keep Vein Open Last Admin: 03/06/21 18:39 Dose: 10 ml Documented by: Discontinued Medications Furosemide (Furosemide 20 Mg Tab) 20 mg PO DAILY [facility] Last Admin: 03/07/21 09:20 Dose: 20 mg Documented by: Furosemide (Furosemide 20 Mg/2 Ml Vial) 20 mg IVPUSH ONETIME ONE Stop: 03/07/21 10:01 Last Admin: 03/07/21 15:20 Dose: 20 mg Documented by: Hydromorphone HCl (Hydromorphone 0.5 Mg/0.5 Ml Syringe) 0.25 mg IVPUSH ONETIME ONE Stop: 03/06/21 18:29 Last Admin: 03/06/21 18:38 Dose: 0.25 mg Documented by: Hydromorphone HCl (Hydromorphone 0.5 Mg/0.5 Ml Syringe) 0.5 mg IVPUSH ONETIME ONE Stop: 03/06/21 19:53 Last Admin: 03/06/21 19:58 Dose: 0.5 mg Documented by: Hydromorphone HCl (Hydromorphone 0.5 Mg/0.5 Ml Syringe) 0.5 mg IVPUSH Q2H PRN PRN Reason: Pain Last Admin: 03/08/21 20:07 Dose: 0.5 mg Documented by: Sodium Chloride (Normal Saline) 100 mls @ 75 mls/hr IV ASDIRECTED [facility] Stop: 03/07/21 13:00 Last Admin: 03/07/21 09:51 Dose: 75 mls/hr Documented by: Sodium Chloride (Normal Saline) 250 mls @ 100 mls/hr IV ASDIRECTED [facility] Stop: 03/07/21 15:00 Last Admin: 03/07/21 16:19 Dose: 100 mls/hr Documented by: Sodium Chloride (Normal Saline) 1,000 mls @ 75 mls/hr IV ASDIRECTED [facility] Stop: 03/09/21 21:19 Iopamidol (Iopamidol 612 Mg/Ml 100 Ml Bottle) 100 ml IVPUSH ONETIME ONE Stop: 03/07/21 09:12 Last Admin: 03/07/21 09:51 Dose: 100 ml Documented by: Labetalol HCl (Labetalol 100 Mg Tab) 100 mg PO BID [facility] Last Admin: 03/07/21 09:20 Dose: 100 mg Documented by: Lidocaine HCl (Lidocaine 1% 10 Ml Mdv) 10 ml INJECT ONETIME ONE Stop: 03/06/21 19:40 Last Admin: 03/06/21 19:59 Dose: 10 ml Documented by: Lidocaine/Tetracaine (Lidocaine/Epinephrine/Tetracaine Soln 1 Ml) 1 ml TOP ONETIME ONE Stop: 03/06/21 18:49 Last Admin: 03/06/21 19:34 Dose: 1 ml Documented by: Lorazepam (Lorazepam 2 Mg/Ml Sdv) 0.5 mg IV ONETIME ONE Stop: 03/06/21 20:54 Last Admin: 03/06/21 23:04 Dose: 0.5 mg Documented by: Ondansetron HCl (Ondansetron 4 Mg/2 Ml Sdv) 4 mg IVPUSH ONETIME ONE Stop: 03/06/21 19:53 Last Admin: 03/06/21 19:57 Dose: 4 mg Documented by: Sodium Chloride (Sodium Chloride 0.9% 10 Ml Syringe) 10 ml FLUSH ONETIME PRN PRN Reason: IV FLUSH Last Admin: 03/07/21 09:51 Dose: 10 ml Documented by: - Exam Quality Assessment: DVT Prophylaxis Urinary Catheter Total Time: 0Days 0Hours General: Alert, Oriented, Cooperative, No Acute Distress HEENT: Pupils Equal, Pupils Reactive, Mucous Membr. Moist/[place] Neck: Supple, Trachea Midline Lungs: Clear to Auscultation, Normal Respiratory Effort Cardiovascular: Regular Rate, Regular Rhythm GI/Abdominal Exam: Normal Bowel Sounds, Soft, Non-Tender, No Distention (Female) Exam: Deferred Back Exam: Decreased Range of Motion, Other (Significant bruising and hematomas noted significant hematoma noted on buttocks.) Extremities: Normal Inspection, Non-Tender, Normal Capillary Refill, Pedal Edema (Left greater than right), Other (Leg.) Skin: Warm, Dry, Intact, Ecchymosis (Scattered) Wound/Incisions: Healing Well, No Drainage Neurological: No New Focal Deficit Psy/Mental Status: Alert, Normal Affect, Normal Mood - Patient Data Lab Results Last 24 hrs: Laboratory Results - last 24 hr 03/08/21 03/09/21 03/09/21 Range/Units 13:36 04:42 04:42 WBC 6.96 (3.98-10.04) K/mm3 RBC 2.97 L (3.98-5.22) M/mm3 Hgb 9.4 L 9.2 L (11.2-15.7) gm/dl Hct 30.3 L 29.5 L (34.1-44.9) % MCV 99.3 H (79.4-94.8) fl MCH 31.0 (25.6-32.2) pg MCHC 31.2 L (32.2-35.5) g/dl RDW Std Deviation 58.3 H (36.4-46.3) fL Plt Count 283 (182-369) K/mm3 MPV 10.3 (9.4-12.3) fl Neut % (Auto) 70.1 (34.0-71.1) % Lymph % (Auto) 14.8 L (19.3-51.7) % [place] % (Auto) 10.2 (4.7-12.5) % Eos % (Auto) 4.7 (0.7-5.8) Baso % (Auto) 0.1 (0.1-1.2) % Neut # (Auto) 4.87 (1.56-6.13) K/mm3 Lymph # (Auto) 1.03 L (1.18-3.74) K/mm3 [place] # (Auto) 0.71 H (0.24-0.36) K/mm3 Eos # (Auto) 0.33 (0.04-0.36) K/mm3 Baso # (Auto) 0.01 (0.01-0.08) K/mm3 Sodium 143 (136-145) mEq/L Potassium 3.8 (3.5-5.1) mEq/L Chloride 109 H (98-107) mEq/L Carbon Dioxide 27 (21-32) mEq/L Anion Gap 10.8 (5-15) BUN 38 H (7-18) mg/dL Creatinine 1.3 H (0.55-1.02) mg/dL Est Cr Clr Drug Dosing 27.82 mL/min Estimated GFR (MDRD) 39 (>60) mL/min BUN/Creatinine Ratio 29.2 H (14-18) Glucose 108 H (70-99) mg/dL Calcium 7.7 L (8.5-10.1) mg/dL Magnesium 2.3 (1.8-2.4) mg/dL Total Bilirubin 1.4 H (0.2-1.0) mg/dL AST 30 (15-37) U/L ALT 23 (14-59) U/L Alkaline Phosphatase 74 (46-116) U/L Creatine Kinase 314 H (26-192) U/L Total Protein 6.0 L (6.4-8.2) g/dl Albumin 2.9 L (3.4-5.0) g/dl Globulin 3.1 gm/dL Albumin/Globulin Ratio 0.9 L (1-2) Result Diagrams: 03/09/21 04:42 03/09/21 04:42 Sepsis Event Note - Evaluation Sepsis Screening Result: No Definite Risk - Focused Exam Vital Signs: Vital Signs Temp Pulse Resp BP Pulse Ox Pulse Ox 03/09/21 06:28 93 L 03/09/21 04:37 97.5 F 84 18 146/54 H 93 L 03/08/21 21:08 95 03/08/21 20:12 97.9 F 81 18 133/51 L 96 03/08/21 20:09 81 133/51 L - Problem List & Annotations (1) Living in assisted living SNOMED Code(s): 35139181686693506, 23108846323765143 Code(s): Z59.3 - PROBLEMS RELATED TO LIVING IN RESIDENTIAL INSTITUTION Status: Chronic Priority: Low Current Visit: Yes (2) Chronic venous insufficiency SNOMED Code(s): 00860942, 65822371 Code(s): I87.2 - VENOUS INSUFFICIENCY (CHRONIC) (PERIPHERAL) Status: Chronic Priority: Low Current Visit: No (3) Afib SNOMED Code(s): 23332262 Code(s): I48.91 - UNSPECIFIED ATRIAL FIBRILLATION Status: Chronic Pr iority: Low Current Visit: No Qualifiers: Atrial fibrillation type: paroxysmal Qualified Code(s): I48.0 - Paroxysmal atrial fibrillation (4) HLD (hyperlipidemia) SNOMED Code(s): 18242745 Code(s): E78.5 - HYPERLIPIDEMIA, UNSPECIFIED Status: Chronic Priority: Low Current Visit: No Qualifiers: Hyperlipidemia type: unspecified Qualified Code(s): E78.5 - Hyperlipidemia, unspecified (5) History of recurrent pneumonia SNOMED Code(s): 663356784 Code(s): Z87.01 - PERSONAL HISTORY OF PNEUMONIA (RECURRENT) Status: Chronic Priority: Low Current Visit: No (6) History of recurrent UTI (urinary tract infection) SNOMED Code(s): 408332037 Code(s): Z87.440 - PERSONAL HISTORY OF URINARY (TRACT) INFECTIONS Status: Chronic Priority: Low Current Visit: No (7) Pulmonary hypertension SNOMED Code(s): 07690127 Code(s): I27.20 - PULMONARY HYPERTENSION, UNSPECIFIED Status: Chronic Priority: Medium Current Visit: No (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) SNOMED Code(s): 224322377 Code(s): Z87.74 - PERSONAL HISTORY OF CONGENITAL MALFORM OF HEART AND CIRC SYS Status: Chronic Priority: Low Current Visit: No (9) Restless leg syndrome SNOMED Code(s): 36546324 Code(s): G25.81 - RESTLESS LEGS SYNDROME Status: Chronic Priority: Medium Current Visit: Yes (10) Anemia SNOMED Code(s): 836658758 Code(s): D64.9 - ANEMIA, UNSPECIFIED Status: Acute Priority: High Current Visit: Yes Qualifiers: Anemia type: unspecified type Qualified Code(s): D64.9 - Anemia, unspecified (11) Chronic renal insufficiency, stage III (moderate) SNOMED Code(s): 239435688 Code(s): N18.30 - CHRONIC KIDNEY DISEASE, STAGE 3 UNSPECIFIED Status: Chronic Priority: Medium Current Visit: Yes Qualifiers: Chronic kidney disease stage 3 subtype: stage 3b (GFR 30-44) Qualified Code(s): N18.32 - Chronic kidney disease, stage 3b (12) Contusion of buttock SNOMED Code(s): 84686053 Code(s): S30.0XXA - CONTUSION OF LOWER BACK AND PELVIS, INITIAL ENCOUNTER Status: Acute Priority: High Current Visit: Yes Qualifiers: Encounter type: initial encounter Qualified Code(s): S30.0XXA - Contusion of lower back and pelvis, initial encounter (13) Contusion of left back wall of thorax, initial encounter SNOMED Code(s): 65326205682879814, 63222179827855619 Code(s): S20.222A - CONTUSION OF LEFT BACK WALL OF THORAX, INITIAL ENCOUNTER Status: Acute Priority: High Current Visit: Yes (14) Contusion of lower back and pelvis, initial encounter SNOMED Code(s): 74936769 Code(s): S30.0XXA - CONTUSION OF LOWER BACK AND PELVIS, INITIAL ENCOUNTER Status: Acute Priority: High Current Visit: Yes (15) Laceration of scalp without complication SNOMED Code(s): 113673223 Code(s): S01.01XA - LACERATION WITHOUT FOREIGN BODY OF SCALP, INITIAL ENCOUNTER Status: Acute Priority: High Current Visit: Yes Qualifiers: Encounter type: initial encounter Qualified Code(s): S01.01XA - Laceration without foreign body of scalp, initial encounter (16) Recurrent falls SNOMED Code(s): 551680952 Code(s): R29.6 - REPEATED FALLS Status: Acute Priority: High Current Visit: Yes (17) Traumatic hematoma of buttock SNOMED Code(s): 21332297, 831291493 Code(s): S30.0XXA - CONTUSION OF LOWER BACK AND PELVIS, INITIAL ENCOUNTER Status: Acute Priority: High Current Visit: Yes Qualifiers: Encounter type: initial encounter Qualified Code(s): S30.0XXA - Contusion of lower back and pelvis, initial encounter (18) Chronic anticoagulation SNOMED Code(s): 000401274 Code(s): Z79.01 - 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 ASSEMBLER (CURRENT) USE OF ANTICOAGULANTS Status: Chronic Priority: High Current Visit: Yes (19) History of SD (myocardial infarction) SNOMED Code(s): 503291441 Code(s): I25.2 - OLD MYOCARDIAL INFARCTION Status: Chronic Priority: Low Current Visit: No (20) Hypertension SNOMED Code(s): 25866512 Code(s): I10 - ESSENTIAL (PRIMARY) HYPERTENSION Status: Chronic Priority: Medium Current Visit: No Qualifiers: Hypertension type: unspecified Qualified Code(s): I10 - Essential (primary) hypertension (21) Lymphedema SNOMED Code(s): 990322419 Code(s): I89.0 - LYMPHEDEMA, NOT ELSEWHERE CLASSIFIED Status: Chronic Priority: Medium Current Visit: Yes (22) Pulmonary nodule SNOMED Code(s): 880076299 Code(s): R91.1 - SOLITARY PULMONARY NODULE Status: Chronic Priority: Low Current Visit: No (23) Urinary incontinence SNOMED Code(s): 937386937 Code(s): R32 - UNSPECIFIED URINARY INCONTINENCE Status: Chronic Priority: Low Current Visit: No Qualifiers: Urinary Incontinence type: unspecified incontinence Qualified Code(s): R32 - Unspecified urinary incontinence (24) Elevated CK SNOMED Code(s): 265682081 Code(s): R74.8 - ABNORMAL LEVELS OF OTHER SERUM ENZYMES Status: Acute Priority: High Current Visit: Yes (25) Atelectasis SNOMED Code(s): 03524583 Code(s): J98.11 - ATELECTASIS Status: Acute Priority: Medium Current Visit: Yes - Problem List Review Problem List Initiated/Reviewed/Updated: Yes - My Orders Last 24 Hours: My Active Orders 03/08/21 08:00 Lactated Ringers [Ringers, Lactated] 1,000 ml IV ASDIRECTED 03/08/21 09:00 allopurinoL [Zyloprim] 50 mg PO DAILY 03/08/21 11:14 RT Incentive Spirometry [RC] ASDIRECTED 03/08/21 12:00 Furosemide [Lasix] 20 mg PO DAILY@1200 03/09/21 06:00 Furosemide [Lasix] 20 mg PO Q48H 03/10/21 05:11 CBC WITH AUTO DIFF [HEME] AM COMPREHENSIVE METABOLIC PN,CMP [CHEM] AM CREATINE KINASE,CK [CHEM] AM MAGNESIUM [CHEM] AM 03/11/21 05:11 CBC WITH AUTO DIFF [HEME] AM COMPREHENSIVE METABOLIC PN,CMP [CHEM] AM CREATINE KINASE,CK [CHEM] AM MAGNESIUM [CHEM] AM 03/12/21 05:11 CREATINE KINASE,CK [CHEM] AM - Assessment Assessment:: Assessment/Plan Comment:: Assessment - 03/07/2021 (admitted late 03/06/2021) * 85-year-old female who presented to ED after a fall * History of A. fib, HLD, hypertension, prior SD, chronic venous insufficiency, recurrent pneumonia, pulmonary nodule, pulmonary hypertension, chronic renal insufficiency, recurrent UTI, urinary incontinence, arthritis, RLS, history of AV fistula with repair, chronic anticoagulation, lymphedema * Patient resides at [facility] * While she was in line for dinner she reportedly fell, hitting her head * Noted to have a laceration to the left side of her head but does not think she was knocked out -Reports a headache * She is on Plavix. * She has been having several falls as of late. * She is noted to have a significant ecchymosis on her back and left buttocks. * She reports pain there but denies any chest pain or shortness of breath. * Denies any infectious symptoms like fever, chills, or cough. * twelve-lead EKG is obtained showing a sinus tachycardia 101 bpm with left axis deviation and large P waves suggestive of left atrial hypertrophy. Q waves are noted in leads III and aVF. There is a repolarization abnormality in lead I and aVL with ST segment depression in V3 to V5. QT is moderately prolonged. * Four 4-0 sutures are placed on a 6 cm laceration of her left occipital scalp. * Labs were obtained in ED and on floor: * WBC of 9.01-->6.56 * Hemoglobin 8.1-->6.8 * Hematocrit 26.5-->22.7 * She is macrocytic. * Platelet are 283,000-->250,000 * Neutrophils are elevated 75.3%-->69.3% * INR 1.08 * aPTT 25.4 * Sodium 145-->145 * Potassium 3.9-->3.9 * Chloride 109-->110 * Carbon dioxide 26-->28 * Anion gap 13.9-->10.9 * BUN 35-->30 * Creatinine 1.6-->1.3 * GFR 31-->39 * Glucose 113-->101 * Calcium 8.1-->7.7 * Total bilirubin 1.6-->1.3 * AST is 28-->27, ALT 26-->21, alkaline phosphatase 81-->66. * CK is 208 * Troponin less than 0.017 * Protein 6.2-->5.3 * Albumin 3.3-->2.7 * proBNP 7374 * UA is grossly negative * SARS-CoV-2 RNA is negative * MRSA screen negative * Head CT is obtained showing: * 1. Mucosal thickening within both mastoid sinuses. Findings are fairly stable from prior CT exam and are likely incidental. * 2. Senescent changes noted above. * 3. Nothing acute is appreciated noncontrast head CT study * CT of the chest is obtained showing incidental findings and nothing acute. * CT of the cervical spine is obtained showing diffuse motion artifact which limits his study but no acute abnormality appreciated. * CT of the abdomen is obtained showing a soft tissue abnormality within the posterior right paraspinal fat which measures approximate 11.0 cm x 3.1 cm x 13.4 cm consistent with prominent subcutaneous hematoma. * Given Dilaudid for pain and 0.5 mg Ativan for restlessness. * She is unable to sit due to pain she subsequent admitted to the medical floor for management of her multiple hematomas, pain, and likely need for placement. 03/08/2021 85-year-old female admitted to the floor after a fall at her assisted living facility resulting in multiple large hematomas. Yesterday hemoglobin was noted to be 6.8. On recheck after 2 units it was 9.2 and today is 8.4. Hematocrit 27.6. She is macrocytic. Sodium 142. Potassium 3.6. Chloride 106. Carbon dioxide 25. Anion gap 14.6. BUN is 39. Creatinine 1.4. GFR 36. Glucose is 113. Calcium 7.3. Magnesium 2.2. Bilirubin 1.4. AST is 31, ALT 23, alkaline phosphatase 61. CK is 395. Protein is 5.2. Albumin 2.5. MRI of the brain obtained yesterday showed senescent change but no findings concerning for CVA. Chest abdomen pelvis CT scan was obtained with contrast due to rapidly decreasing hemoglobin and showed multiple stable and worsening hematomas but no acute intrathoracic or intra-abdominal concerns. There was mild atelectasis noted bilaterally and we will order incentive spirometry for this. She has been working with PT and OT. Pain has been controlled for the most part. Given her increased frequent falls MRI was obtained as noted and carotid ultrasound was obtained showing mild plaque with velocity measurements and within normal limits. There is antegrade flow within both vertebral arteries noted. Patient did have eluded boot in place on the left leg due to a prior wound which was being managed by Dr. Neal, general surgeon. Patient was reporting significant pain and this was removed. Lower extremity bilateral Doppler ultrasound was obtained to rule out DVT. Posterior tibial and peroneal veins were not optimally seen but there were no findings of DVT. Today we will recheck a hemoglobin this afternoon. Given her elevated CK we will slowly infuse some IV fluids. She remains on 1 L of oxygen which is likely secondary to narcotic use. She will continue working with PT and OT. She would likely need placement at discharge and social work has been working on this. Length of stay likely 1-2 more days pending continued stability of hemoglobin. 03/09/2021 This is an 85-year-old female brought in after a fall. She has been having multiple prior falls. Most recent fall resulted in significant bruising to her back and buttocks. Hemoglobin did drop and she was given 2 units. Since then her hemoglobin has been stable. Yesterday morning hemoglobin was 8.4 and afternoon it was 9.4. Hemoglobin this morning was 9.2. Otherwise WBC was 6.96. Platelet 283,000. Neutrophils 70.1. Sodium 143. Potassium 3.8. Chloride 109. Carbon dioxide 27. Anion gap 10.8. BUN 38. Creatinine 1.3. GFR 39. Glucose 108. Calcium 7.7. Magnesium 2.3. Total bilirubin 1.4. AST is 30, ALT 23, alkaline phosphatase 74. CK is 314. Protein is 6.0. Albumin is 2.9. Patient's Dilaudid was increased yesterday and she was able to ambulate a very short distance. She continues to have pain. We will increase her p.o. pain medications to Percocet 1-2 tab as needed for pain and attempt to decrease her IV pain medication usage. Patient remains on 2 L likely exacerbated by narcotic use. She has been utilizing her incentive spirometry. Anticipate discharge in 1 to 2 days pending transition from IV to p.o. pain medications and pain tolerance. - Plan Plan:: Contusion of buttock Contusion of left back wall of thorax, initial encounter Contusion of lower back and pelvis, initial encounter Laceration of scalp without complication Recurrent falls Traumatic hematoma of buttock Chronic anticoagulation Anemia Elevated CK Living in assisted living Atelectasis * Pain medications as ordered -switch from p.o. [place] to Percocet and increase Dilaudid dosing. * PT/OT * Resume home Plavix * CM/SW for discharge planning * Brain MRI and carotid US obtained * Transfused 2 units PRBCs on 03/07/2021 * Daily labs * Will likely need placement * O2 as needed to keep saturations >90% * Check occult stool * Daily CK * Rosa Maria IV hydration - d/c today * IS Chronic venous insufficiency Lymphedema * Elevated extremities BID * Bilateral compression dressings/JORDAN hose Pulmonary nodule * No acute concerns Afib History of SD (myocardial infarction) Hypertension * Telemetry * No acute concerns * Home medications as ordered * Monitor vital signs HLD (hyperlipidemia) * Hold home statin for now * No acute concerns History of recurrent pneumonia History of recurrent UTI (urinary tract infection) Urinary incontinence * No acute concerns Pulmonary hypertension * No acute concerns * Home medications as ordered Personal history of arterial venous malformation (AVM) * No acute concerns Restless leg syndrome * Home medications as ordered * No acute concerns Chronic renal insufficiency, stage III (moderate) * Monitor labs * Stable thus far * Avoid nephrotoxic meds if able * Rosa Maria IV hydration Code status: DNR/DNI PCP: Dr. Soto DVT prophylaxis: JORDAN couche. Resume home Plavix Social: Patient resides at [facility]. Will likely require SNF placement. Disposition: Patient mated to the medical floor for management and further work-up of her anemia, multiple falls, significant hematomas, weakness, and likely need for placement. Likely discharge in 1 to 2 days pending tolerance of p.o. pain medications. <Harjinder Renteria Jr - Last Filed: 03/09/21 10:22> - Patient Data Vitals - Most Recent: Last Vital Signs Temp 97.7 F 03/09/21 07:47 Pulse 95 03/09/21 08:34 Resp 20 03/09/21 07:47 BP 150/66 H 03/09/21 08:45 Pulse Ox 95 03/09/21 07:47 I&O - Last 24 Hours: Intake & Output 03/08/21 03/09/21 03/09/21 22:59 06:59 14:59 Intake Total 1020 450 Output Total 500 2450 Balance 520 -2000 Lab Results Last 24 Hours: Laboratory Results - last 24 hr 03/08/21 03/09/21 03/09/21 Range/Units 13:36 04:42 04:42 WBC 6.96 (3.98-10.04) K/mm3 RBC 2.97 L (3.98-5.22) M/mm3 Hgb 9.4 L 9.2 L (11.2-15.7) gm/dl Hct 30.3 L 29.5 L (34.1-44.9) % MCV 99.3 H (79.4-94.8) fl MCH 31.0 (25.6-32.2) pg MCHC 31.2 L (32.2-35.5) g/dl RDW Std Deviation 58.3 H (36.4-46.3) fL Plt Count 283 (182-369) K/mm3 MPV 10.3 (9.4-12.3) fl Neut % (Auto) 70.1 (34.0-71.1) % Lymph % (Auto) 14.8 L (19.3-51.7) % [place] % (Auto) 10.2 (4.7-12.5) % Eos % (Auto) 4.7 (0.7-5.8) Baso % (Auto) 0.1 (0.1-1.2) % Neut # (Auto) 4.87 (1.56-6.13) K/mm3 Lymph # (Auto) 1.03 L (1.18-3.74) K/mm3 [place] # (Auto) 0.71 H (0.24-0.36) K/mm3 Eos # (Auto) 0.33 (0.04-0.36) K/mm3 Baso # (Auto) 0.01 (0.01-0.08) K/mm3 Sodium 143 (136-145) mEq/L Potassium 3.8 (3.5-5.1) mEq/L Chloride 109 H (98-107) mEq/L Carbon Dioxide 27 (21-32) mEq/L Anion Gap 10.8 (5-15) BUN 38 H (7-18) mg/dL Creatinine 1.3 H (0.55-1.02) mg/dL Est Cr Clr Drug Dosing 27.82 mL/min Estimated GFR (MDRD) 39 (>60) mL/min BUN/Creatinine Ratio 29.2 H (14-18) Glucose 108 H (70-99) mg/dL Calcium 7.7 L (8.5-10.1) mg/dL Magnesium 2.3 (1.8-2.4) mg/dL Total Bilirubin 1.4 H (0.2-1.0) mg/dL AST 30 (15-37) U/L ALT 23 (14-59) U/L Alkaline Phosphatase 74 (46-116) U/L Creatine Kinase 314 H (26-192) U/L Total Protein 6.0 L (6.4-8.2) g/dl Albumin 2.9 L (3.4-5.0) g/dl Globulin 3.1 gm/dL Albumin/Globulin Ratio 0.9 L (1-2) Med Orders - Current: Current Medications Acetaminophen (Acetaminophen 325 Mg Tab) 650 mg PO Q4H PRN PRN Reason: Pain (Mild 1-3)/fever Acetaminophen (Acetaminophen 325 Mg Tab) 975 mg PO BID [facility] Last Admin: 03/09/21 08:34 Dose: 975 mg Documented by: Allopurinol (Allopurinol 100 Mg Tab) 50 mg PO DAILY [facility] Last Admin: 03/09/21 08:36 Dose: 50 mg Documented by: Clopidogrel Bisulfate (Clopidogrel 75 Mg Tab) 75 mg PO DAILY [facility] Last Admin: 03/09/21 10:04 Dose: 75 mg Documented by: Docusate Sodium (Docusate Sodium 100 Mg Cap) 100 mg PO BID [facility] Last Admin: 03/09/21 08:45 Dose: 100 mg Documented by: Enalapril Maleate (Enalapril 5 Mg Tab) 40 mg PO DAILY [facility] Last Admin: 03/09/21 08:45 Dose: 40 mg Documented by: Folic Acid (Folic Acid 1 Mg Tab) 1 mg PO DAILY [facility] Last Admin: 03/09/21 08:36 Dose: 1 mg Documented by: Furosemide (Furosemide 20 Mg Tab) 20 mg PO DAILY@1200 [facility] Last Admin: 03/08/21 12:11 Dose: 20 mg Documented by: Furosemide (Furosemide 40 Mg Tab) 40 mg PO Q48H [facility] Last Admin: 03/08/21 06:53 Dose: 40 mg Documented by: Furosemide (Furosemide 20 Mg Tab) 20 mg PO Q48H [facility] Last Admin: 03/09/21 06:40 Dose: 20 mg Documented by: Hydromorphone HCl (Hydromorphone 1 Mg/Ml Syringe) 2 mg IVPUSH Q2H PRN PRN Reason: Pain Last Admin: 03/09/21 09:23 Dose: 2 mg Documented by: Lactated Ringer's (Ringers, Lactated) 1,000 mls @ 60 mls/hr IV ASDIRECTED [facility] Stop: 03/10/21 00:39 Last Admin: 03/09/21 01:42 Dose: 60 mls/hr Documented by: Labetalol HCl (Labetalol 100 Mg Tab) 200 mg PO BID [facility] Last Admin: 03/09/21 08:34 Dose: 200 mg Documented by: Ondansetron HCl (Ondansetron 4 Mg/2 Ml Sdv) 4 mg IVPUSH Q6H PRN PRN Reason: Nausea Oxycodone/Acetaminophen (Acetaminophen/Oxycodone 325-5 Mg Tab) 1 - 2 tab PO Q4H PRN PRN Reason: Pain Pramipexole Dihydrochloride (Pramipexole 0.5 Mg Tab) 0.5 mg PO DAILY [facility] Last Admin: 03/09/21 08:45 Dose: 0.5 mg Documented by: Sertraline HCl (Sertraline 50 Mg Tab) 50 mg PO BEDTIME [facility] Last Admin: 03/08/21 20:09 Dose: 50 mg Documented by: Sodium Chloride (Sodium Chloride 0.9% 10 Ml Syringe) 10 ml FLUSH ASDIRECTED PRN PRN Reason: Keep Vein Open Last Admin: 03/06/21 18:39 Dose: 10 ml Documented by: Discontinued Medications Hydrocodone Bitart/Acetaminophen (Acetaminophen/Hydrocodone 325-5 Mg Tab) 1 tab PO Q4H PRN PRN Reason: Pain (moderate 4-6) Last Admin: 03/09/21 06:40 Dose: 1 tab Documented by: Furosemide (Furosemide 20 Mg Tab) 20 mg PO DAILY [facility] Last Admin: 03/07/21 09:20 Dose: 20 mg Documented by: Furosemide (Furosemide 20 Mg/2 Ml Vial) 20 mg IVPUSH ONETIME ONE Stop: 03/07/21 10:01 Last Admin: 03/07/21 15:20 Dose: 20 mg Documented by: Hydromorphone HCl (Hydromorphone 0.5 Mg/0.5 Ml Syringe) 0.25 mg IVPUSH ONETIME ONE Stop: 03/06/21 18:29 Last Admin: 03/06/21 18:38 Dose: 0.25 mg Documented by: Hydromorphone HCl (Hydromorphone 0.5 Mg/0.5 Ml Syringe) 0.5 mg IVPUSH ONETIME ONE Stop: 03/06/21 19:53 Last Admin: 03/06/21 19:58 Dose: 0.5 mg Documented by: Hydromorphone HCl (Hydromorphone 0.5 Mg/0.5 Ml Syringe) 0.5 mg IVPUSH Q2H PRN PRN Reason: Pain Last Admin: 03/08/21 20:07 Dose: 0.5 mg Documented by: Sodium Chloride (Normal Saline) 100 mls @ 75 mls/hr IV ASDIRECTED [facility] Stop: 03/07/21 13:00 Last Admin: 03/07/21 09:51 Dose: 75 mls/hr Documented by: Sodium Chloride (Normal Saline) 250 mls @ 100 mls/hr IV ASDIRECTED [facility] Stop: 03/07/21 15:00 Last Admin: 03/07/21 16:19 Dose: 100 mls/hr Documented by: Sodium Chloride (Normal Saline) 1,000 mls @ 75 mls/hr IV ASDIRECTED [facility] Stop: 03/09/21 21:19 Iopamidol (Iopamidol 612 Mg/Ml 100 Ml Bottle) 100 ml IVPUSH ONETIME ONE Stop: 03/07/21 09:12 Last Admin: 03/07/21 09:51 Dose: 100 ml Documented by: Labetalol HCl (Labetalol 100 Mg Tab) 100 mg PO BID [facility] Last Admin: 03/07/21 09:20 Dose: 100 mg Documented by: Lidocaine HCl (Lidocaine 1% 10 Ml Mdv) 10 ml INJECT ONETIME ONE Stop: 03/06/21 19:40 Last Admin: 03/06/21 19:59 Dose: 10 ml Documented by: Lidocaine/Tetracaine (Lidocaine/Epinephrine/Tetracaine Soln 1 Ml) 1 ml TOP ONETIME ONE Stop: 03/06/21 18:49 Last Admin: 03/06/21 19:34 Dose: 1 ml Documented by: Lorazepam (Lorazepam 2 Mg/Ml Sdv) 0.5 mg IV ONETIME ONE Stop: 03/06/21 20:54 Last Admin: 03/06/21 23:04 Dose: 0.5 mg Documented by: Ondansetron HCl (Ondansetron 4 Mg/2 Ml Sdv) 4 mg IVPUSH ONETIME ONE Stop: 03/06/21 19:53 Last Admin: 03/06/21 19:57 Dose: 4 mg Documented by: Sodium Chloride (Sodium Chloride 0.9% 10 Ml Syringe) 10 ml FLUSH ONETIME PRN PRN Reason: IV FLUSH Last Admin: 03/07/21 09:51 Dose: 10 ml Documented by: - Patient Data Lab Results Last 24 hrs: Laboratory Results - last 24 hr 03/08/21 03/09/21 03/09/21 Range/Units 13:36 04:42 04:42 WBC 6.96 (3.98-10.04) K/mm3 RBC 2.97 L (3.98-5.22) M/mm3 Hgb 9.4 L 9.2 L (11.2-15.7) gm/dl Hct 30.3 L 29.5 L (34.1-44.9) % MCV 99.3 H (79.4-94.8) fl MCH 31.0 (25.6-32.2) pg MCHC 31.2 L (32.2-35.5) g/dl RDW Std Deviation 58.3 H (36.4-46.3) fL Plt Count 283 (182-369) K/mm3 MPV 10.3 (9.4-12.3) fl Neut % (Auto) 70.1 (34.0-71.1) % Lymph % (Auto) 14.8 L (19.3-51.7) % [place] % (Auto) 10.2 (4.7-12.5) % Eos % (Auto) 4.7 (0.7-5.8) Baso % (Auto) 0.1 (0.1-1.2) % Neut # (Auto) 4.87 (1.56-6.13) K/mm3 Lymph # (Auto) 1.03 L (1.18-3.74) K/mm3 [place] # (Auto) 0.71 H (0.24-0.36) K/mm3 Eos # (Auto) 0.33 (0.04-0.36) K/mm3 Baso # (Auto) 0.01 (0.01-0.08) K/mm3 Sodium 143 (136-145) mEq/L Potassium 3.8 (3.5-5.1) mEq/L Chloride 109 H (98-107) mEq/L Carbon Dioxide 27 (21-32) mEq/L Anion Gap 10.8 (5-15) BUN 38 H (7-18) mg/dL Creatinine 1.3 H (0.55-1.02) mg/dL Est Cr Clr Drug Dosing 27.82 mL/min Estimated GFR (MDRD) 39 (>60) mL/min BUN/Creatinine Ratio 29.2 H (14-18) Glucose 108 H (70-99) mg/dL Calcium 7.7 L (8.5-10.1) mg/dL Magnesium 2.3 (1.8-2.4) mg/dL Total Bilirubin 1.4 H (0.2-1.0) mg/dL AST 30 (15-37) U/L ALT 23 (14-59) U/L Alkaline Phosphatase 74 (46-116) U/L Creatine Kinase 314 H (26-192) U/L Total Protein 6.0 L (6.4-8.2) g/dl Albumin 2.9 L (3.4-5.0) g/dl Globulin 3.1 gm/dL Albumin/Globulin Ratio 0.9 L (1-2) Result Diagrams: 03/09/21 04:42 03/09/21 04:42 Sepsis Event Note - Focused Exam Vital Signs: Vital Signs Temp Pulse Resp BP Pulse Ox 03/09/21 08:45 150/66 H 03/09/21 08:35 150/66 H 03/09/21 08:34 95 150/66 H 03/09/21 07:47 97.7 F 95 20 95 03/09/21 06:28 93 L 03/09/21 04:37 97.5 F 84 18 146/54 H 93 L - My Orders Last 24 Hours: My Active Orders 03/08/21 22:20 HYDROmorphone [Dilaudid] 2 mg IVPUSH Q2H PRN - Plan Plan:: Case discussed in full. Agree with evaluation, assessment and plan.
[2021-03-09] MEDS: Labetalol 100 MG Tab PO SCH ×2 (08:34→20:09)
[2021-03-09] MEDS: Acetaminophen 325 MG Tab PO SCH ×2 (08:34→20:28)
[2021-03-09] MEDS: Allopurinol 100 MG Tab PO SCH (08:36)
[2021-03-09] MEDS: Folic Acid 1 MG Tab PO SCH (08:36)
[2021-03-09] MEDS: Enalapril 5 MG Tab PO SCH (08:45)
[2021-03-09] MEDS: Docusate Sodium 100 MG Cap PO SCH ×2 (08:45→20:09)
[2021-03-09] MEDS: Pramipexole 0.5 MG Tab PO SCH (08:45)
[2021-03-09] MEDS: HYDROmorphone 1 MG/ML Syringe IVPUSH PRN ×2 (09:23→21:33)
[2021-03-09] MEDS: Clopidogrel 75 MG Tab PO SCH (10:04)
[2021-03-09] MEDS: Furosemide 20 MG Tab PO SCH (13:28)
[2021-03-09] MEDS: Acetaminophen/oxyCODONE 325-5 MG Tab PO PRN ×2 (15:11→20:08)
[2021-03-09] MEDS: Sertraline 50 MG Tab PO SCH (20:09)
[2021-03-10] MEDS: HYDROmorphone 1 MG/ML Syringe IVPUSH PRN (04:51)
[2021-03-10] MEDS: Acetaminophen/oxyCODONE 325-5 MG Tab PO PRN (06:31)
[2021-03-10] MEDS: Furosemide 40 MG Tab PO SCH (06:31)
--- NOTE | 2021-03-10 08:13 | PCM.DCSUM1 ---
<Wilder Beard - Last Filed: 03/10/21 09:38> Discharge Summary - Hospital Course HPI Initial Comments: This is an 85-year-old female who presented to ED on the evening of 03/06/2021 after a fall. Patient resides at [facility] and while she was in line for dinner she reportedly fell, hitting her head. She is noted to have a laceration to the left side of her head but does not think she was knocked out. She reports a headache. She is on Plavix. She has been having several falls as of late. She is noted to have a significant ecchymosis on her back and left buttocks. She reports pain there but denies any chest pain or shortness of breath. Denies any infectious symptoms like fever, chills, or cough. In the ED twelve-lead EKG is obtained showing a sinus tachycardia 101 bpm with left axis deviation and large P waves suggestive of left atrial hypertrophy. Q waves are noted in leads III and aVF. There is a repolarization abnormality in lead I and aVL with ST segment depression in V3 to V5. QT is moderately prolonged. Four 4-0 sutures are placed on a 6 cm laceration of her left occipital scalp. Temp is 36.7 C. Pulse 106. Respirations 18. Blood pressure 126/80. Pulse ox 94%. Labs were obtained with a WBC of 9.01. Hemoglobin 8.1. Hematocrit 26.5. She is macrocytic. Platelet are 283,000. Neutrophils are elevated 75.3%. INR is 1.08. aPTT is 25.4. Sodium 145. Potassium 3.9. Chloride 109. Carbon dioxide 26. Anion gap 13.9. BUN 35. Creatinine 1.6. GFR 31. Glucose 113. Calcium 8.1. Total bilirubin 1.6. AST is 28, ALT 26, alkaline phosphatase 81. CK is 208. Troponin less than 0.017. Protein 6.2. Albumin 3.3. UA is grossly negative. SARS-CoV-[address] RNA is [address] Head CT is obtained showing "1. Mucosal thickening within both mastoid sinuses. Findings are fairly stable from prior CT exam and are likely incidental. 2. Senescent changes noted above. 3. Nothing acute is appreciated noncontrast head CT study." CT of the chest is obtained showing incidental findings and nothing acute. CT of the cervical spine is obtained showing diffuse motion artifact which limits his study but no acute abnormality appreciated. CT of the abdomen is obtained showing a soft tissue abnormality within the posterior right par aspinal fat which measures approximate 11.0 cm x 3.1 cm x 13.4 cm consistent with prominent subcutaneous hematoma. She is given Dilaudid for pain and 0.5 mg Ativan for restlessness. She is unable to sit due to pain she subsequent admitted to the medical floor for management of her multiple hematomas, pain, and likely need for placement. She carries a history of A. fib, HLD, hypertension, prior PR, chronic venous insufficiency, recurrent pneumonia, pulmonary nodule, pulmonary hypertension, chronic renal insufficiency, recurrent UTI, urinary incontinence, arthritis, RLS, history of AV fistula with repair, chronic anticoagulation, lymphedema. She is a DNR/DNI. Her primary care provider is Dr. Soto. Diagnosis: Stroke: No - Discharge Data Discharge Date: 03/10/21 (Admit date: 03/06/2021) Discharge Disposition: DC/Tfer to SNF 03 Condition: Good - Referral to Home Health Primary Care Physician: Shorty Soto MD - Discharge Diagnosis/Problem(s) (1) Chronic venous insufficiency SNOMED Code(s): 99117281, 00637484 ICD Code: I87.2 - VENOUS INSUFFICIENCY (CHRONIC) (PERIPHERAL) Status: Chronic Priority: Low (2) Afib SNOMED Code(s): 59447674 ICD Code: I48.91 - UNSPECIFIED ATRIAL FIBRILLATION Status: Chronic Priority: Low Qualifiers: Atrial fibrillation type: paroxysmal Qualified Code(s): I48.0 - Paroxysmal atrial fibrillation (3) HLD (hyperlipidemia) SNOMED Code(s): 78666405 ICD Code: E78.5 - HYPERLIPIDEMIA, UNSPECIFIED Status: Chronic Priority: Low Qualifiers: Hyperlipidemia type: unspecified Qualified Code(s): E78.5 - Hyperlipidemia, unspecified (4) History of recurrent pneumonia SNOMED Code(s): 809674746 ICD Code: Z87.01 - PERSONAL HISTORY OF PNEUMONIA (RECURRENT) Status: Chronic Priority: Low (5) History of recurrent UTI (urinary tract infection) SNOMED Code(s): 487759638 ICD Code: Z87.440 - PERSONAL HISTORY OF URINARY (TRACT) INFECTIONS Status: Chronic Priority: Low (6) Pulmonary hypertension SNOMED Code(s): 24562823 ICD Code: I27.20 - PULMONARY HYPERTENSION, UNSPECIFIED Status: Chronic Priority: Medium (7) Personal history of arterial venous malformation (AVM) SNOMED Code(s): 282236421 ICD Code: Z87.74 - PERSONAL HISTORY OF CONGENITAL MALFORM OF HEART AND CIRC SYS Status: Chronic Priority: Low (8) Restless leg syndrome SNOMED Code(s): 91744681 ICD Code: G25.81 - RESTLESS LEGS SYNDROME Status: Chronic Priority: Medium (9) Anemia SNOMED Code(s): 654301171 ICD Code: D64.9 - ANEMIA, UNSPECIFIED Status: Acute Priority: High Qualifiers: Anemia type: unspecified type Qualified Code(s): D64.9 - Anemia, unspecified (10) Chronic renal insufficiency, stage III (moderate) SNOMED Code(s): 209365465 ICD Code: N18.30 - CHRONIC KIDNEY DISEASE, STAGE 3 UNSPECIFIED Status: Chronic Priority: Medium Qualifiers: Chronic kidney disease stage 3 subtype: stage 3b (GFR 30-44) Qualified Code(s): N18.32 - Chronic kidney disease, stage 3b (11) Contusion of buttock SNOMED Code(s): 30914775 ICD Code: S30.0XXA - CONTUSION OF LOWER BACK AND PELVIS, INITIAL ENCOUNTER Status: Acute Priority: High Qualifiers: Encounter type: initial encounter Qualified Code(s): S30.0XXA - Contusion of lower back and pelvis, initial encounter (12) Contusion of left back wall of thorax, initial encounter SNOMED Code(s): 06772810134049326, 85744998027557496 ICD Code: S20.222A - CONTUSION OF LEFT BACK WALL OF THORAX, INITIAL ENCOUNTER Status: Acute Priority: High (13) Contusion of lower back and pelvis, initial encounter SNOMED Code(s): 34389299 ICD Code: S30.0XXA - CONTUSION OF LOWER BACK AND PELVIS, INITIAL ENCOUNTER Status: Acute Priority: High (14) Laceration of scalp without complication SNOMED Code(s): 324275246 ICD Code: S01.01XA - LACERATION WITHOUT FOREIGN BODY OF SCALP, INITIAL ENCOUNTER Status: Acute Priority: High Qualifiers: Encounter type: initial encounter Qualified Code(s): S01.01XA - Laceration without foreign body of scalp, initial encounter (15) Recurrent falls SNOMED Code(s): 384718437 ICD Code: R29.6 - REPEATED FALLS Status: Acute Priority: High (16) Traumatic hematoma of buttock SNOMED Code(s): 83705033, 657182585 ICD Code: S30.0XXA - CONTUSION OF LOWER BACK AND PELVIS, INITIAL ENCOUNTER Status: Acute Priority: High Qualifiers: Encounter type: initial encounter Qualified Code(s): S30.0XXA - Contusion of lower back and pelvis, initial encounter (17) Chronic anticoagulation SNOMED Code(s): 993371930 ICD Code: Z79.01 - RADIOLOGY MANAGER (CURRENT) USE OF ANTICOAGULANTS Status: Chronic Priority: High (18) History of PR (myocardial infarction) SNOMED Code(s): 501147234 ICD Code: I25.2 - OLD MYOCARDIAL INFARCTION Status: Chronic Priority: Low (19) Hypertension SNOMED Code(s): 29263534 ICD Code: I10 - ESSENTIAL (PRIMARY) HYPERTENSION Status: Chronic Priority: Medium Qualifiers: Hypertension type: unspecified Qualified Code(s): I10 - Essential (primary) hypertension (20) Lymphedema SNOMED Code(s): 312287631 ICD Code: I89.0 - LYMPHEDEMA, NOT ELSEWHERE CLASSIFIED Status: Chronic Priority: Medium (21) Pulmonary nodule SNOMED Code(s): 817906075 ICD Code: R91.1 - SOLITARY PULMONARY NODULE Status: Chronic Priority: Low (22) Urinary incontinence SNOMED Code(s): 212575380 ICD Code: R32 - UNSPECIFIED URINARY INCONTINENCE Status: Chronic Priority: Low Qualifiers: Urinary Incontinence type: unspecified incontinence Qualified Code(s): R32 - Unspecified urinary incontinence (23) Elevated CK SNOMED Code(s): 492843055 ICD Code: R74.8 - ABNORMAL LEVELS OF OTHER SERUM ENZYMES Status: Acute Priority: High (24) Atelectasis SNOMED Code(s): 62712437 ICD Code: J98.11 - ATELECTASIS Status: Acute Priority: Medium - Patient Summary/Data Consults: Consultations 03/07/21 07:49 Consult to Case Management/Accounts Payable Or Receivable Clerk [CONS] Routine Consult to Spiritual Care [CONS] Routine 03/07/21 07:50 OT Evaluation and Treatment [CONS] Routine PT Evaluation and Treatment [CONS] Routine 03/07/21 17:16 Consult to Physical Therapy [PT Evaluation and Treatment] [CONS] Routine Consult to Speech Language Pathology [CONTRACTS ADVISOR Evaluation and Treatment] [CONS] Routine Labs Pending at D/C: None Recommended Follow-up Testing/Procedures: Follow-up with primary care provider within 7 to 10 days of discharge, sooner if needed. -Recommend repeat CBC, CMP, and magnesium at that visit. -Patient discharged on Percocet and Tylenol as needed for pain. -Patient weaned off oxygen prior to discharge. Please monitor need for continued oxygen. Hospital Course: This is a [age]-year-old female who presented to ED on 03/06/2021 after a fall at [facility] where she resides. History of A. fib, HLD, hypertension, prior PR, chronic venous insufficiency, recurrent pneumonia, pulmonary nodule, pulmonary hypertension, chronic renal insufficiency, recurrent UTI, urinary incontinence, arthritis, RLS, history of AV fistula with repair, chronic anticoagulation, lymphedema. Per patient and family she has been having multiple falls lately and is on Plavix. She is noted to have significant ecchymosis on her back and left buttocks in the ED. Twelve-lead EKG showed sinus tachycardia with Q waves in leads III and aVF. Left atrial hypertrophy was suggested and there was a repolarization abnormality noted as well with very minor ST depression in 3-5. QT segment was moderately prolonged. She was noted to have a occipital lesion approximately 6 cm in length on her left side and four 4-0 sutures were [address]. Head CT was obtained showing mucosal thickening and senescent change but nothing acute. CT of the chest was obtained and showed incidental findings but nothing acute. CT of the cervical spine was obtained and although significant artifact was noted there was nothing acute found. CT of the abdomen is obtained showing a soft tissue abnormality within the posterior right paraspinal fat which measures approximate 11.0 cm x 3.1 cm x 13.4 cm consistent with prominent subcutaneous hematoma. She does have some baseline CKD and this was stable throughout her stay. Hemoglobin did drop, as she was 8.1 on admission and 6.8 the following day. Per family they have been dealing with her being anemic for some time. She is given 2 units of packed red cells. As her hemoglobin was rapidly decreasing a repeat CT of the chest abdomen pelvis was obtained which was grossly stable. Hemoglobin did remain stable after her 2 units. Occult stool was negative. She was reporting significant left lower extremity pain and bilateral Doppler ultrasound was obtained to rule out DVT. None was found. She was requiring 1 L of oxygen which was likely secondary to narcotic pain use. She was weaned off oxygen prior to discharge. Was reporting significant pain in her IV and p.o. pain medications were titrated up until fairly stable pain management was obtained. She did work with PT and OT who are recommending SNF placement. There were some concerns with her swallowing and she did see speech-language pathology who recommended regular diet with thin liquids and no further treatment. Given her history of frequent falls MRI was obtained which showed senescent change and stable findings within the mastoid sinus. No acute findings were noted. Carotid ultrasound was obtained showing mild plaque with velocity measurements within the normal limits. There is antegrade flow within both vertebral arteries noted. Patient was on telemetry throughout her stay and there were no calls on this. Patient did have a Unna boot on her left leg which was in place prior to admission. This was removed when the patient was reporting leg pain and reapplied. CK was monitored and was elevated, up to 395 at its highest. This did trend downward with gentle IV hydration. Patient was ultimately excepted at [facility]. She was discharged there today. Recommend follow- up with primary care provider within 7 to 10 days of discharge, sooner if needed. Recommend recheck CMP, CBC, and magnesium at that visit. Continue PT and OT at SNF. Monitor need for oxygen if saturations drop below 90%. Should be discharged on every 4 hours as needed Tylenol and every 6 hours as needed 1-2 tabs of Percocet. She also be discharged on every 12 hours scheduled Colace. This can be weaned down as the patient becomes more mobile or weans off of her narcotic pain medications. She was utilizing incentive spirometer while here and was instructed to continue using this for 1 to 2 days or until symptoms resolve. Family was at bedside and involved in her care. Home medications were continued with the exception of her statin which was discontinued. - Patient Instructions Diet: Usual Diet as Tolerated Activity: As Tolerated Driving: Do Not Drive Showering/Bathing: May Shower Notify Provider of: Fever, Increased Pain, Nausea and/or Vomiting Other/Special Instructions: Follow-up with primary care provider within 7-10 days of discharge, sooner if needed. Sutures in occipital region of head should be removed 10 days after placement. These were placed on 03/06/2021. Take Tylenol for lesser pain and Percocet for more severe pain. Percocet can make you sleepy and impair your ability to drive or operate machinery. It may also make you constipated. You were prescribed a laxative/stool softener for this. Try to wean off of Percocet as soon as possible. Continue PT/OT at SNF. You are discharged on room air. SNF staff should monitor need for oxygen, especially while taking narcotics, and apply as needed. Saturation should be greater than 90%. Resume home medications as directed. Continue to use your incentive spirometer (clear/blue device you inhale through) for 1-2 more weeks or until symptoms resolve. Should symptoms return or worsen contact primary care provider return the emergency room. - Discharge Plan *PRESCRIPTION DRUG MONITORING PROGRAM REVIEWED*: Yes *COPY OF PRESCRIPTION DRUG MONITORING REPORT IN PATIENT SHAUN: No Prescriptions/Med Rec: Docusate Sodium [Colace] 100 mg PO BID #40 cap Acetaminophen/oxyCODONE [Percocet 325-5 MG] 1 - 2 tab PO Q4H PRN #60 tablet PRN Reason: Pain Acetaminophen [Tylenol] 650 mg PO Q4H PRN #20 tablet PRN Reason: Pain (Mild 1-3)/fever Home Medications: Home Meds Loratadine [Allergy] 10 mg PO DAILY PRN 02/18/20 [History] Clopidogrel Bisulfate [Plavix] 75 mg PO DAILY 04/01/20 [History] Nitroglycerin 0.4 mg SL ASDIRECTED PRN 04/01/20 [History] Enalapril Maleate 40 mg PO DAILY 09/09/20 [History] Folic Acid 1 mg PO DAILY 09/09/20 [History] Furosemide 20 mg PO Q48H 09/09/20 [History] Pramipexole [Mirapex] 0.5 mg PO BID 09/09/20 [History] Cranberry Conc/Ascorbic Acid [Cranberry Concentrate Softgel] 1 tab PO DAILY 09/13/20 [History] ondansetron HCL [Zofran] 4 mg PO QID PRN 01/19/21 [History] Acetaminophen [Tylenol Arthritis] 1,000 mg PO BID 03/07/21 [History] Cholecalciferol (Vitamin D3) [Vitamin D3] 125 mcg PO DAILY 03/07/21 [History] Furosemide 20 mg PO 12 03/07/21 [History] Furosemide 40 mg PO Q48H 03/07/21 [History] Labetalol [Normodyne] 200 mg PO BID 03/07/21 [History] Lysine HCl [l-Lysine] 1 cap PO DAILY 03/07/21 [History] Sertraline [Zoloft] 50 mg PO BEDTIME 03/07/21 [History] allopurinoL [Zyloprim] 50 mg PO DAILY 03/07/21 [History] Acetaminophen [Tylenol] 650 mg PO Q4H PRN #20 tablet 03/10/21 [Rx] Acetaminophen/oxyCODONE [Percocet 325-5 MG] 1 - 2 tab PO Q4H PRN #60 tablet 03/10/21 [Rx] Docusate Sodium [Colace] 100 mg PO BID #40 cap 03/10/21 [Rx] Oxygen Therapy Mode: Room Air Maintain SpO2% greater than: 90 Patient Handouts: Understanding Your Risk for Falls, Sutures, Nenita, or Adhesive Wound Closure, [id number] Referrals: Fred Cobos MD [Ordering Only Provider] - (Provider to see on rounds at custodial or sooner of needed.) - Discharge Summary/Plan Comment DC Time >30 min.: Yes Total # of Minutes for Discharge Time: 45 Mins - General Info Date of Service: 03/10/21 Admission Dx/Problem (Free Text: Admission Diagnosis/Problem Admission Diagnosis/Problem Recurrent falls Functional Status: Reports: Pain Controlled, Tolerating Diet, Ambulating (a few steps ), Urinating, Incentive Spirometry. Denies: New Symptoms - Review of Systems General: Reports: No Symptoms, Weakness. Denies: Fever, Fatigue, Malaise, Chills HEENT: Reports: No Symptoms. Denies: Headaches, Sore Throat Pulmonary: Reports: No Symptoms. Denies: Shortness of Breath, Cough, Sputum, Wheezing Cardiovascular: Reports: Edema. Denies: Chest Pain, Palpitations, Dyspnea on Exertion Gastrointestinal: Reports: No Symptoms. Denies: Abdominal Pain, Constipation, Diarrhea, Nausea, Vomiting Genitourinary: Reports: No Symptoms. Denies: Pain Musculoskeletal: Reports: Back Pain, Leg Pain, Joint Pain Skin: Reports: Bruising. Denies: Cyanosis Neurological: Reports: Difficulty Walking, Weakness, Gait Disturbance. Denies: Confusion, Dizziness, Headache, Numbness, Pre-Existing Deficit, Syncope, Tingling Psychiatric: Reports: No Symptoms - Patient Data Vitals - Most Recent: Last Vital Signs Temp 97.0 F 03/10/21 07:48 Pulse 85 03/10/21 07:49 Resp 14 03/10/21 07:48 BP 156/60 H 03/10/21 07:48 Pulse Ox 95 03/10/21 07:49 Weight - Most Recent: 178 lb 8 oz I&O - Last 24 hours: Intake & Output 03/09/21 03/10/21 03/10/21 22:59 06:59 14:59 Intake Total 1040 200 Output Total 1450 800 Balance -410 -600 Lab Results - Last 24 hrs: Laboratory Results - last 24 hr 03/10/21 03/10/21 03/10/21 Range/Units 04:30 04:30 06:45 WBC 7.22 (3.98-10.04) K/mm3 RBC 2.92 L (3.98-5.22) M/mm3 Hgb 9.1 L (11.2-15.7) gm/dl Hct 29.4 L (34.1-44.9) % MCV 100.7 H (79.4-94.8) fl MCH 31.2 (25.6-32.2) pg MCHC 31.0 L (32.2-35.5) g/dl RDW Std Deviation 58.9 H (36.4-46.3) fL Plt Count 320 (182-369) K/mm3 MPV 10.7 (9.4-12.3) fl Neut % (Auto) 71.6 H (34.0-71.1) % Lymph % (Auto) 11.6 L (19.3-51.7) % Boyd % (Auto) 10.9 (4.7-12.5) % Eos % (Auto) 5.3 (0.7-5.8) Baso % (Auto) 0.3 (0.1-1.2) % Neut # (Auto) 5.17 (1.56-6.13) K/mm3 Lymph # (Auto) 0.84 L (1.18-3.74) K/mm3 Boyd # (Auto) 0.79 H (0.24-0.36) K/mm3 Eos # (Auto) 0.38 H (0.04-0.36) K/mm3 Baso # (Auto) 0.02 (0.01-0.08) K/mm3 Sodium 147 H (136-145) mEq/L Potassium 3.6 (3.5-5.1) mEq/L Chloride 110 H (98-107) mEq/L Carbon Dioxide 28 (21-32) mEq/L Anion Gap 12.6 (5-15) BUN 28 H (7-18) mg/dL Creatinine 1.1 H (0.55-1.02) mg/dL Est Cr Clr Drug Dosing 32.87 mL/min Estimated GFR (MDRD) 47 (>60) mL/min BUN/Creatinine Ratio 25.5 H (14-18) Glucose 99 (70-99) mg/dL Calcium 8.1 L (8.5-10.1) mg/dL Magnesium 2.2 (1.8-2.4) mg/dL Total Bilirubin 1.5 H (0.2-1.0) mg/dL AST 30 (15-37) U/L ALT 25 (14-59) U/L Alkaline Phosphatase 79 (46-116) U/L Creatine Kinase 208 H (26-192) U/L Total Protein 6.1 L (6.4-8.2) g/dl Albumin 2.9 L (3.4-5.0) g/dl Globulin 3.2 gm/dL Albumin/Globulin Ratio 0.9 L (1-2) SARS-CoV-2 RNA (SERGEI) Negative (NEGATIVE) JESSIE Results - Last 24 hrs: Microbiology 03/09/21 08:10 Stool Occult Blood (JESSIE) - Final Stool / Feces Med Orders - Current: Current Medications Acetaminophen (Acetaminophen 325 Mg Tab) 650 mg PO Q4H PRN PRN Reason: Pain (Mild 1-3)/fever Acetaminophen (Acetaminophen 325 Mg Tab) 975 mg PO BID [facility] Last Admin: 03/09/21 20:28 Dose: Not Given Documented by: Allopurinol (Allopurinol 100 Mg Tab) 50 mg PO DAILY [facility] Last Admin: 03/09/21 08:36 Dose: 50 mg Documented by: Clopidogrel Bisulfate (Clopidogrel 75 Mg Tab) 75 mg PO DAILY [facility] Last Admin: 03/09/21 10:04 Dose: 75 mg Documented by: Docusate Sodium (Docusate Sodium 100 Mg Cap) 100 mg PO BID [facility] Last Admin: 03/09/21 20:09 Dose: 100 mg Documented by: Enalapril Maleate (Enalapril 5 Mg Tab) 40 mg PO DAILY [facility] Last Admin: 03/09/21 08:45 Dose: 40 mg Documented by: Folic Acid (Folic Acid 1 Mg Tab) 1 mg PO DAILY [facility] Last Admin: 03/09/21 08:36 Dose: 1 mg Documented by: Furosemide (Furosemide 20 Mg Tab) 20 mg PO DAILY@1200 [facility] Last Admin: 03/09/21 13:28 Dose: 20 mg Documented by: Furosemide (Furosemide 40 Mg Tab) 40 mg PO Q48H [facility] Last Admin: 03/10/21 06:31 Dose: 40 mg Documented by: Furosemide (Furosemide 20 Mg Tab) 20 mg PO Q48H [facility] Last Admin: 03/09/21 06:40 Dose: 20 mg Documented by: Hydromorphone HCl (Hydromorphone 1 Mg/Ml Syringe) 2 mg IVPUSH Q2H PRN PRN Reason: Pain Last Admin: 03/10/21 04:51 Dose: 2 mg Documented by: Labetalol HCl (Labetalol 100 Mg Tab) 200 mg PO BID [facility] Last Admin: 03/09/21 20:09 Dose: 200 mg Documented by: Ondansetron HCl (Ondansetron 4 Mg/2 Ml Sdv) 4 mg IVPUSH Q6H PRN PRN Reason: Nausea Oxycodone/Acetaminophen (Acetaminophen/Oxycodone 325-5 Mg Tab) 1 - 2 tab PO Q4H PRN PRN Reason: Pain Last Admin: 03/10/21 06:31 Dose: 2 tab Documented by: Pramipexole Dihydrochloride (Pramipexole 0.5 Mg Tab) 0.5 mg PO DAILY [facility] Last Admin: 03/09/21 08:45 Dose: 0.5 mg Documented by: Sertraline HCl (Sertraline 50 Mg Tab) 50 mg PO BEDTIME [facility] Last Admin: 03/09/21 20:09 Dose: 50 mg Documented by: Sodium Chloride (Sodium Chloride 0.9% 10 Ml Syringe) 10 ml FLUSH ASDIRECTED PRN PRN Reason: Keep Vein Open Last Admin: 03/06/21 18:39 Dose: 10 ml Documented by: Discontinued Medications Hydrocodone Bitart/Acetaminophen (Acetaminophen/Hydrocodone 325-5 Mg Tab) 1 tab PO Q4H PRN PRN Reason: Pain (moderate 4-6) Last Admin: 03/09/21 06:40 Dose: 1 tab Documented by: Furosemide (Furosemide 20 Mg Tab) 20 mg PO DAILY [facility] Last Admin: 03/07/21 09:20 Dose: 20 mg Documented by: Furosemide (Furosemide 20 Mg/2 Ml Vial) 20 mg IVPUSH ONETIME ONE Stop: 03/07/21 10:01 Last Admin: 03/07/21 15:20 Dose: 20 mg Documented by: Hydromorphone HCl (Hydromorphone 0.5 Mg/0.5 Ml Syringe) 0.25 mg IVPUSH ONETIME ONE Stop: 03/06/21 18:29 Last Admin: 03/06/21 18:38 Dose: 0.25 mg Documented by: Hydromorphone HCl (Hydromorphone 0.5 Mg/0.5 Ml Syringe) 0.5 mg IVPUSH ONETIME ONE Stop: 03/06/21 19:53 Last Admin: 03/06/21 19:58 Dose: 0.5 mg Documented by: Hydromorphone HCl (Hydromorphone 0.5 Mg/0.5 Ml Syringe) 0.5 mg IVPUSH Q2H PRN PRN Reason: Pain Last Admin: 03/08/21 20:07 Dose: 0.5 mg Documented by: Sodium Chloride (Normal Saline) 100 mls @ 75 mls/hr IV ASDIRECTED [facility] Stop: 03/07/21 13:00 Last Admin: 03/07/21 09:51 Dose: 75 mls/hr Documented by: Sodium Chloride (Normal Saline) 250 mls @ 100 mls/hr IV ASDIRECTED [facility] Stop: 03/07/21 15:00 Last Admin: 03/07/21 16:19 Dose: 100 mls/hr Documented by: Sodium Chloride (Normal Saline) 1,000 mls @ 75 mls/hr IV ASDIRECTED [facility] Stop: 03/09/21 21:19 Lactated Ringer's (Ringers, Lactated) 1,000 mls @ 60 mls/hr IV ASDIRECTED [facility] Stop: 03/10/21 00:39 Last Admin: 03/09/21 01:42 Dose: 60 mls/hr Documented by: Iopamidol (Iopamidol 612 Mg/Ml 100 Ml Bottle) 100 ml IVPUSH ONETIME ONE Stop: 03/07/21 09:12 Last Admin: 03/07/21 09:51 Dose: 100 ml Documented by: Labetalol HCl (Labetalol 100 Mg Tab) 100 mg PO BID [facility] Last Admin: 03/07/21 09:20 Dose: 100 mg Documented by: Lidocaine HCl (Lidocaine 1% 10 Ml Mdv) 10 ml INJECT ONETIME ONE Stop: 03/06/21 19:40 Last Admin: 03/06/21 19:59 Dose: 10 ml Documented by: Lidocaine/Tetracaine (Lidocaine/Epinephrine/Tetracaine Soln 1 Ml) 1 ml TOP ONETIME ONE Stop: 03/06/21 18:49 Last Admin: 03/06/21 19:34 Dose: 1 ml Documented by: Lorazepam (Lorazepam 2 Mg/Ml Sdv) 0.5 mg IV ONETIME ONE Stop: 03/06/21 20:54 Last Admin: 03/06/21 23:04 Dose: 0.5 mg Documented by: Ondansetron HCl (Ondansetron 4 Mg/2 Ml Sdv) 4 mg IVPUSH ONETIME ONE Stop: 03/06/21 19:53 Last Admin: 03/06/21 19:57 Dose: 4 mg Documented by: Sodium Chloride (Sodium Chloride 0.9% 10 Ml Syringe) 10 ml FLUSH ONETIME PRN PRN Reason: IV FLUSH Last Admin: 03/07/21 09:51 Dose: 10 ml Documented by: - Exam Quality Assessment: Reports: DVT Prophylaxis. Denies: Supplemental Oxygen, Urine Catheter General: Reports: Alert, Oriented, Cooperative, No Acute Distress HEENT: Reports: Pupils Equal, Pupils Reactive, Mucous Membr. Moist/[place] Neck: Reports: Supple, Trachea Midline Lungs: Reports: Clear to Auscultation, Normal Respiratory Effort Cardiovascular: Reports: Regular Rate, Irregular Rhythm GI/Abdominal Exam: Normal Bowel Sounds, Soft, Non-Tender, No Distention (Female) Exam: Deferred Rectal (Female) Exam: Deferred Back Exam: Reports: Normal Inspection, Decreased Range of Motion, Other (Significant bruising to upper and lower back and buttocks) Extremities: Normal Inspection, Normal Range of Motion, Non-Tender, Pedal Edema, Other (Scattered bruising) Skin: Reports: Warm, Dry, Intact, Ecchymosis (Scattered bruising throughout) Neurological: Reports: No New Focal Deficit Psy/Mental Status: Reports: Alert, Normal Affect, Normal Mood <Harjinder Renteria Jr - Last Filed: 03/11/21 05:54> Discharge Summary - Referral to Home Health Primary Care Physician: Shorty Soto MD - Patient Summary/Data Consults: Consultations 03/07/21 07:49 Consult to Case Management/Accounts Payable Or Receivable Clerk [CONS] Routine Consult to Spiritual Care [CONS] Routine 03/07/21 07:50 OT Evaluation and Treatment [CONS] Routine PT Evaluation and Treatment [CONS] Routine 03/07/21 17:16 Consult to Physical Therapy [PT Evaluation and Treatment] [CONS] Routine Consult to Speech Language Pathology [CONTRACTS ADVISOR Evaluation and Treatment] [CONS] Routine - Discharge Summary/Plan Comment Discharge Summary/Plan Comment: Case discussed in full. Agree with evaluation, assessment and plan. - Patient Data Vitals - Most Recent: Last Vital Signs Temp 97.0 F 03/10/21 07:48 Pulse 80 03/10/21 08:24 Resp 14 03/10/21 07:48 BP 143/65 H 03/10/21 08:24 Pulse Ox 95 03/10/21 07:49 I&O - Last 24 hours: Intake & Output 03/10/21 03/10/21 03/11/21 14:59 22:59 06:59 Intake Total 300 Output Total 500 Balance -200 Lab Results - Last 24 hrs: Laboratory Results - last 24 hr 03/10/21 03/10/21 03/10/21 Range/Units 04:30 04:30 06:45 WBC 7.22 (3.98-10.04) K/mm3 RBC 2.92 L (3.98-5.22) M/mm3 Hgb 9.1 L (11.2-15.7) gm/dl Hct 29.4 L (34.1-44.9) % MCV 100.7 H (79.4-94.8) fl MCH 31.2 (25.6-32.2) pg MCHC 31.0 L (32.2-35.5) g/dl RDW Std Deviation 58.9 H (36.4-46.3) fL Plt Count 320 (182-369) K/mm3 MPV 10.7 (9.4-12.3) fl Neut % (Auto) 71.6 H (34.0-71.1) % Lymph % (Auto) 11.6 L (19.3-51.7) % Boyd % (Auto) 10.9 (4.7-12.5) % Eos % (Auto) 5.3 (0.7-5.8) Baso % (Auto) 0.3 (0.1-1.2) % Neut # (Auto) 5.17 (1.56-6.13) K/mm3 Lymph # (Auto) 0.84 L (1.18-3.74) K/mm3 Boyd # (Auto) 0.79 H (0.24-0.36) K/mm3 Eos # (Auto) 0.38 H (0.04-0.36) K/mm3 Baso # (Auto) 0.02 (0.01-0.08) K/mm3 Sodium 147 H (136-145) mEq/L Potassium 3.6 (3.5-5.1) mEq/L Chloride 110 H (98-107) mEq/L Carbon Dioxide 28 (21-32) mEq/L Anion Gap 12.6 (5-15) BUN 28 H (7-18) mg/dL Creatinine 1.1 H (0.55-1.02) mg/dL Est Cr Clr Drug Dosing 32.87 mL/min Estimated GFR (MDRD) 47 (>60) mL/min BUN/Creatinine Ratio 25.5 H (14-18) Glucose 99 (70-99) mg/dL Calcium 8.1 L (8.5-10.1) mg/dL Magnesium 2.2 (1.8-2.4) mg/dL Total Bilirubin 1.5 H (0.2-1.0) mg/dL AST 30 (15-37) U/L ALT 25 (14-59) U/L Alkaline Phosphatase 79 (46-116) U/L Creatine Kinase 208 H (26-192) U/L Total Protein 6.1 L (6.4-8.2) g/dl Albumin 2.9 L (3.4-5.0) g/dl Globulin 3.2 gm/dL Albumin/Globulin Ratio 0.9 L (1-2) SARS-CoV-2 RNA (SERGEI) Negative (NEGATIVE) Med Orders - Current: Current Medications Discontinued Medications Acetaminophen (Acetaminophen 325 Mg Tab) 650 mg PO Q4H PRN PRN Reason: Pain (Mild 1-3)/fever Acetaminophen (Acetaminophen 325 Mg Tab) 975 mg PO BID [facility] Last Admin: 03/10/21 08:20 Dose: 975 mg Documented by: Hydrocodone Bitart/Acetaminophen (Acetaminophen/Hydrocodone 325-5 Mg Tab) 1 tab PO Q4H PRN PRN Reason: Pain (moderate 4-6) Last Admin: 03/09/21 06:40 Dose: 1 tab Documented by: Allopurinol (Allopurinol 100 Mg Tab) 50 mg PO DAILY [facility] Last Admin: 03/10/21 08:24 Dose: 50 mg Documented by: Clopidogrel Bisulfate (Clopidogrel 75 Mg Tab) 75 mg PO DAILY [facility] Last Admin: 03/10/21 08:25 Dose: 75 mg Documented by: Docusate Sodium (Docusate Sodium 100 Mg Cap) 100 mg PO BID [facility] Last Admin: 03/10/21 08:22 Dose: 100 mg Documented by: Enalapril Maleate (Enalapril 5 Mg Tab) 40 mg PO DAILY [facility] Last Admin: 03/10/21 08:21 Dose: 40 mg Documented by: Folic Acid (Folic Acid 1 Mg Tab) 1 mg PO DAILY [facility] Last Admin: 03/10/21 08:25 Dose: 1 mg Documented by: Furosemide (Furosemide 20 Mg Tab) 20 mg PO DAILY [facility] Last Admin: 03/07/21 09:20 Dose: 20 mg Documented by: Furosemide (Furosemide 20 Mg/2 Ml Vial) 20 mg IVPUSH ONETIME ONE Stop: 03/07/21 10:01 Last Admin: 03/07/21 15:20 Dose: 20 mg Documented by: Furosemide (Furosemide 20 Mg Tab) 20 mg PO DAILY@1200 [facility] Last Admin: 03/09/21 13:28 Dose: 20 mg Documented by: Furosemide (Furosemide 40 Mg Tab) 40 mg PO Q48H [facility] Last Admin: 03/10/21 06:31 Dose: 40 mg Documented by: Furosemide (Furosemide 20 Mg Tab) 20 mg PO Q48H [facility] Last Admin: 03/09/21 06:40 Dose: 20 mg Documented by: Hydromorphone HCl (Hydromorphone 0.5 Mg/0.5 Ml Syringe) 0.25 mg IVPUSH ONETIME ONE Stop: 03/06/21 18:29 Last Admin: 03/06/21 18:38 Dose: 0.25 mg Documented by: Hydromorphone HCl (Hydromorphone 0.5 Mg/0.5 Ml Syringe) 0.5 mg IVPUSH ONETIME ONE Stop: 03/06/21 19:53 Last Admin: 03/06/21 19:58 Dose: 0.5 mg Documented by: Hydromorphone HCl (Hydromorphone 0.5 Mg/0.5 Ml Syringe) 0.5 mg IVPUSH Q2H PRN PRN Reason: Pain Last Admin: 03/08/21 20:07 Dose: 0.5 mg Documented by: Hydromorphone HCl (Hydromorphone 1 Mg/Ml Syringe) 2 mg IVPUSH Q2H PRN PRN Reason: Pain Last Admin: 03/10/21 04:51 Dose: 2 mg Documented by: Sodium Chloride (Normal Saline) 100 mls @ 75 mls/hr IV ASDIRECTED [facility] Stop: 03/07/21 13:00 Last Admin: 03/07/21 09:51 Dose: 75 mls/hr Documented by: Sodium Chloride (Normal Saline) 250 mls @ 100 mls/hr IV ASDIRECTED [facility] Stop: 03/07/21 15:00 Last Admin: 03/07/21 16:19 Dose: 100 mls/hr Documented by: Sodium Chloride (Normal Saline) 1,000 mls @ 75 mls/hr IV ASDIRECTED [facility] Stop: 03/09/21 21:19 Lactated Ringer's (Ringers, Lactated) 1,000 mls @ 60 mls/hr IV ASDIRECTED [facility] Stop: 03/10/21 00:39 Last Admin: 03/09/21 01:42 Dose: 60 mls/hr Documented by: Iopamidol (Iopamidol 612 Mg/Ml 100 Ml Bottle) 100 ml IVPUSH ONETIME ONE Stop: 03/07/21 09:12 Last Admin: 03/07/21 09:51 Dose: 100 ml Documented by: Labetalol HCl (Labetalol 100 Mg Tab) 100 mg PO BID [facility] Last Admin: 03/07/21 09:20 Dose: 100 mg Documented by: Labetalol HCl (Labetalol 100 Mg Tab) 200 mg PO BID [facility] Last Admin: 03/10/21 08:24 Dose: 200 mg Documented by: Lidocaine HCl (Lidocaine 1% 10 Ml Mdv) 10 ml INJECT ONETIME ONE Stop: 03/06/21 19:40 Last Admin: 03/06/21 19:59 Dose: 10 ml Documented by: Lidocaine/Tetracaine (Lidocaine/Epinephrine/Tetracaine Soln 1 Ml) 1 ml TOP ONETIME ONE Stop: 03/06/21 18:49 Last Admin: 03/06/21 19:34 Dose: 1 ml Documented by: Lorazepam (Lorazepam 2 Mg/Ml Sdv) 0.5 mg IV ONETIME ONE Stop: 03/06/21 20:54 Last Admin: 03/06/21 23:04 Dose: 0.5 mg Documented by: Ondansetron HCl (Ondansetron 4 Mg/2 Ml Sdv) 4 mg IVPUSH ONETIME ONE Stop: 03/06/21 19:53 Last Admin: 03/06/21 19:57 Dose: 4 mg Documented by: Ondansetron HCl (Ondansetron 4 Mg/2 Ml Sdv) 4 mg IVPUSH Q6H PRN PRN Reason: Nausea Oxycodone/Acetaminophen (Acetaminophen/Oxycodone 325-5 Mg Tab) 1 - 2 tab PO Q4H PRN PRN Reason: Pain Last Admin: 03/10/21 06:31 Dose: 2 tab Documented by: Pramipexole Dihydrochloride (Pramipexole 0.5 Mg Tab) 0.5 mg PO DAILY [facility] Last Admin: 03/10/21 08:22 Dose: 0.5 mg Documented by: Sertraline HCl (Sertraline 50 Mg Tab) 50 mg PO BEDTIME [facility] Last Admin: 03/09/21 20:09 Dose: 50 mg Documented by: Sodium Chloride (Sodium Chloride 0.9% 10 Ml Syringe) 10 ml FLUSH ASDIRECTED PRN PRN Reason: Keep Vein Open Last Admin: 03/06/21 18:39 Dose: 10 ml Documented by: Sodium Chloride (Sodium Chloride 0.9% 10 Ml Syringe) 10 ml FLUSH ONETIME PRN PRN Reason: IV FLUSH Last Admin: 03/07/21 09:51 Dose: 10 ml Documented by:
[2021-03-10] MEDS: Acetaminophen 325 MG Tab PO SCH (08:20)
[2021-03-10] MEDS: Enalapril 5 MG Tab PO SCH (08:21)
[2021-03-10] MEDS: Docusate Sodium 100 MG Cap PO SCH (08:22)
[2021-03-10] MEDS: Pramipexole 0.5 MG Tab PO SCH (08:22)
[2021-03-10] MEDS: Allopurinol 100 MG Tab PO SCH (08:24)
[2021-03-10] MEDS: Labetalol 100 MG Tab PO SCH (08:24)
[2021-03-10] MEDS: Clopidogrel 75 MG Tab PO SCH (08:25)
[2021-03-10] MEDS: Folic Acid 1 MG Tab PO SCH (08:25)
[2021-03-10 08:26] VITALS: BP 143/65; PULSE 80
== END 2021-03-10 10:45 | DRG 605 ==
LOC: JD.ED 18:03 → JD.MS 21:43
PROVIDERS: ADMIT Hospitalist; ATTEND Hospitalist
PROC: 30233N1 Transfusion of Nonautologous Red Blood Cells into Peripheral Vein, Percutaneous Approach (ICD-10-PCS; principal; 2021-03-07)
DX: R29.6 Repeated falls (principal); S30.0XXA Contusion of lower back and pelvis, initial encounter; J98.11 Atelectasis; S01.01XA Laceration without foreign body of scalp, initial encounter; S20.222A Contusion of left back wall of thorax, initial encounter; D64.9 Anemia, unspecified; Z66 Do not resuscitate; Z20.822 Contact with and (suspected) exposure to COVID-19; I87.2 Venous insufficiency (chronic) (peripheral); I48.91 Unspecified atrial fibrillation; I48.0 Paroxysmal atrial fibrillation; E78.5 Hyperlipidemia, unspecified; I27.20 Pulmonary hypertension, unspecified; N39.3 Stress incontinence (female) (male); G25.81 Restless legs syndrome; N18.32 Chronic kidney disease, stage 3b; I12.9 Hypertensive chronic kidney disease with stage 1 through stage 4 chronic kidney disease, or unspecified chronic kidney disease; I89.0 Lymphedema, not elsewhere classified; R91.1 Solitary pulmonary nodule; R32 Unspecified urinary incontinence; R74.8 Abnormal levels of other serum enzymes; I45.81 Long QT syndrome; E78.00 Pure hypercholesterolemia, unspecified; H91.93 Unspecified hearing loss, bilateral; H54.7 Unspecified visual loss; M19.90 Unspecified osteoarthritis, unspecified site; Z88.2 Allergy status to sulfonamides; Z88.8 Allergy status to other drugs, medicaments and biological substances; Z88.7 Allergy status to serum and vaccine; Z87.01 Personal history of pneumonia (recurrent); Z87.440 Personal history of urinary (tract) infections; Z87.74 Personal history of (corrected) congenital malformations of heart and circulatory system; Z79.01 Long term (current) use of anticoagulants; I25.2 Old myocardial infarction; Z79.899 Other long term (current) drug therapy; Z90.710 Acquired absence of both cervix and uterus; Z98.890 Other specified postprocedural states; Z91.81 History of falling; W19.XXXA Unspecified fall, initial encounter
CPT/HCPCS: 12001; 36415; 70450; 71250; 72125; 74176; 80053; 81001; 82550; 84484; 85025; 85610; 85730; 93005; 96374; 96375; 96376; 99285; J1170 ×2; J2405; U0002; 12002; 29580-GP; 36430; 51701; 51798; 70551; 70551-26; 71260; 71260-26; 74177; 74177-26; 82272; 83735; 83880; 85014; 85018; 86850; 86900; 86901; 86922; 87641; 92610-GN; 93010; 93880; 93880-26; 93970; 93970-26; 94760; 94761; 97162-GP; 97530-GP; 99222; 99232; 99239; 99284; A9270-GY; J1940; J2060; J7050; J7120; P9016; Q9967